=== PATIENT | male | born 1940 | race Native Hawaiian/Other Pacific Islander ===

== ENCOUNTER 2017-04-08 18:07 | Inpatient (IN) | payer MEDICARE, OTHER ==
[2017-04-08] MEDS ORDERED: Sodium Chloride 0.9% 1,000 ML IV SCH (18:45)
[2017-04-08 18:46] LABS: VENOUS BLOOD GAS PO2 96 mm/Hg (30-55); VENOUS BLOOD PH 7.41 (7.32-7.43)
[2017-04-08 18:51] LABS: BASO # 0.01 K/mm3 (0.0-2.0); BASO % 0.1 % (0.0-3.0); GRAN % 91.9 % (50.0-68.0); HEMOGLOBIN 16.3 g/dL (14.0-18.0); LYMPH # 0.5 (1.2-3.4); LYMPH % 3.6 % (22.0-35.0); MEAN CELL VOLUME 87.5 fl (80.0-105.0); MEAN CORPUSCULAR HEMOGLOBIN 31.3 pg (25.0-35.0); MEAN CORPUSCULAR HGB CONC 35.8 g/dl (31.0-37.0); MEAN PLATELET VOLUME 11.7 fl (7.0-11.0); MONO # 0.6 (0.1-0.6); MONO % 4.4 % (1.0-6.0); PLATELET COUNT 93 10^3/uL (120.0-450.0); WHITE BLOOD COUNT 13.1 10^3/ul (4.5-11.0)
--- NOTE | 2017-04-08 18:53 | ED PDOC ---
Arrival/HPI - General Historian: Family EM Caveat: Altered Mental Status <Hubert Robert - Last Filed: 04/08/17 22:21> <Wesley Irving DO - Last Filed: 04/08/17 22:41> - General Chief Complaint: Altered Mental Status Time Seen by Provider: 04/08/17 18:10 - History of Present Illness Narrative History of Present Illness (Text): 04/08/17 18:46 76M w/ relevant pmhx of liver cirrhosis, presents to [facility] ED w/ altered mental status and lethargy not responding appropriately to questions. Patient was found breathing spontaneously, however non-verbal, for an unknown period of time. Family members at bedside stated that base line is active, walking, independent ADLs. Family member spoke to patient on phone yesterday and found that patient was talking in a more quiet tone than normal. Further ROS unobtainable. No additional PMH known by family. PMD: Syd 04/08/17 20:34 04/08/17 21:16 (Hubert Robert) Past Medical History - Provider Review Nursing Documentation Reviewed: Yes - Travel History Have you recently traveled outside [place] w/in the past 3 mons?: No - Past History Past History: Unable to Obtain - Infectious Disease Hx of Infectious Diseases: None - Psychiatric Hx Substance Use: No <Hubert Robert - Last Filed: 04/08/17 22:21> Family/Social History - Physician Review Nursing Documentation Reviewed: Yes Family/Social History: No Known Family HX Smoking Status: Unknown If Ever Smoked Hx Alcohol Use: No Hx Substance Use: No <Hubert Robert - Last Filed: 04/08/17 22:21> Allergies/Home Meds <Hubert Robert - Last Filed: 04/08/17 22:21> <Wesley Irving DO - Last Filed: 04/08/17 22:41> Allergies/Adverse Reactions: Allergies Unobtainable Allergy (Verified 04/08/17 18:21) Home Medications: Home Meds Medication Instructions Recorded Confirmed Unobtainable 04/08/17 04/08/17 Review of Systems - Review of Systems Systems not reviewed;Unavailable: Altered Mental Status <Hubert Robert - Last Filed: 04/08/17 22:21> Physical Exam - Physical Exam Physical Exam Limitations: Altered Mental Status Temperature: Afebrile Blood Pressure: Hypertensive Pulse: Regular Respiratory Rate: Normal Appearance: Positive for: Ill-Appearing Mental Status: Positive for: Lethargic. No: Alert and Oriented X 3 - Systems Exam Head: Present: Atraumatic Pupils: Present: PERRL Extroacular Muscles: Present: EOMI Mouth: Present: Dry. No: Moist Mucous Membranes Pharnyx: Present: Other (Dry mucous membrane; chapped lips) Respiratory/Chest: Present: Decreased Breath Sounds Cardiovascular: Present: Regular Rate and Rhythm, Normal S1, S2. No: Murmurs, Tachycardic, Bradycardic Abdomen: Present: Normal Bowel Sounds. No: Tenderness, Distention Upper Extremity: Present: NORMAL PULSES Lower Extremity: Present: NORMAL PULSES, Other (hallux valgus) Neurological: No: GCS=15, Speech Normal Skin: Present: Dry Psychiatric: No: Oriented x 3 <Hubert Robert - Last Filed: 04/08/17 22:21> Vital Signs Temp Pulse Resp BP Pulse Ox 04/08/17 21:00 76 18 179/96 H 100 04/08/17 19:14 69 22 168/90 H 100 04/08/17 18:17 99.1 F 70 18 189/96 H 100 Medical Decision Making Re-evaluation Time: 20:00 (Patient was given 50mg of benadryl. At that time patient was more responsive, and moved upper extremities) <Hubert Robert - Last Filed: 04/08/17 22:21> <Wesley Irving DO - Last Filed: 04/08/17 22:41> ED Course and Treatment: 04/08/17 19:02 CBC CMP Amonia VBG shock CXR EKG Head CT 04/08/17 20:08 ICU consulted 04/08/17 20:10 50mg of Benadryl given. Patient began to move extremities and audible talking 04/08/17 22:24 Lumbar puncture was performed at bedside by ICU attending and resident. Procedure successfully performed under ultrasound. (Hubert Robert) - Lab Interpretations Lab Results: 04/08/17 18:15 04/08/17 18:15 Lab Results 04/08/17 20:29: POC Glucose (mg/dL) 159 H 04/08/17 19:30: Alcohol, Quantitative < 10 04/08/17 18:45: Urine Opiates Screen Negative, Urine Methadone Screen Negative, Ur Barbiturates Screen Negative, Ur Phencyclidine Scrn Negative, Ur Amphetamines Screen Negative, U Benzodiazepines Scrn Negative, U Oth Cocaine Metabols Negative, U Cannabinoids Screen Negative 04/08/17 18:45: Urine Color Dark yellow, Urine Appearance Sl cloudy, Urine pH 6.0, Ur Specific [place] 1.025, Urine Protein 30 H, Urine Glucose (UA) Negative , Urine Ketones Negative, Urine Blood Small H, Urine Nitrate Negative, Urine Bilirubin Small H, Urine Urobilinogen 0.2, Ur Leukocyte Esterase Negative, Urine RBC 1 - 3, Urine WBC 2 - 5, Ur Epithelial Cells 4 - 5, Amorphous Sediment Few, Urine Bacteria Mod 04/08/17 18:15: pO2 96 H, VBG pH 7.41, VBG pCO2 29.0 L, VBG HCO3 18.4 L, VBG Total CO2 19.3 L, VBG O2 Sat (Calc) 95.8 H, VBG Base Excess -5.0 L, VBG Potassium 4.5, Sodium 142.0, Chloride 111.0 H, Glucose 230 H, Lactate 1.9, FiO2 21.0, Venous Blood Potassium 4.5 04/08/17 18:15: Ammonia 11 04/08/17 18:15: Sodium 147, Chloride 110 H, Potassium 4.4, Carbon Dioxide 17 L, Anion Gap 24 H, BUN 73 H, Creatinine 3.3 H, Est GFR ( Amer) 22, Est GFR ( Non-Af Amer) 18, Random Glucose 226 H, Calcium 9.7, Magnesium 2.9 H, Total Bilirubin 4.5 H, AST 94 H, ALT 84 H, Alkaline Phosphatase 83, Lactate Dehydrogenase 624, Total Creatine Kinase 83, Troponin I 0.05, NT-Pro-B Natriuret Pep 3830 H, Total Protein 8.1, Albumin 4.4, Globulin 3.8, Albumin/ Globulin Ratio 1.1 04/08/17 18:15: PT 12.9 H, INR 1.13 H, APTT 38.7 H 04/08/17 18:15: WBC 13.1 H, RBC 5.20, Hgb 16.3, Hct 45.5, MCV 87.5, MCH 31.3, MCHC 35.8, RDW 13.0, Plt Count 93 L, MPV 11.7 H, Gran % 91.9 H, Lymph % (Auto) 3.6 L, [place] % (Auto) 4.4, Eos % (Auto) 0.0 L, Baso % (Auto) 0.1, Gran # 12.00 H , Lymph # (Auto) 0.5 L, [place] # (Auto) 0.6, Eos # (Auto) 0.0, Baso # (Auto) 0.01 , Neutrophils % (Manual) 84 H, Band Neutrophils % 6 H, Lymphocytes % (Manual) 5 L, Monocytes % (Manual) 5, Platelet Evaluation Low - RAD Interpretation Narrative RAD Interpretations (Text): Chest CT reviewed: No acute intracranial hemorrhage or acute infarct. (Hubert Robert) Radiology Orders: 04/08/17 18:28 HEAD W/O CONTRAST [CT] Stat CHEST ONE VIEW [RAD] Stat - Medication Orders Current Medication Orders: Sodium Chloride (Sodium Chloride 0.9%) 1,000 mls @ 100 mls/hr IV .Q10H JORGITO Last Admin: 04/08/17 19:20 Dose: 100 mls/hr eMAR Start Stop Document 04/08/17 19:20 SRE (Rec: 04/08/17 19:20 [id number]) Intravenous Solution Start Date 04/08/17 Start Time 19:20 Discontinued Medications Diphenhydramine HCl (Benadryl) 25 mg IVP STAT STA Stop: 04/08/17 21:05 Last Admin: 04/08/17 21:10 Dose: 25 mg IVP Administration Document 04/08/17 21:10 LA (Rec: 04/08/17 21:10 [id number]) Charges for Administration # of IVP Administrations 1 Diphenhydramine HCl (Benadryl) 25 mg IVP STAT STA Stop: 04/08/17 21:19 Last Admin: 04/08/17 22:11 Dose: Sodium Chloride (Sodium Chloride 0.9%) 1,000 mls @ 999 mls/hr IV .Q1H1M STA Stop: 04/08/17 21:07 Last Admin: 04/08/17 20:18 Dose: 999 mls/hr eMAR Start Stop Document 04/08/17 20:18 LA (Rec: 04/08/17 20:18 [id number]) Intravenous Solution Start Date 04/08/17 Start Time 20:18 Ceftriaxone Sodium (Rocephin 2 Gm Ivpb) 2 gm in 100 mls @ 100 mls/hr IVPB STAT STA PRN Reason: Protocol Stop: 04/08/17 22:17 Last Admin: 04/08/17 22:14 Dose: 100 mls/hr eMAR Start Stop Document 04/08/17 22:14 LA (Rec: 04/08/17 22:14 [id number]) Intravenous Solution Start Date 04/08/17 Start Time 22:14 Lidocaine HCl (Lidocaine 2% 20ml Vial) 5 ml IJ ONCE STA Stop: 04/08/17 21:13 Lorazepam (Ativan) 1 mg IVP ONCE ONE PRN Reason: Protocol Stop: 04/08/17 21:06 Last Admin: 04/08/17 21:22 Dose: 1 mg IVP Administration Document 04/08/17 21:22 LA (Rec: 04/08/17 21:22 LA [id number]) Charges for Administration # of IVP Administrations 1 Disposition/Present on Arrival - Present on Arrival Any Indicators Present on Arrival: No History of DVT/PE: No History of Uncontrolled Diabetes: No Urinary Catheter: No History of Decub. Ulcer: No History Surgical Site Infection Following: None - Disposition Have Diagnosis and Disposition been Completed?: Yes Disposition Time: 22:28 Patient Plan: Admission, ICU <Hubert Robert - Last Filed: 04/08/17 22:21> - Disposition Disposition Time: 20:30 <Wesley Irving DO - Last Filed: 04/08/17 22:41> - Disposition Diagnosis: Change in mental status, Dehydration, Acute renal failure Disposition: HOSPITALIZED Condition: GUARDED
[2017-04-08 18:57] LABS: URINE BILIRUBIN SMALL (NEGATIVE); URINE BLOOD SMALL (NEGATIVE); URINE GLUCOSE (UA) NEGATIVE (NEGATIVE); URINE LEUKOCYTE ESTERASE NEGATIVE Leu/uL (NEGATIVE); URINE PROTEIN 30 mg/dL (<30 mg/dL); URINE UROBILINOGEN 0.2 E.U./dL (<1 E.U./dL)
[2017-04-08 18:57] LABS: INR 1.13 (0.93-1.08); PARTIAL THROMBOPLASTIN TIME 38.7 Seconds (25.1-36.5); PROTHROMBIN TIME 12.9 SECONDS (9.4-12.5)
[2017-04-08 18:58] LABS: ALB/GLOB RATIO 1.1 (1.1-1.8); ALBUMIN 4.4 g/dL (3.0-4.8); CALCIUM 9.7 mg/dL (8.4-10.5)
[2017-04-08 18:58] LABS: URINE COLOR DARK YELLOW (YELLOW)
[2017-04-08 19:01] LABS: URINE AMORPHOUS SEDIMENT FEW; URINE APPEARANCE SL CLOUDY (CLEAR); URINE BACTERIA MOD (NEG)
[2017-04-08 19:07] LABS: TROPONIN I 0.05 ng/mL
[2017-04-08 19:46] LABS: BARBITURATES, UR NEGATIVE (NEGATIVE); BENZODIAZEPINES, UR NEGATIVE (NEGATIVE); OPIATES, UR NEGATIVE (NEGATIVE); PHENCYCLIDINE, UR NEGATIVE (NEGATIVE)
--- NOTE | 2017-04-08 19:53 | CT ---
EXAM: CT Head Without Intravenous Contrast EXAM DATE/TIME: 04/08/2017 6:28 PM CLINICAL HISTORY: The patient age is 76 years old and is male; Signs and symptoms; Other: Lethargic R/O ich Facility exam id and description: Ct heads head w/o contrast TECHNIQUE: Axial computed tomography images of the head/brain without intravenous contrast. All CT scans at this facility use one or more dose reduction techniques, viz.: automated exposure control; ma/kV adjustment per patient size (including targeted exams where dose is matched to indication; i.e. head); or iterative reconstruction technique. Coronal and sagittal reformatted images were created and reviewed. COMPARISON: No relevant prior studies available. FINDINGS: Brain: There is minimal periventricular hypodensity, likely representing small vessel ischemic disease in a patient this age. The acuity of the white matter disease is indeterminate. The white-trejo differentiation is preserved demonstrating no acute territorial type infarct. There is moderate prominence of the ventricles and sulci, compatible with atrophy. No acute intracranial hemorrhage is seen. Midline shift: There is no midline shift. Ventricles: See above. Bones/joints: The calvarium demonstrates no evidence for a depressed fracture. Soft tissues: There is minimal soft tissue swelling/hematoma or scarring of the right frontal scalp. Vasculature: There is atherosclerotic calcification of the intracranial internal carotid arteries and distal vertebral arteries. Sinuses: There is mild polypoid mucosal thickening of the left maxillary sinus. Minimal mucosal thickening is visualized of the inferior frontal sinuses. Mastoid air cells: No mastoid effusion. IMPRESSION: 1. There is minimal soft tissue swelling/hematoma or scarring of the right frontal scalp. Clinical correlation is recommended. 2. No acute intracranial hemorrhage or acute territorial type infarct. 3. There is minimal periventricular hypodensity, likely representing small vessel ischemic disease in a patient this age. 4. Moderate atrophy. 5. Paranasal sinus disease is noted above.
[2017-04-08] MEDS ORDERED: Sodium Chloride 0.9% 1,000 ML IV STA (20:07)
[2017-04-08 20:29] LABS: BAND 6 % (0-2); LYMPHOCYTE 5 % (22.0-35.0); MONOCYTE 5 % (1.0-6.0); NEUTROPHIL 84 % (50.0-70.0)
[2017-04-08 20:30] LABS: PLATELET ESTIMATE LOW (NORMAL)
[2017-04-08] MEDS ORDERED: DiphenhydrAMINE 50 mg/ml Inj ONE (20:51)
[2017-04-08] MEDS ORDERED: DiphenhydrAMINE 50 mg/ml Inj IVP STA ×2 (21:04→21:18)
[2017-04-08] MEDS ORDERED: Lidocaine 2% Inj (20ml) IJ STA (21:12)
[2017-04-08] MEDS ORDERED: cefTRIAXone 2 GM IN NS 2 GM/100 ML BAG IVPB STA (21:18)
--- NOTE | 2017-04-08 23:29 | CP.PCM.CON ---
Addendum entered and electronically signed by Jorge A Real DO 04/09/17 04:10: Meds confirmed with [facility]: Gabapentin 300mg PO BID Atenolol 50mg PO daily Lipitor 20mg PO daily Glipizide 5mg PO daily Sitagliptin 12.5mg PO daily Protonix 20mg PO daily Fenofibrate 48mg PO daily Original Note: <Jorge A Real - Last Filed: 04/09/17 03:46> History of Present Illness - History of Present Illness History of Present Illness: ICU Consult Note for Dr. Robles HPI: This is a 76 yo M with PMH of liver cirrhosis (former EtOH abuser), DM2, and HTN who presents with altered mental status/rigidity of posture. HPI initially limited to that gained by ED as pt's family not present at time of exam and patient not able to verbally respond to questioning. As per ED, patient was last seen by family on (04/06/17), and they last spoke with him yesterday (04/07/17, phone conversation). As per family's report to ED, patient was of normal functioning and appearance (AAOx3, independent in ADL's/ IADL's) during their visit, but during the phone call yesterday, patient was speaking unusually softly to family, although they report normal mentation. Did not hear from him today, so went to check on him, and found him breathing spontaneously, but otherwise unresponsive. In the ED, patient was found to be grossly rigid in his presentation, eyes tracking staff and intermittently blinking, but unable to follow most commands, non-verbal, and extremities held rigidly, bilaterally upgoing babinski's on testing. Given concern for possible meningitis, telephone consent was obtained from patient's brother, Edin Ley, to perform a lumbar tap to acquire CSF for testing. Prior to lumbar tap, patient was given 50mg IV benadryl, at which point he began to have increased movement in extremities and was able to have limited speech with bedside staff. Was able to recognize that he was in the hospital, and reported being able to hear and comprehend staff earlier, but was unable to respond. Still had significantly decreased ROM and rigidity, but improved as compared to presentation. Patient verbalized no new medications when questioned about this. Lumbar tap obtained (see procedure note for further details), and clear CSF was obtained in 4 tubes for testing. Patient was then admitted to the ICU for close observation. Of note, PMD reports patient obtains most of his meds through the [facility] , will contact and attempt to obtain a copy of records. PMH: as above PSH: unknown Fam Hx: unknown Soc Hx: unknown PMD: Dr. Velarde Review of Systems - Review of Systems Systems not reviewed;Unavailable: Other (non-verbal) Past Patient History - Infectious Disease Hx of Infectious Diseases: None - Past Social History Smoking Status: Unknown If Ever Smoked - PSYCHIATRIC Hx Substance Use: No Meds Allergies/Adverse Reactions: Allergies Allergy/AdvReac Type Severity Reaction Status Date / Time Unobtainable Allergy Verified 04/08/17 18:21 - Medications Medications: Current Medications Diphenhydramine HCl (Benadryl) 50 mg IVP Q4H PRN PRN Reason: Rigidity/Stiffness Sodium Chloride (Sodium Chloride 0.9%) 1,000 mls @ 100 mls/hr IV .Q10H JORGITO Last Admin: 04/08/17 19:20 Dose: 100 mls/hr Physical Exam - Constitutional Appears: Non-toxic, No Acute Distress, Other (initially stiff/rigidly held joints and limbs, not overly distressed but unable to follow commands and non- verbal; improved after Benadryl 50mg IVP, then mildly converstant and some ROM returned, no acute distress at that time) - Head Exam Head Exam: ATRAUMATIC, NORMAL INSPECTION, NORMOCEPHALIC - Eye Exam Eye Exam: Normal appearance, PERRL. absent: Conjunctival injection, EOMI (not able to follow commands for EOMI testing, but moving eyes to avoid direct light challenge for pupil assessment, moving away in all magallon), Scleral icterus Pupil Exam: NORMAL ACCOMODATION, PERRL. absent: Irregular, Unequal Additional comments: able to close eyelids to attempt to protect eyes from direct light challenge, resists opening of eyelids by staff during exam - ENT Exam ENT Exam: Mucous Membranes Dry Additional comments: dried blood and secretions noted in mouth - Neck Exam Neck exam: Negative for: Full Rom, Normal Inspection Additional comments: neck held rigidly, minimal rotation and flexion components present, no flexion of hips with passive flexion of head - Respiratory Exam Respiratory Exam: Clear to Auscultation Bilateral, NORMAL BREATHING PATTERN. absent: Rales, Rhonchi, Wheezes - Cardiovascular Exam Cardiovascular Exam: REGULAR RHYTHM, RRR, +S1, +S2. absent: Bradycardia, Tachycardia, Irregular Rhythm, +S4 - GI/Abdominal Exam GI & Abdominal Exam: Normal Bowel Sounds, Soft. absent: Distended, Firm, Rigid - Extremities Exam Extremities exam: Negative for: normal inspection Additional comments: extremities held rigidly, minimal witnessed active ROM pre-benadryl, improved but still restricted active ROM post-benadryl (R > L ROM), limited passive ROM improved after benadryl but still restricted equal muscle tone bilaterally no LE pitting edema - Neurological Exam Additional comments: Pre-bendaryl: rigidly held joints and extremities, bilaterally upgoing babinski's no spontaneous extremity movement noted minimal passive extremity and neck motion Pupilary response intact, spontaneous blinking, closing eyes to light challenge for pupil assessment Non-verbal Post-benadryl some improvement in rigidly held joints, but not full ROM present actively or passively able to speak briefly, answering yes/no questions and simple questions able to follow basic commands, attempting to move extremities commanded but difficulty - Psychiatric Exam Additional comments: unable to assess - Skin Skin Exam: Dry, Intact, Normal Color, Warm Results - Vital Signs Recent Vital Signs: Last Vital Signs Temp 97.0 F L 04/08/17 22:59 Pulse 76 04/08/17 21:00 Resp 18 04/08/17 21:00 BP 179/96 H 04/08/17 21:00 Pulse Ox 100 04/08/17 21:00 - Labs Result Diagrams: 04/08/17 18:15 04/08/17 18:15 Assessment & Plan - Assessment and Plan (Free Text) Assessment: This is a 76 yo M with PMH of liver cirrhosis (former EtOH abuser), DM2, and HTN who presents with altered mental status/rigidity of posture. He has been admitted for possible stroke vs extra-pyramidal symptoms, and is being admitted to the ICU for closer monitoring. Plan: Neuro: -upgoing babinski bilaterally, initially rigidly holding extremities and neck -presentation with fever concerning for meningitis, spinal tap obtained, fluid clear, sent for CSF culture, cell count, protein, and glucose -Neuro (Susana Byrd) consulted as per primary, appreciate all recs -CT head negative for acute process; given sx concerning for possible basilar infarct, will likely need MRI -some improvement after receiving IV benadryl, suggests extrapyramidal component , patient now also reporting on risperidone (not on med rec from 's Administration) -Continue IVP Benadryl 50mg q6 prn for rigidity -Acetaminophen for fever control -Seizure, aspiration, and fall precautions ordered -UA not indicative of infection, UTox negative Pulm: -CTAB, satting well on room air -no indication for O2 supplementation at this time Cardio: -RRR on exam, EKG unremarkable -Family and PMD report history of HTN, [facility] Lip[facility] -currently unable to take PO safely, pending swallow study, will start IV lopressor 5mg q6 in [address] of home atenolol; hold statin medications for now -BNP elevated at 3830, but clinically appears dry; s/p 2L bolus in ED of NS, will continue NS at 150cc/hr now and reassess on AM labs GI: -hx cirrhosis, avoid hepatotox meds where feasible -LFTs mildly elevated, unclear if acute insult of if baseline in setting of cirrhosis -Tbili elevated at 4.9. Dbili ordered -strict NPO pending swallow study -Protonix IVP daily for ppx Nephro -elevated Cr at 3.3 and BUN at 73, given clinically dry appearance, likely pre- renal ERICA -s/p 2L bolus NS in ED, continuing at 150cc/hr -Mag elevated at 2.9, but no cardiac arrhythmias noted, continue to monitor -Gapped metabolic acidosis with gap of 20, appears to be 2/2 decreased PO intake and uremia from prerenal ERICA -maintain euglycemia (BG 140-180); hx of DM on Metformin, Glipizide, and Sitagliptin as per PMD and [facility] med-[facility]; holding PO hypoglycemics at this time, continue fingersticks q6, no sliding scale at this time Heme -Hgb 16.3, but falsely elevated 2/2 hemoconcentration, given clinically dry- appearing -no signs of active bleed, hemodynamically stable, continue to monitor on daily labs -Heparin SC q8 for DVT ppx ID -no clear infectious source, lactate 1.9, WBCs only 13.1 -received ceftriaxone 2g IVPB x1 for possible meningitis coverage -Lumbar puncture performed, clear CSF drained, so less likely meningitis, but sent for workup to be sure -No additional antibiotics indicated at this time, will reconsider if cultures positive Dispo: ICU, pending CSF workup, pending Neuro recs FEN: strict NPO, NS 150cc/hr Access: Peripheral IV Consults: Neuro Ppx: Protonix for GI, Heparin for DVT Patient seen, reviewed, and examined with attending, Dr. Robles <Aditya Robles - Last Filed: 04/09/17 07:41> Meds - Medications Medications: Current Medications Diphenhydramine HCl (Benadryl) 50 mg IVP Q4H PRN PRN Reason: Rigidity/Stiffness Last Admin: 04/09/17 06:19 Dose: 50 mg Heparin Sodium (Porcine) (Heparin) 5,000 units SC Q8 JORGITO PRN Reason: Protocol Last Admin: 04/09/17 06:19 Dose: 5,000 units Sodium Chloride (Sodium Chloride 0.9%) 1,000 mls @ 150 mls/hr IV .Q6H40M JORGITO Last Admin: 04/09/17 01:00 Dose: 150 mls/hr Metoprolol Tartrate (Lopressor) 5 mg IVP Q6 PRN PRN Reason: Systolic Blood Pressure Last Admin: 04/09/17 04:32 Dose: 5 mg Morphine Sulfate (Morphine) 1 mg IVP Q4H PRN PRN Reason: Pain, moderate (4-7) Pantoprazole Sodium (Protonix Inj) 40 mg IVP DAILY [facility] Results - Vital Signs Recent Vital Signs: Last Vital Signs Temp 97.0 F L 04/08/17 22:59 Pulse 55 L 04/09/17 06:21 Resp 17 04/09/17 06:21 BP 148/77 04/09/17 06:06 Pulse Ox 100 04/09/17 06:21 - Labs Result Diagrams: 04/09/17 05:40 04/09/17 05:40 Labs: Laboratory Results - last 24 hr 04/08/17 04/09/17 04/09/17 22:40 00:59 05:31 WBC RBC Hgb Hct MCV MCH MCHC RDW Plt Count MPV Gran % Lymph % (Auto) [place] % (Auto) Eos % (Auto) Baso % (Auto) Gran # Lymph # (Auto) [place] # (Auto) Eos # (Auto) Baso # (Auto) Sodium Potassium Chloride Carbon Dioxide Anion Gap BUN Creatinine Est GFR ( Amer) Est GFR (Non-Af Amer) POC Glucose (mg/dL) 106 104 Random Glucose Calcium Phosphorus Magnesium Total Bilirubin Direct Bilirubin AST ALT Alkaline Phosphatase Total Protein Albumin Globulin Albumin/Globulin Ratio CSF Glucose 52 CSF Total Protein 62.0 H 04/09/17 04/09/17 05:40 05:40 WBC 9.7 D RBC 4.30 Hgb 13.3 L D Hct 38.1 L MCV 88.6 MCH 30.9 MCHC 34.9 RDW 13.2 Plt Count 81 L MPV 11.4 H Gran % 87.5 H Lymph % (Auto) 6.6 L [place] % (Auto) 5.8 Eos % (Auto) 0.0 L Baso % (Auto) 0.1 Gran # 8.51 H Lymph # (Auto) 0.6 L [place] # (Auto) 0.6 Eos # (Auto) 0.0 Baso # (Auto) 0.01 Sodium 150 H Potassium 3.9 Chloride 120 H Carbon Dioxide 19 L Anion Gap 15 BUN 54 H Creatinine 1.9 H Est GFR ( Amer) 42 Est GFR (Non-Af Amer) 35 POC Glucose (mg/dL) Random Glucose 114 H Calcium 8.5 Phosphorus 2.0 L Magnesium 2.6 H Total Bilirubin 2.6 H Direct Bilirubin 2.5 H AST 67 H D ALT 66 H Alkaline Phosphatase 61 Total Protein 6.4 Albumin 3.3 Globulin 3.1 Albumin/Globulin Ratio 1.1 CSF Glucose CSF Total Protein Attending/Attestation - Attestation I have personally seen and examined this patient.: Yes I have fully participated in the care of the patient.: Yes I have reviewed all pertinent clinical information: Yes Notes (Text): Assessment * Stiffness in the whole body to the extent on immobility and unable to speak, and unable to access water, with presentation of dehydration, with immediate improvement 30-40% with iv benadryl suggest dd of extrpyramidal symptoms due to meds vs mid brain stroke, second less likely. Patient did mention later he getting risperidol. As plantar's b/l going up LP was done, with scant amount of fluid, slow flow, OP 6cm, initially bloody then clear. 4 wbc, 120 rbc, prot 60. * ERICA likely due to poor intake, making urine * DM * [facility] still all could not be [facility]. Plan * IVF, monitor urine out put and labs * PRN benadryl for extrapyrimidal symptoms * MRI Brain * Neurology consult * Prn morphine for post lp back pain and headache * GI/DVT prophylaxis * See orders for detail.
[2017-04-08 23:33] LABS: FLUID TYPE SPINAL FLUID
[2017-04-09] MEDS ORDERED: Sodium Chloride 0.9% 1,000 ML IV SCH (00:27)
[2017-04-09 01:52] LABS: CSF APPEARANCE CLEAR/COLORLESS (CLEAR); CSF VOLUME 1 mL (0-1)
[2017-04-09 01:53] LABS: CSF WBC 4.4 /uL (0.0-5.0)
--- NOTE | 2017-04-09 02:59 | PCM.PROC ---
<Jorge A Real - Last Filed: 04/09/17 02:43> Procedures Attestation:: I certify that I have explained the specified Operation(s) or Procedure(s), risks, benefits and reasonable alternatives to the Patient and/or other person responsible. The opportunity was given to ask questions and all questions answered - Lumbar Puncture Consent Obtained: Verbal Consent (telephone consent obtained from pt's brother, Edin Ley) Time Out Performed: Yes Patient Position: Left Lateral Decubitius Skin Prep: 0.5% Chlorhexidine/Alcohol Local Anesthetic Used: Lidocaine 2% Amount of Anesthesia Used (mls): 9 Spinal Needle Gauge: 22G Interspace Used: L4-L5 Opening Pressure (cmH2O): 6 Fluid Initially Obtained: Clear Complications: None Additional comments: Spinal Tap achieved by Dr. Robles Ultrasound used to confirm access site between spinous processes <Aditya Robles - Last Filed: 04/09/17 07:44> Attending/Attestation - Attestation I have personally seen and examined this patient.: Yes I have fully participated in the care of the patient.: Yes I have reviewed all pertinent clinical information, including history, physical exam and plan: Yes Notes (Text): 04/09/17 07:41 Initial attempt by resident and ER physician, not successful, then located spinal space bet spine processes with usg, successful, initially blood then clear, opening pressure 6-8.
[2017-04-09] MEDS ORDERED: Metoprolol 1 mg/ml Inj IVP PRN (04:08)
[2017-04-09] MEDS ORDERED: Metoprolol 1 mg/ml Inj IVP SCH (06:00)
[2017-04-09 06:17] LABS: BASO # 0.01 K/mm3 (0.0-2.0); BASO % 0.1 % (0.0-3.0); GRAN # 8.51 (1.4-6.5); GRAN % 87.5 % (50.0-68.0); HEMOGLOBIN 13.3 g/dL (14.0-18.0); LYMPH # 0.6 (1.2-3.4); LYMPH % 6.6 % (22.0-35.0); MEAN CELL VOLUME 88.6 fl (80.0-105.0); MEAN CORPUSCULAR HEMOGLOBIN 30.9 pg (25.0-35.0); MEAN CORPUSCULAR HGB CONC 34.9 g/dl (31.0-37.0); MEAN PLATELET VOLUME 11.4 fl (7.0-11.0); MONO # 0.6 (0.1-0.6); MONO % 5.8 % (1.0-6.0); RBC 4.3 10^6/uL (3.5-6.1); RED CELL DISTRIBUTION WIDTH 13.2 % (11.5-14.5); WHITE BLOOD COUNT 9.7 10^3/ul (4.5-11.0)
[2017-04-09 06:19] LABS: ALB/GLOB RATIO 1.1 (1.1-1.8); ALBUMIN 3.3 g/dL (3.0-4.8); BILIRUBIN,DIRECT 2.5 mg/dL (0.0-0.4); CALCIUM 8.5 mg/dL (8.4-10.5)
[2017-04-09] MEDS: DiphenhydrAMINE 50 mg/ml Inj IVP PRN ×2 (06:19→20:47)
--- NOTE | 2017-04-09 06:49 | HP ---
HISTORY OF PRESENT ILLNESS: Patient is seen in the Emergency Room, was brought in by ambulance. According to the family, the patient was very slow to respond, tried to talk but very slow speech. Patient was very rigid and stiff, and patient was brought by ambulance to the Emergency Room. I evaluated him in the Emergency Room. The Emergency Room physician did a comprehensive analysis of the patient and called me to see the patient because the patient was in a catatonic state, but patient's evaluation in the Emergency Room, he was able to answer questions, but not able to have a lengthy conversation; however, the patient has past history of cirrhosis of the liver. Patient has a history of hypertension, diabetes mellitus and hyperuricemia. Patient also has a history of cholelithiasis from past history. Patient has no previous surgery. Patient has not abused any substance in the recent past that I know of. Patient has no history of having taken alcohol in the recent past. He is a very compliant, benign patient as far as I could report. However the patient seemed to be in a pseudo-clinical state with very stiff musculoskeletal manifestation. His hands are clenched and his neck is stiff and his entire arms and legs are stiff . PHYSICAL EXAMINATION VITAL SIGNS: His pulse is 69, blood pressure 168/90, respirations are 22, O2 sat 100% on 2 L of oxygen. HEENT: Head is normocephalic. No change from my previous view of the patient. NECK: JVP is not elevated. Patient's thyroid is not enlarged. LUNGS: Trachea central. Breath sounds are vesicular. No adventitious sounds. HEART: Normal sinus rhythm. S1 and S2 present. No murmurs. ABDOMEN: Soft. Liver and spleen not palpable. CENTRAL NERVOUS SYSTEM: He is conscious, opens his eyes, but the neurological findings are not obtainable because the patient is totally rigid, stiff and finds it difficult to have a conversation. He has minimal expressive speech. LABORATORY DATA: His blood work done in the Emergency Room, the urinalysis shows the patient has some proteins in the urine. His white cell count in the urine is 2 to 5. There is no evidence that he had infection. Patient's CBC shows a hemoglobin of 16.3, with a white count of 13,100, platelet count is 93,000, this is probably from his cirrhotic condition. Patient's differential shows 91% neutrophil in the count, which is a shift to the left consistent with sepsis. The patient's chemistry shows patient's chloride is 110, CO2 is 17. Patient's anion gap is 24, BUN is 73, creatinine 3.3. He has renal insufficiency at this time. Patient's blood sugar is 226 and repeat shows 159. Liver enzymes are elevated. AST is 94, ALT is 84. Patient's bilirubin is 4.5, and patient has an abnormal BNP of 3830. The patient does not have any recent cardiac history. He has had history of hyperuricemia for which he has been taking Colcrys in the past. Patient has also been on metformin 500 mg twice a day. He has been on Glucotrol 10 mg b.i.d. for control of blood sugar. He was also on Januvia, which was the medication that he used for diabetes, but has been discontinued recently because patient was getting all his medicines from the [facility]. Patient is an old . CURRENT CONDITION: The patient is in the Emergency Room, being evaluated by the ICU critical care physician. Patient is going to need a neurologist to evaluate the patient and psychiatrist also to see the patient. We will request these consultations, and we will treat the patient for what we see at this time, we will have to cover the patient with antibiotic IV fluids and we will cover his blood sugar and consider with consultation the appropriateness of giving medications like Cogentin to reverse the stiff state, but the current admission is catatonic state. Medical problems are uncontrolled diabetes, sepsis. Patient has possibly metabolic encephalopathy associated with some damage to the basal ganglia. His prognosis is guarded. Condition is critical at this time. We will treat the patient as a critical care patient. Shamir Velarde MD
[2017-04-09] MEDS ORDERED: Morphine 2 mg/ml ISec IVP PRN (07:26)
[2017-04-09] MEDS ORDERED: Dextrose 5%/0.45% NS 1,000 ML IV SCH (08:30)
[2017-04-09 08:40] VITALS: BMI 20.9
--- NOTE | 2017-04-09 08:43 | RAD ---
PROCEDURE: CHEST RADIOGRAPH, 1 VIEW HISTORY: r/o infiltrate COMPARISON: None available. FINDINGS: LUNGS: Clear. PLEURA: No pneumothorax or pleural fluid seen. CARDIOVASCULAR: Normal. OSSEOUS STRUCTURES: No significant abnormalities. VISUALIZED UPPER ABDOMEN: Normal. OTHER FINDINGS: None. IMPRESSION: No active disease.
--- NOTE | 2017-04-09 09:34 | PN ---
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. SUBJECTIVE: The patient is resting in bed, mostly sleeping and hemodynamically stable. He has been getting some response from the Benadryl and Cogentin that was given. He is less rigid and is able to respond to questions and answer appropriately. The patient continues to be fairly lethargic, though. No complaints of severe pain, but some discomfort in the back where he had the LP. No nausea or vomiting. No diarrhea. No chest pain or abdominal pain. PHYSICAL EXAMINATION: VITAL SIGNS: Physical note that he has a temperature of 99.1, pulse is 62, respirations are 16, and BP is 156/76. SKIN: Warm and dry. HEENT: Head atraumatic, normocephalic. Eyes reactive to light. Ear, nose and throat seemed to be within normal limits. NECK: Supple. No JVD. No thyroid enlargement. No lymph nodes. HEART: Has a regular rate and rhythm. Normal S1, S2. LUNGS: Reveal good breath sounds bilaterally. ABDOMEN: Soft. Decreased bowel sounds. GENITALIA AND RECTAL: Deferred. MUSCULOSKELETAL: No joint deformities. EXTREMITIES: Reveal no significant edema. NEUROLOGICALLY: He does respond to the spoken word, still fairly slow in his response. The patient does have some stiffness in his extremities and around his body, but it has improved significantly with the Benadryl and Cogentin. LABORATORY DATA: As far as his laboratories are concerned, his white count is 9.7, hemoglobin is 13.3, hematocrit 38.1 with platelets of 81,000. The patient's sodium is 150, potassium 3.9, chloride 120, CO2 of 19, BUN of 54, creatinine of 1.9 and glucose of 104. IMPRESSION: As far as my impression, this patient initially presented with altered mental status and generalized stiffness. He is noted that he has diabetes and an acute renal insufficiency. The patient has a history of EtOH, but not recently as well as history of cirrhosis of the liver. He also carries a diagnosis of psych disorder and with the stiffness, the patient may have extrapyramidal symptoms secondary to his psych meds. Note that the CT of the head was unremarkable for strokes or other pathology. PLAN: As far as our plan, we will continue to follow closely. The patient has had Neurology consult and we will continue with Benadryl p.r.n., heparin subcu and his Lopressor and Protonix. The patient is on IV fluids normal saline and we will change that to D5 and a half. Marcial Matta MD
--- NOTE | 2017-04-09 12:57 | MRI ---
PROCEDURE: MRI BRAIN WITHOUT CONTRAST HISTORY: stiffness COMPARISON: None. TECHNIQUE: Multiplanar, multisequence MR images of the brain were obtained without intravenous contrast enhancement. FINDINGS: HEMORRHAGE: None DWI: There is a 5 mm focus of restricted diffusion in the region of the external capsule and insula on the right. This is consistent with an acute lacunar infarct. Image 11 series 4. There is a small 4 mm focus of restricted diffusion in the left anterior frontal lobe. Image 21 series 4. There is also a questionable area of restricted diffusion in the posterior frontal lobe on the right which could represent an early ischemic change. BRAIN PARENCHYMA: No mass effect or edema. No atrophy or chronic microvascular ischemic changes. VENTRICLES: Unremarkable. No hydrocephalus. CRANIUM: Unremarkable. ORBITS: Grossly unremarkable. PARANASAL SINUSES/MASTOIDS: Clear VASCULAR SYSTEM: Skull base flow voids intact. OTHER FINDINGS: None. IMPRESSION: Small acute lacunar infarct in the right insular region. Small cortical infarct left anterior frontal lobe. Questionable area of restricted diffusion in the right posterior frontal lobe.
--- NOTE | 2017-04-09 14:24 | PN ---
DATE: LOCATION: The patient is in the intensive care unit, room 128, bed 5. SUBJECTIVE: The patient was admitted through the emergency room yesterday. He presented by ambulance in the EMS mode. The patient was in, he was stiff and was not very responsive. The patient was evaluated in the emergency room and admitted to the ICU. The patient had multiple medical problems. He has liver dysfunction, renal dysfunction. The patient has cerebral disorder, which causes stiffness and rigidity of his entire body. His hands are clenched and the patient is seen this morning, he seems to be more awake than yesterday, but he is still confused and trembling. He is in pain. PHYSICAL EXAMINATION: GENERAL: The patient's color is liu. VITAL SIGNS: Patient's pulse is 62, blood pressure is 156/76, respirations 16. HEENT: Head is normocephalic. No evidence of any injuries that are noted even though the CAT scan shows that there is some soft tissue highlighting the front of the head. NECK: The thyroid is not enlarged. HEART: Normal sinus rhythm, sinus tachycardia. LUNGS: Trachea central. Breath sounds are vesicular. No adventitious sounds are heard clinically. ABDOMEN: Soft. Liver and spleen not palpable. CENTRAL NERVOUS SYSTEM: He is conscious, but confused and semiconscious. His all 4 limbs are rigid. 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 LABORATORY DATA: The patient's lab work shows that his hemoglobin is 13.3, patient's neutrophils are 87.5. His chemistry, the patient's sodium is 150, which is quite high, patient's potassium is 3.9, his chloride is 120, patient's magnesium is 2.6. Liver enzymes are abnormal too. His bilirubin is lower today, it is 2.6. Patient is getting IV fluids. MEDICATIONS: His other medications consist of Benadryl p.r.n., the patient is on heparin for prophylaxis, metoprolol 5 mg IV q.6 hours for blood pressure control. Patient is on morphine sulfate for pain, pantoprazole 40 mg IV q.24 hours. The patient's diet is heart healthy diet. The patient will be in the ICU and we will follow up. He has consultation with neurologist to evaluate the patient. The patient will also have evaluation by Infectious Disease. We will follow up. Shamir Velarde MD
[2017-04-09 16:18] LABS: HDL CHOLESTEROL 22 mg/dL (29-60)
[2017-04-09 16:29] LABS: LDL CHOLESTEROL 35 mg/dL (0-129)
[2017-04-09] MEDS: DEXTROSE IV SCH (16:45)
[2017-04-09] MEDS: [UNRECOGNIZED DRUG - OTHER] IV SCH (16:45)
[2017-04-09] MEDS: POTASSIUM PHOSPHATE IV SCH (16:45)
[2017-04-09] MEDS ORDERED: Labetalol 5 mg/ml Inj 20ML IV PRN (19:08)
--- NOTE | 2017-04-09 19:39 | PN ---
DATE: 04/09/2017 SUBJECTIVE: Mr. Ley has been diagnosed with a small lacunar infarct in the frontal lobe area. It is necessary to do a NIHSS evaluation. This evaluation revealed a level of consciousness orientation question 0, level of conscious commands was 0, test horizontal extraocular movements 0, test visual magallon 0, test left arm motor drift 0, test right arm motor drift 0, test left leg motor drift 0, test right leg motor drift 0, test sensation 0, test language aphasia. He has mild aphasia that is 1+. Test inattention, neglect, extinction that is 0. Total point is 1 for the NIHSS evaluation. Marcial Matta MD
--- NOTE | 2017-04-10 00:53 | CON ---
DATE: 04/09/2017 REASON FOR CONSULTATION: Acute kidney injury, altered mental status. HISTORY OF PRESENT ILLNESS: A 76-year-old male previously unknown to me, has been seen in the ICU. Patient was brought to the emergency room with altered mental status, lethargy, unresponsiveness. Patient was found to be breathing spontaneously in the ER. Not really responding to commands. This is a big change from his baseline. At baseline, patient is active and independent of all daily activities. In the emergency room, he was found to be hypertensive. His blood pressure was 189/96. He had a temperature of 99.1. His initial blood work showed creatinine of 3.3, BUN of 73. He was also found to be acidotic with an anion gap of 20. His WBC count was 13 with a left shift with 92% polys. Patient was admitted to the ICU for sepsis, rule out meningitis. He is currently seen in the ICU. He is awake, but not really following commands. He is attempting to talk, but I am unable to understand what he is saying. Overnight, he has been receiving D5 half-normal saline at 100 mL per hour. He received 2 g of ceftriaxone one dose yesterday. PAST MEDICAL AND SURGICAL HISTORY: Cirrhosis of the liver, NIDDM, hypertension. FAMILY HISTORY: Noncontributory. SOCIAL HISTORY: Alcohol abuse in the past, no smoking, no drug abuse. ALLERGIES: NO KNOWN DRUG ALLERGIES. MEDICATIONS: Gabapentin 300 b.i.d., atenolol 50, Lipitor 20, glipizide 5, sitagliptin 12.5 daily, Protonix 20, fenofibrate. REVIEW OF SYSTEMS: Unavailable as patient is unable to cooperate. PHYSICAL EXAMINATION: GENERAL: Elderly male, lying in bed in the ICU, in no acute distress at present. VITAL SIGNS: Blood pressure 156/76, heart rate 63, respiratory rate 18, temperature 99.1. HEENT: Normocephalic, atraumatic, positive pallor. NECK: Supple, no JVD. LUNGS: Bilateral equal air entry, bilateral equal expansion, no rales. CARDIAC: S1 and S2. Regular rate and rhythm, no murmur, no rub. ABDOMEN: Obese, distended, soft, nontender, bowel sounds present. EXTREMITIES: No lower extremity edema. INTAKE AND OUTPUT: 900/1125 LABORATORY DATA: WBC 9.7, hemoglobin 13.3, hematocrit 38, platelets 81. Sodium 150, potassium 3.9, chloride 120, CO2 19, BUN 54, creatinine 1.9, glucose 114, calcium 8.5, phosphorus 2.0, magnesium 2.6, total bili 2.6, direct bili 2.5, ammonia level 11, albumin 3.3. Urine, dark yellow, slightly cloudy, pH 6.0, specific gravity 1.025 , protein 30, blood small, bilirubin small, nitrite negative, leukocyte esterase negative. Spinal fluid, wbc's 4.4, rbc's 119, glucose 52, total protein 62. Urine toxicology negative. Cultures pending. MRI of the brain, small acute lacunar infarct in the right insula region, small cortical infarct. CURRENT MEDICATIONS: Benadryl 50 mg IV push q. 4 p.r.n., D5 half-normal saline at 100, insulin, Lopressor 5 mg IV push p.r.n., morphine, Protonix. ASSESSMENT: 1. Altered mental status, generalized stiffness and rigidity. 2. Cirrhosis of the liver. 3. History of hypertension. 4. History of non-insulin dependent diabetes mellitus. 5. Acute kidney injury, largely prerenal azotemia, greatly improved with hydration. Creatinine down from 3.3 to 1.9. 6. Hypernatremia, worsened likely because of normal saline infusion. 7. Anion gap metabolic acidosis, much improved. Anion gap down from 20 to 11. 8. Severe hypophosphatemia. PLAN: 1. Agree with switching IV fluids to hypotonic fluids. 2. Continue D5 half-normal saline at 100 mL/hour. 3. Replace phosphorus. 4. Monitor urine output closely. 5. Monitor electrolytes daily. 6. Follow up cultures. 7. ? empiric antibiotics. 8. Monitor LFTs. 9. Obtain outpatient labs and records. 10. Case discussed with ICU nurse at length. 11. Case discussed with Dr. Matta. More than 35 minutes spent in the care of this critically ill patient. Lelia Gaxiola MD
[2017-04-10] MEDS: DEXTROSE IV SCH (02:00)
[2017-04-10] MEDS: [UNRECOGNIZED DRUG - OTHER] IV SCH (02:00)
[2017-04-10] MEDS: POTASSIUM PHOSPHATE IV SCH (02:00)
[2017-04-10 06:07] LABS: BASO # 0.01 K/mm3 (0.0-2.0); BASO % 0.1 % (0.0-3.0); EOS % 0.5 % (1.5-5.0); GRAN # 6.39 (1.4-6.5); GRAN % 81.7 % (50.0-68.0); HEMOGLOBIN 12.3 g/dL (14.0-18.0); LYMPH # 0.7 (1.2-3.4); LYMPH % 8.7 % (22.0-35.0); MEAN CELL VOLUME 88.9 fl (80.0-105.0); MEAN CORPUSCULAR HEMOGLOBIN 30.4 pg (25.0-35.0); MEAN CORPUSCULAR HGB CONC 34.2 g/dl (31.0-37.0); MEAN PLATELET VOLUME 11.9 fl (7.0-11.0); MONO # 0.7 (0.1-0.6); RBC 4.05 10^6/uL (3.5-6.1); RED CELL DISTRIBUTION WIDTH 13.2 % (11.5-14.5); WHITE BLOOD COUNT 7.8 10^3/ul (4.5-11.0)
[2017-04-10 07:01] LABS: ALB/GLOB RATIO 1.1 (1.1-1.8); ALBUMIN 3.2 g/dL (3.0-4.8); ALT/SGPT 53 U/L (7-56); AST/SGOT 60 U/L (17-59); BLOOD UREA NITROGEN 32 mg/dL (7-21); CALCIUM 8.8 mg/dL (8.4-10.5); GFR AFRICAN-AMERICAN > 60; GFR NON-AFRICAN AMERICAN 59
--- NOTE | 2017-04-10 08:46 | CARD ---
APPROVED REPORT EKG Measurement Heart [id number] <Conclusion> Normal sinus rhythm Borderline Prolonged QT Abnormal ECG
[2017-04-10] MEDS ORDERED: Sodium Chloride 0.9% 1,000 ML IV SCH (09:30)
--- NOTE | 2017-04-10 09:41 | CP.CCUPN ---
<Lyn Weaver - Last Filed: 04/10/17 09:59> CCU Subjective - Physician Review Subjective (Free Text): 04/10/17 09:37 Patient with no acute events overnight. Patient is lethargic, however, able to be awaken, verbal, was able to states he is in the hospital. Patient is also able to grossly move all the extremities. Denies cp or sob. Critical Care Time Spent (in minutes): 45 CCU Objective - Vital Signs / Intake & Output Vital Signs (Last 4 hours): Vital Signs Temp Pulse Resp BP Pulse Ox 04/10/17 08:59 161/73 H 04/10/17 08:58 60 12 98 04/10/17 08:50 57 L 16 98 04/10/17 08:40 60 13 97 04/10/17 08:30 63 12 04/10/17 08:29 68 12 189/85 H 04/10/17 08:28 68 13 04/10/17 08:00 98.3 F 59 L 13 99 04/10/17 07:50 56 L 14 99 04/10/17 07:41 64 17 165/74 H 99 04/10/17 07:40 66 15 100 04/10/17 07:30 56 L 13 98 04/10/17 07:20 57 L 14 98 04/10/17 07:10 61 14 168/79 H 99 04/10/17 07:00 62 14 98 04/10/17 06:50 59 L 12 98 04/10/17 06:40 56 L 14 158/71 H 99 04/10/17 06:30 57 L 14 99 04/10/17 06:20 57 L 13 100 04/10/17 06:10 60 12 166/75 H 97 04/10/17 06:00 55 L 13 98 04/10/17 05:50 56 L 13 98 04/10/17 05:40 57 L 14 150/69 98 Intake and Output (Last 8hrs): Intake & Output 04/09/17 04/10/17 04/10/17 22:59 06:59 14:59 Intake Total 1260 1100 Output Total 1100 700 Balance 160 400 Weight 224 lb 2 oz Intake: IV 1200 1100 Right Hand 1200 1100 Oral 60 Output: Urine 1100 700 2-way Urethral 1100 700 Other: # Bowel Movements 0 - Physical Exam Head: Positive for: Atraumatic Pupils: Positive for: PERRL Extroacular Muscles: Positive for: EOMI Mouth: Positive for: Dry. Negative for: Moist Mucous Membranes Pharnyx: Positive for: Other (Dry mucous membrane; chapped lips) Respiratory/Chest: Positive for: Decreased Breath Sounds Cardiovascular: Positive for: Regular Rate and Rhythm, Normal S1, S2. Negative for: Murmurs, Tachycardic, Bradycardic Abdomen: Positive for: Normal Bowel Sounds. Negative for: Tenderness, Distention, Rebound Upper Extremity: Positive for: NORMAL PULSES Lower Extremity: Positive for: NORMAL PULSES, Other (hallux valgus) Neurological: Positive for: GCS=15, CN II-XII Intact, Speech Normal Skin: Positive for: Warm, Dry, Rashes, Normal Color Psychiatric: Positive for: Lethargic. Negative for: Oriented x 3 (a&ox2) - Medications Active Medications: Active Medications Generic Name Dose Route Start Last Admin Trade Name Freq PRN Reason Stop Dose Admin Aspirin 300 mg 04/09/17 18:46 04/10/17 09:29 Aspirin Supp RC 300 mg DAILY [facility] Administration Atenolol 50 mg 04/10/17 10:00 Tenormin PO DAILY [facility] Atorvastatin Calcium 40 mg 04/10/17 10:00 Lipitor PO DAILY [facility] Diphenhydramine HCl 50 mg 04/08/17 22:40 04/09/17 20:47 Benadryl IVP 50 mg Q4H PRN Administration Rigidity/Stiffness Folic Acid 1 mg 04/10/17 10:00 Folic Acid PO DAILY [facility] Heparin Sodium (Porcine) 5,000 units 04/09/17 06:00 04/10/17 06:29 Heparin SC 5,000 units Q8 [facility] Administration Protocol Potassium Phosphate 15 mmole/ 1,005 mls @ 100 mls/hr 04/09/17 15:16 04/10/17 02:00 Dextrose/Sodium Chloride IV 100 mls/hr .[id number] [facility] Administration Sodium Chloride 1,000 mls @ 80 mls/hr 04/10/17 09:30 Sodium Chloride 0.9% IV .[id number] [facility] Insulin Human Regular 0 units 04/10/17 11:30 Humulin R Low SC ACHS [facility] Protocol Pantoprazole Sodium 40 mg 04/09/17 10:00 04/10/17 09:30 Protonix Inj IVP 40 mg DAILY [facility] Administration Tamsulosin HCl 0.4 mg 04/10/17 10:00 Flomax PO DAILY [facility] - Patient Studies Lab Studies: Lab Studies 04/10/17 04/10/17 04/10/17 Range/Units 05:37 05:25 05:25 WBC 7.8 (4.5-11.0) 10^3/ul RBC 4.05 (3.5-6.1) 10^6/uL Hgb 12.3 L (14.0-18.0) g/dL Hct 36.0 L (42.0-52.0) % MCV 88.9 (80.0-105.0) fl MCH 30.4 (25.0-35.0) pg MCHC 34.2 (31.0-37.0) g/dl RDW 13.2 (11.5-14.5) % Plt Count 62 L (120.0-450.0) 10^3/uL MPV 11.9 H (7.0-11.0) fl Gran % 81.7 H (50.0-68.0) % Lymph % (Auto) 8.7 L (22.0-35.0) % [place] % (Auto) 9.0 H (1.0-6.0) % Eos % (Auto) 0.5 L (1.5-5.0) % Baso % (Auto) 0.1 (0.0-3.0) % Gran # 6.39 (1.4-6.5) Lymph # (Auto) 0.7 L (1.2-3.4) [place] # (Auto) 0.7 H (0.1-0.6) Eos # (Auto) 0.0 (0.0-0.7) Baso # (Auto) 0.01 (0.0-2.0) K/mm3 Sodium 148 (132-148) mmol/L Potassium 3.9 (3.6-5.0) mmol/L Chloride 116 H (98-107) mmol/L Carbon Dioxide 22 (21-33) mmol/L Anion Gap 13 (10-20) BUN 32 H (7-21) mg/dL Creatinine 1.2 (0.8-1.5) mg/dl Est GFR ( Amer) > 60 Est GFR (Non-Af Amer) 59 POC Glucose (mg/dL) 132 H (65-110) mg/dL Random Glucose 157 H (70-110) mg/dL Calcium 8.8 (8.4-10.5) mg/dL Phosphorus 2.9 (2.5-4.5) mg/dL Magnesium 2.3 H (1.7-2.2) mg/dL Total Bilirubin 1.9 H (0.2-1.3) mg/dL AST 60 H (17-59) U/L ALT 53 (7-56) U/L Alkaline Phosphatase 64 (38-126) U/L Total Protein 6.2 (5.8-8.3) g/dL Albumin 3.2 (3.0-4.8) g/dL Globulin 3.0 gm/dL Albumin/Globulin Ratio 1.1 (1.1-1.8) Triglycerides (35-160) mg/dL Cholesterol (130-200) mg/dL LDL Cholesterol Direct (0-129) mg/dL HDL Cholesterol (29-60) mg/dL 04/10/17 04/09/17 04/09/17 Range/Units 01:12 17:49 11:17 WBC (4.5-11.0) 10^3/ul RBC (3.5-6.1) 10^6/uL Hgb (14.0-18.0) g/dL Hct (42.0-52.0) % MCV (80.0-105.0) fl MCH (25.0-35.0) pg MCHC (31.0-37.0) g/dl RDW (11.5-14.5) % Plt Count (120.0-450.0) 10^3/uL MPV (7.0-11.0) fl Gran % (50.0-68.0) % Lymph % (Auto) (22.0-35.0) % [place] % (Auto) (1.0-6.0) % Eos % (Auto) (1.5-5.0) % Baso % (Auto) (0.0-3.0) % Gran # (1.4-6.5) Lymph # (Auto) (1.2-3.4) [place] # (Auto) (0.1-0.6) Eos # (Auto) (0.0-0.7) Baso # (Auto) (0.0-2.0) K/mm3 Sodium (132-148) mmol/L Potassium (3.6-5.0) mmol/L Chloride (98-107) mmol/L Carbon Dioxide (21-33) mmol/L Anion Gap (10-20) BUN (7-21) mg/dL Creatinine (0.8-1.5) mg/dl Est GFR ( Amer) Est GFR (Non-Af Amer) POC Glucose (mg/dL) 124 H 140 H 137 H (65-110) mg/dL Random Glucose (70-110) mg/dL Calcium (8.4-10.5) mg/dL Phosphorus (2.5-4.5) mg/dL Magnesium (1.7-2.2) mg/dL Total Bilirubin (0.2-1.3) mg/dL AST (17-59) U/L ALT (7-56) U/L Alkaline Phosphatase (38-126) U/L Total Protein (5.8-8.3) g/dL Albumin (3.0-4.8) g/dL Globulin gm/dL Albumin/Globulin Ratio (1.1-1.8) Triglycerides (35-160) mg/dL Cholesterol (130-200) mg/dL LDL Cholesterol Direct (0-129) mg/dL HDL Cholesterol (29-60) mg/dL 04/09/17 Range/Units 06:30 WBC (4.5-11.0) 10^3/ul RBC (3.5-6.1) 10^6/uL Hgb (14.0-18.0) g/dL Hct (42.0-52.0) % MCV (80.0-105.0) fl MCH (25.0-35.0) pg MCHC (31.0-37.0) g/dl RDW (11.5-14.5) % Plt Count (120.0-450.0) 10^3/uL MPV (7.0-11.0) fl Gran % (50.0-68.0) % Lymph % (Auto) (22.0-35.0) % [place] % (Auto) (1.0-6.0) % Eos % (Auto) (1.5-5.0) % Baso % (Auto) (0.0-3.0) % Gran # (1.4-6.5) Lymph # (Auto) (1.2-3.4) [place] # (Auto) (0.1-0.6) Eos # (Auto) (0.0-0.7) Baso # (Auto) (0.0-2.0) K/mm3 Sodium (132-148) mmol/L Potassium (3.6-5.0) mmol/L Chloride (98-107) mmol/L Carbon Dioxide (21-33) mmol/L Anion Gap (10-20) BUN (7-21) mg/dL Creatinine (0.8-1.5) mg/dl Est GFR ( Amer) Est GFR (Non-Af Amer) POC Glucose (mg/dL) (65-110) mg/dL Random Glucose (70-110) mg/dL Calcium (8.4-10.5) mg/dL Phosphorus (2.5-4.5) mg/dL Magnesium (1.7-2.2) mg/dL Total Bilirubin (0.2-1.3) mg/dL AST (17-59) U/L ALT (7-56) U/L Alkaline Phosphatase (38-126) U/L Total Protein (5.8-8.3) g/dL Albumin (3.0-4.8) g/dL Globulin gm/dL Albumin/Globulin Ratio (1.1-1.8) Triglycerides 290 H (35-160) mg/dL Cholesterol 103 L (130-200) mg/dL LDL Cholesterol Direct 35 (0-129) mg/dL HDL Cholesterol 22 L (29-60) mg/dL Laboratory Results - last 24 hr 04/09/17 04/09/17 04/09/17 06:30 11:17 17:49 WBC RBC Hgb Hct MCV MCH MCHC RDW Plt Count MPV Gran % Lymph % (Auto) [place] % (Auto) Eos % (Auto) Baso % (Auto) Gran # Lymph # (Auto) [place] # (Auto) Eos # (Auto) Baso # (Auto) Sodium Potassium Chloride Carbon Dioxide Anion Gap BUN Creatinine Est GFR ( Amer) Est GFR (Non-Af Amer) POC Glucose (mg/dL) 137 H 140 H Random Glucose Calcium Phosphorus Magnesium Total Bilirubin AST ALT Alkaline Phosphatase Total Protein Albumin Globulin Albumin/Globulin Ratio Triglycerides 290 H Cholesterol 103 L LDL Cholesterol Direct 35 HDL Cholesterol 22 L 04/10/17 04/10/17 04/10/17 01:12 05:25 05:25 WBC 7.8 RBC 4.05 Hgb 12.3 L Hct 36.0 L MCV 88.9 MCH 30.4 MCHC 34.2 RDW 13.2 Plt Count 62 L MPV 11.9 H Gran % 81.7 H Lymph % (Auto) 8.7 L [place] % (Auto) 9.0 H Eos % (Auto) 0.5 L Baso % (Auto) 0.1 Gran # 6.39 Lymph # (Auto) 0.7 L [place] # (Auto) 0.7 H Eos # (Auto) 0.0 Baso # (Auto) 0.01 Sodium 148 Potassium 3.9 Chloride 116 H Carbon Dioxide 22 Anion Gap 13 BUN 32 H Creatinine 1.2 Est GFR ( Amer) > 60 Est GFR (Non-Af Amer) 59 POC Glucose (mg/dL) 124 H Random Glucose 157 H Calcium 8.8 Phosphorus 2.9 Magnesium 2.3 H Total Bilirubin 1.9 H AST 60 H ALT 53 Alkaline Phosphatase 64 Total Protein 6.2 Albumin 3.2 Globulin 3.0 Albumin/Globulin Ratio 1.1 Triglycerides Cholesterol LDL Cholesterol Direct HDL Cholesterol 04/10/17 05:37 WBC RBC Hgb Hct MCV MCH MCHC RDW Plt Count MPV Gran % Lymph % (Auto) [place] % (Auto) Eos % (Auto) Baso % (Auto) Gran # Lymph # (Auto) [place] # (Auto) Eos # (Auto) Baso # (Auto) Sodium Potassium Chloride Carbon Dioxide Anion Gap BUN Creatinine Est GFR ( Amer) Est GFR (Non-Af Amer) POC Glucose (mg/dL) 132 H Random Glucose Calcium Phosphorus Magnesium Total Bilirubin AST ALT Alkaline Phosphatase Total Protein Albumin Globulin Albumin/Globulin Ratio Triglycerides Cholesterol LDL Cholesterol Direct HDL Cholesterol Fingerstick Blood Sugar Results: 132 Critical Care Progress Note - Prophylaxis GI Prophylaxis GI: PPI - Prophylaxis DVT Prophylaxis DVT: Heparin SQ Assessment/Plan - Assessment and Plan (Free Text) Assessment: Patient is a 76 y/o with PMH of liver cirrhosis (former EtOH abuser), DM2, and HTN who presents with altered mental status/rigidity of posture admitted to ICU for monitoring. Plan: Neuro: AMS with rigidity with unclear etiology- s/p LP with no significant finding, MRI with acute small lacunar and cortical infarct. - NIHSS of 1, didn't tpa. - Pending CTA of head and neck - Keep bp between 130-140 - speech and swallow eval - PT/OT - Neuro following - echo pending - Continue with asa. Pulm: stable, supplemental oxygen prn to maintain O2 sat above 90%. Cardiac: h/o htn- continue po meds once patient passes his swallow eval. ID: Low sepsis probability, will monitor. GI: h/o cirrhosis due to alcohol, stable, no signs of ascites, will monitor. Pending swallow eval. PPi for gi prophylaxis. Renal: ERICA- renal function continue to improve, continue IV hydration. Continue with flomax for bph. Endo: h/o DM- continue insulin sliding scale, and fingersticks. DVT prophylaxis: heparin sc Patient seen, examined and case discussed with the cup machine operator. - Date & Time Date: 04/10/17 Time: 10:05 <Grant Ortiz - Last Filed: 04/10/17 10:33> CCU Objective - Vital Signs / Intake & Output Vital Signs (Last 4 hours): Vital Signs Temp Pulse Resp BP Pulse Ox 04/10/17 08:59 161/73 H 04/10/17 08:58 60 12 98 04/10/17 08:50 57 L 16 98 04/10/17 08:40 60 13 97 04/10/17 08:30 63 12 04/10/17 08:29 68 12 189/85 H 04/10/17 08:28 68 13 04/10/17 08:00 98.3 F 59 L 13 99 04/10/17 07:50 56 L 14 99 04/10/17 07:41 64 17 165/74 H 99 04/10/17 07:40 66 15 100 04/10/17 07:30 56 L 13 98 04/10/17 07:20 57 L 14 98 04/10/17 07:10 61 14 168/79 H 99 04/10/17 07:00 62 14 98 04/10/17 06:50 59 L 12 98 04/10/17 06:40 56 L 14 158/71 H 99 Intake and Output (Last 8hrs): Intake & Output 04/09/17 04/10/17 04/10/17 22:59 06:59 14:59 Intake Total 1260 1100 Output Total 1100 700 Balance 160 400 Weight 224 lb 2 oz Intake: IV 1200 1100 Right Hand 1200 1100 Oral 60 Output: Urine 1100 700 2-way Urethral 1100 700 Other: # Bowel Movements 0 - Medications Active Medications: Active Medications Generic Name Dose Route Start Last Admin Trade Name Freq PRN Reason Stop Dose Admin Aspirin 300 mg 04/09/17 18:46 04/10/17 09:29 Aspirin Supp RC 300 mg DAILY [facility] Administration Atenolol 50 mg 04/10/17 10:00 Tenormin PO DAILY [facility] Atorvastatin Calcium 40 mg 04/10/17 10:00 Lipitor PO DAILY [facility] Diphenhydramine HCl 50 mg 04/08/17 22:40 04/09/17 20:47 Benadryl IVP 50 mg Q4H PRN Administration Rigidity/Stiffness Folic Acid 1 mg 04/10/17 10:00 Folic Acid PO DAILY [facility] Heparin Sodium (Porcine) 5,000 units 04/09/17 06:00 04/10/17 06:29 Heparin SC 5,000 units Q8 [facility] Administration Protocol Potassium Phosphate 15 mmole/ 1,005 mls @ 100 mls/hr 04/09/17 15:16 04/10/17 02:00 Dextrose/Sodium Chloride IV 100 mls/hr .[id number] [facility] Administration Sodium Chloride 1,000 mls @ 80 mls/hr 04/10/17 09:30 04/10/17 10:05 Sodium Chloride 0.9% IV 80 mls/hr .[id number] [facility] Administration Insulin Human Regular 0 units 04/10/17 12:00 Humulin R Low SC Q6 [facility] Protocol Pantoprazole Sodium 40 mg 04/09/17 10:00 04/10/17 09:30 Protonix Inj IVP 40 mg DAILY [facility] Administration Tamsulosin HCl 0.4 mg 04/10/17 10:00 Flomax PO DAILY [facility] - Patient Studies Lab Studies: Lab Studies 04/10/17 04/10/17 04/10/17 Range/Units 05:37 05:25 05:25 WBC 7.8 (4.5-11.0) 10^3/ul RBC 4.05 (3.5-6.1) 10^6/uL Hgb 12.3 L (14.0-18.0) g/dL Hct 36.0 L (42.0-52.0) % MCV 88.9 (80.0-105.0) fl MCH 30.4 (25.0-35.0) pg MCHC 34.2 (31.0-37.0) g/dl RDW 13.2 (11.5-14.5) % Plt Count 62 L (120.0-450.0) 10^3/uL MPV 11.9 H (7.0-11.0) fl Gran % 81.7 H (50.0-68.0) % Lymph % (Auto) 8.7 L (22.0-35.0) % [place] % (Auto) 9.0 H (1.0-6.0) % Eos % (Auto) 0.5 L (1.5-5.0) % Baso % (Auto) 0.1 (0.0-3.0) % Gran # 6.39 (1.4-6.5) Lymph # (Auto) 0.7 L (1.2-3.4) [place] # (Auto) 0.7 H (0.1-0.6) Eos # (Auto) 0.0 (0.0-0.7) Baso # (Auto) 0.01 (0.0-2.0) K/mm3 Sodium 148 (132-148) mmol/L Potassium 3.9 (3.6-5.0) mmol/L Chloride 116 H (98-107) mmol/L Carbon Dioxide 22 (21-33) mmol/L Anion Gap 13 (10-20) BUN 32 H (7-21) mg/dL Creatinine 1.2 (0.8-1.5) mg/dl Est GFR ( Amer) > 60 Est GFR (Non-Af Amer) 59 POC Glucose (mg/dL) 132 H (65-110) mg/dL Random Glucose 157 H (70-110) mg/dL Calcium 8.8 (8.4-10.5) mg/dL Phosphorus 2.9 (2.5-4.5) mg/dL Magnesium 2.3 H (1.7-2.2) mg/dL Total Bilirubin 1.9 H (0.2-1.3) mg/dL AST 60 H (17-59) U/L ALT 53 (7-56) U/L Alkaline Phosphatase 64 (38-126) U/L Total Protein 6.2 (5.8-8.3) g/dL Albumin 3.2 (3.0-4.8) g/dL Globulin 3.0 gm/dL Albumin/Globulin Ratio 1.1 (1.1-1.8) Triglycerides (35-160) mg/dL Cholesterol (130-200) mg/dL LDL Cholesterol Direct (0-129) mg/dL HDL Cholesterol (29-60) mg/dL 04/10/17 04/09/17 04/09/17 Range/Units 01:12 17:49 11:17 WBC (4.5-11.0) 10^3/ul RBC (3.5-6.1) 10^6/uL Hgb (14.0-18.0) g/dL Hct (42.0-52.0) % MCV (80.0-105.0) fl MCH (25.0-35.0) pg MCHC (31.0-37.0) g/dl RDW (11.5-14.5) % Plt Count (120.0-450.0) 10^3/uL MPV (7.0-11.0) fl Gran % (50.0-68.0) % Lymph % (Auto) (22.0-35.0) % [place] % (Auto) (1.0-6.0) % Eos % (Auto) (1.5-5.0) % Baso % (Auto) (0.0-3.0) % Gran # (1.4-6.5) Lymph # (Auto) (1.2-3.4) [place] # (Auto) (0.1-0.6) Eos # (Auto) (0.0-0.7) Baso # (Auto) (0.0-2.0) K/mm3 Sodium (132-148) mmol/L Potassium (3.6-5.0) mmol/L Chloride (98-107) mmol/L Carbon Dioxide (21-33) mmol/L Anion Gap (10-20) BUN (7-21) mg/dL Creatinine (0.8-1.5) mg/dl Est GFR ( Amer) Est GFR (Non-Af Amer) POC Glucose (mg/dL) 124 H 140 H 137 H (65-110) mg/dL Random Glucose (70-110) mg/dL Calcium (8.4-10.5) mg/dL Phosphorus (2.5-4.5) mg/dL Magnesium (1.7-2.2) mg/dL Total Bilirubin (0.2-1.3) mg/dL AST (17-59) U/L ALT (7-56) U/L Alkaline Phosphatase (38-126) U/L Total Protein (5.8-8.3) g/dL Albumin (3.0-4.8) g/dL Globulin gm/dL Albumin/Globulin Ratio (1.1-1.8) Triglycerides (35-160) mg/dL Cholesterol (130-200) mg/dL LDL Cholesterol Direct (0-129) mg/dL HDL Cholesterol (29-60) mg/dL 04/09/17 Range/Units 06:30 WBC (4.5-11.0) 10^3/ul RBC (3.5-6.1) 10^6/uL Hgb (14.0-18.0) g/dL Hct (42.0-52.0) % MCV (80.0-105.0) fl MCH (25.0-35.0) pg MCHC (31.0-37.0) g/dl RDW (11.5-14.5) % Plt Count (120.0-450.0) 10^3/uL MPV (7.0-11.0) fl Gran % (50.0-68.0) % Lymph % (Auto) (22.0-35.0) % [place] % (Auto) (1.0-6.0) % Eos % (Auto) (1.5-5.0) % Baso % (Auto) (0.0-3.0) % Gran # (1.4-6.5) Lymph # (Auto) (1.2-3.4) [place] # (Auto) (0.1-0.6) Eos # (Auto) (0.0-0.7) Baso # (Auto) (0.0-2.0) K/mm3 Sodium (132-148) mmol/L Potassium (3.6-5.0) mmol/L Chloride (98-107) mmol/L Carbon Dioxide (21-33) mmol/L Anion Gap (10-20) BUN (7-21) mg/dL Creatinine (0.8-1.5) mg/dl Est GFR ( Amer) Est GFR (Non-Af Amer) POC Glucose (mg/dL) (65-110) mg/dL Random Glucose (70-110) mg/dL Calcium (8.4-10.5) mg/dL Phosphorus (2.5-4.5) mg/dL Magnesium (1.7-2.2) mg/dL Total Bilirubin (0.2-1.3) mg/dL AST (17-59) U/L ALT (7-56) U/L Alkaline Phosphatase (38-126) U/L Total Protein (5.8-8.3) g/dL Albumin (3.0-4.8) g/dL Globulin gm/dL Albumin/Globulin Ratio (1.1-1.8) Triglycerides 290 H (35-160) mg/dL Cholesterol 103 L (130-200) mg/dL LDL Cholesterol Direct 35 (0-129) mg/dL HDL Cholesterol 22 L (29-60) mg/dL Laboratory Results - last 24 hr 04/09/17 04/09/17 04/09/17 06:30 11:17 17:49 WBC RBC Hgb Hct MCV MCH MCHC RDW Plt Count MPV Gran % Lymph % (Auto) [place] % (Auto) Eos % (Auto) Baso % (Auto) Gran # Lymph # (Auto) [place] # (Auto) Eos # (Auto) Baso # (Auto) Sodium Potassium Chloride Carbon Dioxide Anion Gap BUN Creatinine Est GFR ( Amer) Est GFR (Non-Af Amer) POC Glucose (mg/dL) 137 H 140 H Random Glucose Calcium Phosphorus Magnesium Total Bilirubin AST ALT Alkaline Phosphatase Total Protein Albumin Globulin Albumin/Globulin Ratio Triglycerides 290 H Cholesterol 103 L LDL Cholesterol Direct 35 HDL Cholesterol 22 L 04/10/17 04/10/17 04/10/17 01:12 05:25 05:25 WBC 7.8 RBC 4.05 Hgb 12.3 L Hct 36.0 L MCV 88.9 MCH 30.4 MCHC 34.2 RDW 13.2 Plt Count 62 L MPV 11.9 H Gran % 81.7 H Lymph % (Auto) 8.7 L [place] % (Auto) 9.0 H Eos % (Auto) 0.5 L Baso % (Auto) 0.1 Gran # 6.39 Lymph # (Auto) 0.7 L [place] # (Auto) 0.7 H Eos # (Auto) 0.0 Baso # (Auto) 0.01 Sodium 148 Potassium 3.9 Chloride 116 H Carbon Dioxide 22 Anion Gap 13 BUN 32 H Creatinine 1.2 Est GFR ( Amer) > 60 Est GFR (Non-Af Amer) 59 POC Glucose (mg/dL) 124 H Random Glucose 157 H Calcium 8.8 Phosphorus 2.9 Magnesium 2.3 H Total Bilirubin 1.9 H AST 60 H ALT 53 Alkaline Phosphatase 64 Total Protein 6.2 Albumin 3.2 Globulin 3.0 Albumin/Globulin Ratio 1.1 Triglycerides Cholesterol LDL Cholesterol Direct HDL Cholesterol 04/10/17 05:37 WBC RBC Hgb Hct MCV MCH MCHC RDW Plt Count MPV Gran % Lymph % (Auto) [place] % (Auto) Eos % (Auto) Baso % (Auto) Gran # Lymph # (Auto) [place] # (Auto) Eos # (Auto) Baso # (Auto) Sodium Potassium Chloride Carbon Dioxide Anion Gap BUN Creatinine Est GFR ( Amer) Est GFR (Non-Af Amer) POC Glucose (mg/dL) 132 H Random Glucose Calcium Phosphorus Magnesium Total Bilirubin AST ALT Alkaline Phosphatase Total Protein Albumin Globulin Albumin/Globulin Ratio Triglycerides Cholesterol LDL Cholesterol Direct HDL Cholesterol Assessment/Plan - Assessment and Plan (Free Text) Plan: Patient seen and examined, on rounds with resident, agree with note with following additions/exceptions: Patient is a 76yo with PMH of liver cirrhosis (former EtOH abuser), DM2, and HTN who presents with altered mental status/rigidity of posture admitted to ICU for monitoring. Currently awake, alert, in NAD, following commands, isolated left sided mild rigidity in UE noted on exam. Imaging reviewed, MRI with acute small lacunar and cortical infarct. Afebrile, HD stable, NAD. Acute CVA DM HTN Hx of Liver Cirrhosis ERICA/ARF Recommend: - supp o2 as needed - monitor of antibiotics, follow up cultures, procal - BP control - monitor HH - IVF hydration - speech swallow eval - PT eval - ECHO - follow up neurology - ASA, Statin, BB - FS control - GI ppx - DVT ppx - Monitor in MICU, if continues to be stable, transfer to telemetry tomorrow.
--- NOTE | 2017-04-10 10:09 | CT ---
PROCEDURE: CT Angiography of the neck with contrast HISTORY: r/o emboli COMPARISON: None available. TECHNIQUE: Contiguous axial images of the neck were obtained from the level of the skull-base to the superior mediastinum in the arteriographic phase of enhancement. Coronal and sagittal reformats or also generated. IV contrast dose: Radiation Dose - DLP: mGy-cm This CT exam was performed using one or more of the following dose reduction techniques: Automated exposure control, adjustment of the mA and/or kV according to patient size, and/or use of iterative reconstruction technique. FINDINGS: RIGHT CAROTID ARTERIES: Common Carotid Artery: Normal. Carotid Bifurcation: Normal. Internal Carotid Artery:Normal. External Carotid Artery (proximal branches): Normal. LEFT CAROTID ARTERIES: Common Carotid Artery: Normal. Carotid Bifurcation: There is calcified plaque with mild stenosis of the internal carotid. The degree of stenosis is less than 50 percent Internal Carotid Artery:As above External Carotid Artery (proximal branches): Normal. VERTEBRAL ARTERIES: Right Vertebral Artery: Normal. Left Vertebral Artery: Normal. OTHER FINDINGS: None. IMPRESSION: No significant stenosis. CT Angiography of the Brain. HISTORY: r/o emboli COMPARISON: None available. TECHNIQUE: CT angiography of the intracranial arteries was performed. Coronal and sagittal maximum intensity projection reformated images were generated. This CT exam was performed using one or more of the following dose reduction techniques: Automated exposure control, adjustment of the mA and/or kV according to patient size, and/or use of iterative reconstruction technique. FINDINGS: INTERNAL CEREBRAL ARTERIES: Unremarkable. The skull base, petrous, cavernous and supraclinoid segments are bilaterally widely patent. The intra cavernous and supraclinoid portions are heavily calcified ANTERIOR CEREBRAL ARTERIES: Unremarkable. A1 and A2 segments are widely patent. Smaller distal branches unremarkable, as visualized. MIDDLE CEREBRAL ARTERIES: Unremarkable. M1 and M2 segments are widely patent. Perisylvian branches grossly symmetric. POSTERIOR CIRCULATION: Basilar Artery: Unremarkable. Distal Vertebral Arteries: Unremarkable. Posterior Cerebral Arteries: Unremarkable. Posterior Inferior Cerebellar Arteries: Unremarkable. ANEURYSM/ VASCULAR MALFORMATIONS: None. OTHER FINDINGS: None. IMPRESSION: Unremarkable CT Angiography of the Brain.
[2017-04-10] MEDS ORDERED: Insulin Reg-LOW-Coverage SC SCH ×2 (11:30→12:00)
--- NOTE | 2017-04-10 12:49 | PN ---
LOCATION: The patient is in critical care unit, room 128, bed 5. SUBJECTIVE: The patient was admitted on Monday, two days ago. He was brought into the Emergency Room in semiconscious state. The patient not responding. He was very stiff, appears to be very diaphoretic. However, he was evaluated with spinal tap in the Emergency Room and on CAT scan, there was evidence of cerebrovascular accident, but localizing signs were not noted. The patient is admitted to the ICU for management of cerebrovascular accident. The patient has past history of diabetes, hypertension. The patient has history of hyperuricemia, cholelithiasis, cirrhosis of the liver. The patient has past history of alcoholism, but he has not had alcohol or drugs in the recent past for the last three years that I know of. PHYSICAL EXAMINATION VITAL SIGNS: The pulse is 62, blood pressure 150/70, respirations 14. GENERAL: The patient can be aroused. He seems to obey some commands, but his left side of the arm is weak and the patient has photophobia and his eyes seem to be gazing towards the left side. HEENT: Head is normocephalic. No evidence of injury clinically even though the CAT scan shows some soft tissue damage in the frontal area. NECK: The thyroid is not enlarged. JVP is flat. LUNGS: Trachea central. Breath sounds are vesicular. No adventitious sounds are heard. HEART: Normal sinus rhythm. S1, S2 present. ABDOMEN: Soft. Liver and spleen not palpable. CENTRAL NERVOUS SYSTEM: The patient is semiconscious. The patient can be aroused and seems to show weakness of the left side of the body. The patient's MRI shows the patient has lacunar infarct in the basal ganglia internal capsule area. The patient also has small lacunar infarct in the frontal area and ischemic area in the occipital area on the brain. The patient's chest x-ray was clear. EKG, normal sinus rhythm. Non-specific ST-T wave changes. LABORATORY DATA: The patient's white count is 7800, hemoglobin is 12.3. The patient's chemistry, the patient's blood sugar is 132. His BUN is 32, creatinine of 1.2. Sodium is 148, it was 150 yesterday. The patient's potassium is 3.9. He got supplement of potassium. His triglycerides are 290, his cholesterol is 103. The patient has active cerebrovascular accident, possibly multiple strokes, but major neurological deficits are noted at this time. We will continue his medications and current management in the ICU. The patient is getting a followup CAT scan today. Shamir Velarde MD
[2017-04-10] MEDS ORDERED: Labetalol 5 mg/ml Inj 20ML IVP ONE (14:35)
--- NOTE | 2017-04-10 14:43 | CON ---
DATE: 04/10/2017 NEUROLOGY CONSULTATION CHIEF COMPLAINT: Altered mental status. HISTORY OF PRESENT ILLNESS: This is a 76-year-old man with past medical history of cirrhosis of the liver, [id number] diabetes mellitus, hypertension, who was brought to the hospital for altered mental status, lethargy, unresponsiveness, who was found to have breathing spontaneously in the ER, but was brought to the ICU and was also hypertensive with his initial blood pressure 189/96 and was admitted to the unit, found to have an MRA of the brain showing a small acute lacunar infarct in the right insula region and small cortical infarct in the left anterior frontal lobe, and he is on aspirin for stroke prevention. Currently, he is moving limited at the left side, likely related to his acute infarct in the right insular region noxious stimulus and is very drowsy. He had a lumbar puncture which is pretty much showing some elevated lymphocytes 16, mild elevated protein, but was not really much significant. CSF culture is negative for anything acute. He is currently on some Benadryl for stiffness, but his stiffness is much less. PAST MEDICAL HISTORY: Liver cirrhosis, former EtOH abuser, diabetes, hypertension. REVIEW OF SYSTEMS: A 14-point review of systems negative except in the HPI. ALLERGIES: UNOBTAINABLE AT THIS POINT. SOCIAL HISTORY: No illicit drug use, smoking, or EtOH use. He was a former EtOH abuser. FAMILY HISTORY: Noncontributory. MEDICATIONS: Reviewed by nurse's reconciliation sheet. PHYSICAL EXAMINATION: VITAL SIGNS: Temperature 97.3, pulse rate 55, blood pressure 158/70, respiratory rate 15, and oxygen saturation 100% via nasal cannula. GENERAL: The patient is drowsy, in no acute distress. HEENT: Head is atraumatic and normocephalic. PERRLA. Extraocular muscles intact. NECK: Supple. No JVD, no adenopathy noted. LUNGS: Clear to auscultation. No adventitious sounds. HEART: S1 and S2, normal rate and rhythm. No murmurs, rubs, or gallops. ABDOMEN: Soft, nontender, and nondistended. Bowel sounds present. EXTREMITIES: No clubbing, no cyanosis. Peripheral pulses 2+ felt bilaterally. NEUROLOGIC: The patient is drowsy, in no acute distress. Cranial nerves II through XII are intact. Motor exam: Left side weakness when compared to the right, likely from the CVA. Sensory exam: Withdrawals are localized to noxious stimulus. DTRs are 1+ throughout. Coordination and gait deferred for now. LABORATORY DATA: Sodium is 148, potassium 3.9, chloride of 116, carbon dioxide of 22. BUN of 32, creatinine 1.2. Random glucose 157, triglycerides . ASSESSMENT AND PLAN: This is a 76-year-old man with past medical history of liver cirrhosis, former EtOH abuser, diabetes, hypertension, who presented with altered mental status, status post spasticity and rigidity of the left side, has left-sided weakness, found to have an acute infarct in the right insular region and small cortical infarct in the left anterior frontal lobe, questionable whether this is embolic or not, although he has history of diffuse atherosclerotic disease, borderline diabetes, and hypertension. He is better less spastic and rigid. He follows simple commands, but is very drowsy. Overall, altered mental status is secondary to an acute infarct, superimposed underlying metabolic derangement, and hypertensive urgency. At this time, we recommend: 1. Aspirin 81 and Lipitor 80 mg p.o. daily for stroke prevention, but since he has history of liver cirrhosis, we will reduce the Lipitor to 40 mg p.o. daily. 2. Monitor electrolytes and correct accordingly. 3. Keep blood pressure between 120 to 130 systolic and diastolic 70s to 80s. 4. Monitor sugars. Keep blood sugars between 140 to 180. 5. Continue Benadryl only at the onset of rigidity and stiffness, likely central origin. 6. Get echocardiogram and monitor for any atrial fibrillation. Given his history of liver cirrhosis, we will mostly aspirin and Plavix for now for stroke prevention. Once again, continue with PT/OT evaluation and swallow evaluation. Thank you for this consult. Drake Byrd MD
--- NOTE | 2017-04-10 20:54 | CARD ---
APPROVED REPORT EXAM: Two-dimensional and M-mode echocardiogram with Doppler and color Doppler. INDICATION F/U INFARCT/EMBOLIC...BUBBLE STUDY R/O PFO 2D DIMENSIONS Left Atrium (2D)3.9 (1.6-4.0cm)IVSd1.2 (0.7-1.1cm) LVDd4.6 (3.9-5.9cm)PWd1.3 (0.7-1.1cm) LVDs3.2 (2.5-4.0cm)FS (%) 29.5 % LVEF (%)56.6 (>50%) M-Mode DIMENSIONS Aortic Root3.50 (2.2-3.7cm)Aortic Cusp Exc.1.30 (1.5-2.0cm) Aortic Valve AoV Peak Cuaguyst650.0cm/Titus Peak GR.9mmHgLVOT Peak Onudiosh70.7cm/s LVOT VTI20.50cmAI P 1/2 [id number] Mitral Valve MV E Vberwawb87.3cm/sMV A Txjqygdn77.8cm/sE/A ratio1.0 TDI Lateral E' Peak V8.77cm/sMedial E' Peak V7.02cm/sE/Lateral E'10.8 E/Medial E'13.4 Pulmonary Valve PV Peak Asmipbgf92.1cm/sPV Peak Grad.2mmHg Tricuspid Valve TR Peak Yaasdwgu780br/sRAP SLYORGKE25vcAtCM Peak Gr.10mmHg [id number] LEFT VENTRICLE The left ventricle is normal size. There is borderline concentric left ventricular hypertrophy. The left ventricular function is normal. The left ventricular ejection fraction is within the normal range. There is normal LV segmental wall motion. Transmitral Doppler flow pattern is Grade I-abnormal relaxation pattern. RIGHT VENTRICLE The right ventricle is normal size. There is normal right ventricular wall thickness. The right ventricular systolic function is normal. ATRIA The left atrium size is normal. The right atrium size is normal. The interatrial septum is intact with no evidence for an atrial septal defect. AORTIC VALVE The aortic valve is moderately thickened There is mild to moderate aortic regurgitation. There is no aortic valvular stenosis. MITRAL VALVE The mitral valve is moderately thickened, a vegitation is unlikely, Mitral regurgitation is trace to mild. TRICUSPID VALVE The tricuspid valve is normal in structure. There is no tricuspid valve regurgitation noted. GREAT VESSELS The aortic root is normal in size. PERICARDIAL EFFUSION There is a trace loculated anterior pericardial effusion. <Conclusion> The left ventricle is normal size. There is borderline concentric left ventricular hypertrophy. The left ventricular function is normal. The left ventricular ejection fraction is within the normal range. There is normal LV segmental wall motion. Transmitral Doppler flow pattern is Grade I-abnormal relaxation pattern. There is mild to moderate aortic regurgitation. Mitral regurgitation is trace to mild. The interatrial septum is intact with no evidence for an atrial septal defect. The mitral valve is moderately thickened, a vegitation is unlikely, clinically correlate
--- NOTE | 2017-04-10 22:40 | PN ---
DATE: 04/10/2017 SUBJECTIVE: The patient is seen lying in the bed in the ICU. He is arousable. He is answering simple questions. He is not really following all commands. He does not appear to be in any kind of distress. PHYSICAL EXAMINATION: VITAL SIGNS: Blood pressure 181/80, heart rate 58, respiratory rate 16, and temperature 97.3. HEENT: Normocephalic, atraumatic. Positive pallor. NECK: Supple. No JVD. LUNGS: Bilateral equal air entry, bilateral equal expansion. No rales. CARDIAC: S1 and S2. Regular rate and rhythm. No murmur. No rub. ABDOMEN: Soft, nondistended, nontender. Bowel sounds present. EXTREMITIES: No lower extremity edema. INTAKE AND OUTPUT: 2360/1800. LABORATORY DATA: WBC 7.8, hemoglobin 12.3, hematocrit 36, and platelets 62. Sodium 148, potassium 3.9, chloride 116, CO2 of 22, BUN 32, creatinine 1.2, glucose 157, calcium 8.8, phosphorus 2.9, magnesium 2.3. Total bilirubin 1.9, down from 4.5. AST 60, down from 94. ALT 53, down from 84. Urine toxicology is negative. Cultures no growth so far. CT of the head and neck, unremarkable CT angiogram of the brain. CURRENT MEDICATIONS: Aspirin 300 mg, Benadryl, Flomax 0.4 mg, folic acid 1 mg, heparin, insulin, Lipitor, Protonix, normal saline at 80 mL/hour, and Tenormin. ASSESSMENT: 1. Acute kidney injury superimposed on chronic kidney disease, stage II? Resolving acute kidney injury. Largely, prerenal azotemia. 2. Hypernatremia. 3. Acute hepatitis, resolving. 4. Ggq-iobdkcq-lkqtllfkw diabetes mellitus. 5. Hypertension. 6. History of cirrhosis. 7. ? Hepatic encephalopathy. 8. Acute insular infarct. PLAN: 1. Continue IV fluids, change IV fluids to hypotonic fluids. 2. Monitor urine output closely. 3. Monitor daily electrolytes. 4. Continue aspirin. 5. Follow up echocardiogram of the liver to rule out atrial fibrillation. 6. Monitor blood glucose and maintain euglycemia. 7. Avoid nephrotoxins. Case was discussed at length with ICU nurse. More than 35 minutes were spent in the care of this critically ill patient. Lelia Gaxiola MD [facility] # [id number]
[2017-04-11 06:55] LABS: BASO # 0.01 K/mm3 (0.0-2.0); BASO % 0.2 % (0.0-3.0); EOS # 0.1 (0.0-0.7); EOS % 1.4 % (1.5-5.0); GRAN # 4.89 (1.4-6.5); GRAN % 75.6 % (50.0-68.0); HEMOGLOBIN 12.4 g/dL (14.0-18.0); LYMPH # 0.8 (1.2-3.4); LYMPH % 12.4 % (22.0-35.0); MEAN CELL VOLUME 89.3 fl (80.0-105.0); MEAN CORPUSCULAR HEMOGLOBIN 30.2 pg (25.0-35.0); MEAN CORPUSCULAR HGB CONC 33.8 g/dl (31.0-37.0); MEAN PLATELET VOLUME 12.1 fl (7.0-11.0); MONO # 0.7 (0.1-0.6); MONO % 10.4 % (1.0-6.0); RBC 4.11 10^6/uL (3.5-6.1); RED CELL DISTRIBUTION WIDTH 12.9 % (11.5-14.5); WHITE BLOOD COUNT 6.5 10^3/ul (4.5-11.0)
--- NOTE | 2017-04-11 06:59 | CP.CCUPN ---
<Lyn Weaver - Last Filed: 04/11/17 10:18> CCU Subjective - Physician Review Subjective (Free Text): 04/11/17 07:29 Patient remains stable all night, no acute overnight events. Patient is a&ox3 today. Patient denies cp, sob, denies headache or dizziness. No fever or chills. Patient was evaluated by speech and swallow yesterday and was started on dysphasia diet. CCU Objective - Vital Signs / Intake & Output Vital Signs (Last 4 hours): Vital Signs Temp Pulse Resp BP Pulse Ox 04/11/17 06:20 52 L 13 99 04/11/17 06:13 181/82 H 04/11/17 06:12 57 L 16 04/11/17 06:10 58 L 21 89 L 04/11/17 06:02 74 19 04/11/17 06:01 80 45 H 202/106 H 77 L 04/11/17 06:00 80 79 L 04/11/17 05:59 63 21 04/11/17 05:50 53 L 11 L 93 L 04/11/17 05:40 57 L 19 100 04/11/17 05:31 57 L 20 185/86 H 98 04/11/17 05:30 56 L 16 100 04/11/17 05:20 81 82 L 04/11/17 05:10 54 L 13 99 04/11/17 05:03 54 L 14 183/80 H 98 04/11/17 05:00 61 15 201/81 H 96 04/11/17 04:50 58 L 14 96 04/11/17 04:40 53 L 12 98 04/11/17 04:30 54 L 15 98 04/11/17 04:20 54 L 13 97 04/11/17 04:10 52 L 13 97 04/11/17 04:00 98.6 F 176/80 H 04/11/17 03:59 51 L 28 H 98 04/11/17 03:50 53 L 16 98 04/11/17 03:40 55 L 20 98 04/11/17 03:38 60 20 178/90 H 97 04/11/17 03:30 60 18 04/11/17 03:20 72 29 H 100 04/11/17 03:10 59 L 18 100 04/11/17 03:00 61 20 181/110 H 100 Intake and Output (Last 8hrs): Intake & Output 04/10/17 04/10/17 04/11/17 14:59 22:59 06:59 Intake Total 960 1060 Output Total 950 750 Balance 10 310 Weight 127 lb 3.2 oz Intake: IV 960 960 0.9 960 Right Hand 960 Oral 100 Output: Urine 950 750 2-way Urethral 950 Urine, Voided 750 - Physical Exam Head: Positive for: Atraumatic Pupils: Positive for: PERRL Extroacular Muscles: Positive for: EOMI Mouth: Positive for: Dry. Negative for: Moist Mucous Membranes Respiratory/Chest: Positive for: Decreased Breath Sounds Cardiovascular: Positive for: Regular Rate and Rhythm, Normal S1, S2. Negative for: Murmurs, Tachycardic, Bradycardic Abdomen: Positive for: Normal Bowel Sounds. Negative for: Tenderness, Distention, Rebound Back: Positive for: Normal Inspection Upper Extremity: Positive for: Normal Inspection, Cyanosis. Negative for: Edema Lower Extremity: Positive for: Normal Inspection, NORMAL PULSES. Negative for: Edema Neurological: Positive for: GCS=15, CN II-XII Intact, Speech Normal Skin: Positive for: Warm, Dry, Rashes, Normal Color Psychiatric: Positive for: Alert, Oriented x 3, Normal Insight, Normal Concentration - Medications Active Medications: Active Medications Generic Name Dose Route Start Last Admin Trade Name Freq PRN Reason Stop Dose Admin Aspirin 300 mg 04/09/17 18:46 04/10/17 09:29 Aspirin Supp RC 300 mg DAILY [facility] Administration Atenolol 50 mg 04/10/17 10:00 04/10/17 11:34 Tenormin PO Not Given DAILY [facility] Atorvastatin Calcium 40 mg 04/10/17 10:00 04/10/17 11:34 Lipitor PO Not Given DAILY [facility] Diphenhydramine HCl 50 mg 04/08/17 22:40 04/09/17 20:47 Benadryl IVP 50 mg Q4H PRN Administration Rigidity/Stiffness Folic Acid 1 mg 04/10/17 10:00 04/10/17 11:34 Folic Acid PO Not Given DAILY [facility] Heparin Sodium (Porcine) 5,000 units 04/09/17 06:00 04/11/17 05:16 Heparin SC 5,000 units Q8 J[facility]O Administration Protocol Sodium Chloride 1,000 mls @ 80 mls/hr 04/10/17 09:30 04/10/17 10:05 Sodium Chloride 0.9% IV 80 mls/hr .[id number] J[facility]O Administration Insulin Human Regular 0 units 04/11/17 07:30 Humulin R Low SC ACHS [facility] Protocol Pantoprazole Sodium 40 mg 04/09/17 10:00 04/10/17 09:30 Protonix Inj IVP 40 mg DAILY [facility] Administration Tamsulosin HCl 0.4 mg 04/10/17 10:00 04/10/17 11:34 Flomax PO Not Given DAILY [facility] - Patient Studies Lab Studies: Microbiology Studies 04/08/17 23:30 MRSA Culture (Admit) - Final Naris MRSA NOT DETECTED Lab Studies 04/10/17 04/10/17 04/10/17 Range/Units 21:52 18:36 05:25 Sodium 148 (132-148) mmol/L Potassium 3.9 (3.6-5.0) mmol/L Chloride 116 H (98-107) mmol/L Carbon Dioxide 22 (21-33) mmol/L Anion Gap 13 (10-20) BUN 32 H (7-21) mg/dL Creatinine 1.2 (0.8-1.5) mg/dl Est GFR ( Amer) > 60 Est GFR (Non-Af Amer) 59 POC Glucose (mg/dL) 126 H 118 H (65-110) mg/dL Random Glucose 157 H (70-110) mg/dL Calcium 8.8 (8.4-10.5) mg/dL Phosphorus 2.9 (2.5-4.5) mg/dL Magnesium 2.3 H (1.7-2.2) mg/dL Total Bilirubin 1.9 H (0.2-1.3) mg/dL AST 60 H (17-59) U/L ALT 53 (7-56) U/L Alkaline Phosphatase 64 (38-126) U/L Total Protein 6.2 (5.8-8.3) g/dL Albumin 3.2 (3.0-4.8) g/dL Globulin 3.0 gm/dL Albumin/Globulin Ratio 1.1 (1.1-1.8) Laboratory Results - last 24 hr 04/10/17 04/10/17 04/10/17 05:25 18:36 21:52 Sodium 148 Potassium 3.9 Chloride 116 H Carbon Dioxide 22 Anion Gap 13 BUN 32 H Creatinine 1.2 Est GFR ( Amer) > 60 Est GFR (Non-Af Amer) 59 POC Glucose (mg/dL) 118 H 126 H Random Glucose 157 H Calcium 8.8 Phosphorus 2.9 Magnesium 2.3 H Total Bilirubin 1.9 H AST 60 H ALT 53 Alkaline Phosphatase 64 Total Protein 6.2 Albumin 3.2 Globulin 3.0 Albumin/Globulin Ratio 1.1 Fingerstick Blood Sugar Results: 118 Results Reviewed to Date: Yes Critical Care Progress Note - Prophylaxis GI Prophylaxis GI: PPI - Prophylaxis DVT Prophylaxis DVT: Heparin SQ - Nutrition Nutrition: Nutrition Category Date Time Status Pureed [Dysphagia/Modified Consistency Diet] [DIET] Diets 04/10/17 Dinner Ordered Assessment/Plan - Assessment and Plan (Free Text) Assessment: Patient is a 76 y/o with PMH of liver cirrhosis (former EtOH abuser), DM2, and HTN who presents with altered mental status/rigidity of posture admitted to ICU for monitoring. Patient has been stable,mental status improved. Plan: Neuro: AMS with rigidity with unclear etiology- s/p LP with no significant finding, MRI with acute small lacunar and cortical infarct. - Normal CTA, echo with no evidence of atrial septal defect. - Keep bp between 130-140 - PT/OT - Neuro following - Continue with asa and lipitor. Pulm: stable, supplemental oxygen prn to maintain O2 sat above 90%. Cardiac: h/o htn- will resume home meds ( atenolol), and add norvasc to keep BP between 130-140. ID: Low sepsis probability, will monitor. GI: h/o cirrhosis due to alcohol, stable, no signs of ascites, will monitor. On dysphagia diet PPi for gi prophylaxis. Renal: ERICA- renal function continue to improve, will discontinue iv hydration. Continue with flomax for bph. Endo: h/o DM- continue insulin sliding scale, and fingersticks. Heme: h/h stable, continue to monitor DVT prophylaxis: heparin sc Dispo: patient's mental status has improved, patient will be transferred to [facility] , to continue with PT/OT. Patient seen, examined and case discussed with the warp drawer. - Date & Time Date: 04/11/17 Time: 07:45 <Grant Ortiz - Last Filed: 04/11/17 10:41> CCU Objective - Vital Signs / Intake & Output Vital Signs (Last 4 hours): Vital Signs Pulse BP 04/11/17 09:43 62 170/83 H 04/11/17 08:28 187/86 H Intake and Output (Last 8hrs): Intake & Output 04/10/17 04/11/17 04/11/17 22:59 06:59 14:59 Intake Total 960 1060 Output Total 950 750 Balance 10 310 Weight 127 lb 3.2 oz Intake: IV 960 960 0.9 960 Right Hand 960 Oral 100 Output: Urine 950 750 2-way Urethral 950 Urine, Voided 750 - Medications Active Medications: Active Medications Generic Name Dose Route Start Last Admin Trade Name Freq PRN Reason Stop Dose Admin Aspirin 81 mg 04/11/17 10:00 04/11/17 09:43 Ecotrin PO 81 mg DAILY [facility] Administration Atenolol 50 mg 04/10/17 10:00 04/11/17 09:43 Tenormin PO 50 mg DAILY [facility] Administration Atorvastatin Calcium 40 mg 04/10/17 10:00 04/11/17 09:43 Lipitor PO 40 mg DAILY [facility] Administration Diphenhydramine HCl 50 mg 04/08/17 22:40 04/09/17 20:47 Benadryl IVP 50 mg Q4H PRN Administration Rigidity/Stiffness Folic Acid 1 mg 04/10/17 10:00 04/11/17 09:43 Folic Acid PO 1 mg DAILY [facility] Administration Heparin Sodium (Porcine) 5,000 units 04/09/17 06:00 04/11/17 05:16 Heparin SC 5,000 units Q8 [facility] Administration Protocol Insulin Human Regular 0 units 04/11/17 07:30 04/11/17 08:12 Humulin R Low SC Not Given ACHS [facility] Protocol Pantoprazole Sodium 40 mg 04/09/17 10:00 04/11/17 09:47 Protonix Inj IVP 40 mg DAILY [facility] Administration Tamsulosin HCl 0.4 mg 04/10/17 10:00 04/11/17 09:43 Flomax PO 0.4 mg DAILY [facility] Administration - Patient Studies Lab Studies: Microbiology Studies 04/08/17 23:30 MRSA Culture (Admit) - Final Naris MRSA NOT DETECTED Lab Studies 04/11/17 04/11/1704/11/18 Range/Units 07:17 06:00 06:00 WBC 6.5 (4.5-11.0) 10^3/ul RBC 4.11 (3.5-6.1) 10^6/uL Hgb 12.4 L (14.0-18.0) g/dL Hct 36.7 L (42.0-52.0) % MCV 89.3 (80.0-105.0) fl MCH 30.2 (25.0-35.0) pg MCHC 33.8 (31.0-37.0) g/dl RDW 12.9 (11.5-14.5) % Plt Count 63 L (120.0-450.0) 10^3/uL MPV 12.1 H (7.0-11.0) fl Gran % 75.6 H (50.0-68.0) % Lymph % (Auto) 12.4 L (22.0-35.0) % [place] % (Auto) 10.4 H (1.0-6.0) % Eos % (Auto) 1.4 L (1.5-5.0) % Baso % (Auto) 0.2 (0.0-3.0) % Gran # 4.89 (1.4-6.5) Lymph # (Auto) 0.8 L (1.2-3.4) [place] # (Auto) 0.7 H (0.1-0.6) Eos # (Auto) 0.1 (0.0-0.7) Baso # (Auto) 0.01 (0.0-2.0) K/mm3 Sodium 147 (132-148) mmol/L Potassium 3.7 (3.6-5.0) mmol/L Chloride 115 H (98-107) mmol/L Carbon Dioxide 19 L (21-33) mmol/L Anion Gap 16 (10-20) BUN 23 H (7-21) mg/dL Creatinine 1.0 (0.8-1.5) mg/dl Est GFR ( Amer) > 60 Est GFR (Non-Af Amer) > 60 POC Glucose (mg/dL) 106 (65-110) mg/dL Random Glucose 131 H (70-110) mg/dL Calcium 9.2 (8.4-10.5) mg/dL Magnesium 2.1 (1.7-2.2) mg/dL Total Bilirubin 2.0 H (0.2-1.3) mg/dL AST 54 (17-59) U/L ALT 55 (7-56) U/L Alkaline Phosphatase 73 (38-126) U/L Total Protein 6.2 (5.8-8.3) g/dL Albumin 3.3 (3.0-4.8) g/dL Globulin 3.0 gm/dL Albumin/Globulin Ratio 1.1 (1.1-1.8) 04/10/17 04/10/17 04/10/17 Range/Units 21:52 18:36 12:08 WBC (4.5-11.0) 10^3/ul RBC (3.5-6.1) 10^6/uL Hgb (14.0-18.0) g/dL Hct (42.0-52.0) % MCV (80.0-105.0) fl MCH (25.0-35.0) pg MCHC (31.0-37.0) g/dl RDW (11.5-14.5) % Plt Count (120.0-450.0) 10^3/uL MPV (7.0-11.0) fl Gran % (50.0-68.0) % Lymph % (Auto) (22.0-35.0) % [place] % (Auto) (1.0-6.0) % Eos % (Auto) (1.5-5.0) % Baso % (Auto) (0.0-3.0) % Gran # (1.4-6.5) Lymph # (Auto) (1.2-3.4) [place] # (Auto) (0.1-0.6) Eos # (Auto) (0.0-0.7) Baso # (Auto) (0.0-2.0) K/mm3 Sodium (132-148) mmol/L Potassium (3.6-5.0) mmol/L Chloride (98-107) mmol/L Carbon Dioxide (21-33) mmol/L Anion Gap (10-20) BUN (7-21) mg/dL Creatinine (0.8-1.5) mg/dl Est GFR ( Amer) Est GFR (Non-Af Amer) POC Glucose (mg/dL) 126 H 118 H 103 (65-110) mg/dL Random Glucose (70-110) mg/dL Calcium (8.4-10.5) mg/dL Magnesium (1.7-2.2) mg/dL Total Bilirubin (0.2-1.3) mg/dL AST (17-59) U/L ALT (7-56) U/L Alkaline Phosphatase (38-126) U/L Total Protein (5.8-8.3) g/dL Albumin (3.0-4.8) g/dL Globulin gm/dL Albumin/Globulin Ratio (1.1-1.8) Laboratory Results - last 24 hr 04/10/17 04/10/17 04/10/17 12:08 18:36 21:52 WBC RBC Hgb Hct MCV MCH MCHC RDW Plt Count MPV Gran % Lymph % (Auto) [place] % (Auto) Eos % (Auto) Baso % (Auto) Gran # Lymph # (Auto) [place] # (Auto) Eos # (Auto) Baso # (Auto) Sodium Potassium Chloride Carbon Dioxide Anion Gap BUN Creatinine Est GFR ( Amer) Est GFR (Non-Af Amer) POC Glucose (mg/dL) 103 118 H 126 H Random Glucose Calcium Magnesium Total Bilirubin AST ALT Alkaline Phosphatase Total Protein Albumin Globulin Albumin/Globulin Ratio 04/11/17 04/11/17 04/11/17 06:00 06:00 07:17 WBC 6.5 RBC 4.11 Hgb 12.4 L Hct 36.7 L MCV 89.3 MCH 30.2 MCHC 33.8 RDW 12.9 Plt Count 63 L MPV 12.1 H Gran % 75.6 H Lymph % (Auto) 12.4 L [place] % (Auto) 10.4 H Eos % (Auto) 1.4 L Baso % (Auto) 0.2 Gran # 4.89 Lymph # (Auto) 0.8 L [place] # (Auto) 0.7 H Eos # (Auto) 0.1 Baso # (Auto) 0.01 Sodium 147 Potassium 3.7 Chloride 115 H Carbon Dioxide 19 L Anion Gap 16 BUN 23 H Creatinine 1.0 Est GFR ( Amer) > 60 Est GFR (Non-Af Amer) > 60 POC Glucose (mg/dL) 106 Random Glucose 131 H Calcium 9.2 Magnesium 2.1 Total Bilirubin 2.0 H AST 54 ALT 55 Alkaline Phosphatase 73 Total Protein 6.2 Albumin 3.3 Globulin 3.0 Albumin/Globulin Ratio 1.1 Critical Care Progress Note - Nutrition Nutrition: Nutrition Category Date Time Status Pureed [Dysphagia/Modified Consistency Diet] [DIET] Diets 04/10/17 Dinner Ordered Assessment/Plan - Assessment and Plan (Free Text) Plan: Patient seen and examined, on rounds with resident, agree with note with following additions/exceptions: Patient is a 76yo with PMH of liver cirrhosis, DM2, and HTN who presents with altered mental status/rigidity of posture admitted to ICU for monitoring. Currently awake, alert, in NAD, sitting in chair Imaging reviewed, MRI with acute small lacunar and cortical infarct. Afebrile, HD stable, NAD. Acute CVA DM HTN Hx of Liver Cirrhosis ERICA/ARF Recommend: - supp o2 as needed - monitor of antibiotics, follow up cultures, procal - BP control, Atenolol, Norvasc - monitor HH - DC IVF - passed speech swallow eval - PT eval - ECHO - follow up neurology - ASA, Statin, BB - FS control - GI ppx - DVT ppx - stable, transfer to telemetry
[2017-04-11] MEDS ORDERED: Labetalol 5 mg/ml Inj 20ML IVP ONE (07:20)
[2017-04-11 07:39] LABS: ALB/GLOB RATIO 1.1 (1.1-1.8); ALBUMIN 3.3 g/dL (3.0-4.8); ALT/SGPT 55 U/L (7-56); AST/SGOT 54 U/L (17-59); BLOOD UREA NITROGEN 23 mg/dL (7-21); CALCIUM 9.2 mg/dL (8.4-10.5); GFR AFRICAN-AMERICAN > 60; GFR NON-AFRICAN AMERICAN > 60
[2017-04-11] MEDS: Insulin Reg-LOW-Coverage SC SCH ×4 (08:12→22:07)
--- NOTE | 2017-04-11 08:14 | CP.PCM.PN ---
Subjective - Date & Time of Evaluation Date of Evaluation: 04/11/17 Time of Evaluation: 07:45 - Subjective Subjective: Patient is seen this morning in critical care unit bed 2. He is more awake and alert this morning. He still feels tired, however. Objective - Vital Signs/Intake and Output Vital Signs (last 24 hours): Temp Pulse Resp BP Pulse Ox 98.6 F 52 L 13 181/82 H 99 04/11/17 04:00 04/11/17 06:20 04/11/17 06:20 04/11/17 06:13 04/11/17 06:20 Intake and Output: 04/11/17 04/11/17 06:59 18:59 Intake Total 1060 Output Total 750 Balance 310 - Medications Medications: Current Medications Aspirin (Ecotrin) 81 mg PO [facility] Atenolol (Tenormin) 50 mg PO [facility] Last Admin: 04/10/17 11:34 Dose: Not Given Atorvastatin Calcium (Lipitor) 40 mg PO DAILY [facility] Last Admin: 04/10/17 11:34 Dose: Not Given Diphenhydramine HCl (Benadryl) 50 mg IVP Q4H PRN PRN Reason: Rigidity/Stiffness Last Admin: 04/09/17 20:47 Dose: 50 mg Folic Acid (Folic Acid) 1 mg PO DAILY [facility] Last Admin: 04/10/17 11:34 Dose: Not Given Heparin Sodium (Porcine) (Heparin) 5,000 units SC Q8 [facility] PRN Reason: Protocol Last Admin: 04/11/17 05:16 Dose: 5,000 units Insulin Human Regular (Humulin R Low) 0 units SC ACHS [facility] PRN Reason: Protocol Pantoprazole Sodium (Protonix Inj) 40 mg IVP [facility] Last Admin: 04/10/17 09:30 Dose: 40 mg Tamsulosin HCl (Flomax) 0.4 mg PO DAILY [facility] Last Admin: 04/10/17 11:34 Dose: Not Given - Labs Labs: 04/11/17 06:00 04/11/17 06:00 PT 12.9 SECONDS (9.4-12.5) H 04/08/17 18:15 INR 1.13 (0.93-1.08) H 04/08/17 18:15 APTT 38.7 Seconds (25.1-36.5) H 04/08/17 18:15 - Constitutional Appears: No Acute Distress - Head Exam Head Exam: ATRAUMATIC, NORMOCEPHALIC - Respiratory Exam Respiratory Exam: Clear to Ausculation Bilateral, NORMAL BREATHING PATTERN - Cardiovascular Exam Cardiovascular Exam: +S1, +S2 - GI/Abdominal Exam GI & Abdominal Exam: Soft, Normal Bowel Sounds. absent: Tenderness - Neurological Exam Neurological Exam: Alert, Awake Additional comments: decreased strength on left side Assessment and Plan - Assessment and Plan (Free Text) Assessment: Acute infarct right insular region and cortical infarct left anterior frontal lobe Diabetes mellitus HTN history of alcoholic cirrhosis Plan: Patient is improving. He is more awake and alert this morning and answering questions appropriately. He is also moving the left side, both arm and leg, much more than yesterday. continue physical therapy and speech therapy. Patient's sodium is 147 this morning. discontinue normal saline. Repeat chemistry in AM.
--- NOTE | 2017-04-11 16:31 | PN ---
DATE: SUBJECTIVE: The patient is currently seen in CCU bed 2, but he has been downgraded to telemetry. IV fluids have been removed. His BUN and creatinine are back to baseline levels. The patient is more oriented. He knows person, place, but he makes an error when we ask him the year. MEDICATIONS: Medication list reviewed. The patient is currently on Benadryl, Ecotrin, Flomax, folic acid, heparin, insulin, Lipitor, Protonix and Tenormin. OBJECTIVE: INTAKE/OUTPUT: Intake 2019, output 1700. VITAL SIGNS: Blood pressure 144/74, pulse 58, respiratory rate 20 with a temperature of 97.5. HEENT: Exam shows him to be normocephalic, atraumatic. Conjunctivae are pink. Sclerae are nonicteric. NECK: Supple. No neck vein distention. CHEST: Clear to auscultation and percussion. No rales, rhonchi or wheezing. CARDIOVASCULAR: Shows a regular rate and rhythm without murmurs, rubs or gallops. ABDOMEN: Soft. Nondistended and nontender. Bowel sounds are normal. No rebound or guarding. EXTREMITIES: Show no lower extremity cyanosis, clubbing or edema. NEURO: Shows him to be alert and oriented and answering most of the questions appropriately and correctly. LABORATORY DATA AND IMAGING: Labs, CBC: White blood cell count today 6.5, hemoglobin 12.4. Chemistry showed BUN of 23, down from a high of 73; creatinine 1.0, down from a high of 3.3. Sodium 147, down from 150. Potassium 3.7. Chloride is 115 with a CO2 of 19. Random glucose is 131, calcium 9.2, bilirubin is lower at 2.0. AST and ALT are now normal. Albumin is 3.3. Microbiology: CSF cultures are negative in 2 days. Urine cultures are negative. Blood cultures are negative in 2 days. ASSESSMENT 1. Acute renal failure, likely prerenal azotemia, likely secondary to volume depletion and renal hypoperfusion. With IV fluid hydration, his BUN and creatinine have fallen down to normal. The patient is completing his evaluation by the Speech and Swallowing service. He will likely be starting on a regular diet and I will ask them to encourage him to increase his p.o. fluid intake as tolerated. 2. Hypernatremia. This has resolved. Sodium is down to 147 from a high of 150. 3. Mild elevation of LFTs. This has essentially resolved. Bilirubin still remains mildly elevated. 4. History of vqa-qtinrge-lseffsmxo diabetes mellitus. Glucose control is acceptable on sliding scale insulin. 5. History of hypertension. Blood pressure is controlled on present medication. 6. Past history of cirrhosis. 7. History of acute infarct. Brain MRI study from 04/09/2017 shows a small acute lacunar infarct in the right insular region. Small cortical infarct in the left anterior frontal lobe. Head and neck CTA shows unremarkable CT angiography of the brain. PLAN: 1. IV fluids have been discontinued and the hope is that the patient will be able to increase p.o. fluid intake. 2. Continue to monitor accurate I's and O's. 3. Continue to follow labs daily to make certain that the BUN and creatinine remain in the normal range and the sodium continues to fall. 4. Given past history of cirrhosis, I will check an ammonia level. 5. Agree with transfer to telemetry. Edin Cruz MD
--- NOTE | 2017-04-11 17:34 | PN ---
DATE: 04/11/2017 NEUROLOGY FOLLOWUP CHIEF COMPLAINT: Followup for altered mental status. SUBJECTIVE: The patient was seen and examined at bedside, more alert and following simple commands. The patient started on the dysphagia diet. By speech, no acute events elevated systolic and diastolic blood pressures overnight, which has been slowly becoming corrective with blood pressure medications and adjustments. Echocardiogram reviewed. PAST MEDICAL HISTORY: History of liver cirrhosis, former EtOH abuse, diabetes, and hypertension. REVIEW OF SYSTEMS: A 14-point review of systems is negative except as per the HPI. ALLERGIES: NO KNOWN DRUG ALLERGIES. SOCIAL HISTORY: No illicit drug use, smoking, or EtOH abuse. FAMILY HISTORY: Noncontributory. MEDICATIONS: Reviewed by nurse per reconciliation sheet. PHYSICAL EXAMINATION: VITAL SIGNS: Temperature afebrile, pulse rate 57, blood pressure 144/74, respiratory rate 20, and oxygen saturation 98% by room air. GENERAL: The patient is sitting up in bed, lethargic. HEENT: Head is atraumatic, normocephalic. PERRLA. Extraocular muscles intact. NECK: Supple. No JVD, no adenopathy noted. LUNGS: Clear to auscultation. No adventitious sounds. HEART: S1 and S2, normal rate and rhythm. No murmurs, rubs, or gallops. ABDOMEN: Soft, nontender, nondistended. Bowel sounds present. EXTREMITIES: No clubbing, no cyanosis. Peripheral pulses 2+ felt bilaterally. NEUROLOGIC: The patient is lethargic, but follow simple commands, is alert and oriented to person and place. Recall after 5 minutes is 0/3. Poor attention span and slow thought process. Cranial nerves II through XII intact. Motor exam: He has left-sided weakness when compared to the right from the CVA. Sensory exam: Withdraws to localized noxious stimulus, light touch intact. DTRs are 1+ throughout. Coordination and gait deferred for now. LABORATORY DATA: Sodium is 147, potassium 3.7, chloride of 115, carbon dioxide of 19. BUN of 22, creatinine 1. Random glucose of 131. ASSESSMENT AND PLAN: This is a 76-year-old man with past medical history of liver cirrhosis, former EtOH abuse, diabetes, hypertension, who presented with altered mental status, status post spasticity and rigidity on the left side, has left-sided weakness, found to have an acute infarct in the right insular region, some small cortical infarct in the left anterior frontal lobe, likely secondary to more of a diffuse atherosclerotic disease than embolic and also from borderline diabetes and hypertension. He does also have hypertensive urgency which is responsible for his altered mental status as well along with metabolic derangements. At this time, recommend; 1. Keep blood pressures between 130s and 140s systolic and diastolic between 70s and 80s. 2. Monitor electrolytes and correct accordingly. 3. Aspirin 81 and Lipitor 80 mg p.o. daily for stroke prevention, but given that he has liver cirrhosis, we have to reduce Lipitor to 40 mg p.o. daily. 4. Keep blood sugars between 140 and 180. 5. Benadryl p.r.n. for onset of rigidity and stiffness. 6. PT/OT likely subacute rehab. Once again, thank you for this followup. Drake Byrd MD
[2017-04-11] MEDS: DiphenhydrAMINE 50 mg/ml Inj IVP PRN (21:40)
[2017-04-12 06:27] LABS: BASO # 0.03 K/mm3 (0.0-2.0); BASO % 0.5 % (0.0-3.0); EOS # 0.2 (0.0-0.7); EOS % 2.3 % (1.5-5.0); GRAN # 4.75 (1.4-6.5); GRAN % 74.3 % (50.0-68.0); HEMOGLOBIN 12.4 g/dL (14.0-18.0); LYMPH # 0.9 (1.2-3.4); LYMPH % 14.5 % (22.0-35.0); MEAN CELL VOLUME 89.2 fl (80.0-105.0); MEAN CORPUSCULAR HEMOGLOBIN 30.3 pg (25.0-35.0); MEAN PLATELET VOLUME 11.1 fl (7.0-11.0); MONO # 0.5 (0.1-0.6); MONO % 8.4 % (1.0-6.0); RBC 4.09 10^6/uL (3.5-6.1); RED CELL DISTRIBUTION WIDTH 12.8 % (11.5-14.5); WHITE BLOOD COUNT 6.4 10^3/ul (4.5-11.0)
[2017-04-12 06:57] LABS: ALB/GLOB RATIO 1.1 (1.1-1.8); ALBUMIN 3.4 g/dL (3.0-4.8); ALT/SGPT 66 U/L (7-56); AST/SGOT 65 U/L (17-59); BLOOD UREA NITROGEN 23 mg/dL (7-21); CALCIUM 9.5 mg/dL (8.4-10.5); GFR AFRICAN-AMERICAN > 60; GFR NON-AFRICAN AMERICAN > 60
[2017-04-12 07:18] LABS: T4 10.7 ug/dL (5.5-11.0)
[2017-04-12] MEDS: Insulin Reg-LOW-Coverage SC SCH ×4 (07:54→22:07)
[2017-04-12] MEDS: Pantoprazole 40 mg EC Tab PO SCH (08:11)
--- NOTE | 2017-04-12 08:58 | CP.PCM.PN ---
Subjective - Date & Time of Evaluation Date of Evaluation: 04/12/17 Time of Evaluation: 07:30 - Subjective Subjective: Patient is seen this morning. He is more awake. He is answering questions, but sluggish. Objective - Vital Signs/Intake and Output Vital Signs (last 24 hours): Temp Pulse Resp BP Pulse Ox 97.8 F 60 20 177/86 H 98 04/12/17 05:57 04/12/17 05:57 04/12/17 05:57 04/12/17 05:57 04/12/17 05:57 Intake and Output: 04/12/17 04/12/17 06:59 18:59 Intake Total 240 Output Total 500 Balance -260 - Medications Medications: Current Medications Aspirin (Ecotrin) 81 mg PO DAILY [facility] Last Admin: 04/11/17 09:43 Dose: 81 mg Atenolol (Tenormin) 50 mg PO DAILY [facility] Last Admin: 04/11/17 09:43 Dose: 50 mg Atorvastatin Calcium (Lipitor) 40 mg PO DAILY [facility] Last Admin: 04/11/17 09:43 Dose: 40 mg Diphenhydramine HCl (Benadryl) 50 mg IVP Q4H PRN PRN Reason: Rigidity/Stiffness Last Admin: 04/11/17 21:40 Dose: 50 mg Folic Acid (Folic Acid) 1 mg PO DAILY [facility] Last Admin: 04/11/17 09:43 Dose: 1 mg Heparin Sodium (Porcine) (Heparin) 5,000 units SC Q8 [facility] PRN Reason: Protocol Last Admin: 04/12/17 05:07 Dose: 5,000 units Insulin Human Regular (Humulin R Low) 0 units SC ACHS [facility] PRN Reason: Protocol Last Admin: 04/12/17 07:54 Dose: Not Given Pantoprazole Sodium (Protonix Ec Tab) 40 mg PO ACB [facility] Last Admin: 04/12/17 08:11 Dose: 40 mg Tamsulosin HCl (Flomax) 0.4 mg PO DAILY [facility] Last Admin: 04/11/17 09:43 Dose: 0.4 mg - Labs Labs: 04/12/17 06:00 04/12/17 06:00 PT 12.9 SECONDS (9.4-12.5) H 04/08/17 18:15 INR 1.13 (0.93-1.08) H 04/08/17 18:15 APTT 38.7 Seconds (25.1-36.5) H 04/08/17 18:15 - Constitutional Appears: No Acute Distress - Head Exam Head Exam: ATRAUMATIC, NORMOCEPHALIC - Respiratory Exam Respiratory Exam: Clear to Ausculation Bilateral, NORMAL BREATHING PATTERN - Cardiovascular Exam Cardiovascular Exam: +S1, +S2 - GI/Abdominal Exam GI & Abdominal Exam: Soft, Normal Bowel Sounds. 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 BUN and creatinine trending downward. Patient is now on chopped diet with thin liquids. Encourage oral intake of fluids. continue PT and speech therapy. Liver enzymes are elevated. Will order ultrasound of abdomen. Patient has history of cirrhosis from alcohol.
--- NOTE | 2017-04-12 11:25 | CP.PCM.PN ---
Subjective - Date & Time of Evaluation Date of Evaluation: 04/12/17 Time of Evaluation: 10:00 - Subjective Subjective: DATE: 04/12/2017 NEUROLOGY FOLLOWUP CHIEF COMPLAINT: Followup for altered mental status. SUBJECTIVE: The patient was seen and examined at bedside, more alert and following simple commands. Patient had elevated systolic and diastolic blood pressures overnight, which has been slowly becoming corrective with blood pressure medications and adjustments. No headache. PAST MEDICAL HISTORY: History of liver cirrhosis, former EtOH abuse, diabetes, and hypertension. REVIEW OF SYSTEMS: A 14-point review of systems is negative except as per the HPI. ALLERGIES: NO KNOWN DRUG ALLERGIES. SOCIAL HISTORY: No illicit drug use, smoking, or EtOH abuse. FAMILY HISTORY: Noncontributory. MEDICATIONS: Reviewed by nurse per reconciliation sheet. PHYSICAL EXAMINATION: VITAL SIGNS: Reviewed. . GENERAL: The patient is sitting up in bed, lethargic. HEENT: Head is atraumatic, normocephalic. PERRLA. Extraocular muscles intact. NECK: Supple. No JVD, no adenopathy noted. LUNGS: Clear to auscultation. No adventitious sounds. HEART: S1 and S2, normal rate and rhythm. No murmurs, rubs, or gallops. ABDOMEN: Soft, nontender, nondistended. Bowel sounds present. EXTREMITIES: No clubbing, no cyanosis. Peripheral pulses 2+ felt bilaterally. NEUROLOGIC: The patient is lethargic, but follow simple commands, is alert and oriented to person and place. Recall after 5 minutes is 0/3. Poor attention span and slow thought process. Cranial nerves II through XII intact. Motor exam: He has left-sided weakness when compared to the right from the CVA. Sensory exam: Withdraws to localized noxious stimulus, light touch intact. DTRs are 1+ throughout. Coordination and gait deferred for now. LABORATORY DATA: Reviewed. . ASSESSMENT AND PLAN: This is a 76-year-old man with past medical history of liver cirrhosis, former EtOH abuse, diabetes, hypertension, who presented with altered mental status, status post spasticity and rigidity on the left side, has left-sided weakness, found to have an acute infarct in the right insular region, some small cortical infarct in the left anterior frontal lobe, likely secondary to more of a diffuse atherosclerotic disease than embolic and also from borderline diabetes and hypertension. He does also have hypertensive urgency which is responsible for his altered mental status as well along with metabolic derangements. At this time, recommend; 1. Keep blood pressures between 130s and 140s systolic and diastolic between 70s and 80s. 2. Monitor electrolytes and correct accordingly. 3. Aspirin 81 and Lipitor 80 mg p.o. daily for stroke prevention, but given that he has liver cirrhosis, we have to reduce Lipitor to 40 mg p.o. daily. 4. Keep blood sugars between 140 and 180. 5. PT/OT likely Acute rehab. Once again, thank you for this followup. Drake Byrd MD Objective - Vital Signs/Intake and Output Vital Signs (last 24 hours): Temp Pulse Resp BP Pulse Ox 97.8 F 62 20 154/67 H 98 04/12/17 05:57 04/12/17 10:00 04/12/17 05:57 04/12/17 10:00 04/12/17 05:57 Intake and Output: 04/12/17 04/12/17 06:59 18:59 Intake Total 240 Output Total 500 Balance -260 - Medications Medications: Current Medications Aspirin (Ecotrin) 81 mg PO DAILY [facility] Last Admin: 04/12/17 10:00 Dose: 81 mg Atenolol (Tenormin) 50 mg PO DAILY [facility] Last Admin: 04/12/17 10:00 Dose: 50 mg Atorvastatin Calcium (Lipitor) 40 mg PO DAILY [facility] Last Admin: 04/12/17 10:00 Dose: 40 mg Diphenhydramine HCl (Benadryl) 50 mg IVP Q4H PRN PRN Reason: Rigidity/Stiffness Last Admin: 04/11/17 21:40 Dose: 50 mg Folic Acid (Folic Acid) 1 mg PO DAILY [facility] Last Admin: 04/12/17 10:00 Dose: 1 mg Heparin Sodium (Porcine) (Heparin) 5,000 units SC Q8 [facility] PRN Reason: Protocol Last Admin: 04/12/17 05:07 Dose: 5,000 units Insulin Human Regular (Humulin R Low) 0 units SC ACHS [facility] PRN Reason: Protocol Last Admin: 04/12/17 07:54 Dose: Not Given Losartan Potassium (Cozaar) 50 mg PO DAILY [facility] Last Admin: 04/12/17 10:00 Dose: 50 mg Metformin HCl (Glucophage) 500 mg PO BID [facility] Last Admin: 04/12/17 10:00 Dose: 500 mg Pantoprazole Sodium (Protonix Ec Tab) 40 mg PO ACB [facility] Last Admin: 04/12/17 08:11 Dose: 40 mg Tamsulosin HCl (Flomax) 0.4 mg PO DAILY [facility] Last Admin: 04/12/17 10:00 Dose: 0.4 mg - Labs Labs: 04/12/17 06:00 04/12/17 06:00 PT 12.9 SECONDS (9.4-12.5) H 04/08/17 18:15 INR 1.13 (0.93-1.08) H 04/08/17 18:15 APTT 38.7 Seconds (25.1-36.5) H 04/08/17 18:15
--- NOTE | 2017-04-12 11:55 | PN ---
DATE: 04/12/2017 SUBJECTIVE: The patient is seen lying in bed. He is awake. He is alert. He is oriented. He is slow to mentate, but he is alert and oriented x3. PHYSICAL EXAMINATION: GENERAL: Elderly male, lying in bed. VITAL SIGNS: Blood pressure 177/86, heart rate 60, respiratory rate 20, temperature 97.8. HEENT: Normocephalic, atraumatic. NECK: Supple, no JVD. LUNGS: Bilateral equal air entry, no rales. CARDIAC: S1 and S2, regular rate and rhythm, no murmur, no rub. ABDOMEN: Soft, nondistended, nontender, bowel sounds present. EXTREMITIES: No lower extremity edema. INTAKE AND OUTPUT: 480/650. LABORATORY DATA: WBC 6.4, hemoglobin 12.4, hematocrit 36.5, platelets 70. Sodium 147, potassium 3.7, chloride 114, CO2 of 21, BUN 23, creatinine 1.0, glucose 124, calcium 9.5, phosphorus 3.1, magnesium 2.0, total bili 2.7, AST 65, ALT 66, ammonia 20, albumin 3.4. CURRENT MEDICATIONS: List reviewed. ASSESSMENT: 1. Resolved acute kidney injury, creatinine at baseline/normal. 2. Uncontrolled hypertension. 3. Status post altered mental status, much improved. 4. Vaa-ldwznvv-ftirrzbzt diabetes mellitus. PLAN: 1. The patient has severe uncontrolled hypertension at this time. The patient was only on atenolol 50 mg daily at home, which he is getting currently, but he is a diabetic and he has some proteinuria. Therefore, I will start him on low-dose ARB, losartan 50 mg daily. 2. The patient has a history of NIDDM. His metformin was on hold because of his acute kidney injury. Okay to restart metformin now. 3. Check hemoglobin A1c. 4. Physical therapy. 5. The patient is stable from the renal standpoint. Lelia Gaxiola MD
--- NOTE | 2017-04-12 15:59 | US ---
HISTORY: Elevated liver enzymes, cirrhosis,r/o gallstones COMPARISON: 12/26/2016 abdominal ultrasound TECHNIQUE: Sonographic evaluation of the abdomen. FINDINGS: LIVER: Measures 13.7 cm. Patent portal vein. Portal venous flow: Hepatopetal. Increased echogenicity of the liver parenchyma. No mass. No intrahepatic bile duct dilatation. GALLBLADDER: Unremarkable. No gallstones. COMMON BILE DUCT: Measures 4.4 mm. No stones. No dilatation. PANCREAS: Unremarkable as visualized. No mass. No ductal dilatation. RIGHT KIDNEY: Measures 4.6 x 10.2cm. Normal echogenicity. No calculus, mass, or hydronephrosis. LEFT KIDNEY: Measures 4.7 x 10.2cm. Normal echogenicity. No calculus, mass, or hydronephrosis. SPLEEN: Normal in size and contour. No mass. AORTA: No aneurysmal dilatation. IVC: Unremarkable. OTHER FINDINGS: None. IMPRESSION: Hepatic steatosis without focal hepatic abnormality. Otherwise unremarkable study
[2017-04-12] MEDS: DiphenhydrAMINE 50 mg/ml Inj IVP PRN (21:12)
[2017-04-13 06:36] LABS: BASO # 0.03 K/mm3 (0.0-2.0); BASO % 0.3 % (0.0-3.0); EOS # 0.2 (0.0-0.7); EOS % 2.4 % (1.5-5.0); GRAN # 7.47 (1.4-6.5); GRAN % 84.1 % (50.0-68.0); HEMOGLOBIN 11.7 g/dL (14.0-18.0); LYMPH # 0.8 (1.2-3.4); LYMPH % 9.5 % (22.0-35.0); MEAN CORPUSCULAR HGB CONC 33.7 g/dl (31.0-37.0); MEAN PLATELET VOLUME 11.7 fl (7.0-11.0); MONO # 0.3 (0.1-0.6); MONO % 3.7 % (1.0-6.0); RBC 3.9 10^6/uL (3.5-6.1); RED CELL DISTRIBUTION WIDTH 12.7 % (11.5-14.5); WHITE BLOOD COUNT 8.9 10^3/ul (4.5-11.0)
[2017-04-13 07:10] LABS: ALB/GLOB RATIO 1.1 (1.1-1.8); ALBUMIN 3.3 g/dL (3.0-4.8); ALT/SGPT 65 U/L (7-56); AST/SGOT 61 U/L (17-59); BLOOD UREA NITROGEN 23 mg/dL (7-21); CALCIUM 9.4 mg/dL (8.4-10.5); GFR AFRICAN-AMERICAN > 60; GFR NON-AFRICAN AMERICAN > 60
[2017-04-13] MEDS: Insulin Reg-LOW-Coverage SC SCH ×4 (07:46→21:34)
[2017-04-13] MEDS: Pantoprazole 40 mg EC Tab PO SCH (07:56)
[2017-04-13] MEDS ORDERED: Potassium Chloride 20 mEq ER Tab PO ONE (08:25)
[2017-04-13 10:00] LABS: HEMOGLOBIN 12.5 g/dL (14.0-18.0); MEAN CELL VOLUME 88.9 fl (80.0-105.0); MEAN CORPUSCULAR HEMOGLOBIN 30.7 pg (25.0-35.0); MEAN CORPUSCULAR HGB CONC 34.5 g/dl (31.0-37.0); MEAN PLATELET VOLUME 12.5 fl (7.0-11.0); RBC 4.07 10^6/uL (3.5-6.1); RED CELL DISTRIBUTION WIDTH 12.6 % (11.5-14.5)
[2017-04-13 10:50] LABS: INR 1.22 (0.93-1.08); PROTHROMBIN TIME 14.1 SECONDS (9.4-12.5)
--- NOTE | 2017-04-13 11:31 | PN ---
DATE: LOCATION: The patient is in [facility] in [place], room 261, bed 1. SUBJECTIVE: The patient is seen this morning. He is conscious. He is much more alert than he was initially. He presented to the emergency room on admission in an unresponsive state with rigidity in the entire body, arms and legs and the spine. The patient is more alert now, answers question. He is able to eat some pureed food. PHYSICAL EXAMINATION: VITAL SIGNS: Pulse is 54, blood pressure . The patient's temperature is 98, the patient is on room air oxygen, his O2 sat is 96%. LUNGS: Clear. HEART: Normal sinus rhythm. ABDOMEN: Soft. Liver and spleen not palpable. CENTRAL NERVOUS SYSTEM: The patient has left-sided weakness and the patient sustained a stroke prior to the patient being evaluated in the emergency room, but the MRI and the CAT scan done in the hospital shows the patient has lesions in the brainstem area. The patient has infarct in the frontal and also occipital lobe. LABORATORY DATA: The patient's blood work, the hemoglobin is 11.7, white count is normal. The patient's chemistry, the patient's potassium is 3.4, sodium is 144, his GFR is within normal limits. His liver enzymes are slightly elevated now. His bilirubin is 2.6. When he came in, his bilirubin was greater than 5. The patient does have past history of cirrhosis of the liver secondary to alcoholism. The patient has history of cholelithiasis also. MEDICATIONS: Currently, the patient is on Benadryl. The patient is on losartan for blood pressure, aspirin, Flomax, folic acid, metformin, heparin for prophylaxis. The patient is on insulin coverage also and the patient gets Lipitor, pantoprazole and Tenormin. DIET: The patient's diet is heart healthy and liver diet. We will follow up. Shamir Velarde MD
--- NOTE | 2017-04-13 17:39 | PN ---
DATE: SUBJECTIVE: The patient is currently seen on telemetry. He is lying comfortable supine in bed. Blood pressure is controlled. Renal parameters are back to baseline levels. The patient is being evaluated for outpatient rehabilitation therapy. MEDICATIONS: Medication list reviewed. The patient is currently on Benadryl, losartan, Ecotrin, Flomax, folic acid, Glucophage, heparin subq, sliding scale insulin, Lipitor, Protonix, and Tenormin. OBJECTIVE: INTAKE AND OUTPUT: Not charted. VITAL SIGNS: Blood pressure 123/70, temperature 97.5, respiratory rate 16 with a pulse of 59. HEENT: Shows him to be normocephalic, atraumatic. Conjunctivae are pink. Sclerae nonicteric. NECK: Supple. No neck vein distention. CHEST: Clear to auscultation and percussion. No rales, rhonchi, or wheezing. CARDIOVASCULAR: Shows a regular rate and rhythm without audible murmurs, rubs, or gallops. ABDOMEN: Soft. Bowel sounds normal. Nondistended. No rebound or guarding. EXTREMITIES: Show no lower extremity cyanosis, clubbing, or edema. NEUROLOGIC: Shows him to be essentially back to baseline. Apparently, the patient is answering most questions in a sensible way. LABORATORY DATA AND IMAGING: CBC: White blood cell count today was 8 with hemoglobin of 12.5, platelet count of 77,000. Chemistries today showed a sodium of 144, K of 3.4. The patient received potassium supplements. Chloride 111 with a CO2 of 23. BUN 23 with a creatinine of 1. Glucose is 112. Bilirubin mildly elevated to 2.6. Mild elevation of his liver enzymes. Microbiology: All cultures are negative to date. Stool for C. diff done on 04/12/2017, is negative. ASSESSMENT: 1. Prerenal azotemia likely secondary to volume depletion and renal hypoperfusion. This has improved significantly with IV fluid hydration. BUN and creatinine now back to baseline levels. The patient is on a modified the diet secondary to possible dysphagia. I have encouraged him to try and increase fluids as best as he can. 2. Hypernatremia. This has resolved. Sodium level is now 144. 3. Mild elevation of liver function tests. Bilirubin remains mildly elevated. This appears to be stable. 4. History of [id number]-oxsffslhh diabetes mellitus. Glucose control is acceptable on oral agents along with sliding scale insulin. The patient is back on metformin with improvement in his renal parameters. 5. History of hypertension. Blood pressure is controlled on present medical therapy. 6. Past history of cirrhosis. Ammonia levels are normal. This is likely the course of his elevated LFTs. 7. History of acute infarct. Brain MRI from 04/09/2017, showed a small Q recorder infarct in the right insular region. Small cortical infarcts in the left anterior frontal lobe. PLAN: 1. IV fluids have been discontinued last 24 hours. The patient is encouraged to increase his p.o. fluid intake as best as he can on his modified diet. 2. Attempt to obtain accurate I's and O's during hospitalization. 3. Agree with plans for acute rehab post his acute infarct. 4. The patient is stable from a blood pressure standpoint and stable from a renal standpoint. We will follow the patient on a p.r.n. basis. Thank you for allowing us to share in the care of your patient. Edin Cruz MD
--- NOTE | 2017-04-13 17:41 | CP.PCM.PN ---
Subjective - Date & Time of Evaluation Date of Evaluation: 04/13/17 Time of Evaluation: 17:00 - Subjective Subjective: DATE: 04/13/2017 NEUROLOGY FOLLOWUP CHIEF COMPLAINT: Followup for altered mental status. SUBJECTIVE: The patient was seen and examined at bedside, more alert and following simple commands. PAST MEDICAL HISTORY: History of liver cirrhosis, former EtOH abuse, diabetes, and hypertension. REVIEW OF SYSTEMS: A 14-point review of systems is negative except as per the HPI. ALLERGIES: NO KNOWN DRUG ALLERGIES. SOCIAL HISTORY: No illicit drug use, smoking, or EtOH abuse. FAMILY HISTORY: Noncontributory. MEDICATIONS: Reviewed by nurse per reconciliation sheet. PHYSICAL EXAMINATION: VITAL SIGNS: Reviewed. . GENERAL: The patient is sitting up in bed, lethargic. HEENT: Head is atraumatic, normocephalic. PERRLA. Extraocular muscles intact. NECK: Supple. No JVD, no adenopathy noted. LUNGS: Clear to auscultation. No adventitious sounds. HEART: S1 and S2, normal rate and rhythm. No murmurs, rubs, or gallops. ABDOMEN: Soft, nontender, nondistended. Bowel sounds present. EXTREMITIES: No clubbing, no cyanosis. Peripheral pulses 2+ felt bilaterally. NEUROLOGIC: The patient is lethargic, but follow simple commands, is alert and oriented to person and place. Recall after 5 minutes is 0/3. Poor attention span and slow thought process. Cranial nerves II through XII intact. Motor exam: He has left-sided weakness when compared to the right from the CVA. Sensory exam: Withdraws to localized noxious stimulus, light touch intact. DTRs are 1+ throughout. Coordination and gait deferred for now. LABORATORY DATA: Reviewed. . ASSESSMENT AND PLAN: This is a 76-year-old man with past medical history of liver cirrhosis, former EtOH abuse, diabetes, hypertension, who presented with altered mental status, status post spasticity and rigidity on the left side, has left-sided weakness, found to have an acute infarct in the right insular region, some small cortical infarct in the left anterior frontal lobe, likely secondary to more of a diffuse atherosclerotic disease than embolic and also from borderline diabetes and hypertension. He does also have hypertensive urgency which is responsible for his altered mental status as well along with metabolic derangements. At this time, recommend; 1. Keep blood pressures between 130s and 140s systolic and diastolic between 70s and 80s. 2. Monitor electrolytes and correct accordingly. 3. Aspirin 81 and Lipitor 80 mg p.o. daily for stroke prevention, but given that he has liver cirrhosis, we have to reduce Lipitor to 40 mg p.o. daily. 4. Keep blood sugars between 140 and 180. 5. PT/OT likely Acute rehab. Once again, thank you for this followup. Drake Byrd MD Objective - Vital Signs/Intake and Output Vital Signs (last 24 hours): Temp Pulse Resp BP Pulse Ox 97.5 F L 51 L 16 123/70 96 04/13/17 12:00 04/13/17 14:00 04/13/17 12:00 04/13/17 12:00 04/13/17 05:57 Intake and Output: 04/13/17 04/13/17 06:59 18:59 Intake Total 120 420 Output Total 400 Balance 120 20 - Medications Medications: Current Medications Aspirin (Ecotrin) 81 mg PO DAILY [facility] Last Admin: 04/13/17 09:37 Dose: 81 mg Atenolol (Tenormin) 50 mg PO DAILY [facility] Last Admin: 04/13/17 09:36 Dose: 50 mg Atorvastatin Calcium (Lipitor) 40 mg PO DAILY [facility] Last Admin: 04/13/17 09:36 Dose: 40 mg Diphenhydramine HCl (Benadryl) 50 mg IVP Q4H PRN PRN Reason: Rigidity/Stiffness Last Admin: 04/12/17 21:12 Dose: 50 mg Folic Acid (Folic Acid) 1 mg PO DAILY [facility] Last Admin: 04/13/17 09:37 Dose: 1 mg Heparin Sodium (Porcine) (Heparin) 5,000 units SC Q12 [facility] PRN Reason: Protocol Insulin Human Regular (Humulin R Low) 0 units SC ACHS [facility] PRN Reason: Protocol Last Admin: 04/13/17 17:11 Dose: 2 units Losartan Potassium (Cozaar) 50 mg PO DAILY [facility] Last Admin: 04/13/17 09:36 Dose: 50 mg Metformin HCl (Glucophage) 500 mg PO BID [facility] Last Admin: 04/13/17 17:10 Dose: 500 mg Pantoprazole Sodium (Protonix Ec Tab) 40 mg PO ACB [facility] Last Admin: 04/13/17 07:56 Dose: 40 mg Tamsulosin HCl (Flomax) 0.4 mg PO DAILY [facility] Last Admin: 04/13/17 09:37 Dose: 0.4 mg - Labs Labs: 04/13/17 09:30 04/13/17 05:30 PT 14.1 SECONDS (9.4-12.5) H 04/13/17 09:30 INR 1.22 (0.93-1.08) H 04/13/17 09:30 APTT 106.7 Seconds (25.1-36.5) H* 04/13/17 09:30
[2017-04-14 00:03] VITALS: RESP 18
[2017-04-14 06:55] LABS: MEAN CELL VOLUME 88.6 fl (80.0-105.0); MEAN CORPUSCULAR HEMOGLOBIN 30.5 pg (25.0-35.0); MEAN CORPUSCULAR HGB CONC 34.4 g/dl (31.0-37.0); MEAN PLATELET VOLUME 12.4 fl (7.0-11.0); RBC 3.94 10^6/uL (3.5-6.1); RED CELL DISTRIBUTION WIDTH 12.5 % (11.5-14.5); WHITE BLOOD COUNT 7.1 10^3/ul (4.5-11.0)
[2017-04-14 07:01] VITALS: O2SAT 97
[2017-04-14 07:15] LABS: ALB/GLOB RATIO 1.1 (1.1-1.8); ALBUMIN 3.3 g/dL (3.0-4.8); ALT/SGPT 67 U/L (7-56); AST/SGOT 65 U/L (17-59); BLOOD UREA NITROGEN 23 mg/dL (7-21); CALCIUM 9.2 mg/dL (8.4-10.5); GFR AFRICAN-AMERICAN > 60; GFR NON-AFRICAN AMERICAN > 60
[2017-04-14] MEDS: Insulin Reg-LOW-Coverage SC SCH ×2 (08:17→11:57)
[2017-04-14] MEDS: Pantoprazole 40 mg EC Tab PO SCH (08:50)
[2017-04-14] MEDS ORDERED: Influenza Vaccine 60 mcg/0.5 mL SYR (4YR UP) IM ONE (11:37)
[2017-04-14] MEDS ORDERED: Pneumococcal 23-Valent Vaccine IM ONE (11:37)
--- NOTE | 2017-04-14 12:06 | PN ---
DATE: LOCATION: The patient is in [facility] in [place], room 261, bed 1. SUBJECTIVE: The patient was admitted with stroke, left-sided hemiparesis. The patient is currently improved. His vital signs this morning, pulse is 98, blood pressure is 130/67, respirations 18, O2 saturation is 97%, his temperature is 98. The patient's past history is significant in that he has history of diabetes; hypertension; cirrhosis of the liver, alcohol related. The patient also has a history of possible gallstones, but there is no current evidence of that. PHYSICAL EXAMINATION VITAL SIGNS: As mentioned. HEENT: The patient's head is normocephalic. LUNGS: Clear. HEART: Normal sinus rhythm. ABDOMEN: Soft. Liver and spleen not palpable. CENTRAL NERVOUS SYSTEM: No focal deficits are noted except the weakness on the left side of the body, in the left arm and left leg. The patient has slurred speech probably secondary to the stroke. DIAGNOSTIC DATA: He has CAT scan evidence of multiple strokes involved in the basal ganglia, internal capsule area, and also, the frontal and occipital lobes. MEDICATIONS: Currently, the patient is on losartan 50 mg daily for blood pressure control, aspirin 81 mg daily, Flomax 0.4 mg daily, folic acid 1 mg daily, metformin 500 mg b.i.d. for diabetes. The patient gets heparin subcutaneous for prophylaxis. The patient is also on insulin coverage. Lipitor 40 mg daily, pantoprazole 40 mg daily, atenolol 50 mg daily. The patient is on a heart-healthy diet. There is a possibility the patient will be transferred to [facility] in [place], that is for acute rehab for stroke. His condition is clinically stable for him to be transferred to [facility] in [place]. He will continue all his medications there and the patient will be seen when he returns from the rehab facility. Shamir Velarde MD
[2017-04-14 14:21] VITALS: PULSE 47
[2017-04-14] MEDS ORDERED: Potassium Chloride 10 mEq ER Tab PO SCH (14:30)
[2017-04-14 14:34] VITALS: BP 157/78; TEMP 98.4
--- NOTE | 2017-04-14 14:56 | PN ---
DATE: 04/14/2017 SUBJECTIVE: The patient is seen lying in bed. Brother is at bedside. He is awake. He is alert. He is comfortable. He denies any pain anywhere. He denies any shortness of breath. PHYSICAL EXAMINATION: GENERAL: Elderly male, lying in bed. VITAL SIGNS: Blood pressure 130/67, heart rate 98, respiratory rate 18, temperature 98. HEENT: Normocephalic, atraumatic. NECK: Supple. No JVD. LUNGS: Bilateral equal air entry, no rales. CARDIAC: S1 and S2, regular rate and rhythm, no murmur, no rub. ABDOMEN: Soft, nondistended, nontender, bowel sounds present. EXTREMITIES: No lower extremity edema. INTAKE AND OUTPUT: 720/400. LABORATORY DATA: WBC 7, hemoglobin 12, hematocrit 35, platelets 82. Sodium 143, potassium 3.4, chloride 110, CO2 of 23, BUN 23, creatinine 1.0, glucose of 112, calcium 9.2, magnesium not checked, total bili 2.1, AST 65, ALT 67, albumin 3.3. CURRENT MEDICATIONS: Benadryl 50 q. 6 p.r.n., losartan 150, aspirin 81, Flomax 0.4, folic acid 1 mg, metformin 500 b.i.d., heparin, potassium 20 mEq one dose given yesterday, lidocaine, Lipitor, Protonix, atenolol. ASSESSMENT AND PLAN: 1. Acute kidney injury, resolved. 2. Hypokalemia. 3. Acute cerebrovascular accident. 4. Hjj-prbvmyl-gpfnwmtof diabetes mellitus. 5. Elevated liver function tests. 6. Resolved altered mental status. PLAN: 1. Potassium 40 mEq p.o. now. 2. Check magnesium levels. 3. Okay to continue metformin, ERICA resolved. 4. Continue losartan. 5. Push p.o. intake. 6. Continue insulin coverage and fingerstick monitoring. 7. Physical therapy. 8. No objection to discharge to rehab. Lelia Gaxiola MD
== END 2017-04-14 15:05 | DRG 65 ==
LOC: ED 18:07 → ERH 22:05 → ICU 23:36 → CCU 04-10 15:05 → 2RNO 04-11 16:36
PROVIDERS: ADMIT Internal Medicine; ATTEND Internal Medicine
PROC: 009U3ZX Drainage of Spinal Canal, Percutaneous Approach, Diagnostic (ICD-10-PCS; principal; 2017-04-09)
DX: I63.9 Cerebral infarction, unspecified (principal); N17.9 Acute kidney failure, unspecified; E87.0 Hyperosmolality and hypernatremia; G81.14 Spastic hemiplegia affecting left nondominant side; E87.2 Acidosis; B17.9 Acute viral hepatitis, unspecified; E86.0 Dehydration; E11.65 Type 2 diabetes mellitus with hyperglycemia; E11.22 Type 2 diabetes mellitus with diabetic chronic kidney disease; R47.01 Aphasia; E79.0 Hyperuricemia without signs of inflammatory arthritis and tophaceous disease; K70.30 Alcoholic cirrhosis of liver without ascites; N40.0 Benign prostatic hyperplasia without lower urinary tract symptoms; I16.0 Hypertensive urgency; K80.20 Calculus of gallbladder without cholecystitis without obstruction; K72.90 Hepatic failure, unspecified without coma; I12.9 Hypertensive chronic kidney disease with stage 1 through stage 4 chronic kidney disease, or unspecified chronic kidney disease; N18.2 Chronic kidney disease, stage 2 (mild); Y90.0 Blood alcohol level of less than 20 mg/100 ml; F10.20 Alcohol dependence, uncomplicated; E87.6 Hypokalemia; E83.39 Other disorders of phosphorus metabolism; R29.701 NIHSS score 1; Z79.84 Long term (current) use of oral hypoglycemic drugs

== ENCOUNTER 2017-06-07 07:51 | Day surgery (SDC) | payer MEDICARE, OTHER ==
[2017-06-07] MEDS ORDERED: Etomidate 20 mg/10ml Inj IV ONE (08:22)
[2017-06-07] MEDS ORDERED: Propofol 10 mg/ml Inj (20 ML) ONE (08:26)
[2017-06-07] MEDS ORDERED: Sodium Chloride 0.9% 1,000 ML IV SCH (08:45)
[2017-06-07 09:30] VITALS: PULSE 61
[2017-06-07 09:36] VITALS: BP 119/62; RESP 18; TEMP 97.8; O2SAT 98
== END 2017-06-07 10:25 | disposition home or self-care (01) ==
LOC: ENDO 07:51
PROVIDERS: ATTEND Specialist
DX: Z43.1 Encounter for attention to gastrostomy (principal); I10 Essential (primary) hypertension; E11.43 Type 2 diabetes mellitus with diabetic autonomic (poly)neuropathy; K31.84 Gastroparesis; Z79.84 Long term (current) use of oral hypoglycemic drugs; Z86.73 Personal history of transient ischemic attack (TIA), and cerebral infarction without residual deficits
CPT/HCPCS: 43247; J3010; J7040 ×2

== ENCOUNTER 2017-11-23 13:31 | Inpatient (IN) | payer MEDICARE, OTHER ==
[2017-11-23 13:35] VITALS: BMI 22.8
--- NOTE | 2017-11-23 14:10 | ED PDOC ---
Arrival/HPI - General Historian: Patient - History of Present Illness Narrative History of Present Illness (Text): 11/23/17 14:02 Patient is 77 year old male with a past medical history of liver cirrhosis (former EtOH abuser), DM2, HTN, MD and CVA (8 weeks ago) presenting to the emergency room after feeling weak and dizzy upon standing at home. Patient stood up to turn off the TV when states he felt weak/dizzy when he started to fall and his friend caught him. His friend told him his left eye was closed during this episode of weakness. He is feeling much better now and is left eye is back to normal. He was recently discharged home from a rehab center after his recent CVA. He is currently living at home alone. Visiting nursing has stopped coming to his house. Denies fevers, chills, nausea, vomiting, diarrhea, constipation, chest pain, shortness of breath, slurred speech, focal weakness, numbness or tingling. PMD Dr. Velarde Time/Duration: 4-6 hours Symptom Onset: Sudden Symptom Course: Improving Quality: Other (weakness/dizzy) <Bertram Berry - Last Filed: 11/23/17 16:34> <Kemar Cardona - Last Filed: 11/23/17 17:47> - General Chief Complaint: Weakness/Neurological Deficit Time Seen by Provider: 11/23/17 13:35 Past Medical History - Provider Review Nursing Documentation Reviewed: Yes - Past History Past History: Unable to Obtain - Infectious Disease Hx of Infectious Diseases: None - Cardiac Hx MD: Yes Hx Pacemaker: No - Pulmonary Other/Comment: unable to get history at this time - Neurological Hx Paralysis: No (SLIGHT LEFT-SIDED WEAKNESS S/P CVA) - Renal Hx Renal Failure: Yes - Endocrine/Metabolic Hx Diabetes Mellitus Type 2: Yes - Hematological/Oncological Hx Blood Transfusions: No Hx Blood Transfusion Reaction: No - Integumentary Other/Comment: unable to get history at this time - Musculoskeletal/Rheumatological Hx Musculoskeletal Disorders: Yes (SLIGHT LEFT SIDED WEAKNESS S/P CVA) - Genitourinary/Gynecological Other/Comment: unable to get history at this time - Psychiatric Hx Emotional Abuse: No Hx Physical Abuse: No Hx Substance Use: No - Surgical History Other/Comment: unable to get history - Anesthesia Hx Anesthesia Reactions: No Hx Malignant Hyperthermia: No - Suicidal Assessment Feels Threatened In Home Enviroment: No <Bertram Berry - Last Filed: 11/23/17 16:34> Family/Social History - Physician Review Nursing Documentation Reviewed: Yes Family/Social History: Unknown Family HX Smoking Status: Unknown If Ever Smoked Hx Alcohol Use: Yes (HX ALCOHOL ABUSE OVER 10 YEARS -DRINKS BEER, RUM) Hx Substance Use: No <Bertram Berry - Last Filed: 11/23/17 16:34> Allergies/Home Meds <Bertram Berry - Last Filed: 11/23/17 16:34> <Kemar Cardona - Last Filed: 11/23/17 17:47> Allergies/Adverse Reactions: Allergies No Known Allergies Allergy (Verified 11/23/17 13:35) Home Medications: Home Meds Medication Instructions Recorded Confirmed RX: Atenolol [Tenormin] 25 mg PO QAM 04/10/17 06/07/17 RX: Atorvastatin [Lipitor] 40 mg PO QPM 04/10/17 06/07/17 RX: Fenofibrate [Tricor] 134 mg PO DAILY 04/10/17 06/07/17 RX: Folic Acid 1 mg PO QAM 04/10/17 06/07/17 RX: Gabapentin [Neurontin] 300 mg PO BID 04/10/17 06/07/17 RX: SITagliptin [Januvia] 100 mg PO QAM 04/10/17 06/07/17 RX: Ursodiol [Actigall] 300 mg PO DAILY 04/10/17 06/07/17 RX: metFORMIN [glucOPHAGE] 500 mg PO QAM 05/31/17 06/07/17 Lubiprostone [Amitiza] 8 mcg PO BID 06/02/17 06/07/17 RX: Aspirin [Ecotrin] 81 mg PO QAM 06/02/17 06/07/17 RX: Fluoxetine HCl 10 mg PO DAILY 06/02/17 06/07/17 RX: Losartan [Cozaar] 50 mg PO QAM 06/02/17 06/07/17 Review of Systems - Physician Review All systems were reviewed & negative as marked: Yes - Review of Systems Constitutional: Normal. absent: Fevers Eyes: Normal. absent: Photophobia, Eye Pain ENT: Normal. absent: Rhinorrhea, Epistaxis Respiratory: Normal. absent: SOB, Wheezing Cardiovascular: absent: Chest Pain, Palpitations, STALEY, Syncope (pre-syncope) Gastrointestinal: Normal. absent: Abdominal Pain, Diarrhea, Nausea, Vomiting Musculoskeletal: Normal Skin: Normal. absent: Rash Neurological: Dizziness, Other (generalized weakness). absent: Headache Endocrine: Normal. absent: Diaphoresis Hemo/Lymphatic: Normal. absent: Adenopathy Psychiatric: Normal. absent: Anxiety <Bertram Berry - Last Filed: 11/23/17 16:34> Physical Exam Vital Signs Reviewed: Yes Vital Signs Temp Pulse Resp BP Pulse Ox 11/23/17 13:51 97.8 F 57 L 17 121/64 99 Temperature: Afebrile Blood Pressure: Normal Pulse: Bradycardic Respiratory Rate: Normal Appearance: Positive for: Non-Toxic, Comfortable Pain Distress: None Mental Status: Positive for: Alert and Oriented X 3 Finger Stick Blood Glucose: 107 - Systems Exam Head: Present: Atraumatic, Normocephalic Pupils: Present: PERRL Extroacular Muscles: Present: EOMI Conjunctiva: Present: Normal Mouth: Present: Moist Mucous Membranes Nose (External): Present: Atraumatic Nose (Internal): Present: No Active Bleeding, Moist Neck: Present: Normal Range of Motion. No: Meningeal Signs, MIDLINE TENDERNESS, Paraspinal Tenderness, JVD, Lymphadenopathy Respiratory/Chest: Present: Clear to Auscultation, Good Air Exchange. No: Respiratory Distress, Accessory Muscle Use, Wheezes, Rales, Rhonchi Cardiovascular: Present: Regular Rate and Rhythm, Normal S1, S2. No: Murmurs Abdomen: No: Tenderness, Distention, Peritoneal Signs, Rebound, Guarding Upper Extremity: Present: Normal Inspection, NORMAL PULSES. No: Cyanosis, Edema Lower Extremity: Present: Normal Inspection, NORMAL PULSES. No: Edema, CALF TENDERNESS Neurological: Present: GCS=15, CN II-XII Intact, Speech Normal, Motor Func Grossly Intact, Normal Sensory Function, Other (- Babinski's b/l, 5/5 strength throughout) Skin: Present: Warm, Dry, Normal Color. No: Rashes Lymphatic: No: Cervical Adenopathy Psychiatric: Present: Alert, Oriented x 3, Normal Insight, Normal Concentration <Bertram Berry - Last Filed: 11/23/17 16:34> Vital Signs Temp Pulse Resp BP Pulse Ox 11/23/17 15:23 97.6 F 56 L 18 115/64 100 11/23/17 13:51 97.8 F 57 L 17 121/64 99 <Kemar Cardona - Last Filed: 11/23/17 17:47> Medical Decision Making ED Course and Treatment: 11/23/17 14:12 Patient is 77 year old male with a past medical history of liver cirrhosis (former EtOH abuser), DM2, HTN, MD and CVA (8 weeks ago) presenting to the emergency room after feeling weak and dizzy upon standing at home. symptoms resolved presyncope work-up, r/o cardiac/neuro causes Labs, EKG, CXR and Head CT Reassess Discussed results of normal labs and imaging with patient. Call placed to Dr. Velarde. Case discussed in detail. Dr. Velarde has accepted patient to onto his service for inpatient admission 2/ to pre-syncope. Admission order placed. Re-evaluation Time: 15:23 - Lab Interpretations I have reviewed the lab results: Yes - RAD Interpretation Narrative RAD Interpretations (Text): 11/23/17 15:21 CXR: No acute disease. Head CT w/o: No acute intracranial abnormalities. No significant findings to account for the clinical presentation. No significant interval change compared to the prior examination(s). Radiology Orders: 11/23/17 13:59 CHEST PORTABLE [RAD] Stat 11/23/17 14:00 HEAD W/O CONTRAST [CT] Stat Transfill Technician: Radiologist - EKG Interpretation EKG Interpretation (Text): 11/23/17 16:27 Sinus Felix at 52bpm, left axis, no acute ST segment elevations or depressions. Interpreted by ED Physician: Yes <Bertram Berry - Last Filed: 11/23/17 16:34> ED Course and Treatment: 11/23/17 16:04 77 year old male who presents to the Emergency Department with complaints of generalized weakness and dizziness. In agreement with resident note, which includes further HPI details. Patient was seen and evaluated with resident, came up with plan and treatment together. 11/23/17 17:46 pt seen wtih residen near syncope vs syncope. labs ct neg. cxr neg. pmd accepts for admisison. - Lab Interpretations Lab Results: 11/23/17 14:30 11/23/17 14:30 Lab Results 11/23/17 14:30: Sodium 138, Potassium 4.8, Chloride 107, Carbon Dioxide 24, Anion Gap 13, BUN 30 H, Creatinine 1.4, Est GFR ( Amer) 60, Est GFR (Non- Af Amer) 49, Random Glucose 100, Calcium 9.9, Magnesium 1.9, Total Bilirubin 0.8, AST 30, ALT 31, Alkaline Phosphatase 39, Total Creatine Kinase 32 L, Troponin I < 0.01 D, Total Protein 7.0, Albumin 4.2, Globulin 2.8, Albumin/Globulin Ratio 1.5 11/23/17 14:30: PT 12.9 H, INR 1.13, APTT 35.1 11/23/17 14:30: WBC 5.7, RBC 3.95, Hgb 12.3 L, Hct 36.8 L, MCV 93.2, MCH 31.1, MCHC 33.4, RDW 12.3, Plt Count 103 L, MPV 11.7 H, Gran % 71.3 H, Lymph % (Auto) 18.4 L, [place] % (Auto) 7.9 H, Eos % (Auto) 1.9, Baso % (Auto) 0.5, Gran # 4.07, Lymph # (Auto) 1.1 L, [place] # (Auto) 0.5, Eos # (Auto) 0.1, Baso # (Auto) 0.03 - RAD Interpretation Radiology Orders: 11/23/17 13:59 CHEST PORTABLE [RAD] Stat 11/23/17 14:00 HEAD W/O CONTRAST [CT] Stat <Kemar Cardona - Last Filed: 11/23/17 17:47> - PA / PAYMENT PROCESSOR / Resident Statement / has reviewed & agrees with the documentation as recorded. MD/ has examined the patient and agrees with the treatment plan. - Scribe Statement The provider has reviewed the documentation as recorded by the Eliana marroquin with Michael All medical record entries made by the Scribmakenzie were at my direction and personally dictated by me. I have reviewed the chart and agree that the record accurately reflects my personal performance of the history, physical exam, medical decision making, and the department course for this patient. I have also personally directed, reviewed, and agree with the discharge instructions and disposition. <Kemar Cardona - Last Filed: 11/23/17 17:47> Disposition/Present on Arrival - Present on Arrival Any Indicators Present on Arrival: No History of DVT/PE: No History of Uncontrolled Diabetes: No Urinary Catheter: Yes (FR 16 INSERTED IN THE er) History of Decub. Ulcer: No History Surgical Site Infection Following: None - Disposition Have Diagnosis and Disposition been Completed?: Yes Disposition Time: 15:40 Patient Plan: Admission, Telemetry <Bertram Berry - Last Filed: 11/23/17 16:34> <Kemar Cardona - Last Filed: 11/23/17 17:47> - Disposition Diagnosis: Dizziness, Pre-syncope Disposition: HOSPITALIZED Patient Problems: Current Active Problems Problem Status Onset Dizziness Acute Pre-syncope Acute Condition: GUARDED
[2017-11-23 14:57] LABS: ALB/GLOB RATIO 1.5 (1.1-1.8); ALBUMIN 4.2 g/dL (3.0-4.8); ALT/SGPT 31 U/L (7-56); AST/SGOT 30 U/L (17-59); BLOOD UREA NITROGEN 30 mg/dL (7-21); CALCIUM 9.9 mg/dL (8.4-10.5); GFR NON-AFRICAN AMERICAN 49
--- NOTE | 2017-11-23 15:07 | RAD ---
Date of service: 11/23/2017 HISTORY: pre-syncope COMPARISON: 04/08/2017 FINDINGS: LUNGS: No active pulmonary disease. PLEURA: No significant pleural effusion identified, no pneumothorax apparent. CARDIOVASCULAR: No atherosclerotic calcification present Normal. OSSEOUS STRUCTURES: No significant abnormalities. VISUALIZED UPPER ABDOMEN: Normal. OTHER FINDINGS: None. IMPRESSION: No active disease.
[2017-11-23 15:08] LABS: TROPONIN I < 0.01 ng/mL
[2017-11-23 15:09] LABS: BASO # 0.03 K/mm3 (0.0-2.0); BASO % 0.5 % (0.0-3.0); EOS # 0.1 (0.0-0.7); EOS % 1.9 % (1.5-5.0); GRAN # 4.07 (1.4-6.5); GRAN % 71.3 % (50.0-68.0); HEMOGLOBIN 12.3 g/dL (14.0-18.0); LYMPH # 1.1 (1.2-3.4); LYMPH % 18.4 % (22.0-35.0); MEAN CELL VOLUME 93.2 fl (80.0-105.0); MEAN CORPUSCULAR HEMOGLOBIN 31.1 pg (25.0-35.0); MEAN CORPUSCULAR HGB CONC 33.4 g/dl (31.0-37.0); MEAN PLATELET VOLUME 11.7 fl (7.0-11.0); MONO # 0.5 (0.1-0.6); MONO % 7.9 % (1.0-6.0); RBC 3.95 10^6/uL (3.5-6.1); RED CELL DISTRIBUTION WIDTH 12.3 % (11.5-14.5); WHITE BLOOD COUNT 5.7 10^3/ul (4.5-11.0)
--- NOTE | 2017-11-23 15:10 | CT ---
Date of service: 11/23/2017 PROCEDURE: CT HEAD WITHOUT CONTRAST. HISTORY: presyncope/weakness COMPARISON: 04/09/2017 MR brain. 04/08/2017 CT head TECHNIQUE: Axial computed tomography images were obtained through the head/brain without intravenous contrast. Supplemental Coronal and Sagittal projections created and reviewed. Radiation dose: Total exam DLP = 1033.88 mGy-cm. This CT exam was performed using one or more of the following dose reduction techniques: Automated exposure control, adjustment of the mA and/or kV according to patient size, and/or use of iterative reconstruction technique. FINDINGS: HEMORRHAGE: No intracranial hemorrhage. BRAIN: No mass effect or edema. Cortical and cerebellar atrophy, periventricular small vessel disease. VENTRICLES: Unremarkable. No hydrocephalus. CALVARIUM: Unremarkable. PARANASAL SINUSES: Unremarkable as visualized. No significant inflammatory changes. MASTOID AIR CELLS: Unremarkable as visualized. No inflammatory changes. OTHER FINDINGS: None. IMPRESSION: No acute intracranial abnormalities. No significant findings to account for the clinical presentation. No significant interval change compared to the prior examination(s).
[2017-11-23 15:12] LABS: INR 1.13; PARTIAL THROMBOPLASTIN TIME 35.1 Seconds (25.1-36.5); PROTHROMBIN TIME 12.9 SECONDS (9.4-12.5)
[2017-11-23 15:13] LABS: PH,URINE 6.5 (4.7-8.0); URINE BILIRUBIN NEGATIVE (NEGATIVE); URINE BLOOD NEGATIVE (NEGATIVE); URINE GLUCOSE (UA) NEGATIVE (NEGATIVE); URINE LEUKOCYTE ESTERASE NEGATIVE Leu/uL (NEGATIVE); URINE PROTEIN TRACE mg/dL (<30 mg/dL)
[2017-11-23 16:04] LABS: URINE APPEARANCE CLEAR (CLEAR); URINE COLOR YELLOW (YELLOW)
--- NOTE | 2017-11-23 16:53 | CARD ---
APPROVED REPORT Date of service: 11/23/2017 EKG Measurement Heart [id number] <Conclusion> Sinus bradycardia Otherwise normal ECG
--- NOTE | 2017-11-23 18:06 | CP.PCM.HP ---
History of Present Illness - History of Present Illness History of Present Illness: 77 year old male with history of CVA, hypertension, BPH, cirrhosis of the liver, GERD and diabetes mellitus presented to the Emergency Room with dizziness and weakness. Patient says he got up to turn off the television when he just passed out. His friend caught him. The friend said that his left eye was closed during the episode. He denies any chest pain or shortness of breath or weakness of his limbs at this time. Present on Admission - Present on Admission Any Indicators Present on Admission: No History of DVT/PE: No History of Uncontrolled Diabetes: No Urinary Catheter: No Decubitus Ulcer Present: No Review of Systems - Constitutional Constitutional: Weight Loss. absent: Chills, Fever - Cardiovascular Cardiovascular: absent: Chest Pain, Dyspnea, Leg Edema - Respiratory Respiratory: absent: Cough, Dyspnea, Wheezing - Gastrointestinal Gastrointestinal: absent: Abdominal Pain, Nausea, Vomiting Past Patient History - Infectious Disease Hx of Infectious Diseases: None - Past Social History Smoking Status: Unknown If Ever Smoked - CARDIAC Hx Heart Attack: Yes Hx Pacemaker: No - PULMONARY Other/Comment: unable to get history at this time - NEUROLOGICAL Hx Paralysis: No (SLIGHT LEFT-SIDED WEAKNESS S/P CVA) - RENAL Hx Renal Failure: Yes - ENDOCRINE/METABOLIC Hx Diabetes Mellitus Type 2: Yes - HEMATOLOGICAL/ONCOLOGICAL Hx Blood Transfusions: No Hx Blood Transfusion Reaction: No - INTEGUMENTARY Other/Comment: unable to get history at this time - MUSCULOSKELETAL/RHEUMATOLOGICAL Hx Musculoskeletal Disorders: Yes (SLIGHT LEFT SIDED WEAKNESS S/P CVA) - GENITOURINARY/GYNECOLOGICAL Other/Comment: unable to get history at this time - PSYCHIATRIC Hx Emotional Abuse: No Hx Physical Abuse: No Hx Substance Use: No - SURGICAL HISTORY Other/Comment: unable to get history - ANESTHESIA Hx Anesthesia Reactions: No Hx Malignant Hyperthermia: No Meds Allergies/Adverse Reactions: Allergies Allergy/AdvReac Type Severity Reaction Status Date / Time No Known Allergies Allergy Verified 11/23/17 13:35 Physical Exam - Constitutional Appears: No Acute Distress - Head Exam Head Exam: ATRAUMATIC, NORMOCEPHALIC - Respiratory Exam Respiratory Exam: Clear to Auscultation Bilateral, NORMAL BREATHING PATTERN - Cardiovascular Exam Cardiovascular Exam: REGULAR RHYTHM, +S1, +S2 - GI/Abdominal Exam GI & Abdominal Exam: Normal Bowel Sounds, Soft. absent: Tenderness Results - Vital Signs Recent Vital Signs: Last Vital Signs Temp 97.8 F 11/23/17 17:00 Pulse 61 11/23/17 17:00 Resp 20 11/23/17 17:00 BP 136/64 11/23/17 17:00 Pulse Ox 100 11/23/17 17:00 - Labs Result Diagrams: 11/23/17 14:30 11/23/17 14:30 Labs: Laboratory Results - last 24 hr 11/23/17 11/23/17 11/23/17 14:30 14:30 14:30 WBC 5.7 RBC 3.95 Hgb 12.3 L Hct 36.8 L MCV 93.2 MCH 31.1 MCHC 33.4 RDW 12.3 Plt Count 103 L MPV 11.7 H Gran % 71.3 H Lymph % (Auto) 18.4 L [place] % (Auto) 7.9 H Eos % (Auto) 1.9 Baso % (Auto) 0.5 Gran # 4.07 Lymph # (Auto) 1.1 L [place] # (Auto) 0.5 Eos # (Auto) 0.1 Baso # (Auto) 0.03 PT 12.9 H INR 1.13 APTT 35.1 Sodium Potassium Chloride Carbon Dioxide Anion Gap BUN Creatinine Est GFR ( Amer) Est GFR (Non-Af Amer) Random Glucose Calcium Magnesium Total Bilirubin AST ALT Alkaline Phosphatase Total Creatine Kinase Troponin I Total Protein Albumin Globulin Albumin/Globulin Ratio Urine Color Yellow Urine Appearance Clear Urine pH 6.5 Ur Specific [place] 1.025 Urine Protein Trace H Urine Glucose (UA) Negative Urine Ketones Negative Urine Blood Negative Urine Nitrate Negative Urine Bilirubin Negative Urine Urobilinogen 2.0 H Ur Leukocyte Esterase Negative Urine RBC TEST NOT PERFORMED Urine WBC 2 - 5 Ur Epithelial Cells 6 - 8 11/23/17 14:30 WBC RBC Hgb Hct MCV MCH MCHC RDW Plt Count MPV Gran % Lymph % (Auto) [place] % (Auto) Eos % (Auto) Baso % (Auto) Gran # Lymph # (Auto) [place] # (Auto) Eos # (Auto) Baso # (Auto) PT INR APTT Sodium 138 Potassium 4.8 Chloride 107 Carbon Dioxide 24 Anion Gap 13 BUN 30 H Creatinine 1.4 Est GFR ( Amer) 60 Est GFR (Non-Af Amer) 49 Random Glucose 100 Calcium 9.9 Magnesium 1.9 Total Bilirubin 0.8 AST 30 ALT 31 Alkaline Phosphatase 39 Total Creatine Kinase 32 L Troponin I < 0.01 D Total Protein 7.0 Albumin 4.2 Globulin 2.8 Albumin/Globulin Ratio 1.5 Urine Color Urine Appearance Urine pH Ur Specific [place] Urine Protein Urine Glucose (UA) Urine Ketones Urine Blood Urine Nitrate Urine Bilirubin Urine Urobilinogen Ur Leukocyte Esterase Urine RBC Urine WBC Ur Epithelial Cells Assessment & Plan - Assessment and Plan (Free Text) Assessment: Syncope Bradycardia H/O CVA HTN DMII Cirrhosis of the liver GERD Plan: Patient is admitted to the telemetry floor for syncope. He will be seen by Dr. Byrd, neurology and Dr. Kohler or Dr. Mcneil for cardiology. Heart rate is in the 50s. We will discontinue the Atenolol and start Norvasc 2.5 mg daily. Patient will have accuchecks with sliding scale coverage. We will hold the metformin and januvia. continue ASA and Lipitor. continue flomax for BPH.
[2017-11-23] MEDS ORDERED: Pneumococcal 23-Valent Vaccine IM ONE (21:13)
[2017-11-23] MEDS ORDERED: Influenza Vaccine 60 mcg/0.5 mL SYR (4YR UP) IM ONE (21:13)
[2017-11-23] MEDS: Insulin Reg-LOW-Coverage SC SCH (21:43)
--- NOTE | 2017-11-24 02:39 | CON ---
DATE OF CONSULTATION: 11/23/2017 HISTORY OF PRESENT ILLNESS: This is a 77-year-old male with past medical history of stroke, hypertension, cirrhosis of liver, GERD, diabetes, came to the emergency room with the complaint of dizziness and weakness. The patient recently had cardiac workup done. The patient states he got up to turn off the television, just blacked out, his friend caught him, and did not lose consciousness. PAST MEDICAL HISTORY: As above. SOCIAL HISTORY: Does not smoke, does not drink. ALLERGIES: NO KNOWN DRUG ALLERGIES. PHYSICAL EXAMINATION: Blood pressure 136/64. HEENT: Normocephalic, atraumatic. NECK: Supple. NEUROLOGIC: Alert, awake, and oriented x3. No aphasia. Cranial nerves II through XII were tested. Pupils reactive. EOM intact. Visual field full. No facial asymmetry. Tongue midline. MOTOR EXAMINATION: Moves all extremities equally. Tone normal. Deep tendon reflexes are 1+. Both plantars are downgoing. Sensory appears intact. Cerebellar, gait normal. LABORATORY DATA: WBC 5.7, hemoglobin 12.3 and hematocrit 36.8, platelets 103. Sodium 138, potassium 4.8, chloride 107, CO2 of 24, glucose 100, BUN 33, creatinine 1.4. CAT scan of the head was negative. IMPRESSION: Syncope, less likely a seizure and possibly lightheadedness and maybe postural, benign. Multiple medical problems, hypertension, diabetes, cirrhosis of liver and gastroesophageal reflux disease. Workup in progress. We will follow up. Sebas Byrd MD
--- NOTE | 2017-11-24 07:53 | CP.PCM.PN ---
Subjective - Date & Time of Evaluation Date of Evaluation: 11/24/17 Time of Evaluation: 07:30 - Subjective Subjective: Patient is seen this morning in room 276 bed 2. He is confused and exhibiting signs of memory loss. He does not remember everything that happened to him yesterday. Objective - Vital Signs/Intake and Output Vital Signs (last 24 hours): Temp Pulse Resp BP Pulse Ox 98.5 F 62 18 115/74 97 11/24/17 06:00 11/24/17 06:00 11/24/17 06:00 11/24/17 06:00 11/24/17 06:00 Intake and Output: 11/24/17 11/24/17 06:59 18:59 Intake Total 0 Output Total 200 Balance -200 - Medications Medications: Current Medications Aspirin (Ecotrin) 81 mg PO QAM [place] Atenolol (Tenormin) 25 mg PO DAILY [facility] Atorvastatin Calcium (Lipitor) 40 mg PO DIN [place] Enoxaparin Sodium (Lovenox) 40 mg SC DAILY [facility]; Protocol Fluoxetine HCl (Prozac) 10 mg PO DAILY [facility] Folic Acid (Folic Acid) 1 mg PO DAILY [facility] Gabapentin (Neurontin) 300 mg PO BID [facility]; Protocol Insulin Human Regular (Humulin R Low) 0 units SC ACHS [facility]; Protocol Last Admin: 11/23/17 21:43 Dose: Not Given Losartan Potassium (Cozaar) 50 mg PO QAM [place] Pantoprazole Sodium (Protonix Ec Tab) 40 mg PO ACB [place] Tamsulosin HCl (Flomax) 0.4 mg PO HS [facility] Last Admin: 11/23/17 21:47 Dose: 0.4 mg Ursodiol (Actigall) 300 mg PO DAILY [facility] - Labs Labs: 11/23/17 14:30 11/23/17 14:30 PT 12.9 SECONDS (9.4-12.5) H 11/23/17 14:30 INR 1.13 11/23/17 14:30 APTT 35.1 Seconds (25.1-36.5) 11/23/17 14:30 - Constitutional Appears: No Acute Distress - Head Exam Head Exam: ATRAUMATIC, NORMOCEPHALIC - Respiratory Exam Respiratory Exam: Clear to Ausculation Bilateral, NORMAL BREATHING PATTERN - Cardiovascular Exam Cardiovascular Exam: +S1, +S2 - GI/Abdominal Exam GI & Abdominal Exam: Soft, Normal Bowel Sounds. absent: Tenderness - Extremities Exam Extremities Exam: Normal Inspection - Neurological Exam Neurological Exam: Alert, Awake Assessment and Plan - Assessment and Plan (Free Text) Assessment: Syncope Bradycardia HTN DMII BPH Liver cirrhosis Plan: Patient is undergoing neurological and cardiac evaluation. continue to hold beta kodi due to bradycardia. Will monitor blood sugar off oral medications. continue accuchecks with sliding scale coverage. continue flomax for BPH. will check ammonia level as patient is confused with history of cirrhosis.
[2017-11-24] MEDS ORDERED: Pantoprazole 20 mg EC Tab PO SCH (08:00)
[2017-11-24] MEDS ORDERED: Sodium Chloride 0.9% 1,000 ML IV SCH (08:00)
[2017-11-24] MEDS ORDERED: Lidocaine 2% PF (10 ml) Amp ONE (08:04)
[2017-11-24] MEDS ORDERED: Iodixanol 320 MG/ML 100 ML BOTTLE IV ONE (08:05)
[2017-11-24] MEDS: Insulin Reg-LOW-Coverage SC SCH ×4 (08:17→22:46)
[2017-11-24] MEDS: Pantoprazole 40 mg EC Tab PO SCH (08:17)
[2017-11-24 09:00] LABS: FREE T4 1.09 ng/dL (0.78-2.19)
[2017-11-24] MEDS: Enoxaparin 40 mg Syringe SC SCH (10:01)
--- NOTE | 2017-11-24 15:31 | CARD ---
APPROVED REPORT Date of service: 11/24/2017 EXAM: Two-dimensional and M-mode echocardiogram with Doppler and color Doppler. INDICATION Syncope 2D DIMENSIONS Left Atrium (2D)3.5 (1.6-4.0cm)IVSd1.3 (0.7-1.1cm) LVDd5.0 (3.9-5.9cm)PWd1.1 (0.7-1.1cm) LVDs3.1 (2.5-4.0cm)FS (%) 37.9 % LVEF (%)67.8 (>50%) M-Mode DIMENSIONS Aortic Root2.70 (2.2-3.7cm)Aortic Cusp Exc.1.40 (1.5-2.0cm) Aortic Valve AoV Peak Ovkiapug544.0cm/Titus Peak GR.7mmHg Mitral Valve MV E Fxvxkdro59.7cm/sMV A Pohngqhw337.0cm/sE/A ratio0.7 TDI E/Lateral E'0.0E/Medial E'0.0 LEFT VENTRICLE The left ventricle is normal size. There is mild concentric left ventricular hypertrophy. The left ventricular function is normal. The left ventricular ejection fraction is within the normal range. There is normal LV segmental wall motion. Transmitral Doppler flow pattern is Grade I-abnormal relaxation pattern. RIGHT VENTRICLE The right ventricle is normal size. There is normal right ventricular wall thickness. The right ventricular systolic function is normal. ATRIA The left atrium size is normal. The right atrium size is normal. AORTIC VALVE The aortic valve is moderately to severely thickened. There is mild aortic regurgitation. There is no aortic valvular stenosis. MITRAL VALVE The mitral valve is moderately thickened. There is no mitral valve regurgitation noted. There is no mitral valve stenosis. TRICUSPID VALVE The tricuspid valve is normal in structure. There is no tricuspid valve regurgitation noted. PULMONIC VALVE There is no pulmonic valvular regurgitation. GREAT VESSELS The aortic root is normal in size. The IVC is normal in size and collapses >50% with inspiration. <Conclusion> The left ventricle is normal size. There is mild concentric left ventricular hypertrophy. The left ventricular function is normal. The left ventricular ejection fraction is within the normal range. There is normal LV segmental wall motion. Transmitral Doppler flow pattern is Grade I-abnormal relaxation pattern. The aortic valve is moderately to severely thickened. There is mild aortic regurgitation.
[2017-11-24 17:01] LABS: FOLATE > 20.0 ng/mL
--- NOTE | 2017-11-25 04:49 | PCM.FALL ---
<Syd Carlos - Last Filed: 11/25/17 05:05> Post Fall Progress Note - Post Fall Fall Date: 11/25/17 Fall Time: 04:34 Description of Fall: Unwitnessed, no seizure like activity, unlikely mechanical as patient admitted for dizziness and syncope, patient was found on back, may have hit head on chair - Post Fall Exam Vital Sign: Temp Pulse Resp BP Pulse Ox 98.5 F 55 L 18 123/79 97 11/24/17 18:00 11/25/17 01:52 11/24/17 18:00 11/24/17 18:00 11/24/17 06:00 Skull Exam: Negative for: Scalp wound, Scalp hematoma, Scalp depression, Ridge in skull Eye Exam: Positive for: Pupils equal, Pupils reactive Ear Exam: Negative for: Discharge, Bleeding Nose Exam: Negative for: Discharge, Bleeding Skin Exam: Negative for: Lacerations, Grazes, Bruising Mouth Exam: Negative for: Tongue bitten, Teeth dislodge Neck Exam: Negative for: Tenderness, Tingling Spinal Exam: Negative for: Tenderness, Tingling Chest Exam: Negative for: Difficulty breathing, Tenderness in collar bones, Tenderness in ribs Abdomen Exam: Negative for: Tenderness Pelvic Exam: Negative for: Tenderness Arm Exam: Negative for: Deformity, Alteration in range of movement Leg Exam: Negative for: Deformity, Alteration in range of movement Impression/Plan: Syd Carlos PGY-1 Post-Fall Progress Note Code Star called on patient at 4:34 am. Pt seen and examined after fall in room. Fall unwitnessed by nurse. Pt denies experiencing LOC. Pt may have suffered head trauma as it was unwitnessed. Pt did not exhibit any seizure like activity, like tongue biting, urinary or bowel incontinence. Pt was not confused and did not have a change in mental status from baseline. Pt complained of new pain in L shoulder. Patient fell on L back. Physical Exam Atraumatic, normocephalic. Full neuro and MSK exam showed no deficits AAOX1, which is his baseline. Sacral region and buttocks, no obvious signs of bruising, no pain on palpation. Left shoulder tender to palpation. No tenderness on scalp. Mechanical Fall Neuro checks q4h for the next 20 hours. Nursing informed to monitor pt for swelling, bruising, and/or pain. Patient placed on high risk fall precautions. CT head without contrast as well as L shoulder x-ray ordered stat. F/u AM labs for any electrolyte abnormalities. Additionally, chart was reviewed, and as patient is on Aspirin and Lovenox at this time, will hold pending CT head results. Earlier CT HEAD WITHOUT CONTRAST upon admission 11/23 showed no acute intracranial abnormalities. Syd Carlos, PGY-1 <Hanna Frey - Last Filed: 11/25/17 06:36> Post Fall Progress Note - Post Fall Exam Vital Sign: Temp Pulse Resp BP Pulse Ox 97.5 F L 74 20 162/88 H 99 11/25/17 05:55 11/25/17 05:55 11/25/17 05:55 11/25/17 05:55 11/25/17 05:55 Attending/Attestation - Attestation I have personally seen and examined this patient.: No I have fully participated in the care of the patient.: No I have reviewed all pertinent clinical information, including history, physical exam and plan: No
[2017-11-25 07:54] LABS: BASO # 0.03 K/mm3 (0.0-2.0); BASO % 0.4 % (0.0-3.0); EOS # 0.1 (0.0-0.7); EOS % 1.3 % (1.5-5.0); GRAN # 5.48 (1.4-6.5); GRAN % 77.9 % (50.0-68.0); HEMOGLOBIN 12.9 g/dL (14.0-18.0); LYMPH # 1.1 (1.2-3.4); LYMPH % 15.1 % (22.0-35.0); MEAN CELL VOLUME 91.8 fl (80.0-105.0); MEAN CORPUSCULAR HGB CONC 33.8 g/dl (31.0-37.0); MEAN PLATELET VOLUME 10.9 fl (7.0-11.0); MONO # 0.4 (0.1-0.6); MONO % 5.3 % (1.0-6.0); RBC 4.16 10^6/uL (3.5-6.1); RED CELL DISTRIBUTION WIDTH 12.3 % (11.5-14.5)
[2017-11-25 08:04] LABS: ALB/GLOB RATIO 1.4 (1.1-1.8); ALBUMIN 4.3 g/dL (3.0-4.8); ALT/SGPT 33 U/L (7-56); AST/SGOT 33 U/L (17-59); BLOOD UREA NITROGEN 22 mg/dL (7-21); CALCIUM 9.4 mg/dL (8.4-10.5); GFR NON-AFRICAN AMERICAN > 60
--- NOTE | 2017-11-25 08:35 | CP.PCM.PN ---
Subjective - Date & Time of Evaluation Date of Evaluation: 11/25/17 Time of Evaluation: 08:15 - Subjective Subjective: Patient is seen this morning. He is lying in bed. He is very confused. Patient fell last night. He denies any pain. Objective - Vital Signs/Intake and Output Vital Signs (last 24 hours): Temp Pulse Resp BP Pulse Ox 97.5 F L 74 20 162/88 H 99 11/25/17 05:55 11/25/17 05:55 11/25/17 05:55 11/25/17 05:55 11/25/17 05:55 Intake and Output: 11/25/17 11/25/17 06:59 18:59 Intake Total 1740 Output Total 200 Balance 1540 - Medications Medications: Current Medications Amlodipine Besylate (Norvasc) 2.5 mg PO 1400 [facility] Last Admin: 11/24/17 14:00 Dose: 2.5 mg Aspirin (Ecotrin) 81 mg PO QAM [facility] Last Admin: 11/24/17 10:01 Dose: 81 mg Atorvastatin Calcium (Lipitor) 40 mg PO DIN [facility] Last Admin: 11/24/17 17:56 Dose: 40 mg Donepezil HCl (Aricept) 5 mg PO DAILY [facility] Enoxaparin Sodium (Lovenox) 40 mg SC DAILY [facility]; Protocol Last Admin: 11/24/17 10:01 Dose: 40 mg Fluoxetine HCl (Prozac) 10 mg PO DAILY [facility] Last Admin: 11/24/17 10:01 Dose: 10 mg Folic Acid (Folic Acid) 1 mg PO DAILY [facility] Last Admin: 11/24/17 10:01 Dose: 1 mg Gabapentin (Neurontin) 300 mg PO BID [facility]; Protocol Last Admin: 11/24/17 17:56 Dose: 300 mg Insulin Human Regular (Humulin R Low) 0 units SC ACHS [facility]; Protocol Last Admin: 11/24/17 22:46 Dose: Not Given Losartan Potassium (Cozaar) 25 mg PO DAILY [facility] Last Admin: 11/24/17 10:00 Dose: 25 mg Pantoprazole Sodium (Protonix Ec Tab) 40 mg PO ACB [facility] Last Admin: 11/24/17 08:17 Dose: 40 mg Risperidone (Risperdal Tab) 0.25 mg PO DAILY [facility]; Protocol Tamsulosin HCl (Flomax) 0.4 mg PO HS [facility] Last Admin: 11/24/17 21:18 Dose: Not Given Ursodiol (Actigall) 300 mg PO DAILY [facility] Last Admin: 11/24/17 10:00 Dose: 300 mg - Labs Labs: 11/25/17 07:00 11/25/17 07:00 PT 12.9 SECONDS (9.4-12.5) H 11/23/17 14:30 INR 1.13 11/23/17 14:30 APTT 35.1 Seconds (25.1-36.5) 11/23/17 14:30 - Constitutional Appears: No Acute Distress - Head Exam Head Exam: ATRAUMATIC, NORMOCEPHALIC - Respiratory Exam Respiratory Exam: Clear to Ausculation Bilateral, NORMAL BREATHING PATTERN - GI/Abdominal Exam GI & Abdominal Exam: Soft, Normal Bowel Sounds. absent: Tenderness - Extremities Exam Extremities Exam: Normal Inspection. absent: Pedal Edema - Neurological Exam Neurological Exam: Alert, Awake Assessment and Plan - Assessment and Plan (Free Text) Assessment: Syncope Bradycardia AMS - encephalopathy?/ underlying dementia H/O CVA HTN DMII Liver cirrhosis Plan: Patient has become increasingly confused over the past few days. He is oriented to person, but not place or time. Patient is also trying to get out of bed and walk on his own. He fell this morning. Will order psychiatry consult and Risperdal 0.25 mg daily for agitation. Patient will also be started on Aricept for dementia. B12, folate, TSH and ammonia levels are all within normal limits. Neurological and cardiac evaluations are in progress.
[2017-11-25] MEDS: Insulin Reg-LOW-Coverage SC SCH ×4 (09:01→22:06)
[2017-11-25] MEDS: Pantoprazole 40 mg EC Tab PO SCH (09:03)
--- NOTE | 2017-11-25 10:29 | RAD ---
Date of service: 11/25/2017 PROCEDURE: Radiographs of the Left Shoulder HISTORY: pain after fall COMPARISON: No prior. FINDINGS: BONES: Normal. No fracture. JOINTS: Preserved glenohumeral relationship, acromioclavicular degenerative change: Moderate. SOFT TISSUES: Normal. OTHER FINDINGS: None. IMPRESSION: No acute findings related to/accounting for the clinical presentation.
--- NOTE | 2017-11-25 10:35 | CP.PCM.PN ---
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 Seen and examined by me and Dr. Mcneil Objective - Vital Signs/Intake and Output Vital Signs (last 24 hours): Temp Pulse Resp BP Pulse Ox 97.5 F L 74 20 162/88 H 99 11/25/17 05:55 11/25/17 05:55 11/25/17 05:55 11/25/17 05:55 11/25/17 05:55 Intake and Output: 11/25/17 11/25/17 06:59 18:59 Intake Total 1740 Output Total 200 Balance 1540 - Medications Medications: Current Medications Amlodipine Besylate (Norvasc) 2.5 mg PO 1400 [facility] Last Admin: 11/24/17 14:00 Dose: 2.5 mg Aspirin (Ecotrin) 81 mg PO QAM [facility] Last Admin: 11/24/17 10:01 Dose: 81 mg Atorvastatin Calcium (Lipitor) 40 mg PO DIN [facility] Last Admin: 11/24/17 17:56 Dose: 40 mg Donepezil HCl (Aricept) 5 mg PO HS [facility] Enoxaparin Sodium (Lovenox) 40 mg SC DAILY [facility]; Protocol Last Admin: 11/24/17 10:01 Dose: 40 mg Fluoxetine HCl (Prozac) 10 mg PO DAILY [facility] Last Admin: 11/24/17 10:01 Dose: 10 mg Folic Acid (Folic Acid) 1 mg PO DAILY [facility] Last Admin: 11/24/17 10:01 Dose: 1 mg Gabapentin (Neurontin) 300 mg PO BID [facility]; Protocol Last Admin: 11/24/17 17:56 Dose: 300 mg Insulin Human Regular (Humulin R Low) 0 units SC ACHS [facility]; Protocol Last Admin: 11/25/17 09:01 Dose: Not Given Losartan Potassium (Cozaar) 25 mg PO DAILY [facility] Last Admin: 11/24/17 10:00 Dose: 25 mg Pantoprazole Sodium (Protonix Ec Tab) 40 mg PO ACB [facility] Last Admin: 11/25/17 09:03 Dose: 40 mg Risperidone (Risperdal Tab) 0.25 mg PO DAILY [facility]; Protocol Tamsulosin HCl (Flomax) 0.4 mg PO HS [facility] Last Admin: 11/24/17 21:18 Dose: Not Given Ursodiol (Actigall) 300 mg PO DAILY [facility] Last Admin: 11/24/17 10:00 Dose: 300 mg - Labs Labs: 11/25/17 07:00 11/25/17 07:00 PT 12.9 SECONDS (9.4-12.5) H 11/23/17 14:30 INR 1.13 11/23/17 14:30 APTT 35.1 Seconds (25.1-36.5) 11/23/17 14:30 - Constitutional Appears: Non-toxic, No Acute Distress - Head Exam Head Exam: NORMAL INSPECTION, NORMOCEPHALIC - Eye Exam Eye Exam: Normal appearance Pupil Exam: NORMAL ACCOMODATION - ENT Exam ENT Exam: Mucous Membranes Dry - Respiratory Exam Respiratory Exam: Clear to Ausculation Bilateral, NORMAL BREATHING PATTERN - Cardiovascular Exam Cardiovascular Exam: REGULAR RHYTHM, +S1, +S2 Additional comments: Telemetry NSR 70's Bradycardia when sleeping - GI/Abdominal Exam GI & Abdominal Exam: Soft, Normal Bowel Sounds - Neurological Exam Neurological Exam: Alert, Awake - Skin Skin Exam: Dry, Normal Color, Warm Assessment and Plan - Assessment and Plan (Free Text) Assessment: A 77 year old male with came in to the ER due to dizziness and weakness. He also claimed to have syncopal episode. He was trying to get up and turn off television and passed out. History of CVA, hypertension,BPH, cirrhosis of liver, GERD and diabetes mellitus.positive for orthostatic hypotension. Lying BP- 141/69,Sitting BP 118/62, standing BP 104/56. Echo done- Normal LV size and function LVEF 65%, mild AR, moderate to severe thickened aortic valve. Plan: Orthostatic hypotension Lying BP-141/69, Sitting BP 118/62, Standing BP 104/56 Will start fluid of NSS x 1 liter Echo done- Normal LV size and function LVEF 65%, mild AR, moderate to severe thickened aortic valve. Unwitnessed fall early this morning Left shoulder X ray negative for fracture CT of head done- pending final result Fall precaution On Norvasc 2.5 mg daily,Lipitor 40 mg daily, Lovenox 40 mg daily, Cozaar 25 mg daily, Flomax 0.4 mg daily, ASA 81 mg daily, Continue current treatment Continue current medications Chart reviewed Will follow up Plan and treatment discussed with Dr. Mcneil
[2017-11-25] MEDS ORDERED: Sodium Chloride 0.9% 1,000 ML IV SCH ×2 (11:00→17:54)
--- NOTE | 2017-11-25 11:02 | CT ---
Date of service: 11/25/2017 PROCEDURE: CT HEAD WITHOUT CONTRAST. HISTORY: AMS COMPARISON: 11/23/2017 TECHNIQUE: Axial computed tomography images were obtained through the head/brain without intravenous contrast. Supplemental Coronal and Sagittal projections created and reviewed. Radiation dose: Total exam DLP = 1666.13 mGy-cm. This CT exam was performed using one or more of the following dose reduction techniques: Automated exposure control, adjustment of the mA and/or kV according to patient size, and/or use of iterative reconstruction technique. FINDINGS: HEMORRHAGE: No intracranial hemorrhage. BRAIN: No mass effect or edema. Cortical and cerebellar atrophy, periventricular small vessel disease. VENTRICLES: Unremarkable. No hydrocephalus. CALVARIUM: Unremarkable. PARANASAL SINUSES: Unremarkable as visualized. No significant inflammatory changes. MASTOID AIR CELLS: Unremarkable as visualized. No inflammatory changes. OTHER FINDINGS: None. IMPRESSION: No acute intracranial abnormalities. No significant findings to account for the clinical presentation. No significant interval change compared to the prior examination(s). Concordant results (preliminary interpretation) provided by [employer]. Procedure Completed: 06:51. Preliminary Report: Dictated and Authenticated: 07:15. Final Interpretation: 10:59.
--- NOTE | 2017-11-25 17:58 | PCM.RRT ---
<Bari Saldivar - Last Filed: 11/25/17 17:54> [employer] Nurse Assessment - Situation Date: 11/25/17 Time [employer] was called: 17:38 [employer] Responder Arrival Time: 17:40 [employer] Location:: [address] [place] [address] Room Number: 276 [employer] Reason for Call: Bradycardia, Hypotension [employer] Called By: RN - IV IV Inserted during [employer]?: No IV Fluids Initiated During [employer]?: 100mL bolus of 0.9NS - Respiratory Oxygen Delivery Method: Room Air - Medication Medications Administered During [employer]: N/A - Diagnostic Test Ordered CT Scan: Yes (Head CT) CPR started during [employer]?: No - Vital Signs Vital Sign: Rapid Response Vital Sign Blood Pressure 84/41 Pulse Rate 62 Respiratory Rate 12 Temperature 97.2 F Oxygen Saturation 100 - Finger Stick Blood Glucose Finger Stick Blood Glucose: 118 - Time [employer] Ended Time [employer] Ended: 17:54 - Vital Signs at end of [employer] Vital Signs at end of [employer]: Rapid Response End Vital Sign Blood Pressure 109/54 Pulse Rate 62 Respiratory Rate 16 Temperature 98.5 F O2 Sat by Pulse Oximetry 99 - Recommendations Notifications: Attending Physician I.Reason for [employer] - A) Acute Change in Patient: Subjective: Patient is a 77 yo M with PMH of CVA, hypertension, BPH, cirrhosis of the liver, GERD and diabetes mellitus [place] [facility] [place] and [place]. According to nurse, patient is confused at baseline and was getting out of bed with risk of fall. Risperdal was administered earlier this AM. However, change of mental status was noted prior to [employer] being called. Patient was noted to be unresponsive and rigid. SBP was also found to be in the 80's. On response, nurse had started to bolus IVF and SBP elevated to the 130's. On exam patient, was found to be resisting exam with all four limbs and arrousable with noxious stimuli. However, patient was nonverbal throughout [employer]. - Respiratory Oxygen Delivery Method: Room Air - Constitutional Appears: No Acute Distress - Head Head Exam: NORMAL INSPECTION - Eyes Additional Comments: unable to view as patient unwilling to open eyes - Respiratory Exam Respiratory Exam: Clear to Ausculation Bilateral. absent: Rales, Rhonchi, Wheezes - Cardiovascular Exam Cardiovascular Exam: RRR, +S1, +S2. absent: Gallop, Rubs, Murmur - GI/Abdominal Exam GI & Abdominal Exam: Soft. absent: Distended, Guarding, Tenderness, Rebound - Neurological Exam Neurological Exam: Alert, Awake - Extremities Exam Extremities Exam: Normal Inspection Plan - Assessment of Findings&Treatment Plan 77 yo M with PMH of CVA, hypertension, BPH, cirrhosis of the liver, GERD and diabetes mellitus with [employer] called due to acute change in mental status. Patient moving all 4 limbs voluntarily. BP stable, fluids increased to 75 cc/hr. Previous CT head and labs reviewed. Attending notified and requested no new CT head at this time and to monitor patient. <Pj Arenas - Last Filed: 11/26/17 14:51> [employer] Nurse Assessment - Vital Signs Vital Sign: Rapid Response Vital Sign Blood Pressure 84/41 Pulse Rate 62 Respiratory Rate 12 Temperature 97.2 F Oxygen Saturation 100 - Vital Signs at end of [employer] Vital Signs at end of [employer]: Rapid Response End Vital Sign Blood Pressure 109/54 Pulse Rate 62 Respiratory Rate 16 Temperature 98.5 F O2 Sat by Pulse Oximetry 99 Attending/Attestation - Attestation I have personally seen and examined this patient.: Yes I have fully participated in the care of the patient.: Yes I have reviewed all pertinent clinical information, including history, physical exam and plan: Yes Notes (Text): 11/26/17 14:47 Medical record note made by the resident after discussion with my direction and input after the patient was personally seen and examined by me. I have reviewed the chart and agree that the record accurately reflects by personal performance of the history, physical exam, data review, and medical decision-making, in the course for the patient. I have also personally directed the plan of care. Patient does not has any focal deficit.He is stable hemodynamically. Patient is not cooperating withy the examination, CT scan of head was reviewed, There is no acute finding. We will monitor Neuro check. 11/26/17 14:49
[2017-11-25] MEDS: Sodium Chloride 0.9% 1,000 ML IV SCH (21:26)
--- NOTE | 2017-11-26 02:01 | CON ---
DATE: 11/25/2017 The patient in room 276, bed 2. REASON FOR CONSULTATION: Dizziness, hypertension, CVA. This is a re-consult regarding a dictated consult on 11/24/2017, but that is not in the computer, so I am re-dictating the same consult which I had done on 11/24/2017. HISTORY OF PRESENT ILLNESS: A 77-year-old male, known case of hypertension, diabetes mellitus, cirrhosis of liver, GERD, admitted with a history that he is known to have CVA, and he suddenly got up and felt dizzy, and he felt he was going to pass out, but his friend was able to hold him. Denies any chest pain, shortness of breath, palpitations associated with this episode. He is known to have CVA with residual left-sided weakness. PAST MEDICAL HISTORY: As mentioned before, he has a CVA with residual left-sided weakness, hypertension, diabetes mellitus, cirrhosis of liver, GERD. PERSONAL HISTORY: Denies smoking. Denies drinking. ALLERGIES: THE PATIENT DENIES ANY ALLERGIES. MEDICATIONS: At home, the patient was on Cozaar 25 daily, metformin 500 mg p.o. daily morning, Flomax 0.4 daily, Januvia 100 mg p.o. daily, Protonix 40 daily, Neurontin 300 mg b.i.d., Lipitor 40 daily, atenolol 25 mg daily, aspirin 81 mg daily. REVIEW OF SYSTEMS: All the systems are reviewed; positive mentioned in the history, others were negative. PHYSICAL EXAMINATION: VITAL SIGNS: Blood pressure 123/79, respirations 18, pulse 62, temperature 98.5. HEENT: Head is normocephalic. Eyes: Pupils are normal. Conjunctivae are normal. Nose and throat are normal. NECK: JVP low. Carotids equal. THORAX: AP diameter normal. LUNGS: Clear. CARDIOVASCULAR: S1, S2. Systolic murmur. No rub. ABDOMEN: Soft, nontender. No organomegaly. Bowel sounds normal. EXTREMITIES: No clubbing. No cyanosis. LABORATORY DATA: WBC 7.0, hemoglobin 12.9, hematocrit 38.2, platelets 106. Sodium 140, potassium 4.7, BUN 22, creatinine 1.0, sugar 94, phosphorus and magnesium normal. AST and ALT normal. Total protein, albumin normal. EKG showed sinus bradycardia 52 per minute. Chest x-ray was clear. Head CT showed no acute intracranial abnormalities. Echo with Doppler was done on , it showed normal size LV, normal LV systolic function with an ejection fraction of 68%. LVH grade 1 abnormal relaxation pattern, mild aortic regurgitation. Aortic valve heavily calcified, but still opening seemed to be adequate. LV ejection fraction is 68%. The patient also had thrombocytopenia. DIAGNOSES: Dizziness, near syncope, hypertension, diabetes mellitus, cirrhosis of liver, gastroesophageal reflux disease, CVA with residual left-sided weakness. PLAN: We will check orthostatics, and we will continue Actigall 300 mg p.o. daily, Aricept 5 mg at bedtime, losartan 25 daily, aspirin 81 mg daily, Flomax 0.4 daily, Lipitor 40 daily, Lovenox 40 subcu daily injection, gabapentin 300 mg b.i.d., amlodipine 2.5 mg daily, Prozac 10 mg p.o. daily, risperidone 0.25 p.o. daily. We will check orthostatic blood pressure. It showed lying down 141/69, sitting 118/62, and standing 104/56. The patient is getting sodium chloride 50 mL/hour. We will continue fluids, we will recheck the orthostatic blood pressure in the morning, we will monitor the patient and we will follow with you. Pj Mcneil MD
[2017-11-26] MEDS: Sodium Chloride 0.9% 1,000 ML IV SCH ×2 (05:28→12:50)
--- NOTE | 2017-11-26 07:51 | CP.PCM.PN ---
Subjective - Date & Time of Evaluation Date of Evaluation: 11/26/17 Time of Evaluation: 06:45 - Subjective Subjective: Awake, alert, no distress, confuse, trying to get out of bed, 1:1 sitter Reason for consultation and follow up: Cardiac evaluation of syncope and bradycardia, orthostatic hypotension Seen and examined by me and Dr. Mcneil Objective - Vital Signs/Intake and Output Vital Signs (last 24 hours): Temp Pulse Resp BP Pulse Ox 98.5 F 77 18 160/85 H 100 11/26/17 06:00 11/26/17 06:00 11/26/17 06:00 11/26/17 06:00 11/26/17 06:00 Intake and Output: 11/26/17 11/26/17 06:59 18:59 Intake Total 1200 Balance 1200 - Medications Medications: Current Medications Amlodipine Besylate (Norvasc) 2.5 mg PO 1400 [facility] Aspirin (Ecotrin) 81 mg PO QAM [facility] Last Admin: 11/24/17 10:01 Dose: 81 mg Atorvastatin Calcium (Lipitor) 40 mg PO DIN [facility] Last Admin: 11/25/17 18:03 Dose: Not Given Donepezil HCl (Aricept) 5 mg PO HS [facility] Last Admin: 11/25/17 21:12 Dose: Not Given Enoxaparin Sodium (Lovenox) 40 mg SC DAILY [facility]; Protocol Last Admin: 11/24/17 10:01 Dose: 40 mg Fluoxetine HCl (Prozac) 10 mg PO DAILY [facility] Last Admin: 11/25/17 10:43 Dose: 10 mg Folic Acid (Folic Acid) 1 mg PO DAILY [facility] Last Admin: 11/25/17 10:44 Dose: 1 mg Gabapentin (Neurontin) 300 mg PO BID [facility]; Protocol Last Admin: 11/25/17 18:03 Dose: Not Given Sodium Chloride (Sodium Chloride 0.9%) 1,000 mls @ 100 mls/hr IV .Q10H [facility] Last Admin: 11/26/17 05:28 Dose: 100 mls/hr Insulin Human Regular (Humulin R Low) 0 units SC ACHS [facility]; Protocol Last Admin: 11/25/17 22:06 Dose: Not Given Losartan Potassium (Cozaar) 25 mg PO DAILY [facility] Last Admin: 11/25/17 10:43 Dose: 25 mg Pantoprazole Sodium (Protonix Ec Tab) 40 mg PO ACB [facility] Last Admin: 11/25/17 09:03 Dose: 40 mg Risperidone (Risperdal Tab) 0.25 mg PO DAILY [facility]; Protocol Last Admin: 11/25/17 10:42 Dose: 0.25 mg Tamsulosin HCl (Flomax) 0.4 mg PO HS [facility] Last Admin: 11/25/17 21:11 Dose: Not Given Ursodiol (Actigall) 300 mg PO DAILY [facility] Last Admin: 11/25/17 10:42 Dose: 300 mg - Labs Labs: 11/25/17 07:00 11/25/17 07:00 PT 12.9 SECONDS (9.4-12.5) H 11/23/17 14:30 INR 1.13 11/23/17 14:30 APTT 35.1 Seconds (25.1-36.5) 11/23/17 14:30 - Constitutional Appears: Non-toxic, No Acute Distress - Head Exam Head Exam: NORMAL INSPECTION, NORMOCEPHALIC - Eye Exam Eye Exam: Normal appearance Pupil Exam: NORMAL ACCOMODATION - ENT Exam ENT Exam: Mucous Membranes Dry, Normal Exam - Respiratory Exam Respiratory Exam: Clear to Ausculation Bilateral, NORMAL BREATHING PATTERN - Cardiovascular Exam Cardiovascular Exam: +S1, +S2 - GI/Abdominal Exam GI & Abdominal Exam: Soft, Normal Bowel Sounds - Extremities Exam Extremities Exam: Full ROM, Normal Capillary Refill - Neurological Exam Neurological Exam: Alert, Awake Additional comments: confuse - Skin Skin Exam: Dry, Normal Color, Warm Assessment and Plan - Assessment and Plan (Free Text) Assessment: A 77 year old male with came in to the ER due to dizziness and weakness. He also claimed to have syncopal episode. He was trying to get up and turn off television and passed out. History of CVA, hypertension,BPH, cirrhosis of liver, GERD and diabetes mellitus.positive for orthostatic hypotension. Lying BP- 141/69,Sitting BP 118/62, standing BP 104/56. Echo done- Normal LV size and function LVEF 65%, mild AR, moderate to severe thickened aortic valve.Unwitnessed fall, Left shoulder X ray negative for fracture, CT of head done-normal,no bleeding. Post SANDER SETTER yesterday evening due to hypotension SBP 80's IV bolus given and stabilized. Plan: Post SANDER SETTER last evening due to hypotension SBP 80's Orthostatic hypotension Start fluid of NSS at 50 cc/hr yesterday but after SANDER SETTER increased to 100 cc/hr Blood pressure stabilized Echo done- Normal LV size and function LVEF 65%, mild AR, moderate to severe thickened aortic valve. Fall precaution 1:1 sitter, trying to get out of bed,confuse On Norvasc 2.5 mg daily,Lipitor 40 mg daily, Lovenox 40 mg daily, Cozaar 25 mg daily, Flomax 0.4 mg daily, ASA 81 mg daily, Continue current treatment Continue current medications Chart reviewed Will follow up Plan and treatment discussed with Dr. Mcneil
--- NOTE | 2017-11-26 08:12 | CP.PCM.PN ---
Subjective - Date & Time of Evaluation Date of Evaluation: 11/26/17 Time of Evaluation: 07:40 - Subjective Subjective: Patient is seen this morning in room 276 bed 2. He is very confused. Objective - Vital Signs/Intake and Output Vital Signs (last 24 hours): Temp Pulse Resp BP Pulse Ox 98.5 F 77 18 160/85 H 100 11/26/17 06:00 11/26/17 06:00 11/26/17 06:00 11/26/17 06:00 11/26/17 06:00 Intake and Output: 11/26/17 11/26/17 06:59 18:59 Intake Total 1200 Balance 1200 - Medications Medications: Current Medications Amlodipine Besylate (Norvasc) 2.5 mg PO 1400 [facility] Aspirin (Ecotrin) 81 mg PO QAM [facility] Last Admin: 11/24/17 10:01 Dose: 81 mg Atorvastatin Calcium (Lipitor) 40 mg PO DIN [facility] Last Admin: 11/25/17 18:03 Dose: Not Given Donepezil HCl (Aricept) 5 mg PO HS [facility] Last Admin: 11/25/17 21:12 Dose: Not Given Enoxaparin Sodium (Lovenox) 40 mg SC DAILY [facility]; Protocol Last Admin: 11/24/17 10:01 Dose: 40 mg Fluoxetine HCl (Prozac) 10 mg PO DAILY [facility] Last Admin: 11/25/17 10:43 Dose: 10 mg Folic Acid (Folic Acid) 1 mg PO DAILY [facility] Last Admin: 11/25/17 10:44 Dose: 1 mg Gabapentin (Neurontin) 300 mg PO BID [facility]; Protocol Last Admin: 11/25/17 18:03 Dose: Not Given Sodium Chloride (Sodium Chloride 0.9%) 1,000 mls @ 100 mls/hr IV .Q10H [facility] Last Admin: 11/26/17 05:28 Dose: 100 mls/hr Insulin Human Regular (Humulin R Low) 0 units SC ACHS [facility]; Protocol Last Admin: 11/25/17 22:06 Dose: Not Given Losartan Potassium (Cozaar) 25 mg PO DAILY [facility] Last Admin: 11/25/17 10:43 Dose: 25 mg Midodrine (Proamatine) 2.5 mg PO BID [facility] Pantoprazole Sodium (Protonix Ec Tab) 40 mg PO ACB [facility] Last Admin: 11/25/17 09:03 Dose: 40 mg Risperidone (Risperdal Tab) 0.25 mg PO DAILY [facility]; Protocol Last Admin: 11/25/17 10:42 Dose: 0.25 mg Tamsulosin HCl (Flomax) 0.4 mg PO HS [facility] Last Admin: 11/25/17 21:11 Dose: Not Given Ursodiol (Actigall) 300 mg PO DAILY [facility] Last Admin: 11/25/17 10:42 Dose: 300 mg - Labs Labs: 11/25/17 07:00 11/25/17 07:00 PT 12.9 SECONDS (9.4-12.5) H 11/23/17 14:30 INR 1.13 11/23/17 14:30 APTT 35.1 Seconds (25.1-36.5) 11/23/17 14:30 - Constitutional Appears: No Acute Distress - Head Exam Head Exam: ATRAUMATIC, NORMOCEPHALIC - Respiratory Exam Respiratory Exam: Clear to Ausculation Bilateral, NORMAL BREATHING PATTERN - Cardiovascular Exam Cardiovascular Exam: REGULAR RHYTHM, +S1, +S2 - GI/Abdominal Exam GI & Abdominal Exam: Soft, Normal Bowel Sounds. absent: Tenderness - Neurological Exam Neurological Exam: Alert, Awake Assessment and Plan - Assessment and Plan (Free Text) Assessment: AMS Syncope Bradycardia Orthostatic hypotension BPH HTN DMII GERD Liver cirrhosis H/O CVA Plan: Patient is very confused. He has a 1:1 as patient keeps trying to get out of bed and walk on his own. He complains of dizziness. Will start midodrine for orthostatic hypotension. Repeat CT Head shows no new abnormalities. continue flomax for BPH. cardiac and neurological evaluations are ongoing. Patient will also be seen by psychiatry.
[2017-11-26] MEDS: Insulin Reg-LOW-Coverage SC SCH ×3 (08:48→17:45)
[2017-11-26] MEDS: Pantoprazole 40 mg EC Tab PO SCH (10:06)
--- NOTE | 2017-11-26 20:41 | CON ---
DATE OF CONSULTATION: 11/26/2017 HISTORY OF PRESENT ILLNESS: The patient is a 77-year-old single male with an unclear psychiatric history, though appears to be suffering form dementia, who was admitted on 11/23/2017 medically after presenting to the Emergency Room with reports of dizziness and weakness related to causing him to pass out as he got up to turn off the TV. Apparently, his friend was able to catch him during his fall. On the unit, he has been increasingly confused and disoriented and the psychiatrist was called for that. I met with the patient at bedside and he was superficially cooperative, but notably confused and had inconsistent focus and illogical responses and he [place] and he said this for a while even though he was informed that he was in the hospital. Later on, in the interview, he was able recall when I told him that he was in the hospital, but he does not seem to truly appreciate his circumstances at that time. The patient is aware that it is November 2017. In general, the patient denies any psychiatric history of having depression or hallucinations or any acute pain or discomfort. The patient does indicate that he saw a psychiatrist in the past; however he could not tell me when or where or what the names. He denied any history of suicide. Also, he cannot remember any psychiatric medications as well. He is in control. He does not appear to be going to be paranoid during like questioning; however, it is still difficult to maintain a productive interview with him as he is disorganized and he can only maintain focus for just a couple of seconds. His insight and judgement are considered poor at this time. Vital signs and labs were reviewed. RELEVANT PSYCHIATRIC MEDICATIONS: Include Risperdal 0.25 mg daily and Prozac 10 mg daily. SOCIAL HISTORY: The patient indicates that he was born and raised in [place]. He is single. He has no children. He has moved to 25 years ago. 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 IMPRESSION: Delirium with underlying dementia. Rule out pseudo dementia due to depression, though the patient currently denies any mood symptoms. He is not a credible historian at this time. RECOMMENDATIONS: I would discontinue Risperdal and start very low-dose Haldol to help with the patient's mood stabilization and impulse control. I am deliberately being conservative with the dosing as he is an elderly gentleman and he is also an as Americans are more prone to side effects of EPS from anti-psychotics. I am also aware of the fact that the patient had a rapid response last night and has been demonstrating very low blood pressures on the unit. Psychiatry will continue to follow up with the patient and monitor his tolerance to medication withdrawal followup will be on 11/27/2017, by Dr. Vigil. Dona Ruvalcaba MD
[2017-11-27] MEDS: Sodium Chloride 0.9% 1,000 ML IV SCH ×5 (00:23→22:00)
[2017-11-27] MEDS: Insulin Reg-LOW-Coverage SC SCH ×5 (01:27→21:56)
[2017-11-27 06:39] LABS: BASO # 0.02 K/mm3 (0.0-2.0); BASO % 0.3 % (0.0-3.0); EOS # 0.1 (0.0-0.7); EOS % 1.2 % (1.5-5.0); GRAN # 4.49 (1.4-6.5); GRAN % 76.2 % (50.0-68.0); LYMPH # 0.7 (1.2-3.4); LYMPH % 12.1 % (22.0-35.0); MEAN CELL VOLUME 90.9 fl (80.0-105.0); MEAN CORPUSCULAR HEMOGLOBIN 30.7 pg (25.0-35.0); MEAN CORPUSCULAR HGB CONC 33.8 g/dl (31.0-37.0); MONO # 0.6 (0.1-0.6); MONO % 10.2 % (1.0-6.0); RBC 3.42 10^6/uL (3.5-6.1); RED CELL DISTRIBUTION WIDTH 12.4 % (11.5-14.5); WHITE BLOOD COUNT 5.9 10^3/ul (4.5-11.0)
[2017-11-27 06:46] LABS: ALB/GLOB RATIO 1.2 (1.1-1.8); ALBUMIN 3.1 g/dL (3.0-4.8); ALT/SGPT 37 U/L (7-56); AST/SGOT 29 U/L (17-59); BLOOD UREA NITROGEN 11 mg/dL (7-21); CALCIUM 8.6 mg/dL (8.4-10.5); GFR NON-AFRICAN AMERICAN > 60
[2017-11-27 07:12] LABS: HEMOGLOBIN 10.5 g/dL (14.0-18.0)
--- NOTE | 2017-11-27 08:12 | CP.PCM.PN ---
Subjective - Date & Time of Evaluation Date of Evaluation: 11/27/17 Time of Evaluation: 07:40 - Subjective Subjective: Patient is seen this morning. He is lying in bed. He says that he slept last night. He has a 1:1 at his bedside at this time. Smith catheter placed last night as patient was retaining urine. Objective - Vital Signs/Intake and Output Vital Signs (last 24 hours): Temp Pulse Resp BP Pulse Ox 98.8 F 64 20 124/71 97 11/27/17 06:00 11/27/17 06:00 11/27/17 06:00 11/27/17 06:00 11/27/17 06:00 Intake and Output: 11/27/17 11/27/17 06:59 18:59 Intake Total 1185 Output Total 1600 Balance -415 - Medications Medications: Current Medications Amlodipine Besylate (Norvasc) 2.5 mg PO 1400 [facility] Last Admin: 11/26/17 14:35 Dose: 2.5 mg Aspirin (Ecotrin) 81 mg PO QAM [facility] Last Admin: 11/24/17 10:01 Dose: 81 mg Atorvastatin Calcium (Lipitor) 40 mg PO DIN [facility] Last Admin: 11/26/17 17:44 Dose: 40 mg Donepezil HCl (Aricept) 5 mg PO HS [facility] Last Admin: 11/26/17 22:54 Dose: 5 mg Enoxaparin Sodium (Lovenox) 40 mg SC DAILY [facility]; Protocol Last Admin: 11/24/17 10:01 Dose: 40 mg Fluoxetine HCl (Prozac) 10 mg PO DAILY [facility] Last Admin: 11/26/17 10:06 Dose: 10 mg Folic Acid (Folic Acid) 1 mg PO DAILY [facility] Last Admin: 11/26/17 10:06 Dose: 1 mg Gabapentin (Neurontin) 300 mg PO BID [facility]; Protocol Last Admin: 11/26/17 17:44 Dose: 300 mg Haloperidol (Haldol) 0.25 mg PO DAILY [facility]; Protocol Last Admin: 11/26/17 12:43 Dose: 0.25 mg Sodium Chloride (Sodium Chloride 0.9%) 1,000 mls @ 100 mls/hr IV .Q10H [facility] Last Admin: 11/27/17 06:51 Dose: Not Given Insulin Human Regular (Humulin R Low) 0 units SC ACHS [facility]; Protocol Last Admin: 11/27/17 01:27 Dose: Not Given Losartan Potassium (Cozaar) 25 mg PO DAILY [facility] Last Admin: 11/26/17 10:06 Dose: 25 mg Midodrine (Proamatine) 2.5 mg PO DAILY [facility] Pantoprazole Sodium (Protonix Ec Tab) 40 mg PO ACB [facility] Last Admin: 11/26/17 10:06 Dose: 40 mg Tamsulosin HCl (Flomax) 0.4 mg PO HS [facility] Last Admin: 11/26/17 21:25 Dose: 0.4 mg Ursodiol (Actigall) 300 mg PO DAILY [facility] Last Admin: 11/26/17 10:06 Dose: 300 mg - Labs Labs: 11/27/17 05:50 11/27/17 05:50 PT 12.9 SECONDS (9.4-12.5) H 11/23/17 14:30 INR 1.13 11/23/17 14:30 APTT 35.1 Seconds (25.1-36.5) 11/23/17 14:30 - Constitutional Appears: No Acute Distress - Head Exam Head Exam: ATRAUMATIC, NORMOCEPHALIC - Respiratory Exam Respiratory Exam: Clear to Ausculation Bilateral, NORMAL BREATHING PATTERN - Cardiovascular Exam Cardiovascular Exam: REGULAR RHYTHM, +S1, +S2 - GI/Abdominal Exam GI & Abdominal Exam: Soft, Normal Bowel Sounds. absent: Tenderness - Extremities Exam Extremities Exam: Normal Inspection Assessment and Plan - Assessment and Plan (Free Text) Assessment: Syncope Bradycardia Delirium with underlying dementia HTN BPH CVD with history of CVA DMII Plan: Patient was retaining urine. Smith catheter placed and flomax re-started. Flomax held for hypotension. Midodrine was started yesterday and blood pressure has improved. Will decrease IV fluids to 75 ml/hour. Patient has been seen by psychiatry and started on low dose of Haldol.
[2017-11-27] MEDS: Pantoprazole 40 mg EC Tab PO SCH (08:46)
--- NOTE | 2017-11-27 09:45 | PN ---
DATE: 11/25/2017 LOCATION: The patient in room 276, bed 2. REASON FOR FOLLOWUP: Dizziness; postural hypotension; diabetes; hypertension; CVA, old. The patient is very confused today. There is no respiratory distress. The patient is lying flat in bed, but he tried to get out of bed himself and he fell down. The patient's rhythm had been normal sinus rhythm. The patient's lungs clear. Cardiovascular: S1, S2. The blood pressure in 3 positions today could not be done, so we will continue to look for that. The patient was getting IV fluid yesterday, but blood pressure reading showed postural hypotension, but IV fluid was continued, so we will monitor that. We will follow with you. The patient continued to get aspirin along with other therapy, Lovenox 40 mg subcu daily along with losartan, amlodipine and Protonix, also on gabapentin and atorvastatin. We will continue same. We will follow with you. Pj Mcneil MD
[2017-11-27] MEDS: Enoxaparin 40 mg Syringe SC SCH (09:49)
--- NOTE | 2017-11-27 09:51 | PN ---
DATE: 11/26/2017 LOCATION: The patient is in room 276, bed 2. REASON: Dizziness and near syncope. The patient also had an episode of hypotension. The patient is a known case of CVA, hypertension, BPH, cirrhosis of liver, GERD, diabetes mellitus with orthostatic hypotension. The patient is very confused. There is no evidence of any chest pain, shortness of breath, palpitation. The patient tried climb up of the bed, so he is on one-on-one. The patient is getting IV fluid 100 mL an hour, amlodipine 2.5 daily, atorvastatin 40 daily, Lovenox 40 mg subcu daily, Haldol 0.25 p.o. daily, folic acid 1 mg daily, aspirin 81 mg daily, Flomax 0.4 mg at bedtime. Echo showed normal LV size. Concentric hypertrophy. Normal ejection fraction. Normal systolic function. Grade 1 abnormal relaxation pattern. Calcified valve, which showed thickness of the . Mild aortic regurg. Ejection fraction is 68%. We will continue IV fluid and same therapy. We will follow with you. Pj Mcneil MD
--- NOTE | 2017-11-27 09:51 | CON ---
DATE: 11/24/2017 The patient in room 276, bed 2. REASON FOR CONSULTATION: Syncopal episode. HISTORY OF PRESENT ILLNESS: A 77-year-old male, a known case of diabetes mellitus, cirrhosis of liver, hypertension, VT, CVA eight weeks ago with residual weakness on the left side of the body, states that he stood up to turn off the TV, then he felt weak and dizzy. When he started to fall, his friend was able to catch him. According to his friend, his left eye was closed during the episode of the weakness. The patient lying silently in bed without any chest pain, shortness of breath, palpitation. The patient denies any exertional chest pain history or PND. PAST MEDICAL HISTORY: As mentioned before, the patient had CVA eight weeks ago with residual left-sided weakness. The patient has known diabetes mellitus, cirrhosis of liver, hypertension, ethanol abuse in the past, and also the patient used to smoke one pack a day in the past. Both drinking and smoking was stopped 10 years ago. ALLERGIES: THE PATIENT DENIES ANY ALLERGIES. PERSONAL HISTORY: He used to drink heavy and used to smoke one pack a day, both smoking and drinking stopped about 10 years ago. MEDICATIONS: List of medications at home, the patient taking atenolol 25 mg daily, Lipitor 40 daily, TriCor 134 mg p.o. daily, folic acid 1 mg daily, Neurontin 300 mg p.o. b.i.d., Januvia 100 mg p.o. daily in the morning, Actigall 300 mg p.o. daily, metformin 500 mg daily, Amitiza 8 mcg p.o. b.i.d. REVIEW OF SYSTEMS: All the systems reviewed, positives mentioned in history, others were negative. PHYSICAL EXAMINATION VITAL SIGNS: Blood pressure lying down 141/69, sitting 118/62, standing 104/56; respiration 18; pulse is 57; temperature 98.3. HEENT: Head is normocephalic. Eyes, pupils normal. Conjunctivae normal. Nose and throat normal. NECK: JVP low. Carotids equal. THORAX: AP diameter normal. CARDIOPULMONARY: S1, S2. LUNGS: Clear. ABDOMEN: Soft, no tenderness. No organomegaly. Bowel sounds normal. EXTREMITIES: No clubbing, no cyanosis. LABORATORY DATA: WBC 5.7, hemoglobin 12.3, hematocrit 36.8, platelet 103. Random sugar 102. TSH 0.94. Sodium 138, potassium 4.8, BUN 30, creatinine 1.4. Troponin less than 0.01. AST, ALT, calcium, magnesium . Random glucose 100. Total protein 7.0. Albumin 4.2. Chest x-ray, no active disease. EKG shows sinus bradycardia, rate around [address] , no acute intracranial abnormalities. Echocardiogram was done today shows left ventricle normal size, mild concentric left ventricular hypertrophy. Normal systolic function of LV with ejection fraction of 68%. Doppler pattern showed grade 1 abnormal relaxation pattern. Aortic valve moderate to severely calcified, but opening is normal. There is mild aortic regurg. Mitral valve thickened, but opening is normal. DIAGNOSES: Dizziness, syncope, old cerebrovascular accident, diabetes mellitus, hypertension, benign prostatic hypertrophy, cirrhosis of liver, gastroesophageal reflux disease. The first reading of three blood pressures in lying, sitting, standing suggestive of postural hypotension. The patient getting Actigall 300 mg daily, 2.5 daily, aspirin 81 mg daily, Lipitor 40 daily, Lovenox 40 mg subcu daily, gabapentin 300 mg p.o. b.i.d., amlodipine 2.5 daily, Protonix 40 daily. The patient getting 60 mL IV fluid. PLAN: To repeat orthostatic blood pressure again. The patient now getting IV fluid therapy to see if it shows an improvement, and in the mean time, we will continue the medicines mentioned above and monitor for any arrhythmia, and we will follow with you. Pj Mcneil MD
[2017-11-27] MEDS ORDERED: Potassium Chloride 20 mEq ER Tab PO ONE (11:48)
--- NOTE | 2017-11-27 14:33 | PN ---
DATE: 11/27/2017 NEUROLOGY FOLLOWUP CHIEF COMPLAINT: Followup for confusion. SUBJECTIVE: The patient is seen and examined at bedside. He is reading the newspaper. He is sitting up in the chair, doing much better. Mildly delirious at times. He had underwent rapid response on 11/25/2017 for bradycardia and hypotension. Started on midodrine and his blood pressures have improved. He also has been seen by Psychiatry and he has been on low-dose Haldol. PAST MEDICAL HISTORY: History of syncope, hypertension, coronary artery disease, COPD with history of CVA, type 2 diabetes mellitus. REVIEW OF SYSTEMS: Fourteen-point review of systems is negative except as per the HPI. FAMILY HISTORY: Noncontributory. MEDICATIONS: Reviewed by nurses' reconciliation sheet. LABORATORY DATA: Sodium is 141, potassium 3.8, chloride 113, carbon dioxide 22, BUN of 11, creatinine 0.8, random glucose of 93. PHYSICAL EXAMINATION: VITAL SIGNS: Temperature of 98.5, pulse rate of 72, blood pressure 91/55, respiratory rate of 18, oxygen saturation 98% by room air. GENERAL: The patient is sitting up in bed, in no acute distress. HEENT: Atraumatic, normocephalic. PERRLA. Extraocular muscles intact. NECK: No JVD, no adenopathy noted. HEART: S1, S2. Normal rate and rhythm. No murmurs, rubs or gallops. ABDOMEN: Soft, nontender and nondistended. Bowel sounds are present. LUNGS: Clear to auscultation. No adventitious sounds. EXTREMITIES: No clubbing. No cyanosis. Peripheral pulses 2+ felt bilaterally. NEUROLOGIC: The patient is alert and oriented to person and place, not much to month or year. Recall after 5 minutes is 0/3. Poor attention span. Slow thought process. Cranial nerves II through XII are intact. Motor exam: Moves all extremities equally. No pronator drift seen. Sensory exam: Decreased light touch and pinprick up to the calves bilaterally. Decreased vibration of the toes. DTRs are 2+ throughout and 1 at both knees and ankles. Coordination: [id number] intact. No dysmetria noted. ASSESSMENT AND PLAN: This is a 77-year-old man, history of hypertension, benign prostatic hypertrophy, cerebrovascular accident, coronary artery disease, type 2 diabetes mellitus syncopal event, which was likely secondary to orthostatic hypotension/transient cerebral hypoperfusion to the brain. He is on midodrine for his orthostatic hypotension. He had transient episode of confusion, which a CAT scan showed no acute intracranial abnormalities at this time. Recommend, 1. Continue with Aricept 5 mg p.o. at bedtime for underlying dementia. 2. Delirium precaution. 3. Monitor electrolytes and correct accordingly. 4. Avoid sudden drops in systolic and diastolic blood pressures. Continue with midodrine. 5. Physical Therapy/Occupational Therapy evaluation. 6. Keep his blood sugars between 140 and 180 and continue current present medical management. Thank you for this followup. Drake Byrd MD
--- NOTE | 2017-11-27 16:19 | PN ---
DATE: 11/27/2017 REASON FOR CONSULTATION: Syncopal episode, CVA. SUBJECTIVE: The patient denies any chest pain, shortness of breath, or any palpitation. The patient is confused and in one-to-one observation. OBJECTIVE: GENERAL: Not in apparent distress. VITAL SIGNS: Temperature afebrile, heart rate 72, blood pressure 111/63. HEENT: PERRLA. Extraocular muscles intact. NECK: Supple. No carotid bruit or thyromegaly. CHEST: Clear to auscultation. HEART: S1 and S2, regular. ABDOMEN: Soft. EXTREMITIES: Clubbing and cyanosis negative. LABORATORY DATA: Blood workup as follows: WBC 5.9, hemoglobin 10.5, hematocrit 31.1, and platelet count 80. Chemistry shows sodium 141, potassium 3.8, chloride 113, carbon dioxide 22, anion gap of 9. BUN 11, creatinine 0.8. Alkaline phosphatase 33, total protein 5.6, albumin 3.1, albumin and globulin ratio 1.2. IMPRESSION: A 77-year-old male with a past medical history of cerebrovascular accident with residual left-sided weakness, hypertension, diabetes, cirrhosis of liver, gastroesophageal reflux, admitted with a near syncope, hypertension, diabetes mellitus, admitted with near syncope, bradycardia, orthostatic hypotension, status post rapid response. Yesterday, the blood pressure was dropping from 140 to 118, sitting, lying, and standing; lying 141/69, sitting 118/62, and standing 104, significant postural hypotension, although echo was done that shows ejection fraction 65%, mild aortic regurgitation, [id number] thickening of the aortic valve. RECOMMENDATIONS: Continue IV fluid. The patient one-to-one. We will repeat check orthostatic hypotension. We will put losartan and antihypertensive medications on hold until the patient's blood pressure improve or the patient's orthostatic hypotension is completely resolved. We will follow with you. We will also get lipid profile, TSH, hemoglobin A1c tomorrow. We will supplement potassium. We will also hold antihypertensive medications for now. Thank you, Dr. Velarde, for providing us the opportunity in taking care of the patient, Girma Villegas Pj Kohler MD [facility] # [id number]
[2017-11-28 05:42] VITALS: O2SAT 99
[2017-11-28] MEDS: Pantoprazole 40 mg EC Tab PO SCH (06:17)
[2017-11-28 07:10] LABS: BASO # 0.02 K/mm3 (0.0-2.0); BASO % 0.4 % (0.0-3.0); EOS # 0.1 (0.0-0.7); EOS % 2.4 % (1.5-5.0); GRAN # 3.77 (1.4-6.5); GRAN % 75.6 % (50.0-68.0); HEMOGLOBIN 11.2 g/dL (14.0-18.0); LYMPH # 0.7 (1.2-3.4); LYMPH % 13.2 % (22.0-35.0); MEAN CELL VOLUME 91.4 fl (80.0-105.0); MEAN CORPUSCULAR HEMOGLOBIN 31.1 pg (25.0-35.0); MEAN PLATELET VOLUME 11.2 fl (7.0-11.0); MONO # 0.4 (0.1-0.6); MONO % 8.4 % (1.0-6.0); RBC 3.6 10^6/uL (3.5-6.1); RED CELL DISTRIBUTION WIDTH 12.2 % (11.5-14.5)
[2017-11-28 07:21] LABS: LDL CHOLESTEROL 63 mg/dL (0-129)
[2017-11-28 07:22] LABS: ALB/GLOB RATIO 1.3 (1.1-1.8); ALBUMIN 3.4 g/dL (3.0-4.8); ALT/SGPT 35 U/L (7-56); AST/SGOT 31 U/L (17-59); BLOOD UREA NITROGEN 13 mg/dL (7-21); CALCIUM 9.2 mg/dL (8.4-10.5); GFR NON-AFRICAN AMERICAN > 60; HDL CHOLESTEROL 39 mg/dL (29-60)
[2017-11-28] MEDS: Insulin Reg-LOW-Coverage SC SCH ×4 (07:30→22:10)
--- NOTE | 2017-11-28 07:52 | CP.PCM.PN ---
Subjective - Date & Time of Evaluation Date of Evaluation: 11/28/17 Time of Evaluation: 06:45 - Subjective Subjective: Awake, alert, no distress, calm, 1:1 sitter Reason for consultation and follow up: Cardiac evaluation of syncope and bradycardia, orthostatic hypotension Seen and examined by me and Dr. Mcneil Objective - Vital Signs/Intake and Output Vital Signs (last 24 hours): Temp Pulse Resp BP Pulse Ox 99 F 61 20 172/86 H 99 11/28/17 05:40 11/28/17 05:45 11/28/17 05:40 11/28/17 05:40 11/28/17 05:40 Intake and Output: 11/28/17 11/28/17 06:59 18:59 Intake Total 2804 Output Total 2850 Balance -46 - Medications Medications: Current Medications Amlodipine Besylate (Norvasc) 2.5 mg PO 1400 [facility] Last Admin: 11/27/17 13:41 Dose: Not Given Aspirin (Ecotrin) 81 mg PO QAM [facility] Last Admin: 11/27/17 09:50 Dose: 81 mg Atorvastatin Calcium (Lipitor) 40 mg PO DIN [facility] Last Admin: 11/27/17 17:16 Dose: 40 mg Donepezil HCl (Aricept) 5 mg PO HS [facility] Last Admin: 11/27/17 22:02 Dose: 5 mg Enoxaparin Sodium (Lovenox) 40 mg SC DAILY [facility]; Protocol Last Admin: 11/27/17 09:49 Dose: 40 mg Fluoxetine HCl (Prozac) 10 mg PO DAILY [facility] Last Admin: 11/27/17 09:49 Dose: 10 mg Folic Acid (Folic Acid) 1 mg PO DAILY [facility] Last Admin: 11/27/17 09:50 Dose: 1 mg Gabapentin (Neurontin) 300 mg PO BID [facility]; Protocol Last Admin: 11/27/17 17:16 Dose: 300 mg Haloperidol (Haldol) 0.25 mg PO DAILY [facility]; Protocol Last Admin: 11/27/17 09:49 Dose: 0.25 mg Sodium Chloride (Sodium Chloride 0.9%) 1,000 mls @ 75 mls/hr IV .[id number] [facility] Last Admin: 11/27/17 22:00 Dose: 75 mls/hr Insulin Human Regular (Humulin R Low) 0 units SC ACHS [facility]; Protocol Last Admin: 11/27/17 21:56 Dose: Not Given Losartan Potassium (Cozaar) 25 mg PO DAILY [facility] Last Admin: 11/27/17 09:50 Dose: 25 mg Midodrine (Proamatine) 2.5 mg PO DAILY [facility] Last Admin: 11/27/17 09:56 Dose: 2.5 mg Pantoprazole Sodium (Protonix Ec Tab) 40 mg PO 0600 [facility] Last Admin: 11/28/17 06:17 Dose: 40 mg Tamsulosin HCl (Flomax) 0.4 mg PO HS [facility] Last Admin: 11/27/17 22:02 Dose: 0.4 mg Ursodiol (Actigall) 300 mg PO DAILY [facility] Last Admin: 11/27/17 09:49 Dose: 300 mg - Labs Labs: 11/28/17 06:00 11/28/17 06:00 PT 12.9 SECONDS (9.4-12.5) H 11/23/17 14:30 INR 1.13 11/23/17 14:30 APTT 35.1 Seconds (25.1-36.5) 11/23/17 14:30 - Constitutional Appears: Non-toxic, No Acute Distress - Head Exam Head Exam: NORMAL INSPECTION, NORMOCEPHALIC - Eye Exam Eye Exam: Normal appearance Pupil Exam: NORMAL ACCOMODATION - ENT Exam ENT Exam: Mucous Membranes Dry, Normal Exam - Respiratory Exam Respiratory Exam: Decreased Breath Sounds, Clear to Ausculation Bilateral, NORMAL BREATHING PATTERN - Cardiovascular Exam Cardiovascular Exam: REGULAR RHYTHM, +S1, +S2 - GI/Abdominal Exam GI & Abdominal Exam: Soft, Normal Bowel Sounds - Extremities Exam Extremities Exam: Full ROM, Normal Capillary Refill - Neurological Exam Neurological Exam: Alert, Awake - Psychiatric Exam Psychiatric exam: Normal Affect, Normal Mood - Skin Skin Exam: Dry, Normal Color, Warm Assessment and Plan - Assessment and Plan (Free Text) Assessment: A 77 year old male with came in to the ER due to dizziness and weakness. He also claimed to have syncopal episode. He was trying to get up and turn off television and passed out. History of CVA, hypertension,BPH, cirrhosis of liver, GERD and diabetes mellitus.positive for orthostatic hypotension. Lying BP- 141/69,Sitting BP 118/62, standing BP 104/56. Echo done- Normal LV size and function LVEF 65%, mild AR, moderate to severe thickened aortic valve.Unwitnessed fall, Left shoulder X ray negative for fracture, CT of head done-normal,no bleeding. Post [employer] for hypotension SBP 80's IV bolus given and stabilized. Plan: Orthostatic hypotension improved Repeat vital signs- Lying BP-124/67 Sitting BP-104/69 Standing BP 127/67 Blood pressure stabilized Fall precaution Still on 1:1 sitter, confuse Awake,alert and calm On Norvasc 2.5 mg daily,Lipitor 40 mg daily, Lovenox 40 mg daily, Cozaar 25 mg daily, Flomax 0.4 mg daily, ASA 81 mg daily May discontinue IV fluids if taking adequate oral intake Continue current treatment Continue current medications Chart reviewed Will follow up Plan and treatment discussed with Dr. Kohler
--- NOTE | 2017-11-28 08:14 | CP.PCM.PN ---
Subjective - Date & Time of Evaluation Date of Evaluation: 11/28/17 Time of Evaluation: 07:45 - Subjective Subjective: Patient is seen this morning. He is lying in bed and is aware of where he is. Objective - Vital Signs/Intake and Output Vital Signs (last 24 hours): Temp Pulse Resp BP Pulse Ox 99 F 61 20 172/86 H 99 11/28/17 05:40 11/28/17 05:45 11/28/17 05:40 11/28/17 05:40 11/28/17 05:40 Intake and Output: 11/28/17 11/28/17 06:59 18:59 Intake Total 2804 Output Total 2850 Balance -46 - Medications Medications: Current Medications Amlodipine Besylate (Norvasc) 2.5 mg PO 1400 [facility] Last Admin: 11/27/17 13:41 Dose: Not Given Aspirin (Ecotrin) 81 mg PO QAM [facility] Last Admin: 11/27/17 09:50 Dose: 81 mg Atorvastatin Calcium (Lipitor) 40 mg PO DIN [facility] Last Admin: 11/27/17 17:16 Dose: 40 mg Donepezil HCl (Aricept) 5 mg PO HS [facility] Last Admin: 11/27/17 22:02 Dose: 5 mg Enoxaparin Sodium (Lovenox) 40 mg SC DAILY [facility]; Protocol Last Admin: 11/27/17 09:49 Dose: 40 mg Fluoxetine HCl (Prozac) 10 mg PO DAILY [facility] Last Admin: 11/27/17 09:49 Dose: 10 mg Folic Acid (Folic Acid) 1 mg PO DAILY [facility] Last Admin: 11/27/17 09:50 Dose: 1 mg Gabapentin (Neurontin) 300 mg PO BID [facility]; Protocol Last Admin: 11/27/17 17:16 Dose: 300 mg Haloperidol (Haldol) 0.25 mg PO DAILY [facility]; Protocol Last Admin: 11/27/17 09:49 Dose: 0.25 mg Sodium Chloride (Sodium Chloride 0.9%) 1,000 mls @ 75 mls/hr IV .[id number] [facility] Last Admin: 11/27/17 22:00 Dose: 75 mls/hr Insulin Human Regular (Humulin R Low) 0 units SC ACHS [facility]; Protocol Last Admin: 11/27/17 21:56 Dose: Not Given Losartan Potassium (Cozaar) 25 mg PO DAILY [facility] Last Admin: 11/27/17 09:50 Dose: 25 mg Midodrine (Proamatine) 2.5 mg PO DAILY [facility] Last Admin: 11/27/17 09:56 Dose: 2.5 mg Pantoprazole Sodium (Protonix Ec Tab) 40 mg PO 0600 [facility] Last Admin: 11/28/17 06:17 Dose: 40 mg Tamsulosin HCl (Flomax) 0.4 mg PO HS [facility] Last Admin: 11/27/17 22:02 Dose: 0.4 mg Ursodiol (Actigall) 300 mg PO DAILY [facility] Last Admin: 11/27/17 09:49 Dose: 300 mg - Labs Labs: 11/28/17 06:00 11/28/17 06:00 PT 12.9 SECONDS (9.4-12.5) H 11/23/17 14:30 INR 1.13 11/23/17 14:30 APTT 35.1 Seconds (25.1-36.5) 11/23/17 14:30 - Constitutional Appears: No Acute Distress - Head Exam Head Exam: ATRAUMATIC, NORMOCEPHALIC - Respiratory Exam Respiratory Exam: Clear to Ausculation Bilateral, NORMAL BREATHING PATTERN - Cardiovascular Exam Cardiovascular Exam: +S1, +S2 - GI/Abdominal Exam GI & Abdominal Exam: Soft, Normal Bowel Sounds. absent: Tenderness - Extremities Exam Extremities Exam: Normal Inspection - Neurological Exam Neurological Exam: Alert, Awake Additional comments: oriented to person and place Assessment and Plan - Assessment and Plan (Free Text) Assessment: Postural hypotension Syncope CVD with history of CVA BPH HTN DMII dementia Plan: Patient with poor memory but knows his name and where he is. He continues to exhibit signs of orthostatic hypotension. continue Midodrine with holding parameters. Antihypertensives are on hold as per cardiology. Smith catheter was placed for urinary retention. continue flomax. for PT evaluation.
[2017-11-28] MEDS: Enoxaparin 40 mg Syringe SC SCH (09:34)
[2017-11-28] MEDS: Sodium Chloride 0.9% 1,000 ML IV SCH (14:50)
--- NOTE | 2017-11-28 15:49 | PN ---
DATE: 11/28/2017 REASON FOR CONSULTATION AND FOLLOWUP: Syncopal episode, dizziness, orthostatic hypotension. SUBJECTIVE: The patient denies any chest pain, shortness of breath, or any palpitations. One-to-one. At this morning orthostatic blood pressure was recorded as follows, lying 154/70, sitting 122/56, on standing 108/64. Significant orthostatic hypotension noted. IMPRESSION: A 77-year-old male with past medical history significant for cerebrovascular accident, residual left-sided weakness, hypertension, diabetes, cirrhosis of liver, gastroesophageal reflux, admitted with a near syncope, hypertension. The patient has significant orthostatic hypotension as mentioned and significant drop in the blood pressure. Recent echo done showed 65% ejection fraction with mild aortic regurgitation, [id number] thickening of the aortic valve. Preserved left ventricular function, calculated ejection fraction 67%. No mitral regurgitation noted. No tricuspid valve regurgitation noted by echo dated 11/24/2017. This is the most recent orthostatic this morning after seen by our nurse practitioner, Beth Harper. RECOMMENDATIONS: We will start Florinef and continue IV fluid and give p.r.n. hydralazine for blood pressure more than 160. We will do a now and we will put hydralazine p.r.n. as well for systolic more than 160. As mentioned, this note is an addition to dictated by nurse practitioner. Thank you, Dr. Velarde, for providing us the opportunity in taking care of the patient, Girma Ley. Pj Kohler MD
[2017-11-29] MEDS: Sodium Chloride 0.9% 1,000 ML IV SCH ×3 (00:19→21:17)
[2017-11-29] MEDS: Pantoprazole 40 mg EC Tab PO SCH (05:09)
--- NOTE | 2017-11-29 07:39 | CP.PCM.PN ---
Subjective - Date & Time of Evaluation Date of Evaluation: 11/29/17 Time of Evaluation: 06:35 - Subjective Subjective: 1:1 sitter, Awake, alert, no distress Reason for consultation and follow up: Cardiac evaluation of syncope and bradycardia, orthostatic hypotension Seen and examined by me and Dr. Kohler Objective - Vital Signs/Intake and Output Vital Signs (last 24 hours): Temp Pulse Resp BP Pulse Ox 98.0 F 65 20 157/87 H 99 11/29/17 05:50 11/29/17 05:50 11/29/17 05:50 11/28/17 23:57 11/28/17 05:40 Intake and Output: 11/29/17 11/29/17 06:59 18:59 Intake Total 1620 Output Total 2000 Balance -380 - Medications Medications: Current Medications Amlodipine Besylate (Norvasc) 2.5 mg PO 1400 [facility] Last Admin: 11/28/17 14:01 Dose: 2.5 mg Aspirin (Ecotrin) 81 mg PO QAM [facility] Last Admin: 11/28/17 09:34 Dose: 81 mg Atorvastatin Calcium (Lipitor) 40 mg PO DIN [facility] Last Admin: 11/28/17 17:26 Dose: 40 mg Donepezil HCl (Aricept) 5 mg PO HS [facility] Last Admin: 11/28/17 21:16 Dose: 5 mg Enoxaparin Sodium (Lovenox) 40 mg SC DAILY [facility]; Protocol Last Admin: 11/28/17 09:34 Dose: 40 mg Fludrocortisone Acetate (Florinef) 0.1 mg PO BID [facility] Stop: 12/01/17 23:59 Last Admin: 11/28/17 17:25 Dose: 0.1 mg Fluoxetine HCl (Prozac) 10 mg PO DAILY [facility] Last Admin: 11/28/17 09:34 Dose: 10 mg Folic Acid (Folic Acid) 1 mg PO DAILY [facility] Last Admin: 11/28/17 09:34 Dose: 1 mg Gabapentin (Neurontin) 300 mg PO BID [facility]; Protocol Last Admin: 11/28/17 17:26 Dose: 300 mg Haloperidol (Haldol) 0.25 mg PO DAILY [facility]; Protocol Last Admin: 11/28/17 09:34 Dose: 0.25 mg Hydralazine HCl (Apresoline) 10 mg PO QID PRN PRN Reason: for sbp >170 Sodium Chloride (Sodium Chloride 0.9%) 1,000 mls @ 75 mls/hr IV .[id number] [facility] Last Admin: 11/29/17 04:22 Dose: 75 mls/hr Insulin Human Regular (Humulin R Low) 0 units SC ACHS [facility]; Protocol Last Admin: 11/28/17 22:10 Dose: Not Given Losartan Potassium (Cozaar) 25 mg PO DAILY [facility] Last Admin: 11/27/17 09:50 Dose: 25 mg Midodrine (Proamatine) 2.5 mg PO DAILY [facility] Last Admin: 11/28/17 09:34 Dose: 2.5 mg Pantoprazole Sodium (Protonix Ec Tab) 40 mg PO 0600 [facility] Last Admin: 11/29/17 05:09 Dose: 40 mg Tamsulosin HCl (Flomax) 0.4 mg PO HS [facility] Last Admin: 11/28/17 21:17 Dose: 0.4 mg Ursodiol (Actigall) 300 mg PO DAILY [facility] Last Admin: 11/28/17 09:34 Dose: 300 mg - Labs Labs: 11/28/17 06:00 11/28/17 06:00 PT 12.9 SECONDS (9.4-12.5) H 11/23/17 14:30 INR 1.13 11/23/17 14:30 APTT 35.1 Seconds (25.1-36.5) 11/23/17 14:30 - Constitutional Appears: Non-toxic, No Acute Distress - Head Exam Head Exam: NORMAL INSPECTION, NORMOCEPHALIC - Eye Exam Eye Exam: Normal appearance Pupil Exam: NORMAL ACCOMODATION - ENT Exam ENT Exam: Mucous Membranes Moist, Normal Exam - Respiratory Exam Respiratory Exam: Clear to Ausculation Bilateral, NORMAL BREATHING PATTERN - Cardiovascular Exam Cardiovascular Exam: +S1, +S2 - GI/Abdominal Exam GI & Abdominal Exam: Soft, Normal Bowel Sounds - Extremities Exam Extremities Exam: Full ROM, Normal Capillary Refill - Neurological Exam Neurological Exam: Alert, Awake - Psychiatric Exam Psychiatric exam: Normal Affect, Normal Mood - Skin Skin Exam: Normal Color, Warm Assessment and Plan - Assessment and Plan (Free Text) Assessment: A 77 year old male with came in to the ER due to dizziness and weakness. He also claimed to have syncopal episode. He was trying to get up and turn off television and passed out. History of CVA, hypertension,BPH, cirrhosis of liver, GERD and diabetes mellitus.positive for orthostatic hypotension. Lying BP- 141/69,Sitting BP 118/62, standing BP 104/56. Echo done- Normal LV size and function LVEF 65%, mild AR, moderate to severe thickened aortic valve.Unwitnessed fall, Left shoulder X ray negative for fracture, CT of head done-normal,no bleeding. Post [employer]GER for hypotension SBP 80's IV bolus given and stabilized.Orthostatic hypotension, Started on Florinef. Plan: Orthostatic hypotension Repeat Vital signs: Lying BP: 166/83 Sitting BP 141/79 Standing BP 127/61 Started on Florinef yesterday Continue IV fluids Awake,alert and calm Fall precaution Still on 1:1 sitter, confuse Controlled heart rate Controlled blood pressure On Norvasc 2.5 mg daily,Lipitor 40 mg daily, Lovenox 40 mg daily, Cozaar 25 mg daily, Flomax 0.4 mg daily, ASA 81 mg daily Continue IV fluids Continue current treatment Continue current medications Chart reviewed Will follow up Plan and treatment discussed with Dr. Kohler
--- NOTE | 2017-11-29 07:50 | CP.PCM.PN ---
Subjective - Date & Time of Evaluation Date of Evaluation: 11/29/17 Time of Evaluation: 07:30 - Subjective Subjective: Patient is seen this morning. He is lying in bed with 1:1 sitting next to him. Patient appears to be less confused upon questioning. Objective - Vital Signs/Intake and Output Vital Signs (last 24 hours): Temp Pulse Resp BP Pulse Ox 98.0 F 65 20 157/87 H 99 11/29/17 05:50 11/29/17 05:50 11/29/17 05:50 11/28/17 23:57 11/28/17 05:40 Intake and Output: 11/29/17 11/29/17 06:59 18:59 Intake Total 1620 Output Total 2000 Balance -380 - Medications Medications: Current Medications Amlodipine Besylate (Norvasc) 2.5 mg PO 1400 [facility] Last Admin: 11/28/17 14:01 Dose: 2.5 mg Aspirin (Ecotrin) 81 mg PO QAM [facility] Last Admin: 11/28/17 09:34 Dose: 81 mg Atorvastatin Calcium (Lipitor) 40 mg PO DIN [facility] Last Admin: 11/28/17 17:26 Dose: 40 mg Donepezil HCl (Aricept) 5 mg PO HS [facility] Last Admin: 11/28/17 21:16 Dose: 5 mg Enoxaparin Sodium (Lovenox) 40 mg SC DAILY [facility]; Protocol Last Admin: 11/28/17 09:34 Dose: 40 mg Fludrocortisone Acetate (Florinef) 0.1 mg PO BID [facility] Stop: 12/01/17 23:59 Last Admin: 11/28/17 17:25 Dose: 0.1 mg Fluoxetine HCl (Prozac) 10 mg PO DAILY [facility] Last Admin: 11/28/17 09:34 Dose: 10 mg Folic Acid (Folic Acid) 1 mg PO DAILY [facility] Last Admin: 11/28/17 09:34 Dose: 1 mg Gabapentin (Neurontin) 300 mg PO BID [facility]; Protocol Last Admin: 11/28/17 17:26 Dose: 300 mg Haloperidol (Haldol) 0.25 mg PO DAILY [facility]; Protocol Last Admin: 11/28/17 09:34 Dose: 0.25 mg Hydralazine HCl (Apresoline) 10 mg PO QID PRN PRN Reason: for sbp >170 Sodium Chloride (Sodium Chloride 0.9%) 1,000 mls @ 75 mls/hr IV .[id number] [facility] Last Admin: 11/29/17 04:22 Dose: 75 mls/hr Insulin Human Regular (Humulin R Low) 0 units SC [facility]; Protocol Last Admin: 11/28/17 22:10 Dose: Not Given Losartan Potassium (Cozaar) 25 mg PO DAILY [facility] Last Admin: 11/27/17 09:50 Dose: 25 mg Midodrine (Proamatine) 2.5 mg PO DAILY [facility] Last Admin: 11/28/17 09:34 Dose: 2.5 mg Pantoprazole Sodium (Protonix Ec Tab) 40 mg PO 0600 [facility] Last Admin: 11/29/17 05:09 Dose: 40 mg Tamsulosin HCl (Flomax) 0.4 mg PO HS [facility] Last Admin: 11/28/17 21:17 Dose: 0.4 mg Ursodiol (Actigall) 300 mg PO DAILY [facility] Last Admin: 11/28/17 09:34 Dose: 300 mg - Labs Labs: 11/28/17 06:00 11/28/17 06:00 PT 12.9 SECONDS (9.4-12.5) H 11/23/17 14:30 INR 1.13 11/23/17 14:30 APTT 35.1 Seconds (25.1-36.5) 11/23/17 14:30 - Constitutional Appears: No Acute Distress - Head Exam Head Exam: ATRAUMATIC, NORMOCEPHALIC - Respiratory Exam Respiratory Exam: Clear to Ausculation Bilateral, NORMAL BREATHING PATTERN - Cardiovascular Exam Cardiovascular Exam: REGULAR RHYTHM, +S1, +S2 - GI/Abdominal Exam GI & Abdominal Exam: Soft, Normal Bowel Sounds. absent: Tenderness - Extremities Exam Extremities Exam: Normal Inspection - Neurological Exam Neurological Exam: Alert, Awake Assessment and Plan - Assessment and Plan (Free Text) Assessment: Syncope Orthostatic hypotension AMS with underlying dementia HTN DMII BPH History of CVA Plan: Patient appears to be less confused. Vital signs show the patient to have orthostatic hypotension. He is currently on IV fluids and midodrine with holding parameters. Patient complains of left sided weakness. continue physical therapy. Patient requires 24 hour care due to his mental state. Psychiatry, neurology and cardiology evaluations in progress.
[2017-11-29] MEDS: Insulin Reg-LOW-Coverage SC SCH ×4 (08:50→22:00)
[2017-11-29] MEDS: Enoxaparin 40 mg Syringe SC SCH (11:07)
--- NOTE | 2017-11-29 15:10 | PN ---
DATE: 11/29/2017 REASON FOR CONSULTATION AND FOLLOWUP: Syncope episode, dizziness, severe orthostatic hypotension. SUBJECTIVE: Patient denies any chest pain, shortness of breath, or any palpitation. Patient still has significant orthostatic hypotension, complaining of dizziness, which is now resolving. Still one-to-one. PHYSICAL EXAMINATION: VITAL SIGNS: Temperature afebrile; heart rate 65; blood pressure lying down 169/70, sitting 119/63; standing 117/61, more than 50 mm drop in blood pressure on standing. Positive orthostatic hypotension. HEENT: PERRLA. Extraocular muscles intact. NECK: Supple. No carotid bruits or thyromegaly. CHEST: Clear to auscultation. HEART: S1 and S2 regular. ABDOMEN: Soft. EXTREMITIES: Clubbing and cyanosis negative. LABORATORY DATA: Blood workup: WBC 5, hemoglobin 11. , hematocrit 32.9, platelet count 75. Chemistry shows sodium 140, potassium 4.6, chloride 114, carbon dioxide , anion gap of 9, BUN 13, creatinine 0.8. IMPRESSION: Significant orthostatic hypotension, history of cerebrovascular accident, residual left-sided weakness, hypertension, diabetes, cirrhosis of the liver, gastroesophageal reflux. Patient had echocardiogram done shows ejection fraction 65%. Echocardiogram dated 11/24/2017, calculated ejection fraction 67.8%, mild aortic regurgitation reported. No mitral valve regurgitation. No tricuspid valve regurgitation reported. RECOMMENDATION: Continue Florinef b.i.d. Continue IV fluid. Continue DVT prophylaxis and we will put p.r.n. hydralazine if the blood pressure goes more than 160. We will follow probably next 24 to 48 hours. The patient after Florinef, becomes euvolemic and we will reduce orthostatic hypotension. We will follow with you. Follow up on the lab. Thank you, Dr. Velarde, for providing us the opportunity in taking care of the patient, Girma Ley. This note is an addition to dictated by our nurse practitioner. Pj Kohler MD
--- NOTE | 2017-11-29 17:18 | PN ---
DATE: 11/29/2017 FOLLOWUP NOTE SUBJECTIVE: In short, the patient is a 77-year-old male with history of liver cirrhosis, former alcohol abuser, diabetes, hypertension, myocardial infarction, CVA 8 weeks ago. The patient was admitted on the medical site for evaluation of dizzy episodes. Psych consult was called because the patient most likely had confusions. The patient was seen initially by Dr. Ruvalcaba on 11/26/2017. The impression was delirium with underlying rule out to the dementia. Dr. Ruvalcaba discontinued Risperdal, but started low dose of haloperidol. This com writer took over. The patient was seen today. The patient presented to be alert and oriented. The patient knows the circumstances of his admission. The patient knows that he is in the hospital. The patient knows what is the day today. The patient reported that right now medical team feels that he needs to stay in the [facility]. The patient feels okay about that. The patient was not aware about haloperidol what he was taking. The patient does not present to be psychotic or agitated. The patient was able to memorize this com writer's name, was asking intelligent questions. The patient agreed to discontinue haloperidol right now and this com writer will follow up on the patient tomorrow. Vital signs seems to be stable. Medications reviewed. Labs reviewed. Hemoglobin and hematocrit 11.2 and 32.9. Microbiology reviewed. MENTAL STATUS EXAMINATION: The patient presented to be alert and oriented, pleasant and cooperative. The patient described his mood as a little bit upset. Affect was constricted, but reactive. Mood congruent. Thought process seems to be coherent and goal directed. Thought content, the patient does not present to be agitated or aggressive. Thought process is organized. No signs of psychosis. The patient adamantly denied thoughts of harming himself or others. Insight and judgment seems to be fair. Impulses are well controlled. IMPRESSION: Most likely, the patient was in delirium stage, which is improving. Rule out adjustment disorder. PLAN: Haldol will be discontinued. The rest of the medications such as Prozac 10 mg daily will be continued. Neurontin will be continued. Haloperidol discontinued. We will follow up on this patient every other day. Should you have any questions, give me a call back. Lacie Vigil MD [facility] # [phone]
[2017-11-30] MEDS: Sodium Chloride 0.9% 1,000 ML IV SCH (03:59)
[2017-11-30] MEDS: Pantoprazole 40 mg EC Tab PO SCH (05:29)
[2017-11-30 07:13] LABS: BASO # 0.03 K/mm3 (0.0-2.0); BASO % 0.7 % (0.0-3.0); EOS # 0.1 (0.0-0.7); EOS % 2.4 % (1.5-5.0); GRAN # 3.55 (1.4-6.5); GRAN % 78.7 % (50.0-68.0); HEMOGLOBIN 10.4 g/dL (14.0-18.0); LYMPH # 0.5 (1.2-3.4); LYMPH % 11.5 % (22.0-35.0); MEAN CELL VOLUME 89.9 fl (80.0-105.0); MEAN CORPUSCULAR HGB CONC 34.4 g/dl (31.0-37.0); MONO # 0.3 (0.1-0.6); MONO % 6.7 % (1.0-6.0); RBC 3.36 10^6/uL (3.5-6.1); RED CELL DISTRIBUTION WIDTH 12.1 % (11.5-14.5); WHITE BLOOD COUNT 4.5 10^3/ul (4.5-11.0)
[2017-11-30 07:19] LABS: ALB/GLOB RATIO 1.3 (1.1-1.8); ALBUMIN 3.2 g/dL (3.0-4.8); ALT/SGPT 43 U/L (7-56); AST/SGOT 40 U/L (17-59); BLOOD UREA NITROGEN 12 mg/dL (7-21); CALCIUM 8.7 mg/dL (8.4-10.5); GFR NON-AFRICAN AMERICAN > 60
--- NOTE | 2017-11-30 07:33 | CP.PCM.PN ---
Subjective - Date & Time of Evaluation Date of Evaluation: 11/30/17 Time of Evaluation: 06:35 - Subjective Subjective: Awake, alert, no distress Reason for consultation and follow up: Cardiac evaluation of syncope and bradycardia, orthostatic hypotension Seen and examined by me and Dr. Kohler Objective - Vital Signs/Intake and Output Vital Signs (last 24 hours): Temp Pulse Resp BP Pulse Ox 98.4 F 71 158 H 147/64 99 11/30/17 06:00 11/30/17 06:00 11/30/17 06:00 11/29/17 23:53 11/28/17 05:40 Intake and Output: 11/30/17 11/30/17 06:59 18:59 Intake Total 1845 Output Total 1000 Balance 845 - Medications Medications: Current Medications Amlodipine Besylate (Norvasc) 2.5 mg PO 1400 [facility] Last Admin: 11/29/17 14:26 Dose: 2.5 mg Aspirin (Ecotrin) 81 mg PO QAM [facility] Last Admin: 11/29/17 11:06 Dose: 81 mg Atorvastatin Calcium (Lipitor) 40 mg PO DIN [facility] Last Admin: 11/29/17 18:11 Dose: 40 mg Donepezil HCl (Aricept) 5 mg PO HS [facility] Last Admin: 11/29/17 21:16 Dose: 5 mg Enoxaparin Sodium (Lovenox) 40 mg SC DAILY [facility]; Protocol Last Admin: 11/29/17 11:07 Dose: 40 mg Fludrocortisone Acetate (Florinef) 0.1 mg PO BID [facility] Stop: 12/01/17 23:59 Last Admin: 11/29/17 18:11 Dose: 0.1 mg Fluoxetine HCl (Prozac) 10 mg PO DAILY [facility] Last Admin: 11/29/17 11:07 Dose: 10 mg Folic Acid (Folic Acid) 1 mg PO DAILY [facility] Last Admin: 11/29/17 11:07 Dose: 1 mg Gabapentin (Neurontin) 300 mg PO BID [facility]; Protocol Last Admin: 11/29/17 18:11 Dose: 300 mg Hydralazine HCl (Apresoline) 10 mg PO QID PRN PRN Reason: for sbp >170 Sodium Chloride (Sodium Chloride 0.9%) 1,000 mls @ 75 mls/hr IV .[id number] [facility] Last Admin: 11/30/17 03:59 Dose: Not Given Insulin Human Regular (Humulin R Low) 0 units SC ACHS [facility]; Protocol Last Admin: 11/29/17 22:00 Dose: Not Given Losartan Potassium (Cozaar) 25 mg PO DAILY [facility] Last Admin: 11/27/17 09:50 Dose: 25 mg Midodrine (Proamatine) 2.5 mg PO DAILY [facility] Last Admin: 11/29/17 11:06 Dose: Not Given Pantoprazole Sodium (Protonix Ec Tab) 40 mg PO 0600 [facility] Last Admin: 11/30/17 05:29 Dose: 40 mg Tamsulosin HCl (Flomax) 0.4 mg PO HS [facility] Last Admin: 11/29/17 21:17 Dose: 0.4 mg Ursodiol (Actigall) 300 mg PO DAILY [facility] Last Admin: 11/29/17 11:06 Dose: 300 mg - Labs Labs: 11/30/17 06:30 11/30/17 06:30 PT 12.9 SECONDS (9.4-12.5) H 11/23/17 14:30 INR 1.13 11/23/17 14:30 APTT 35.1 Seconds (25.1-36.5) 11/23/17 14:30 - Constitutional Appears: Non-toxic, No Acute Distress - Head Exam Head Exam: NORMAL INSPECTION, NORMOCEPHALIC - Eye Exam Eye Exam: Normal appearance Pupil Exam: NORMAL ACCOMODATION - ENT Exam ENT Exam: Mucous Membranes Dry, Normal Exam - Respiratory Exam Respiratory Exam: Clear to Ausculation Bilateral, NORMAL BREATHING PATTERN - Cardiovascular Exam Cardiovascular Exam: Bradycardia, +S1, +S2 Additional comments: telemetry SB 50's - GI/Abdominal Exam GI & Abdominal Exam: Soft, Normal Bowel Sounds - Extremities Exam Extremities Exam: Full ROM, Normal Capillary Refill - Neurological Exam Neurological Exam: Alert, Awake - Psychiatric Exam Psychiatric exam: Normal Affect, Normal Mood - Skin Skin Exam: Normal Color, Warm Assessment and Plan - Assessment and Plan (Free Text) Assessment: A 77 year old male with came in to the ER due to dizziness and weakness. He also claimed to have syncopal episode. He was trying to get up and turn off television and passed out. History of CVA, hypertension,BPH, cirrhosis of liver, GERD and diabetes mellitus.positive for orthostatic hypotension. Lying BP- 141/69,Sitting BP 118/62, standing BP 104/56. Echo done- Normal LV size and function LVEF 65%, mild AR, moderate to severe thickened aortic valve.Unwitnessed fall, Left shoulder X ray negative for fracture, CT of head done-normal,no bleeding. 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 Confuse but calm. 1:1 sitter lifted. Plan: Orthostatic hypotension Continue IV fluids Will recheck vital signs today,if okay then will discontinue IV fluid Awake,alert and calm Fall precaution Controlled heart rate Controlled blood pressure On Norvasc 2.5 mg daily, ASA 81 mg daily,Lipitor 40 mg daily, Lovenox 40 mg daily, Cozaar 25 mg daily, Flomax 0.4 mg daily,Florinef 0.1 mg BID, Continue current treatment Continue current medications Chart reviewed Will follow up Plan and treatment discussed with Dr. Kohler
--- NOTE | 2017-11-30 07:52 | CP.PCM.PN ---
Subjective - Date & Time of Evaluation Date of Evaluation: 11/30/17 Time of Evaluation: 07:30 - Subjective Subjective: Patient is seen this morning. He says that he feels tired. He is able to answer questions. Objective - Vital Signs/Intake and Output Vital Signs (last 24 hours): Temp Pulse Resp BP Pulse Ox 98.4 F 71 158 H 147/64 99 11/30/17 06:00 11/30/17 06:00 11/30/17 06:00 11/29/17 23:53 11/28/17 05:40 Intake and Output: 11/30/17 11/30/17 06:59 18:59 Intake Total 1845 Output Total 1000 Balance 845 - Medications Medications: Current Medications Amlodipine Besylate (Norvasc) 2.5 mg PO 1400 [facility] Last Admin: 11/29/17 14:26 Dose: 2.5 mg Aspirin (Ecotrin) 81 mg PO QAM [facility] Last Admin: 11/29/17 11:06 Dose: 81 mg Atorvastatin Calcium (Lipitor) 40 mg PO DIN [facility] Last Admin: 11/29/17 18:11 Dose: 40 mg Donepezil HCl (Aricept) 5 mg PO HS [facility] Last Admin: 11/29/17 21:16 Dose: 5 mg Enoxaparin Sodium (Lovenox) 40 mg SC DAILY [facility]; Protocol Last Admin: 11/29/17 11:07 Dose: 40 mg Fludrocortisone Acetate (Florinef) 0.1 mg PO BID [facility] Stop: 12/01/17 23:59 Last Admin: 11/29/17 18:11 Dose: 0.1 mg Fluoxetine HCl (Prozac) 10 mg PO DAILY [facility] Last Admin: 11/29/17 11:07 Dose: 10 mg Folic Acid (Folic Acid) 1 mg PO DAILY [facility] Last Admin: 11/29/17 11:07 Dose: 1 mg Gabapentin (Neurontin) 300 mg PO BID [facility]; Protocol Last Admin: 11/29/17 18:11 Dose: 300 mg Hydralazine HCl (Apresoline) 10 mg PO QID PRN PRN Reason: for sbp >170 Sodium Chloride (Sodium Chloride 0.9%) 1,000 mls @ 75 mls/hr IV .[id number] [facility] Last Admin: 11/30/17 03:59 Dose: Not Given Insulin Human Regular (Humulin R Low) 0 units SC ACHS [facility]; Protocol Last Admin: 11/29/17 22:00 Dose: Not Given Losartan Potassium (Cozaar) 25 mg PO DAILY [facility] Last Admin: 11/27/17 09:50 Dose: 25 mg Midodrine (Proamatine) 2.5 mg PO DAILY [facility] Last Admin: 11/29/17 11:06 Dose: Not Given Pantoprazole Sodium (Protonix Ec Tab) 40 mg PO 0600 [facility] Last Admin: 11/30/17 05:29 Dose: 40 mg Tamsulosin HCl (Flomax) 0.4 mg PO HS [facility] Last Admin: 11/29/17 21:17 Dose: 0.4 mg Ursodiol (Actigall) 300 mg PO DAILY [facility] Last Admin: 11/29/17 11:06 Dose: 300 mg - Labs Labs: 11/30/17 06:30 11/30/17 06:30 PT 12.9 SECONDS (9.4-12.5) H 11/23/17 14:30 INR 1.13 11/23/17 14:30 APTT 35.1 Seconds (25.1-36.5) 11/23/17 14:30 - Constitutional Appears: No Acute Distress - Head Exam Head Exam: ATRAUMATIC, NORMOCEPHALIC - Respiratory Exam Respiratory Exam: Clear to Ausculation Bilateral, NORMAL BREATHING PATTERN - Cardiovascular Exam Cardiovascular Exam: REGULAR RHYTHM, +S1, +S2 - GI/Abdominal Exam GI & Abdominal Exam: Soft, Normal Bowel Sounds. absent: Tenderness - Extremities Exam Extremities Exam: Normal Inspection - Neurological Exam Neurological Exam: Alert, Awake Additional comments: oriented to person and place Assessment and Plan - Assessment and Plan (Free Text) Assessment: Syncope Bradycardia Hypokalemia Hypomagnesemia HTN Dementia DMII Liver cirrhosis CVD with history of CVA Plan: Potassium and magnesium are low today. Will replace. Patient is on midodrine and IV fluids for orthostatic hypotension. Check orthostatic vitals today. continue medications. continue physical therapy.
[2017-11-30] MEDS ORDERED: Potassium Chloride 20 mEq ER Tab PO SCH (08:00)
[2017-11-30] MEDS: Insulin Reg-LOW-Coverage SC SCH ×2 (08:18→12:24)
[2017-11-30] MEDS ORDERED: Magnesium Oxide 400 mg Tab UD PO SCH (10:00)
[2017-11-30] MEDS: Enoxaparin 40 mg Syringe SC SCH (10:31)
[2017-11-30 11:54] VITALS: PULSE 65; RESP 20; TEMP 98.5
[2017-11-30 15:10] VITALS: BP 148/76
--- NOTE | 2017-11-30 15:39 | PN ---
DATE: 11/30/2017 REASON FOR CONSULTATION AND FOLLOWUP: Cardiac evaluation, syncope, bradycardia, and orthostatic hypotension. SUBJECTIVE: This morning repeat orthostasis was done, still the patient is orthostatic. PHYSICAL EXAMINATION VITAL SIGNS: Blood pressure 152/80 standing, sitting 138/76 and standing 108/65, lying down the blood pressure 150/77. NEUROLOGIC: The patient is much awake and alert. Denies any dizziness. The patient was seen and evaluated with our nurse practitioner, Beth Harper. The patient did echo, shows a normal LV function, no significant structural heart disease noted. RECOMMENDATION: Continue Florinef 0.1 mg b.i.d., discontinue IV fluid. No significant mitral regurgitation. No significant tricuspid regurgitation noted dated 11/24/2017. We will continue p.r.n. hydralazine for elevated blood pressure, and continue Florinef 0.1 mg p.o. b.i.d. We will follow. Thank you, Dr. Velarde, for providing us the opportunity in taking care of the patient, Girma Ley. Pj Kohler MD
--- NOTE | 2017-12-01 08:35 | CP.PCM.PCO ---
Physician Communication Note - Physician Communication Note Physician Communication Note: pt was discharged
== END 2017-11-30 16:41 | DRG 312 ==
LOC: ED 13:31 → ERH 15:39 → 2RSO 18:23
PROVIDERS: ADMIT Internal Medicine; ATTEND Internal Medicine
DX: I95.1 Orthostatic hypotension (principal); I69.354 Hemiplegia and hemiparesis following cerebral infarction affecting left non-dominant side; F05 Delirium due to known physiological condition; R00.1 Bradycardia, unspecified; E11.9 Type 2 diabetes mellitus without complications; I10 Essential (primary) hypertension; K74.60 Unspecified cirrhosis of liver; N40.0 Benign prostatic hyperplasia without lower urinary tract symptoms; K21.9 Gastro-esophageal reflux disease without esophagitis; F03.90 Unspecified dementia, unspecified severity, without behavioral disturbance, psychotic disturbance, mood disturbance, and anxiety; I25.10 Atherosclerotic heart disease of native coronary artery without angina pectoris; I35.1 Nonrheumatic aortic (valve) insufficiency; E83.42 Hypomagnesemia; E87.6 Hypokalemia; I25.2 Old myocardial infarction; Z79.82 Long term (current) use of aspirin; Z87.891 Personal history of nicotine dependence

== ENCOUNTER 2018-03-18 15:15 | Inpatient (IN) | payer MEDICARE, OTHER ==
[2018-03-18 15:16] VITALS: BMI 22.8
--- NOTE | 2018-03-18 15:41 | ED PDOC ---
Arrival/HPI - General Chief Complaint: Psychiatric Evaluation Time Seen by Provider: 03/18/18 15:16 Historian: Patient - History of Present Illness Narrative History of Present Illness (Text): 03/18/18 15:44 77yr old male with hx of HTN, stroke, DM presents today sent in to ER for psychiatric evaluation. Patient states he is frustrated in the facility that he is living and and told someone that "I want to end it all". Patient states in the ER that he did not mean that. He denies headaches dizziness or weakness. No chest pain or shortness of breath. He denies fevers or chills. Patient states he is unhappy in the facility that he is in because "no one speaks [place]arian". Past Medical History - Provider Review Nursing Documentation Reviewed: Yes - Travel History Have you recently traveled outside [place] w/in the past 3 mons?: No - Past History Past History: Unable to Obtain - Infectious Disease Hx of Infectious Diseases: None - Cardiac Hx Hypertension: Yes - Pulmonary Hx Respiratory Disorders: Yes (SMOKED CIGARETTES H.O QUIT) - Neurological HX Cerebrovascular Accident: Yes - HEENT Hx HEENT Disorder: No - Renal Hx Renal Disorder: Yes Hx Renal Failure: Yes - Endocrine/Metabolic Hx Diabetes Mellitus Type 2: Yes - Hematological/Oncological Hx Blood Disorders: No - Integumentary Hx Dermatological Disorder: No - Musculoskeletal/Rheumatological Hx Musculoskeletal Disorders: Yes Hx Falls: Yes Hx Unsteady Gait: Yes - Gastrointestinal Hx Gastrointestinal Disorders: Yes (LIVER CIRRHOSIS) HX Swallowing Problems: Yes (H/O OF CVA) Other/Comment: PEG IN AND OUT - Genitourinary/Gynecological Hx Genitourinary Disorders: No - Psychiatric Hx Psychophysiologic Disorder: Yes (USED TO SMOKE CIGARETTES,ALCOHOLIC X 10 YRS.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 BEER DRINKER QUIT) Hx Substance Use: No Allergies/Home Meds Allergies/Adverse Reactions: Allergies No Known Allergies Allergy (Verified 03/18/18 15:22) Home Medications: Home Meds Medication Instructions Recorded Confirmed Alogliptin Benzoate [Alogliptin] 12.5 mg PO DAILY 03/18/18 03/18/18 Aspirin [Aspirin Chewable] 81 mg PO DAILY 03/18/18 03/18/18 Atenolol [Tenormin] 25 mg PO DAILY 03/18/18 03/18/18 Atorvastatin [Lipitor] 20 mg PO DAILY 03/18/18 03/18/18 Donepezil [Aricept] 5 mg PO DAILY 03/18/18 03/18/18 FLUoxetine [Prozac] 20 mg PO DAILY 03/18/18 03/18/18 Fludrocortisone [Florinef] 0.1 mg PO BID 03/18/18 03/18/18 Folic Acid 1 mg PO DAILY 03/18/18 03/18/18 Gabapentin [Neurontin] 300 mg PO BID 03/18/18 03/18/18 Insulin Human Regular [HumuLIN R] 100 unit SC DAILY 03/18/18 03/18/18 Losartan Potassium 25 mg PO DAILY 03/18/18 03/18/18 Magnesium Hydroxide [Milk of 1,200 mg PO DAILY 03/18/18 03/18/18 Magnesia] Magnesium Oxide [Mag-Oxide 400 mg PO DAILY 03/18/18 03/18/18 Magnesium] Melatonin [Melatin] 3 mg PO DAILY 03/18/18 03/18/18 Midodrine [Proamatine] 2.5 mg PO DAILY 03/18/18 03/18/18 Pantoprazole [Protonix EC Tab] 40 mg PO DAILY 03/18/18 03/18/18 Potassium Gluconate [Potassium] 20 meq PO DAILY 03/18/18 03/18/18 Tamsulosin [Flomax] 0.4 mg PO DAILY 03/18/18 03/18/18 Ursodiol [Actigall] 300 mg PO DAILY 03/18/18 03/18/18 guaiFENesin [Robitussin] 10 ml PO DAILY 03/18/18 03/18/18 Review of Systems - Review of Systems Constitutional: absent: Fatigue, Fevers Respiratory: absent: SOB, Cough Cardiovascular: absent: Chest Pain, Palpitations Gastrointestinal: absent: Abdominal Pain, Nausea, Vomiting Genitourinary Male: absent: Dysuria Musculoskeletal: absent: Arthralgias, Back Pain Skin: absent: Rash, Pruritis Neurological: absent: Headache, Dizziness Psychiatric: Depression. absent: Anxiety Physical Exam Vital Signs Reviewed: Yes Temperature: Afebrile Blood Pressure: Hypertensive Pulse: Regular Respiratory Rate: Normal Appearance: Positive for: Well-Appearing, Non-Toxic, Comfortable Pain Distress: None Mental Status: Positive for: Alert and Oriented X 3 - Systems Exam Head: Present: Atraumatic Mouth: Present: Moist Mucous Membranes Neck: Present: Normal Range of Motion Respiratory/Chest: Present: Clear to Auscultation Cardiovascular: Present: Regular Rate and Rhythm Abdomen: No: Tenderness, Rebound, Guarding Neurological: Present: GCS=15, Speech Normal Skin: Present: Warm, Dry, Normal Color. No: Rashes Psychiatric: Present: Alert Medical Decision Making ED Course and Treatment: 03/18/18 16:07 Patient is nontoxic well-appearing in no distress vital signs are stable. CBC WNL CMP WNL ammonia; wnl Tylenol WNL Salicylate WNL Alcohol level WNL Urine drug screen wnl UA; wnl cxr: wnl ekg normal sinus rhythm at 60 bpm normal intervals, left axis deviation no ST elevations QTC 456 pt is medically cleared for PES evaluation Patient was seen and evaluated by PES screener: tayler pt signed voluntarily to psych floor; pt with slightly elevated BP; hx of HTN. hydralizine 10mg Po given. Impression;depression admit - RAD Interpretation Radiology Orders: 03/18/18 15:26 CHEST PORTABLE [RAD] Stat Disposition/Present on Arrival - Present on Arrival Any Indicators Present on Arrival: No History of DVT/PE: No History of Uncontrolled Diabetes: No Urinary Catheter: No History of Decub. Ulcer: No History Surgical Site Infection Following: None - Disposition Have Diagnosis and Disposition been Completed?: Yes Diagnosis: Depression Disposition: HOSPITALIZED Disposition Time: 18:31 Patient Plan: Admission Patient Problems: Current Active Problems Problem Status Onset Depression Acute Condition: FAIR Referrals: PCP,NO [Non-Staff] - Follow up with primary Forms: Review[employer] ([place])
[2018-03-18 15:45] VITALS: O2SAT 98
[2018-03-18 15:46] LABS: BASO # 0.04 K/mm3 (0.0-2.0); BASO % 0.8 % (0.0-3.0); EOS # 0.2 (0.0-0.7); EOS % 3.9 % (1.5-5.0); LYMPH # 0.7 (1.2-3.4); LYMPH % 13.2 % (22.0-35.0); MEAN CELL VOLUME 85.6 fl (80.0-105.0); MEAN CORPUSCULAR HEMOGLOBIN 28.4 pg (25.0-35.0); MEAN CORPUSCULAR HGB CONC 33.2 g/dl (31.0-37.0); MEAN PLATELET VOLUME 10.5 fl (7.0-11.0); MONO # 0.3 (0.1-0.6); MONO % 6.6 % (1.0-6.0); RBC 4.58 10^6/uL (3.5-6.1); RED CELL DISTRIBUTION WIDTH 12.6 % (11.5-14.5); WHITE BLOOD COUNT 5.2 10^3/uL (4.5-11.0)
[2018-03-18 16:14] LABS: ALB/GLOB RATIO 1.3 (1.1-1.8); ALBUMIN 3.7 g/dL (3.0-4.8); BLOOD UREA NITROGEN 17 mg/dL (7-21); CALCIUM 8.7 mg/dL (8.4-10.5); GFR NON-AFRICAN AMERICAN > 60
[2018-03-18 16:15] LABS: ACETAMINOPHEN < 10.0 ug/ml (10.0-20.0); SALICYLATE < 1 mg/dL (2.0-20.0)
[2018-03-18 16:19] LABS: URINE BILIRUBIN NEGATIVE (NEGATIVE); URINE BLOOD TRACE-LYSED (NEGATIVE); URINE GLUCOSE (UA) NEGATIVE (NEGATIVE); URINE LEUKOCYTE ESTERASE NEGATIVE Leu/uL (NEGATIVE); URINE PROTEIN 100 mg/dL (<30 mg/dL); URINE UROBILINOGEN 0.2 E.U./dL (<1 E.U./dL)
[2018-03-18 16:20] LABS: URINE APPEARANCE CLEAR (CLEAR); URINE COLOR YELLOW (YELLOW)
[2018-03-18 16:25] LABS: ALT/SGPT 16 U/L (7-56); AST/SGOT 33 U/L (17-59)
--- NOTE | 2018-03-18 16:34 | RAD ---
Date of service: 03/18/2018 HISTORY: pes eval COMPARISON: 11/23/2017 FINDINGS: LUNGS: No active pulmonary disease. PLEURA: No significant pleural effusion identified, no pneumothorax apparent. CARDIOVASCULAR: No aortic atherosclerotic calcification present. Mild cardiomegaly no pulmonary vascular congestion. OSSEOUS STRUCTURES: No significant abnormalities. VISUALIZED UPPER ABDOMEN: Normal. OTHER FINDINGS: None. IMPRESSION: No active disease.
[2018-03-18 16:44] LABS: BARBITURATES, UR NEGATIVE (NEGATIVE); BENZODIAZEPINES, UR NEGATIVE (NEGATIVE); OPIATES, UR NEGATIVE (NEGATIVE); PHENCYCLIDINE, UR NEGATIVE (NEGATIVE)
[2018-03-18] MEDS ORDERED: Alum-Mag Hydrox-Simethicone Susp (30 mL) PO PRN (20:17)
[2018-03-18] MEDS: Insulin Reg-MEDIUM-Coverage SC SCH (22:00)
--- NOTE | 2018-03-18 23:35 | PCM.BM ---
<Grecia Trent - Last Filed: 03/18/18 23:31> Treatment Plan Problems - Problems identified on initial assessmt INEFFECTIVE COPING Date Initiated: 03/18/18 Time Initiated: 21:00 Assessment reference: NA Status: Active Priority: 1 HOPELESSNESS AND HELPLESSNESS Date Initiated: 03/18/18 Time Initiated: 21:00 Assessment reference: NA Status: Active Priority: 2 SOCIAL ISOLATION Date Initiated: 03/18/18 Time Initiated: 21:00 Assessment reference: NA Status: Active Priority: 3 Treatment assets and liabiliti Patient Assests: adapts well, cooperative, insightful, motivated, resourceful, self-reliant, ADL independent, negotiates basic needs, cognitively intact Patient Liabilities: live alone, financial problems, medical problems, visual impairment - Milieu Protocol Maintain good personal hygiene: every other day Encourage regular showers, every shift Remind patient to perform daily oral care, every shift Assist patient to perform ADL's Maintain personal safety: every shift Educate patient to report safety concerns to staff, every shift Monitor environment for contraband/sharps Medication safety: Monitor for expected outcome, potential side effects: every shift, Assess barriers to learning: every shift, Assess readiness for medication education: every shift Family Contact Family involvement: Family/SO is involved Family contact: Patient agrees to contact Discharge/Continuing Care - Education Needs Education Needs: Patient Medication, Patient Diagnosis/Disease Process, Patient Coping Skills, Patient Placement options, Patient Activities of Daily Living, Patient Uses of Medical Equipment, Patient Aftercare Safety Plan - Discharge Discharge Criteria: Tolerates medication w/o severe side effects, Free of Suicidal thoughts, Normal sleep pattern, Ability to care for self <Lacie Vigil - Last Filed: 03/19/18 14:12> - Diagnosis (1) Depression Status: Acute Interventions: 03/19/18 14:12 Psychoeducation Psychopharmacology/adjustment of medications as needed/ monitoring possible side effects Evaluate pt on daily basis Compliance with medications and follow up appointments Suicide and homicide risk assessment and prevention Relapse prevention Reduction of symptoms Improve functional status Family involvement SW evaluation and request for the pt to be transferred to the [place] speaking patients <Pamela Suarez Y - Last Filed: 03/19/18 14:46> Family Contact Family involvement: Family/SO is involved
[2018-03-19] MEDS: Pantoprazole 40 mg EC Tab PO SCH (06:48)
[2018-03-19] MEDS ORDERED: Pantoprazole 40 mg EC Tab PO SCH (08:00)
[2018-03-19 08:18] LABS: GLUCOSE,FASTING 107 mg/dL (65-110); HDL CHOLESTEROL 39 mg/dL (29-60)
[2018-03-19 08:29] LABS: LDL CHOLESTEROL 64 mg/dL (0-129)
--- NOTE | 2018-03-19 09:16 | CARD ---
APPROVED REPORT Date of service: 03/18/2018 EKG Measurement Heart [id number] <Conclusion> Normal sinus rhythm Left axis deviation Abnormal ECG
[2018-03-19] MEDS: Insulin Reg-MEDIUM-Coverage SC SCH ×4 (09:33→22:00)
[2018-03-19] MEDS: Magnesium Oxide 400 mg Tab UD PO SCH (09:40)
[2018-03-19] MEDS: Magnesium Hydroxide Susp 30 ml UD PO SCH ×2 (09:45→09:54)
[2018-03-19] MEDS: POTASSIUM GLUCONATE PO SCH (09:53)
--- NOTE | 2018-03-19 10:45 | PN ---
DATE: 03/19/2018 SUBJECTIVE: The patient was transferred from [facility]. He is 77-year-old male. The patient had been placed in the group home after he had a stroke and had collapsed after that. The patient's past history significant in that he has history of alcoholism, he has cirrhosis of the liver. The patient also has history of hypertension, uncontrolled. The patient also has history of diabetes mellitus and the patient has coronary artery disease, cerebrovascular disease. The patient also has peripheral neuropathy and possible seizure disorder. The patient has dementia also. The patient was evaluated for seizures post CVA, but there was no definite diagnosis. The vital signs seen this morning, the patient is able to talk. He is frustrated being in the group home, he says nobody speaks Yoruba and he is bored and he appears terrible and depressed. PHYSICAL EXAMINATION: VITAL SIGNS: His pulse is 66, blood pressure is 199/99 and his respirations are 20 per minute. The patient has 99% on room air O2 sat. HEENT: Head is normocephalic. NECK: Thyroid is not enlarged. Carotid pulse are present. LUNGS: Trachea is central. Breath sounds are vesicular. No adventitious sounds are heard. ABDOMEN: Soft. Liver and spleen not palpable. CENTRAL NERVOUS SYSTEM: The patient has left sided weakness. At this time, the patient says he can walk, but with difficulty. MEDICATIONS: List of medications are, the patient is on Actigall 300 mg daily. The patient is on Aricept 5 mg at night, aspirin 81 mg daily, Ativan 0.5 mg every 8 hours, Losartan 25 mg daily, Flomax 0.4 mg daily, folic acid 1 mg daily, insulin coverage for diabetes. The patient is on Lipitor. The patient is on gabapentin, ProAmatine for low blood pressure. The patient is also taking pantoprazole 40 mg daily, Sonata 5 mg at bedtime for sleep. Tenormin 25 mg daily and Tylenol for pain. The patient is on heart healthy diabetic diet. LABORATORY DATA: His blood work was done, hemoglobin 13.0, his platelet count is 99,000. Note, the patient has long-standing cirrhosis of the liver. The patient's chemistry, the blood sugar was 124. The patient's renal functions are within normal limits. Cholesterol is 131, which is good, HDL is 39. ASSESSMENT AND PLAN: The patient's overall condition seem to be improved since the stroke. The patient will get behavioral care in the unit and we will maintain his medical condition, normalize his sugar and control his blood pressure. We will followup. We will also start the patient on Apresoline 10 mg three times a day and we will make note that if the systolic pressure is less than 130, then Apresoline is not to be given to the patient. Shamir Velarde MD MTDD
[2018-03-19] MEDS ORDERED: Magnesium Hydroxide Susp 30 ml UD PO PRN (12:50)
--- NOTE | 2018-03-19 14:12 | PCM.PSYCH ---
Initial Psychiatric Evaluation - Initial Psychiatric Evaluation Type of Admission: Voluntary Legal Status: Capacity (Patient has capacity to sign consent for treatment) Chief Complaint (in patient's own words): "This [facility] for 50 days, I said that I want to end it all, basically I said so because I needed to have help" Patient's Reaction to Hospitalization: Patient was sent from [facility] for evaluation and stabilization of depr essive symptoms and possible suicidal ideation. History of Present Illness and Precipitating Events: Shortly, patient is 77yr old male with multiple medical issues including HTN, stroke, DM, denied history of being admitted to the psychiatric inpatient unit, denied history of suicidal attempts, patient had history of alcohol use disorder and inpatient rehabs, was sent by [facility] psychiatrist for evaluation of depressive symptoms, possible suicidal ideation pt was making statements like "I want to end it all", in the emergency room patient presented to be depressed, hopeless, helpless, patient requires further evaluation and stabilization and possible medication management. Patient was seen and examined today at the treatment team meeting, patient presented with some psychomotor retardation, flat and tearful affect, acceptable personal hygiene, poor ADLs. Patient ambulated using a walker. Patient reported that he stayed in his ch[facility] for past 50 days, the main reason for chcf placement was "I burned couple of pans while cooking, my primary was concern about me...". Patient reported initially he was placed on the floor with [place]-speaking patient only, patient reported that he cannot communicate in [place] and was feeling isolated, then patient was transferred to [place] floor and subsequently to Malay floor, patient reported that he cannot communicate in Malay or [place] or [place] that is why he was feeling very isolated, depressed, hopeless, helpless. Patient reported that he was making hopeless statements in order to get help. Patient reported that she was feeling depressed but denied any intent or plan to kill himself. Patient reported that he had difficulty to fall asleep and to stay asleep, patient reported that she wakes 5-6 times in the nighttime to use the bathroom. Patient reported that at times he could hear somebody is calling his name, denied seeing things, denied paranoid ideations, patient does not present to be psychotic. Patient reports smoking cigarettes but "never inhaled.", reported long history of alcohol use disorder and had previous inpatient rehabs, most recent was in 1989, since that time patient remained to be sober. this residential mortgage underwriter was involved in pt's care as mental health consultant here at [facility] on 11/2017, pt was delirious and psychotic back then. Medical history: Syncope Bradycardia H/O CVA HTN DMII Cirrhosis of the liver GERD Medication list reviewed, resumed. History: Unknown psychiatric history in the family Patient denied history of being abused physical/emotional/sexual. 03/18/18 15:30 03/18/18 15:30 Lab Results 03/19/18 08:31: Magnesium 1.9 03/19/18 08:00: TSH 3rd Generation 0.99 03/19/18 08:00: Fasting Glucose 107, Triglycerides 193 H, Cholesterol 131, LDL Cholesterol Direct 64, HDL Cholesterol 39 03/19/18 07:32: POC Glucose (mg/dL) 86 03/18/18 21:13: POC Glucose (mg/dL) 151 H 03/18/18 16:00: Urine Opiates Screen Negative, Urine Methadone Screen Negative, Ur Barbiturates Screen Negative, Ur Phencyclidine Scrn Negative, Ur Amphetamines Screen Negative, U Benzodiazepines Scrn Negative, U Oth Cocaine Metabols Negative, U Cannabinoids Screen Negative 03/18/18 16:00: Urine Color Yellow, Urine Appearance Clear, Urine pH 7.0, Ur Specific [place] 1.025, Urine Protein 100 H, Urine Glucose (UA) Negative, Urine Ketones Negative, Urine Blood Trace-lysed H, Urine Nitrate Negative, Urine Bilirubin Negative, Urine Urobilinogen 0.2, Ur Leukocyte Esterase Negative, Urine RBC 2 - 5 H, Urine WBC 2 - 5, Ur Epithelial Cells 6 - 8 H 03/18/18 15:41: Ammonia 20 03/18/18 15:30: Alcohol, Quantitative < 10 03/18/18 15:30: Salicylates < 1 L, Acetaminophen < 10.0 L 03/18/18 15:30: Sodium 140, Potassium 4.0, Chloride 106, Carbon Dioxide 29, Anion Gap 9 L, BUN 17, Creatinine 1.0, Est GFR ( Amer) > 60, Est GFR (Non-Af Amer) > 60, Random Glucose 124 H, Calcium 8.7, Total Bilirubin 0.5, AST 33, ALT 16, Alkaline Phosphatase 97, Total Protein 6.7, Albumin 3.7, Globulin 3.0, Albumin/Globulin Ratio 1.3 03/18/18 15:30: WBC 5.2, RBC 4.58, Hgb 13.0 L D, Hct 39.2 L, MCV 85.6 D, MCH 28.4, MCHC 33.2, RDW 12.6, Plt Count 99 L, MPV 10.5, Neut % (Auto) 75.5 H, Lymph % (Auto) 13.2 L, [place] % (Auto) 6.6 H, Eos % (Auto) 3.9, Baso % (Auto) 0.8, Lymph # (Auto) 0.7 L, [place] # (Auto) 0.3, Eos # (Auto) 0.2, Baso # (Auto) 0.04, Absolute Neuts (auto) 3.91 03/18/18 15:30 03/18/18 15:30 Lab Results 03/19/18 08:31: Magnesium 1.9 03/19/18 08:00: TSH 3rd Generation 0.99 03/19/18 08:00: Fasting Glucose 107, Triglycerides 193 H, Cholesterol 131, LDL Cholesterol Direct 64, HDL Cholesterol 39 03/19/18 07:32: POC Glucose (mg/dL) 86 03/18/18 21:13: POC Glucose (mg/dL) 151 H 03/18/18 16:00: Urine Opiates Screen Negative, Urine Methadone Screen Negative, Ur Barbiturates Screen Negative, Ur Phencyclidine Scrn Negative, Ur Amphetamines Screen Negative, U Benzodiazepines Scrn Negative, U Oth Cocaine Metabols Negative, U Cannabinoids Screen Negative 03/18/18 16:00: Urine Color Yellow, Urine Appearance Clear, Urine pH 7.0, Ur Specific [place] 1.025, Urine Protein 100 H, Urine Glucose (UA) Negative, Urine Ketones Negative, Urine Blood Trace-lysed H, Urine Nitrate Negative, Urine Bilirubin Negative, Urine Urobilinogen 0.2, Ur Leukocyte Esterase Negative, Urine RBC 2 - 5 H, Urine WBC 2 - 5, Ur Epithelial Cells 6 - 8 H 03/18/18 15:41: Ammonia 20 03/18/18 15:30: Alcohol, Quantitative < 10 03/18/18 15:30: Salicylates < 1 L, Acetaminophen < 10.0 L 03/18/18 15:30: Sodium 140, Potassium 4.0, Chloride 106, Carbon Dioxide 29, Anion Gap 9 L, BUN 17, Creatinine 1.0, Est GFR ( Amer) > 60, Est GFR (Non-Af Amer) > 60, Random Glucose 124 H, Calcium 8.7, Total Bilirubin 0.5, AST 33, ALT 16, Alkaline Phosphatase 97, Total Protein 6.7, Albumin 3.7, Globulin 3.0, Albumin/Globulin Ratio 1.3 03/18/18 15:30: WBC 5.2, RBC 4.58, Hgb 13.0 L D, Hct 39.2 L, MCV 85.6 D, MCH 28.4, MCHC 33.2, RDW 12.6, Plt Count 99 L, MPV 10.5, Neut % (Auto) 75.5 H, Lymph % (Auto) 13.2 L, [place] % (Auto) 6.6 H, Eos % (Auto) 3.9, Baso % (Auto) 0.8, Lymph # (Auto) 0.7 L, [place] # (Auto) 0.3, Eos # (Auto) 0.2, Baso # (Auto) 0.04, Absolute Neuts (auto) 3.91 Vital Signs Temp Pulse Resp BP Pulse Ox 03/19/18 13:30 53 L 167/82 H 03/19/18 12:00 52 L 18 175/85 H 03/19/18 07:29 66 199/99 H 03/19/18 07:28 66 199/99 H 03/19/18 07:12 97.7 F 62 20 198/99 H 03/18/18 22:00 20 03/18/18 21:38 61 182/88 H 03/18/18 20:18 98.1 F 60 16 178/68 H 98 03/18/18 19:48 98 F 58 L 14 183/70 H 98 03/18/18 18:40 62 191/70 H 03/18/18 18:16 62 18 191/70 H 98 03/18/18 16:11 193/84 H 03/18/18 15:43 98.1 F 64 18 208/87 H 98 The patient failed the outpatient lower level of care: Yes Current Medications: Active Medications Generic Name Dose Route Start Last Admin Trade Name Freq PRN Reason Stop Dose Admin Acetaminophen 650 mg 03/18/18 20:17 Tylenol 325mg Tab PO Q4H PRN Pain, Mild (1-3) Al Hydrox/Mg Hydrox/Simethicone 30 ml 03/18/18 20:17 Maalox Plus 30 Ml PO DAILY PRN Upset Stomach Aspirin 81 mg 03/19/18 08:00 Aspirin Chewable PO DAILY [facility] Atenolol 25 mg 03/19/18 08:00 03/19/18 07:28 Tenormin PO 25 mg DAILY [facility] Administration Atorvastatin Calcium 20 mg 03/19/18 22:00 Lipitor PO HS [facility] Donepezil HCl 5 mg 03/19/18 22:00 Aricept PO HS [facility] Fluoxetine HCl 20 mg 03/19/18 08:00 Prozac PO DAILY [facility] Folic Acid 1 mg 03/19/18 08:00 Folic Acid PO DAILY [facility] Gabapentin 300 mg 03/19/18 06:00 03/19/18 06:25 Neurontin PO 300 mg Q12 [facility]OR[facility] Administration Protocol Hydralazine HCl 10 mg 03/19/18 13:00 Apresoline PO QID [facility] Insulin Human Regular 0 units 03/18/18 22:00 03/18/18 22:00 Humulin R Med SC Not Given ACHS [facility] Protocol Lorazepam 0.5 mg 03/18/18 20:09 Ativan PO Q8H PRN Agitation Protocol Losartan Potassium 25 mg 03/19/18 08:00 03/19/18 07:29 Cozaar PO 25 mg DAILY [facility] Administration Magnesium Hydroxide 30 ml 03/19/18 08:00 Milk Of Magnesia PO DAILY [facility] Magnesium Oxide 400 mg 03/19/18 08:00 Mag-Ox PO DAILY [facility] Non-Formulary Medication 20 meq 03/19/18 08:00 Potassium Gluconate [Potassium] PO DAILY [facility] Pantoprazole Sodium 40 mg 03/19/18 06:00 03/19/18 06:48 Protonix Ec Tab PO 40 mg 0600 [facility] Administration Tamsulosin HCl 0.4 mg 03/19/18 18:00 Flomax PO QPM [facility] Ursodiol 300 mg 03/19/18 08:00 Actigall PO DAILY [facility] Zaleplon 5 mg 03/18/18 20:09 03/18/18 21:24 Sonata PO 5 mg HS PRN Administration Insomnia Present on Admission - Present on Admission Any Indicators Present on Admission: No Review of Systems - Review of Systems Systems not reviewed;Unavailable: Acuity of Condition - Constitutional Constitutional: As Per HPI - EENT Eyes: As Per HPI Ears: As Per HPI Nose/Mouth/Throat: As Per HPI - Cardiovascular Cardiovascular: As Per HPI - Respiratory Respiratory: As Per HPI - Gastrointestinal Gastrointestinal: As Per HPI - Genitourinary Genitourinary: As Per HPI - Reproductive: Male Reproductive:Male: As Per HPI - Musculoskeletal Musculoskeletal: As Per HPI - Integumentary Integumentary: As Per HPI - Neurological Neurological: As Per HPI - Endocrine Endocrine: As Per HPI - Hematologic/Lymphatic Hematologic: As Per HPI Past Patient History - Past Psychiatric History Previous Treatment History: None Prior Professional Help: See HPI Prior Psychiatric Treatment: See HPI At what hospital: See HPI Duration: See HPI Nature of Treatment: See HPI Explanation of prior treatment: See HPI - PSYCHIATRIC Hx Anxiety: Yes Hx Depression: Yes Hx Substance Use: No - Infectious Disease Hx of Infectious Diseases: None - CARDIAC Hx Hypertension: Yes - PULMONARY Hx Respiratory Disorders: No Other/Comment: quits smoking 10 yrs ago - NEUROLOGICAL HX Cerebrovascular Accident: Yes - HEENT Hx HEENT Problems: Yes Other/Comment: wearing eyeglasses - RENAL Hx Chronic Kidney Disease: Yes Hx Renal Failure: Yes - ENDOCRINE/METABOLIC Hx Diabetes Mellitus Type 2: Yes - HEMATOLOGICAL/ONCOLOGICAL Hx Blood Disorders: No - INTEGUMENTARY Hx Dermatological Problems: No - MUSCULOSKELETAL/RHEUMATOLOGICAL Hx Musculoskeletal Disorders: Yes Hx Falls: Yes Hx Unsteady Gait: Yes - GASTROINTESTINAL Hx Gastrointestinal Disorders: Yes (LIVER CIRRHOSIS) HX Swallowing Problems: Yes (H/O OF CVA) Other/Comment: PEG IN AND OUT - GENITOURINARY/GYNECOLOGICAL Hx Genitourinary Disorders: No - SURGICAL HISTORY Other/Comment: unable to get history - ANESTHESIA Hx Anesthesia Reactions: No Hx Malignant Hyperthermia: No Has any member of the family had a problem w/ anesthesia?: No - Medical/Surgical History Reviewed & confirmed: by me Meds Allergies/Adverse Reactions: Allergies Allergy/AdvReac Type Severity Reaction Status Date / Time No Known Allergies Allergy Verified 03/18/18 23:17 Mental Status Examination - Personal Presentation Personal Presentation: Looks stated age - Affect Affect: Flat - Motor Activity Motor Activity: Calm - Reliability in Providing Information Reliability in Providing Information: Fair - Speech Speech: Organized - Mood Mood: Depressed - Formal Thought Process Formal Thought Process: Hallucinations (?) - Hallucinations/Delusions Hallucinations: Auditory ("Somebody calling my name") - Obsessions/Compulsions Obsessions: None Compulsions: None - Cognitive Functions Orientation: Person, Place Sensorium: Alert Attention/Concentration: Easily distracted Abstract Thinking: [place], As evidence by literal perception of proverbs Estimate of Intelligence: Average Judgement: Intact, as evidence by: Insight regarding need for hospitalization - Risk Risk: Self-mutilation, Diminished functioning - Strength & Assets Inventory Strength & Assets Inventory: Intelligence, Cooperative - Limitations Limitations: Other (Multiple medical issues depressive symptoms) Psychiatric Physical Exam - Physical Exam Reviewed and confirmed: Emergency Department Physical Exam Results - Vital Signs Recent Vital Signs: Last Vital Signs Temp 97.7 F 03/19/18 07:12 Pulse 66 03/19/18 07:29 Resp 20 03/19/18 07:12 BP 199/99 H 03/19/18 07:29 Pulse Ox 98 03/18/18 20:18 - Labs Result Diagrams: 03/18/18 15:30 03/18/18 15:30 Labs: Laboratory Results - last 24 hr 03/18/18 03/18/18 03/18/18 15:30 15:30 15:30 WBC 5.2 RBC 4.58 Hgb 13.0 L D Hct 39.2 L MCV 85.6 D MCH 28.4 MCHC 33.2 RDW 12.6 Plt Count 99 L MPV 10.5 Neut % (Auto) 75.5 H Lymph % (Auto) 13.2 L [place] % (Auto) 6.6 H Eos % (Auto) 3.9 Baso % (Auto) 0.8 Lymph # (Auto) 0.7 L [place] # (Auto) 0.3 Eos # (Auto) 0.2 Baso # (Auto) 0.04 Absolute Neuts (auto) 3.91 Sodium 140 Potassium 4.0 Chloride 106 Carbon Dioxide 29 Anion Gap 9 L BUN 17 Creatinine 1.0 Est GFR ( Amer) > 60 Est GFR (Non-Af Amer) > 60 POC Glucose (mg/dL) Random Glucose 124 H Fasting Glucose Calcium 8.7 Total Bilirubin 0.5 AST 33 ALT 16 Alkaline Phosphatase 97 Ammonia Total Protein 6.7 Albumin 3.7 Globulin 3.0 Albumin/Globulin Ratio 1.3 Triglycerides Cholesterol LDL Cholesterol Direct HDL Cholesterol Urine Color Urine Appearance Urine pH Ur Specific [place] Urine Protein Urine Glucose (UA) Urine Ketones Urine Blood Urine Nitrate Urine Bilirubin Urine Urobilinogen Ur Leukocyte Esterase Urine RBC Urine WBC Ur Epithelial Cells Salicylates < 1 L Urine Opiates Screen Urine Methadone Screen Acetaminophen < 10.0 L Ur Barbiturates Screen Ur Phencyclidine Scrn Ur Amphetamines Screen U Benzodiazepines Scrn U Oth Cocaine Metabols U Cannabinoids Screen Alcohol, Quantitative 03/18/18 03/18/18 03/18/18 15:30 15:41 16:00 WBC RBC Hgb Hct MCV MCH MCHC RDW Plt Count MPV Neut % (Auto) Lymph % (Auto) [place] % (Auto) Eos % (Auto) Baso % (Auto) Lymph # (Auto) [place] # (Auto) Eos # (Auto) Baso # (Auto) Absolute Neuts (auto) Sodium Potassium Chloride Carbon Dioxide Anion Gap BUN Creatinine Est GFR ( Amer) Est GFR (Non-Af Amer) POC Glucose (mg/dL) Random Glucose Fasting Glucose Calcium Total Bilirubin AST ALT Alkaline Phosphatase Ammonia 20 Total Protein Albumin Globulin Albumin/Globulin Ratio Triglycerides Cholesterol LDL Cholesterol Direct HDL Cholesterol Urine Color Yellow Urine Appearance Clear Urine pH 7.0 Ur Specific [place] 1.025 Urine Protein 100 H Urine Glucose (UA) Negative Urine Ketones Negative Urine Blood Trace-lysed H Urine Nitrate Negative Urine Bilirubin Negative Urine Urobilinogen 0.2 Ur Leukocyte Esterase Negative Urine RBC 2 - 5 H Urine WBC 2 - 5 Ur Epithelial Cells 6 - 8 H Salicylates Urine Opiates Screen Urine Methadone Screen Acetaminophen Ur Barbiturates Screen Ur Phencyclidine Scrn Ur Amphetamines Screen U Benzodiazepines Scrn U Oth Cocaine Metabols U Cannabinoids Screen Alcohol, Quantitative < 10 03/18/18 03/18/18 03/19/18 16:00 21:13 08:00 WBC RBC Hgb Hct MCV MCH MCHC RDW Plt Count MPV Neut % (Auto) Lymph % (Auto) [place] % (Auto) Eos % (Auto) Baso % (Auto) Lymph # (Auto) [place] # (Auto) Eos # (Auto) Baso # (Auto) Absolute Neuts (auto) Sodium Potassium Chloride Carbon Dioxide Anion Gap BUN Creatinine Est GFR ( Amer) Est GFR (Non-Af Amer) POC Glucose (mg/dL) 151 H Random Glucose Fasting Glucose 107 Calcium Total Bilirubin AST ALT Alkaline Phosphatase Ammonia Total Protein Albumin Globulin Albumin/Globulin Ratio Triglycerides 193 H Cholesterol 131 LDL Cholesterol Direct 64 HDL Cholesterol 39 Urine Color Urine Appearance Urine pH Ur Specific [place] Urine Protein Urine Glucose (UA) Urine Ketones Urine Blood Urine Nitrate Urine Bilirubin Urine Urobilinogen Ur Leukocyte Esterase Urine RBC Urine WBC Ur Epithelial Cells Salicylates Urine Opiates Screen Negative Urine Methadone Screen Negative Acetaminophen Ur Barbiturates Screen Negative Ur Phencyclidine Scrn Negative Ur Amphetamines Screen Negative U Benzodiazepines Scrn Negative U Oth Cocaine Metabols Negative U Cannabinoids Screen Negative Alcohol, Quantitative - EKG Data EKG Interpreted by: ER Physician DSM Plan - DSM 5 DSM 5 Diagnosis: r/o major depressive disorder Rule out adjustment disorder with depressed and anxious mood - Recommended/Plan of Treatment Treatment Recommendations and Plan of Treatment: Milieu/structure/supportive therapy SW consultation for discharge plan and social issues Med management Medications reviewed and resumed Sonata 5 mg at the nighttime Medical team will be involved Family involvement Follow up on labs Will monitor closely Pt was educated about risk/benefits and alternatives of medications, coping st rategies (safety plan, suicide prevention), relapse prevention, importance of follow up with psychiatrist and therapist, stay away from drugs/alcohol/smoking Projected ELOS: 7 days Prognosis: Guarded Discharge Plan and Discharge Criteria: Mood will be stable, pt will be more hopeful, will be not psychotic or anxious, will be tolerating medications well, will not have major side effects, will be able to function, will not pose threat to self or others. - Tobacco Cessation Tobacco Use Status for the last 30 days: Non User Tobacco Use Treatment Practical Counseling Provided: Yes Tobacco Use Treatment FDA-Approved Cessation Medication Provided: No Reason for not providing: Patient refused tobacco cessation medication - Alcohol or Substance Abuse Does the patient have an Alcohol or Substance Abuse Disorder: Yes Initial Psych Certification - Initial Certification I certify that the inpatient psychiatric facility admission was medically necessary for either: Treatment which could reasonbly be expected to improve pt's condition I estimate of hospitalization is necessary for proper treatment of the patient: 7 Unit of Time: Days My plans for post-hospital care for this patient are: Day treatment program, follow-up with psychiatrist at the [facility].
[2018-03-19] MEDS: Bacitracin 500 Units/gm Oint Foilpak UD TOP SCH (18:18)
--- NOTE | 2018-03-19 18:59 | CON ---
DATE OF CONSULTATION: 03/19/2018 REQUESTING PHYSICIAN: Lacie Vigil MD REASON FOR CONSULTATION: I have been asked to see this 77-year-old male with a history of alcohol-induced cirrhosis of the liver, who was admitted to the psychiatric floor for suicidal ideation. The patient was transferred from [facility] for suicidal ideation. He has had alcohol-induced cirrhosis for many years. He also has known gallstones, which are asymptomatic. His cirrhosis has been stable for many years. He has not had a drink for several years. He currently denies any abdominal pain, nausea, vomiting, abdominal distention or pedal edema. He did have a stroke last year ago with minimal residual left-sided weakness. He also has a history of diabetes mellitus. PAST MEDICAL HISTORY: Notable for right CVA, diabetes mellitus, hypertension, alcohol-induced cirrhosis of the liver, chronic kidney disease, and difficulty walking. FAMILY HISTORY: Noncontributory. SOCIAL HISTORY: The patient is a former alcoholic. He stopped drinking several years ago. The patient also smoked up to a half pack of cigarettes per day and also quit several years ago. MEDICATIONS AT HOME: Alogliptin, aspirin, atenolol, atorvastatin, Aricept, Prozac, Florinef, folic acid, Neurontin, Humulin insulin, losartan, magnesium oxide, melatonin, ProAmatine, pantoprazole, potassium gluconate, Flomax, ursodiol and guaifenesin. REVIEW OF SYSTEMS: A 14-point review of systems is notable for suicidal ideation. PHYSICAL EXAMINATION: GENERAL: Elderly male lying in bed in no acute distress. VITAL SIGNS: Temperature of 97.7, blood pressure 199/99, heart rate 66. HEENT: Reveal sclerae to be white. Conjunctivae pink. NECK: Supple. CHEST/LUNGS: Clear. HEART: Regular rate and rhythm. ABDOMEN: Soft, nontender. There is no ascites. There is no palpable mass. EXTREMITIES: No edema. There is no asterixis. LABORATORY DATA: White blood cell count 5.2, hemoglobin 13, platelet count 99,000. Chemistries reveal blood sugar 124. AST, ALT, and alk phos were all normal. IMPRESSION: A 77-year-old male with history of right cerebrovascular accident, admitted to Psychiatry with suicidal ideation. He has a history of stable liver cirrhosis without any clinical evidence of decompensation. He has no evidence of volume overload, no evidence of ascites or pedal edema. RECOMMENDATIONS: Continue psychiatric observation. No further GI workup or added medical treatments at this time. Would continue ursodiol for now given his history of gallstones. Vahid Hernandez MD
[2018-03-20] MEDS ORDERED: Pantoprazole 40 mg EC Tab PO SCH (06:00)
[2018-03-20] MEDS: Pantoprazole 40 mg EC Tab PO SCH (06:01)
[2018-03-20] MEDS: Insulin Reg-MEDIUM-Coverage SC SCH ×4 (07:30→21:27)
[2018-03-20] MEDS: Magnesium Oxide 400 mg Tab UD PO SCH (09:45)
[2018-03-20] MEDS: Bacitracin 500 Units/gm Oint Foilpak UD TOP SCH ×2 (09:46→17:11)
--- NOTE | 2018-03-20 11:13 | PN ---
DATE: 03/20/2018 SUBJECTIVE: The patient is 77-year-old male. He is in room 508, bed 1, Behavioral Care Unit. The patient was admitted with uncontrollable hypertension and depression. The patient has state of frustration in the senior living, he was anemic. The patient has past history of cirrhosis of the liver and hypertension. The patient has history of cholelithiasis, gastritis. The patient has had history of benign prostate hyperplasia. PHYSICAL EXAMINATION: GENERAL: The patient is seen this morning, he is comfortable. VITAL SIGNS: Pulse is 55, blood pressure 176/88, and the patient's respirations are 20 per minute. HEENT: The patient's head is normocephalic. LUNGS: Clear. HEART: Normal sinus rhythm. S1 and S2, present. ABDOMEN: Soft. Liver and spleen not palpable. CENTRAL NERVOUS SYSTEM: The patient has left hemiparesis noted. MEDICATIONS: The patient's medications consists of Actigall 300 mg daily. The patient is on Aricept, hydralazine 10 mg four times a day for blood pressure control. The patient is also on aspirin 81 mg daily and Ativan 0.5 mg every 8 hours. The patient is on Losartan 25 mg daily, Flomax 0.4 daily and folic acid 1 mg daily. The patient gets insulin coverage for diabetes and the patient is also getting Lipitor 20 mg daily. LABORATORY DATA: His blood work was not repeated. The CBC and CMP was noted yesterday. No acute problem today. The patient continues current management. We will followup. His blood pressure is starting to get controlled with addition of Apresoline. The patient is on heart healthy diet and 2 g sodium. Shamir Velarde MD [facility]
--- NOTE | 2018-03-20 13:16 | PCM.PYCHPN ---
Psychiatric Progress Note - Psychiatric Progress Note Patient seen today, length of contact: 30 minutes Patient Chief Complaint: "I do not feel good today, I feel exhausted, I woke up 5 times, I am just resting" Problems Identified/Issues Discussed: Risk/benefits and alternatives of medications discussed, suicide/ homicide prevention, past psychiatric h/o, current psychiatric symptoms, medical problems, risk/benefits and alternatives of medications, medications compliance, coping strategies, substance abuse h/o, relapse prevention, importance of follow up with psychiatrist and therapist, discharge plan. Medical Problems: Syncope Bradycardia H/O CVA HTN DMII Cirrhosis of the liver GERD BPH Diagnostic Results: 03/18/18 15:30 03/18/18 15:30 Lab Results 03/20/18 07:26: POC Glucose (mg/dL) 97 03/19/18 21:14: POC Glucose (mg/dL) 124 H 03/19/18 16:02: POC Glucose (mg/dL) 89 03/19/18 11:34: POC Glucose (mg/dL) 100 03/19/18 08:31: Magnesium 1.9 03/19/18 08:00: RPR Nonreactive 03/19/18 08:00: TSH 3rd Generation 0.99 03/19/18 08:00: Fasting Glucose 107, Triglycerides 193 H, Cholesterol 131, LDL Cholesterol Direct 64, HDL Cholesterol 39 03/19/18 07:32: POC Glucose (mg/dL) 86 03/18/18 21:13: POC Glucose (mg/dL) 151 H 03/18/18 16:00: Urine Opiates Screen Negative, Urine Methadone Screen Negative, Ur Barbiturates Screen Negative, Ur Phencyclidine Scrn Negative, Ur Amphetamines Screen Negative, U Benzodiazepines Scrn Negative, U Oth Cocaine Metabols Negative, U Cannabinoids Screen Negative 03/18/18 16:00: Urine Color Yellow, Urine Appearance Clear, Urine pH 7.0, Ur Specific [place] 1.025, Urine Protein 100 H, Urine Glucose (UA) Negative, Urine Ketones Negative, Urine Blood Trace-lysed H, Urine Nitrate Negative, Urine Bilirubin Negative, Urine Urobilinogen 0.2, Ur Leukocyte Esterase Negative, Urine RBC 2 - 5 H, Urine WBC 2 - 5, Ur Epithelial Cells 6 - 8 H 03/18/18 15:41: Ammonia 20 03/18/18 15:30: Alcohol, Quantitative < 10 03/18/18 15:30: Salicylates < 1 L, Acetaminophen < 10.0 L 03/18/18 15:30: Sodium 140, Potassium 4.0, Chloride 106, Carbon Dioxide 29, Anion Gap 9 L, BUN 17, Creatinine 1.0, Est GFR ( Amer) > 60, Est GFR (Non-Af Amer) > 60, Random Glucose 124 H, Calcium 8.7, Total Bilirubin 0.5, AST 33, ALT 16, Alkaline Phosphatase 97, Total Protein 6.7, Albumin 3.7, Globulin 3.0, Albumin/Globulin Ratio 1.3 03/18/18 15:30: WBC 5.2, RBC 4.58, Hgb 13.0 L D, Hct 39.2 L, MCV 85.6 D, MCH 28.4, MCHC 33.2, RDW 12.6, Plt Count 99 L, MPV 10.5, Neut % (Auto) 75.5 H, Lymph % (Auto) 13.2 L, [place] % (Auto) 6.6 H, Eos % (Auto) 3.9, Baso % (Auto) 0.8, Lymph # (Auto) 0.7 L, [place] # (Auto) 0.3, Eos # (Auto) 0.2, Baso # (Auto) 0.04, Absolute Neuts (auto) 3.91 Vital Signs Temp Pulse Resp BP Pulse Ox 03/20/18 09:47 55 L 176/88 H 03/20/18 07:00 97.6 F 55 L 20 176/88 H 03/20/18 06:59 55 L 176/88 H 03/19/18 21:41 55 L 177/87 H 03/19/18 18:17 56 L 178/92 H 03/19/18 16:00 56 L 178/92 H 03/19/18 13:30 53 L 167/82 H 03/19/18 12:00 52 L 18 175/85 H 03/19/18 07:29 66 199/99 H 03/19/18 07:28 66 199/99 H 03/19/18 07:12 97.7 F 62 20 198/99 H 03/18/18 22:00 20 03/18/18 21:38 61 182/88 H 03/18/18 20:18 98.1 F 60 16 178/68 H 98 03/18/18 19:48 98 F 58 L 14 183/70 H 98 03/18/18 18:40 62 191/70 H 03/18/18 18:16 62 18 191/70 H 98 03/18/18 16:11 193/84 H 03/18/18 15:43 98.1 F 64 18 208/87 H 98 DSM 5 Symptoms Update: Shortly, patient is 77yr old male with multiple medical issues including HTN, stroke, DM, denied history of being admitted to the psychiatric inpatient unit, denied history of suicidal attempts, patient had history of alcohol use disorder and inpatient rehabs, was sent by [place] psychiatrist for evaluation of depressive symptoms, possible suicidal ideation pt was making statements like "I want to end it all", in the emergency room patient presented to be depressed, hopeless, helpless, patient requires further evaluation and stabilization and possible medication management. Patient was seen and examined today in his room, patient presented to be withdrawn, depressed, staying in bed with eyes closed, as per patient she feels "exhausted" patient said that she did not sleep well last night because of frequent urination patient reported that he still feels hopeless and depressed, but denied any thoughts of harming himself or others. Patient appears to be mildly disorganized and confused. As per staff patient is not socializing with others, staying in bed all day long. So far patient tolerates medications well, no side effects observed or reported, aims 0, no EPS. Impression: Rule out major depressive disorder Rule out adjustment disorder with depressed mood Medication Change: Yes (Resumed, Sonata started) Medical Record Reviewed: Yes Consults ordered or reviewed: Medical consult appreciated, please see notes for more detailed information Mental Status Examination - Cognitive Function Orientation: Person, Place Memory: Intact Attention: Poor Concentration: Poor Association: WNL Fund of Knowledge: WNL - Mood Mood: Depressed - Affect Affect: Flat - Formal Thought Process Formal Thought Process: Hallucinations (?, "Sometimes I could hear somebody is calling my name") - Suicidal Ideation Suicidal Ideation: No - Homicidal Ideation Homicidal Ideation: No Goal/Treatment Plan - Goal/Treatment Plan Need for Continued Stay: Remain at risks for inpatient hospitalization, Severe depression anxiety, Discharge may exacerbated symptoms, Severe functional impairment Progress Toward Problem(s) and Goals/Treatment Plan: Milieu/structure/supportive therapy SW consultation for discharge plan and social issues Med management Medications reviewed and resumed Prozac 20 mg daily for depression and anxiety Sonata 5 mg at the nighttime Medical team will be involved Family involvement Follow up on labs Will monitor closely Pt was educated about risk/benefits and alternatives of medications, coping strategies (safety plan, suicide prevention), relapse prevention, importance of follow up with psychiatrist and therapist, stay away from drugs/alcohol/smoking Estimated Date of D/C: 03/26/18
[2018-03-20] MEDS: POTASSIUM GLUCONATE PO SCH (19:22)
[2018-03-21] MEDS: Pantoprazole 40 mg EC Tab PO SCH (05:41)
[2018-03-21] MEDS: Bacitracin 500 Units/gm Oint Foilpak UD TOP SCH ×2 (08:16→16:06)
[2018-03-21] MEDS: Magnesium Oxide 400 mg Tab UD PO SCH (08:17)
[2018-03-21] MEDS: Insulin Reg-MEDIUM-Coverage SC SCH ×4 (08:18→21:12)
--- NOTE | 2018-03-21 09:00 | CP.PCM.PN ---
Subjective - Date & Time of Evaluation Date of Evaluation: 03/21/18 Time of Evaluation: 07:45 - Subjective Subjective: Patient is seen this morning. He is feeling better. Objective - Vital Signs/Intake and Output Vital Signs (last 24 hours): Temp Pulse Resp BP Pulse Ox 97.5 F L 56 L 20 184/88 H 98 03/21/18 07:08 03/21/18 07:08 03/21/18 07:08 03/21/18 07:08 03/18/18 20:18 - Medications Medications: Current Medications Acetaminophen (Tylenol 325mg Tab) 650 mg PO Q4H PRN PRN Reason: Pain, Mild (1-3) Al Hydrox/Mg Hydrox/Simethicone (Maalox Plus 30 Ml) 30 ml PO DAILY PRN PRN Reason: Upset Stomach Aspirin (Aspirin Chewable) 81 mg PO DAILY [facility] Last Admin: 03/21/18 08:17 Dose: 81 mg Atenolol (Tenormin) 25 mg PO DAILY [facility] Last Admin: 03/21/18 07:03 Dose: 25 mg Atorvastatin Calcium (Lipitor) 20 mg PO HS [facility] Last Admin: 03/20/18 21:20 Dose: 20 mg Bacitracin (Bacitracin) 1 ea TOP BID [facility] Last Admin: 03/21/18 08:16 Dose: 1 ea Donepezil HCl (Aricept) 5 mg PO HS [facility] Last Admin: 03/20/18 21:20 Dose: 5 mg Fluoxetine HCl (Prozac) 20 mg PO DAILY [facility] Last Admin: 03/21/18 08:17 Dose: 20 mg Folic Acid (Folic Acid) 1 mg PO DAILY [facility] Last Admin: 03/21/18 08:16 Dose: 1 mg Gabapentin (Neurontin) 300 mg PO Q12 [facility]; Protocol Last Admin: 03/21/18 05:41 Dose: 300 mg Hydralazine HCl (Apresoline) 10 mg PO QID [facility] Last Admin: 03/21/18 07:03 Dose: 10 mg Insulin Human Regular (Humulin R Med) 0 units SC ACHS [facility]; Protocol Last Admin: 03/21/18 08:18 Dose: Not Given Lorazepam (Ativan) 0.5 mg PO Q8H PRN; Protocol PRN Reason: Agitation Losartan Potassium (Cozaar) 25 mg PO DAILY [facility] Last Admin: 03/21/18 07:02 Dose: 25 mg Magnesium Hydroxide (Milk Of Magnesia) 30 ml PO DAILY PRN PRN Reason: Constipation Magnesium Oxide (Mag-Ox) 400 mg PO DAILY [facility] Last Admin: 03/21/18 08:17 Dose: 400 mg Pantoprazole Sodium (Protonix Ec Tab) 40 mg PO 0600 [facility] Last Admin: 03/21/18 05:41 Dose: 40 mg Tamsulosin HCl (Flomax) 0.4 mg PO DAILY [facility] Last Admin: 03/21/18 08:17 Dose: 0.4 mg Ursodiol (Actigall) 300 mg PO DAILY [facility] Last Admin: 03/21/18 08:17 Dose: 300 mg Zaleplon (Sonata) 5 mg PO HS PRN PRN Reason: Insomnia Last Admin: 03/19/18 21:13 Dose: 5 mg - Labs Labs: 03/18/18 15:30 03/18/18 15:30 - Constitutional Appears: No Acute Distress - Head Exam Head Exam: ATRAUMATIC, NORMOCEPHALIC - Respiratory Exam Respiratory Exam: Clear to Ausculation Bilateral, NORMAL BREATHING PATTERN - Cardiovascular Exam Cardiovascular Exam: +S1, +S2 - GI/Abdominal Exam GI & Abdominal Exam: Soft, Normal Bowel Sounds. absent: Tenderness - Extremities Exam Extremities Exam: Normal Inspection - Neurological Exam Neurological Exam: Alert, Awake, Oriented x3 Assessment and Plan - Assessment and Plan (Free Text) Assessment: H/O CVA with left sided weakness HTN DMII Plan: We will repeat urinalysis. continue current medications continue behavioral treatment as per Dr. Medellin
--- NOTE | 2018-03-21 14:52 | PCM.PYCHPN ---
Psychiatric Progress Note - Psychiatric Progress Note Patient seen today, length of contact: 30 minutes Patient Chief Complaint: "I am feeling very depressed, but I feel little better, the main part of my problem is sleep" Problems Identified/Issues Discussed: Risk/benefits and alternatives of medications discussed, suicide/ homicide prevention, past psychiatric h/o, current psychiatric symptoms, medical problems, risk/benefits and alternatives of medications, medications compliance, coping strategies, substance abuse h/o, relapse prevention, importance of follow up with psychiatrist and therapist, discharge plan. Medical Problems: Syncope Bradycardia H/O CVA HTN DMII Cirrhosis of the liver GERD BPH Diagnostic Results: 03/18/18 15:30 03/18/18 15:30 Lab Results 03/20/18 07:26: POC Glucose (mg/dL) 97 03/19/18 21:14: POC Glucose (mg/dL) 124 H 03/19/18 16:02: POC Glucose (mg/dL) 89 03/19/18 11:34: POC Glucose (mg/dL) 100 03/19/18 08:31: Magnesium 1.9 03/19/18 08:00: RPR Nonreactive 03/19/18 08:00: TSH 3rd Generation 0.99 03/19/18 08:00: Fasting Glucose 107, Triglycerides 193 H, Cholesterol 131, LDL Cholesterol Direct 64, HDL Cholesterol 39 03/19/18 07:32: POC Glucose (mg/dL) 86 03/18/18 21:13: POC Glucose (mg/dL) 151 H 03/18/18 16:00: Urine Opiates Screen Negative, Urine Methadone Screen Negative, Ur Barbiturates Screen Negative, Ur Phencyclidine Scrn Negative, Ur Amphetamines Screen Negative, U Benzodiazepines Scrn Negative, U Oth Cocaine Metabols Negative, U Cannabinoids Screen Negative 03/18/18 16:00: Urine Color Yellow, Urine Appearance Clear, Urine pH 7.0, Ur Specific [place] 1.025, Urine Protein 100 H, Urine Glucose (UA) Negative, Urine Ketones Negative, Urine Blood Trace-lysed H, Urine Nitrate Negative, Urine Bilirubin Negative, Urine Urobilinogen 0.2, Ur Leukocyte Esterase Negative, Urine RBC 2 - 5 H, Urine WBC 2 - 5, Ur Epithelial Cells 6 - 8 H 03/18/18 15:41: Ammonia 20 03/18/18 15:30: Alcohol, Quantitative < 10 02/10/19 15:30: Salicylates < 1 L, Acetaminophen < 10.0 L 03/18/18 15:30: Sodium 140, Potassium 4.0, Chloride 106, Carbon Dioxide 29, Anion Gap 9 L, BUN 17, Creatinine 1.0, Est GFR ( Amer) > 60, Est GFR ( Non-Af Amer) > 60, Random Glucose 124 H, Calcium 8.7, Total Bilirubin 0.5, AST 33, ALT 16, Alkaline Phosphatase 97, Total Protein 6.7, Albumin 3.7, Globulin 3.0, Albumin/Globulin Ratio 1.3 03/18/18 15:30: WBC 5.2, RBC 4.58, Hgb 13.0 L D, Hct 39.2 L, MCV 85.6 D, MCH 28.4, MCHC 33.2, RDW 12.6, Plt Count 99 L, MPV 10.5, Neut % (Auto) 75.5 H, Lymph % (Auto) 13.2 L, [place] % (Auto) 6.6 H, Eos % (Auto) 3.9, Baso % (Auto) 0.8, Lymph # (Auto) 0.7 L, [place] # (Auto) 0.3, Eos # (Auto) 0.2, Baso # (Auto) 0.04, Absolute Neuts (auto) 3.91 Vital Signs Temp Pulse Resp BP Pulse Ox 03/20/18 09:47 55 L 176/88 H 03/20/18 07:00 97.6 F 55 L 20 176/88 H 03/20/18 06:59 55 L 176/88 H 03/19/18 21:41 55 L 177/87 H 03/19/18 18:17 56 L 178/92 H 03/19/18 16:00 56 L 178/92 H 03/19/18 13:30 53 L 167/82 H 03/19/18 12:00 52 L 18 175/85 H 03/19/18 07:29 66 199/99 H 03/19/18 07:28 66 199/99 H 03/19/18 07:12 97.7 F 62 20 198/99 H 03/18/18 22:00 20 03/18/18 21:38 61 182/88 H 03/18/18 20:18 98.1 F 60 16 178/68 H 98 03/18/18 19:48 98 F 58 L 14 183/70 H 98 03/18/18 18:40 62 191/70 H 03/18/18 18:16 62 18 191/70 H 98 03/18/18 16:11 193/84 H 03/18/18 15:43 98.1 F 64 18 208/87 H 98 Temp Pulse Resp BP Pulse Ox 97.5 F L 56 L 20 184/88 H 98 03/21/18 07:08 03/21/18 07:08 03/21/18 07:08 03/21/18 07:08 03/18/18 20:18 DSM 5 Symptoms Update: Shortly, patient is 77yr old male with multiple medical issues including HTN, stroke, DM, denied history of being admitted to the psychiatric inpatient unit, denied history of suicidal attempts, patient had history of alcohol use disorder and inpatient rehabs, was sent by [place] psychiatrist for evaluation of depressive symptoms, possible suicidal ideation pt was making statements like "I want to end it all", in the emergency room patient presented to be depressed, hopeless, helpless, patient requires further evaluation and stabilization and possible medication management. Patient was seen and examined today at the treatment team room with medical student, pt ambulated with rolling walker, pt presented with some difficulties to concentrate and stay focused, pt reported that he still struggling with sleep, as per record pt was not taking sonata, pt was educated that it will be scheduled for him. pt still has transient feeling of hopeless and reported being depressed, but denied any thoughts of harming himself or others. Patient appears to be mildly disorganized and confused. As per staff patient attend first group today. So far patient tolerates medications well, no side effects observed or reported, aims 0, no EPS. Impression: Rule out major depressive disorder Rule out adjustment disorder with depressed mood Medication Change: Yes (prozac increased) Medical Record Reviewed: Yes Consults ordered or reviewed: Medical consult appreciated, please see notes for more detailed information Mental Status Examination - Cognitive Function Orientation: Person, Place Memory: Intact Attention: Poor Concentration: Poor Association: WNL Fund of Knowledge: WNL - Mood Mood: Depressed - Affect Affect: Flat - Formal Thought Process Formal Thought Process: Hallucinations (?, "Sometimes I could hear somebody is calling my name") - Suicidal Ideation Suicidal Ideation: No - Homicidal Ideation Homicidal Ideation: No Goal/Treatment Plan - Goal/Treatment Plan Need for Continued Stay: Remain at risks for inpatient hospitalization, Severe depression anxiety, Discharge may exacerbated symptoms, Severe functional impairment Progress Toward Problem(s) and Goals/Treatment Plan: Milieu/structure/supportive therapy SW consultation for discharge plan and social issues Med management Medications reviewed and resumed Prozac 30 mg daily for depression and anxiety Sonata 5 mg at the nighttime Medical team will be involved Family involvement Follow up on labs Will monitor closely Pt was educated about risk/benefits and alternatives of medications, coping strategies (safety plan, suicide prevention), relapse prevention, importance of follow up with psychiatrist and therapist, stay away from drugs/alcohol/smoking Estimated Date of D/C: 03/26/18
[2018-03-21] MEDS: POTASSIUM GLUCONATE PO SCH (17:27)
[2018-03-21 17:29] LABS: URINE BILIRUBIN NEGATIVE (NEGATIVE); URINE BLOOD NEGATIVE (NEGATIVE); URINE GLUCOSE (UA) NEGATIVE (NEGATIVE); URINE LEUKOCYTE ESTERASE NEGATIVE Leu/uL (NEGATIVE); URINE PROTEIN 30 mg/dL (<30 mg/dL); URINE UROBILINOGEN 0.2 E.U./dL (<1 E.U./dL)
[2018-03-21 17:30] LABS: URINE APPEARANCE CLEAR (CLEAR); URINE COLOR YELLOW (YELLOW)
[2018-03-21 17:34] LABS: URINE RBC 0 - 2 /hpf (0-2); URINE WBC 0 - 2 /hpf (0-6)
[2018-03-22] MEDS: Pantoprazole 40 mg EC Tab PO SCH (06:03)
[2018-03-22] MEDS: Bacitracin 500 Units/gm Oint Foilpak UD TOP SCH ×2 (09:46→17:44)
[2018-03-22] MEDS: Magnesium Oxide 400 mg Tab UD PO SCH (09:46)
[2018-03-22] MEDS: Insulin Reg-MEDIUM-Coverage SC SCH ×4 (09:48→21:18)
--- NOTE | 2018-03-22 11:41 | PN ---
DATE: 03/22/2018 LOCATION: The patient is in [facility]. SUBJECTIVE: This is a 77-year-old male, he was admitted with state of frustration. The patient has history of diabetes, cerebrovascular disease, cirrhosis of liver, hypertension, and osteoarthritis. The patient is seen this morning, he is resting comfortably. He had a restless night. PHYSICAL EXAMINATION: VITAL SIGNS: His pulse is 55, blood pressure 176/80 and respirations 20. The patient's O2 saturation is 98%. HEENT: The patient's head is normocephalic. NECK: Thyroid is not enlarged. Carotid pulse are present. LUNGS: Clear. HEART: Normal sinus rhythm. S1 and S2 present. ABDOMEN: Soft. Liver and spleen not palpable. CENTRAL NERVOUS SYSTEM: No focal deficit. The patient is getting Behavioral Care and medical management. MEDICATIONS: List of medications; the patient is on Actigall, hydralazine, Aricept, aspirin, Ativan, Losartan, Flomax, insulin coverage for diabetes, Lipitor, magnesium oxide, gabapentin, pantoprazole, Prozac. The patient is on Sonata, Tenormin and Tylenol. LABORATORY DATA: The patient's lab work; the patient's last hemoglobin was 13.0. The patient's chemistry; blood sugar today is 113. PLAN: The patient is clinically improving. We will followup. Shamir Velarde MD MTDMaurice
--- NOTE | 2018-03-22 12:57 | CP.PCM.PN ---
Subjective - Date & Time of Evaluation Date of Evaluation: 03/21/18 Time of Evaluation: 11:00 - Subjective Subjective: passr form comleted Objective - Vital Signs/Intake and Output Vital Signs (last 24 hours): Temp Pulse Resp BP Pulse Ox 97.5 F L 55 L 20 176/88 H 98 03/22/18 07:12 03/22/18 07:12 03/22/18 07:12 03/22/18 07:12 03/22/18 05:45 - Medications Medications: Current Medications Acetaminophen (Tylenol 325mg Tab) 650 mg PO Q4H PRN PRN Reason: Pain, Mild (1-3) Al Hydrox/Mg Hydrox/Simethicone (Maalox Plus 30 Ml) 30 ml PO DAILY PRN PRN Reason: Upset Stomach Aspirin (Aspirin Chewable) 81 mg PO DAILY [facility] Last Admin: 03/22/18 09:47 Dose: 81 mg Atenolol (Tenormin) 25 mg PO DAILY [facility] Last Admin: 03/22/18 09:47 Dose: 25 mg Atorvastatin Calcium (Lipitor) 20 mg PO HS [facility] Last Admin: 03/21/18 21:15 Dose: 20 mg Bacitracin (Bacitracin) 1 ea TOP BID [facility] Last Admin: 03/22/18 09:46 Dose: 1 ea Donepezil HCl (Aricept) 5 mg PO HS [facility] Last Admin: 03/21/18 21:16 Dose: 5 mg Fluoxetine HCl (Prozac) 30 mg PO DAILY [facility] Last Admin: 03/22/18 09:47 Dose: 30 mg Folic Acid (Folic Acid) 1 mg PO DAILY [facility] Last Admin: 03/22/18 09:47 Dose: 1 mg Gabapentin (Neurontin) 300 mg PO Q12 [facility]; Protocol Last Admin: 03/22/18 06:03 Dose: 300 mg Hydralazine HCl (Apresoline) 10 mg PO QID [facility] Last Admin: 03/22/18 09:47 Dose: 10 mg Insulin Human Regular (Humulin R Med) 0 units SC ACHS [facility]; Protocol Last Admin: 03/22/18 09:48 Dose: Not Given Lorazepam (Ativan) 0.5 mg PO Q8H PRN; Protocol PRN Reason: Agitation Losartan Potassium (Cozaar) 25 mg PO DAILY [facility] Last Admin: 03/22/18 09:48 Dose: 25 mg Magnesium Hydroxide (Milk Of Magnesia) 30 ml PO DAILY PRN PRN Reason: Constipation Magnesium Oxide (Mag-Ox) 400 mg PO DAILY [facility] Last Admin: 03/22/18 09:46 Dose: 400 mg Pantoprazole Sodium (Protonix Ec Tab) 40 mg PO 0600 [facility] Last Admin: 03/22/18 06:03 Dose: 40 mg Tamsulosin HCl (Flomax) 0.4 mg PO DAILY [facility] Last Admin: 03/22/18 09:47 Dose: 0.4 mg Ursodiol (Actigall) 300 mg PO DAILY [facility] Last Admin: 03/22/18 09:47 Dose: 300 mg Zaleplon (Sonata) 5 mg PO HS [facility] Last Admin: 03/21/18 21:15 Dose: 5 mg - Labs Labs: 03/18/18 15:30 03/18/18 15:30
--- NOTE | 2018-03-22 14:42 | PCM.PYCHPN ---
Psychiatric Progress Note - Psychiatric Progress Note Patient seen today, length of contact: 30 minutes Patient Chief Complaint: "I lost my balance at night, I fell, but it was my fault, I turned quickly to flush the toilet..." Problems Identified/Issues Discussed: Risk/benefits and alternatives of medications discussed, suicide/ homicide prevention, past psychiatric h/o, current psychiatric symptoms, medical problems, risk/benefits and alternatives of medications, medications compliance, coping strategies, substance abuse h/o, relapse prevention, importance of follow up with psychiatrist and therapist, discharge plan. Medical Problems: Syncope Bradycardia H/O CVA HTN DMII Cirrhosis of the liver GERD BPH Diagnostic Results: 03/18/18 15:30 03/18/18 15:30 Lab Results 03/20/18 07:26: POC Glucose (mg/dL) 97 03/19/18 21:14: POC Glucose (mg/dL) 124 H 03/19/18 16:02: POC Glucose (mg/dL) 89 03/19/18 11:34: POC Glucose (mg/dL) 100 03/19/18 08:31: Magnesium 1.9 03/19/18 08:00: RPR Nonreactive 03/19/18 08:00: TSH 3rd Generation 0.99 03/19/18 08:00: Fasting Glucose 107, Triglycerides 193 H, Cholesterol 131, LDL Cholesterol Direct 64, HDL Cholesterol 39 03/19/18 07:32: POC Glucose (mg/dL) 86 03/18/18 21:13: POC Glucose (mg/dL) 151 H 03/18/18 16:00: Urine Opiates Screen Negative, Urine Methadone Screen Negative, Ur Barbiturates Screen Negative, Ur Phencyclidine Scrn Negative, Ur Amphetamines Screen Negative, U Benzodiazepines Scrn Negative, U Oth Cocaine Metabols Negative, U Cannabinoids Screen Negative 03/18/18 16:00: Urine Color Yellow, Urine Appearance Clear, Urine pH 7.0, Ur Specific [place] 1.025, Urine Protein 100 H, Urine Glucose (UA) Negative, Urine Ketones Negative, Urine Blood Trace-lysed H, Urine Nitrate Negative, Urine Bilirubin Negative, Urine Urobilinogen 0.2, Ur Leukocyte Esterase Negative, Urine RBC 2 - 5 H, Urine WBC 2 - 5, Ur Epithelial Cells 6 - 8 H 03/18/18 15:41: Ammonia 20 03/18/18 15:30: Alcohol, Quantitative < 10 03/18/18 15:30: Salicylates < 1 L, Acetaminophen < 10.0 L 03/18/18 15:30: Sodium 140, Potassium 4.0, Chloride 106, Carbon Dioxide 29, Anion Gap 9 L, BUN 17, Creatinine 1.0, Est GFR ( Amer) > 60, Est GFR (Non-Af Amer) > 60, Random Glucose 124 H, Calcium 8.7, Total Bilirubin 0.5, AST 33, ALT 16, Alkaline Phosphatase 97, Total Protein 6.7, Albumin 3.7, Globulin 3.0, Albumin/Globulin Ratio 1.3 03/18/18 15:30: WBC 5.2, RBC 4.58, Hgb 13.0 L D, Hct 39.2 L, MCV 85.6 D, MCH 28.4, MCHC 33.2, RDW 12.6, Plt Count 99 L, MPV 10.5, Neut % (Auto) 75.5 H, Lymph % (Auto) 13.2 L, [place] % (Auto) 6.6 H, Eos % (Auto) 3.9, Baso % (Auto) 0.8, Lymph # (Auto) 0.7 L, [place] # (Auto) 0.3, Eos # (Auto) 0.2, Baso # (Auto) 0.04, Absolute Neuts (auto) 3.91 Vital Signs Temp Pulse Resp BP Pulse Ox 03/20/18 09:47 55 L 176/88 H 03/20/18 07:00 97.6 F 55 L 20 176/88 H 03/20/18 06:59 55 L 176/88 H 03/19/18 21:41 55 L 177/87 H 03/19/18 18:17 56 L 178/92 H 03/19/18 16:00 56 L 178/92 H 03/19/18 13:30 53 L 167/82 H 03/19/18 12:00 52 L 18 175/85 H 03/19/18 07:29 66 199/99 H 03/19/18 07:28 66 199/99 H 03/19/18 07:12 97.7 F 62 20 198/99 H 03/18/18 22:00 20 03/18/18 21:38 61 182/88 H 03/18/18 20:18 98.1 F 60 16 178/68 H 98 03/18/18 19:48 98 F 58 L 14 183/70 H 98 03/18/18 18:40 62 191/70 H 03/18/18 18:16 62 18 191/70 H 98 03/18/18 16:11 193/84 H 03/18/18 15:43 98.1 F 64 18 208/87 H 98 Temp Pulse Resp BP Pulse Ox 97.5 F L 56 L 20 184/88 H 98 03/21/18 07:08 03/21/18 07:08 03/21/18 07:08 03/21/18 07:08 03/18/18 20:18 Temp Pulse Resp BP Pulse Ox 97.5 F L 55 L 20 176/88 H 98 03/22/18 07:12 03/22/18 07:12 03/22/18 07:12 03/22/18 07:12 03/22/18 05:45 DSM 5 Symptoms Update: Shortly, patient is 77yr old male with multiple medical issues including HTN, stroke, DM, denied history of being admitted to the psychiatric inpatient unit, denied history of suicidal attempts, patient had history of alcohol use disorder and inpatient rehabs, was sent by [facility] psychiatrist for evaluation of depressive symptoms, possible suicidal ideation pt was making statements like "I want to end it all", in the emergency room patient presented to be depressed, hopeless, helpless, patient requires further evaluation and stabilization and possible medication management. Patient was seen and examined today in his room. as per report from RN pt had unwitnessed fall over night, pt did not lose consciousness, was seen by medical team. pt said that he turned quickly to flush the toilet and fell, pt reported that he was not drowsy or lightheaded, pt does not feel that medications making him unsteady. pt reported his mood is still depressed, denied thoughts of harming self or others. 03/22/18 MMSE was 26, pt lost points on three step command, and was not able to recall third object in a few minutes. As per staff patient prefer to be alone, but started to attend groups. So far patient tolerates medications well, no side effects observed or reported, aims 0, no EPS. Impression: Rule out major depressive disorder Rule out adjustment disorder with depressed mood Medication Change: Yes (prozac increased 03/21/18) Medical Record Reviewed: Yes Mental Status Examination - Cognitive Function Orientation: Person, Place Memory: Intact Attention: Poor Concentration: Poor Association: WNL Fund of Knowledge: WNL - Mood Mood: Depressed - Affect Affect: Flat - Formal Thought Process Formal Thought Process: Hallucinations (?, "Sometimes I could hear somebody is calling my name") - Suicidal Ideation Suicidal Ideation: No - Homicidal Ideation Homicidal Ideation: No Goal/Treatment Plan - Goal/Treatment Plan Need for Continued Stay: Remain at risks for inpatient hospitalization, Severe depression anxiety, Discharge may exacerbated symptoms, Severe functional impairment Progress Toward Problem(s) and Goals/Treatment Plan: Milieu/structure/supportive therapy SW consultation for discharge plan and social issues Med management Medications reviewed and resumed Prozac 30 mg daily for depression and anxiety, increased 03/21/18 Sonata 5 mg at the nighttime Medical team will be involved Family involvement Follow up on labs Will monitor closely Pt was educated about risk/benefits and alternatives of medications, coping strategies (safety plan, suicide prevention), relapse prevention, importance of follow up with psychiatrist and therapist, stay away from drugs/alcohol/smoking Estimated Date of D/C: 03/26/18
[2018-03-23] MEDS: Pantoprazole 40 mg EC Tab PO SCH (05:11)
[2018-03-23] MEDS: Bacitracin 500 Units/gm Oint Foilpak UD TOP SCH ×2 (09:27→18:09)
[2018-03-23] MEDS: Magnesium Oxide 400 mg Tab UD PO SCH (09:27)
[2018-03-23] MEDS: Insulin Reg-MEDIUM-Coverage SC SCH ×4 (09:37→22:22)
--- NOTE | 2018-03-23 10:28 | PN ---
DATE: 03/23/2018 LOCATION: The patient is in [facility], Behavioral Care Unit. SUBJECTIVE: The patient was admitted with frustration, elevated blood pressure. The patient has history of diabetes, cirrhosis of the liver. The patient also has history of hypertension and dementia. The patient had a fall yesterday in the bathroom, he hurt his back and back of his head. He hit the lower back and the back of his head, but there is no evidence of any bumps or lacerations. The patient is seen this morning, he is able to explain what happened to him, but he says he has some discomfort and we will give him the routine medications. PHYSICAL EXAMINATION VITAL SIGNS: His vital signs this morning, his pulse is 51, blood pressure 162/85, respirations is 20 and the patient's O2 saturation is 98% on room air. HEENT: Head is normocephalic. No evidence of any injuries in the occipital area of the head. The patient has some tenderness in the lower back. LUNGS: Clear. HEART: Normal sinus rhythm. ABDOMEN: Soft. Liver and spleen not palpable. CENTRAL NERVOUS SYSTEM: No focal deficits are noted. The patient has some weakness on the left arm from a previous stroke. MEDICATIONS: The patient's medications consist of Actigall. The patient is on Apresoline, Aricept, aspirin, Ativan, Flomax, losartan, folic acid, insulin coverage for diabetes, Lipitor, magnesium oxide, gabapentin, pantoprazole, Prozac, Tenormin and Sonata. The patient is on a heart healthy diet and diabetic. We will continue current management and followup. The patient has frequency of micturition according to the story that he told me and he has history of BPH, but we might consider having Urology review his case. Urine culture is growing gram negative rods. We will start Bactrim. Shamir Velarde MD MTDMuarice
--- NOTE | 2018-03-23 12:22 | PCM.PYCHPN ---
Psychiatric Progress Note - Psychiatric Progress Note Patient seen today, length of contact: 30 minutes Patient Chief Complaint: "I slept little better, my mood is improving" Problems Identified/Issues Discussed: Risk/benefits and alternatives of medications discussed, suicide/ homicide prevention, past psychiatric h/o, current psychiatric symptoms, medical p roblems, risk/benefits and alternatives of medications, medications compliance, coping strategies, substance abuse h/o, relapse prevention, importance of follow up with psychiatrist and therapist, discharge plan. Medical Problems: Syncope Bradycardia H/O CVA HTN DMII Cirrhosis of the liver GERD BPH Diagnostic Results: 03/18/18 15:30 03/18/18 15:30 Lab Results 03/20/18 07:26: POC Glucose (mg/dL) 97 03/19/18 21:14: POC Glucose (mg/dL) 124 H 03/19/18 16:02: POC Glucose (mg/dL) 89 03/19/18 11:34: POC Glucose (mg/dL) 100 03/19/18 08:31: Magnesium 1.9 03/19/18 08:00: RPR Nonreactive 03/19/18 08:00: TSH 3rd Generation 0.99 03/19/18 08:00: Fasting Glucose 107, Triglycerides 193 H, Cholesterol 131, LDL Cholesterol Direct 64, HDL Cholesterol 39 03/19/18 07:32: POC Glucose (mg/dL) 86 03/18/18 21:13: POC Glucose (mg/dL) 151 H 03/18/18 16:00: Urine Opiates Screen Negative, Urine Methadone Screen Negative, Ur Barbiturates Screen Negative, Ur Phencyclidine Scrn Negative, Ur Amphetamines Screen Negative, U Benzodiazepines Scrn Negative, U Oth Cocaine Metabols Negative, U Cannabinoids Screen Negative 03/18/18 16:00: Urine Color Yellow, Urine Appearance Clear, Urine pH 7.0, Ur Specific [place] 1.025, Urine Protein 100 H, Urine Glucose (UA) Negative, Urine Ketones Negative, Urine Blood Trace-lysed H, Urine Nitrate Negative, Urine Bilirubin Negative, Urine Urobilinogen 0.2, Ur Leukocyte Esterase Negative, Urine RBC 2 - 5 H, Urine WBC 2 - 5, Ur Epithelial Cells 6 - 8 H 03/18/18 15:41: Ammonia 20 03/18/18 15:30: Alcohol, Quantitative < 10 03/18/18 15:30: Salicylates < 1 L, Acetaminophen < 10.0 L 03/18/18 15:30: Sodium 140, Potassium 4.0, Chloride 106, Carbon Dioxide 29, Anion Gap 9 L, BUN 17, Creatinine 1.0, Est GFR ( Amer) > 60, Est GFR (Non-Af Amer) > 60, Random Glucose 124 H, Calcium 8.7, Total Bilirubin 0.5, AST 33, ALT 16, Alkaline Phosphatase 97, Total Protein 6.7, Albumin 3.7, Globulin 3.0, Albumin/Globulin Ratio 1.3 03/18/18 15:30: WBC 5.2, RBC 4.58, Hgb 13.0 L D, Hct 39.2 L, MCV 85.6 D, MCH 28.4, MCHC 33.2, RDW 12.6, Plt Count 99 L, MPV 10.5, Neut % (Auto) 75.5 H, Lymph % (Auto) 13.2 L, [place] % (Auto) 6.6 H, Eos % (Auto) 3.9, Baso % (Auto) 0.8, Lymph # (Auto) 0.7 L, [place] # (Auto) 0.3, Eos # (Auto) 0.2, Baso # (Auto) 0.04, Absolute Neuts (auto) 3.91 Vital Signs Temp Pulse Resp BP Pulse Ox 03/20/18 09:47 55 L 176/88 H 03/20/18 07:00 97.6 F 55 L 20 176/88 H 03/20/18 06:59 55 L 176/88 H 03/19/18 21:41 55 L 177/87 H 03/19/18 18:17 56 L 178/92 H 03/19/18 16:00 56 L 178/92 H 03/19/18 13:30 53 L 167/82 H 03/19/18 12:00 52 L 18 175/85 H 03/19/18 07:29 66 199/99 H 03/19/18 07:28 66 199/99 H 03/19/18 07:12 97.7 F 62 20 198/99 H 03/18/18 22:00 20 03/18/18 21:38 61 182/88 H 03/18/18 20:18 98.1 F 60 16 178/68 H 98 03/18/18 19:48 98 F 58 L 14 183/70 H 98 03/18/18 18:40 62 191/70 H 03/18/18 18:16 62 18 191/70 H 98 03/18/18 16:11 193/84 H 03/18/18 15:43 98.1 F 64 18 208/87 H 98 Temp Pulse Resp BP Pulse Ox 97.5 F L 56 L 20 184/88 H 98 03/21/18 07:08 03/21/18 07:08 03/21/18 07:08 03/21/18 07:08 03/18/18 20:18 Temp Pulse Resp BP Pulse Ox 97.5 F L 55 L 20 176/88 H 98 03/22/18 07:12 03/22/18 07:12 03/22/18 07:12 03/22/18 07:12 03/22/18 05:45 Microbiology 03/21/18 17:15 Urine Culture - Preliminary Urine,Clean Catch Gram Negative Dmitriy DSM 5 Symptoms Update: Shortly, patient is 77yr old male with multiple medical issues including HTN, stroke, DM, denied history of being admitted to the psychiatric inpatient unit, denied history of suicidal attempts, patient had history of alcohol use disorder and inpatient rehabs, was sent by [facility] for evaluation of depressive symptoms, possible suicidal ideation pt was making statements like "I want to end it all", in the emergency room patient presented to be depressed, hopeless, helpless, patient requires further evaluation and stabilization and possible medication management. Patient was seen and examined today in his room. as per report from RN patient had a decent night, no falls so far, patient had breakfast, brushes teeth, no agitation or aggression. Patient reported that she was sleep better if she would not need to wake up to use the bathroom, as per urine analysis result patient has gram-negative rods in the urine, antibiotics were started tolerated. Patient reported that his mood is "improving", patient denied thoughts of harming himself or others. Patient was talking about his older brother who lives in [place], "he is the one who is making decisions for all of us, I would like to go to [facility],but I know they have no beds yet." pt reported his mood is still depressed "but improving", denied thoughts of harming self or others. 2/14/19 MMSE was 26, pt lost points on three step command, and was not able to recall third object in a few minutes. As per staff patient prefer to be alone, but started to attend groups. So far patient tolerates medications well, no side effects observed or reported, aims 0, no EPS. Impression: Rule out major depressive disorder Rule out adjustment disorder with depressed mood Medication Change: No ( ) Medical Record Reviewed: Yes Consults ordered or reviewed: Medical consult appreciated, please see notes for more detailed information Mental Status Examination - Cognitive Function Orientation: Person, Place Memory: Intact Attention: Poor (Some improvement) Concentration: Poor (Some improvement) Association: WNL Fund of Knowledge: WNL - Mood Mood: Depressed ("I feel little better") - Affect Affect: Flat - Formal Thought Process Formal Thought Process: Hallucinations (?, "Sometimes I could hear somebody is calling my name") - Suicidal Ideation Suicidal Ideation: No - Homicidal Ideation Homicidal Ideation: No Goal/Treatment Plan - Goal/Treatment Plan Need for Continued Stay: Remain at risks for inpatient hospitalization, Severe depression anxiety, Discharge may exacerbated symptoms, Severe functional impairment Progress Toward Problem(s) and Goals/Treatment Plan: Milieu/structure/supportive therapy SW consultation for discharge plan and social issues Med management Medications reviewed and resumed Prozac 30 mg daily for depression and anxiety, increased 03/21/18 Sonata 5 mg at the nighttime Medical team will be involved Family involvement Follow up on labs Will monitor closely Pt was educated about risk/benefits and alternatives of medications, coping strategies (safety plan, suicide prevention), relapse prevention, importance of follow up with psychiatrist and therapist, stay away from drugs/alcohol/smoking Estimated Date of D/C: 03/26/18
[2018-03-23] MEDS: Tmp-Smz 800 mg-160 mg DS Tab PO SCH (18:08)
[2018-03-24] MEDS: Pantoprazole 40 mg EC Tab PO SCH (06:23)
[2018-03-24] MEDS: Insulin Reg-MEDIUM-Coverage SC SCH ×4 (07:56→22:06)
--- NOTE | 2018-03-24 08:48 | PCM.PYCHPN ---
Psychiatric Progress Note - Psychiatric Progress Note Patient seen today, length of contact: 30 minutes Problems Identified/Issues Discussed: I reviewed assessment and recent notes. Patient was interviewed at bedside. Grooming is adequate and he is oriented x3. Patient appears depressed, affect is constricted without much spontaneity. He doesn't smile or appear engaged during my questioning. Patient indicates that mood is improving a little and denies SI or AVH. Sleep was restless due to back discomfort. Patient denies any side effects or other pain/discomfort. Staff notes indicate that he is withdrawn and isolative on the unit despite much encouragement to participate with the milieu and attend groups. Diagnostic Results: Rule out major depressive disorder Rule out adjustment disorder with depressed mood Medication Change: Yes ( ) Medical Record Reviewed: Yes Mental Status Examination - Cognitive Function Orientation: Person, Place Memory: Intact Attention: Poor Concentration: Poor Association: WNL Fund of Knowledge: WNL - Mood Mood: Depressed - Affect Affect: Constricted, Flat - Speech Speech: Soft - Formal Thought Process Formal Thought Process: Hallucinations (denied today) - Suicidal Ideation Suicidal Ideation: No - Homicidal Ideation Homicidal Ideation: No Goal/Treatment Plan - Goal/Treatment Plan Need for Continued Stay: Remain at risks for inpatient hospitalization, Severe depression anxiety, Discharge may exacerbated symptoms, Severe functional impairment Progress Toward Problem(s) and Goals/Treatment Plan: * c/w current tx and plan * Vitals reviewed and noted below: Selected Entries 03/23/18 03/23/18 03/23/18 06:56 09:28 13:31 Temperature 97.3 F L Pulse Rate 51 L 60 64 Respiratory 20 Rate Blood Pressure 162/85 H 166/82 H 129/73 03/23/18 03/23/18 03/23/18 16:00 18:07 21:46 Temperature Pulse Rate 58 L 56 L Respiratory 17 Rate Blood Pressure 126/72 156/78 H * No new weekend lab results thus far Estimated Date of D/C: 03/26/18
[2018-03-24] MEDS: Bacitracin 500 Units/gm Oint Foilpak UD TOP SCH ×2 (08:50→17:10)
[2018-03-24] MEDS: Tmp-Smz 800 mg-160 mg DS Tab PO SCH ×2 (08:51→17:10)
[2018-03-24] MEDS: Magnesium Oxide 400 mg Tab UD PO SCH (08:52)
--- NOTE | 2018-03-24 10:33 | PN ---
DATE: 03/24/2018 SUBJECTIVE: The patient is in the Behavioral Care Unit. The patient is admitted with depression and frustration. The patient has history of cerebrovascular disease. He has had a stroke in the past. The patient has history of cirrhosis of the liver, diabetes mellitus, hypertension and dementia. The patient complaints of the foot with toenails, the patient has some irritation. The patient also has mild lower back pain, history of fall recently. PHYSICAL EXAMINATION: VITAL SIGNS: This morning, pulse is 60, blood pressure 130/76 and respirations are 18. HEENT: Head is normocephalic. No evidence of any injuries. HEART: Normal sinus rhythm. LUNGS: Trachea is central. Breath sounds are vesicular. No adventitious sounds. ABDOMEN: Soft. Liver and spleen is not palpable. CENTRAL NERVOUS SYSTEM: The patient has left-sided residual weakness from old stroke. MEDICATIONS: The patient's medications remains the same. The patient is on Bactrim for urinary tract infection. LABORATORY DATA: The patient's blood work; white count is 5000, hemoglobin is 13 and platelet count 99,000 low platelet count is due to cirrhosis of the liver. The patient will be seen by a Diving Board As[employer]er. We will request her consult. The patient is diabetic, he needs the evaluation of the foot. His overall condition seem to be improving. We will continue current management and followup. Shamir Velarde MD
[2018-03-25] MEDS: Pantoprazole 40 mg EC Tab PO SCH (06:42)
--- NOTE | 2018-03-25 08:15 | CP.PCM.PN ---
Subjective - Date & Time of Evaluation Date of Evaluation: 03/25/18 Time of Evaluation: 07:30 - Subjective Subjective: Patient is seen this morning. He is lying in bed in no acute distress. Objective - Vital Signs/Intake and Output Vital Signs (last 24 hours): Temp Pulse Resp BP Pulse Ox 97.7 F 55 L 18 134/75 98 03/25/18 07:00 03/25/18 07:00 03/25/18 07:00 03/25/18 07:00 03/22/18 05:45 - Medications Medications: Current Medications Acetaminophen (Tylenol 325mg Tab) 650 mg PO Q4H PRN PRN Reason: Pain, Mild (1-3) Last Admin: 03/24/18 12:51 Dose: 650 mg Al Hydrox/Mg Hydrox/Simethicone (Maalox Plus 30 Ml) 30 ml PO DAILY PRN PRN Reason: Upset Stomach Aspirin (Aspirin Chewable) 81 mg PO DAILY [facility] Last Admin: 03/24/18 08:49 Dose: 81 mg Atenolol (Tenormin) 25 mg PO DAILY [facility] Last Admin: 03/24/18 08:49 Dose: 25 mg Atorvastatin Calcium (Lipitor) 20 mg PO HS [facility] Last Admin: 03/24/18 22:12 Dose: 20 mg Bacitracin (Bacitracin) 1 ea TOP BID [facility] Last Admin: 03/24/18 17:10 Dose: 1 ea Donepezil HCl (Aricept) 5 mg PO HS [facility] Last Admin: 03/24/18 22:13 Dose: 5 mg Fluoxetine HCl (Prozac) 30 mg PO DAILY [facility] Last Admin: 03/24/18 08:51 Dose: 30 mg Folic Acid (Folic Acid) 1 mg PO DAILY [facility] Last Admin: 03/24/18 08:51 Dose: 1 mg Gabapentin (Neurontin) 300 mg PO Q12 [facility]; Protocol Last Admin: 03/25/18 06:42 Dose: 300 mg Hydralazine HCl (Apresoline) 10 mg PO QID [facility] Last Admin: 03/24/18 22:13 Dose: 10 mg Insulin Human Regular (Humulin R Med) 0 units SC ACHS [facility]; Protocol Last Admin: 03/24/18 22:06 Dose: Not Given Lorazepam (Ativan) 0.5 mg PO Q8H PRN; Protocol PRN Reason: Agitation Losartan Potassium (Cozaar) 25 mg PO DAILY [facility] Last Admin: 03/24/18 08:50 Dose: 25 mg Magnesium Hydroxide (Milk Of Magnesia) 30 ml PO DAILY PRN PRN Reason: Constipation Magnesium Oxide (Mag-Ox) 400 mg PO DAILY [facility] Last Admin: 03/24/18 08:52 Dose: 400 mg Pantoprazole Sodium (Protonix Ec Tab) 40 mg PO 0600 [facility] Last Admin: 03/25/18 06:42 Dose: 40 mg Tamsulosin HCl (Flomax) 0.4 mg PO DAILY [facility] Last Admin: 03/24/18 08:50 Dose: 0.4 mg Trimethoprim/Sulfamethoxazole (Bactrim Ds Tab) 1 tab PO BID [facility]; Protocol Last Admin: 03/24/18 17:10 Dose: 1 tab Ursodiol (Actigall) 300 mg PO DAILY [facility] Last Admin: 03/24/18 08:52 Dose: 300 mg Zaleplon (Sonata) 5 mg PO HS [facility] Last Admin: 03/24/18 22:14 Dose: 5 mg - Labs Labs: 03/18/18 15:30 03/18/18 15:30 - Constitutional Appears: No Acute Distress - Head Exam Head Exam: ATRAUMATIC, NORMOCEPHALIC - Respiratory Exam Respiratory Exam: Clear to Ausculation Bilateral, NORMAL BREATHING PATTERN - Cardiovascular Exam Cardiovascular Exam: +S1, +S2 - GI/Abdominal Exam GI & Abdominal Exam: Soft, Normal Bowel Sounds. absent: Tenderness - Extremities Exam Extremities Exam: Normal Inspection - Neurological Exam Neurological Exam: Alert, Awake Assessment and Plan - Assessment and Plan (Free Text) Assessment: Proteus Mirabilis urinary tract infection HTN H/O CVA with left sided weakness DMII Cirrhosis of the liver Plan: Urine culture is growing proteus mirabilis, sensitive to Bactrim. Will continue Bactrim to complete 5 days of treatment. Patient's blood pressure is improved. continue Hydralazine, Norvasc and Cozaar with holding parameters. Patient is on insulin coverage for diabetes. continue treatment for depression as per psychiatry.
[2018-03-25] MEDS: Insulin Reg-MEDIUM-Coverage SC SCH ×4 (08:24→23:11)
[2018-03-25] MEDS: Tmp-Smz 800 mg-160 mg DS Tab PO SCH ×2 (08:40→18:29)
[2018-03-25] MEDS: Magnesium Oxide 400 mg Tab UD PO SCH (08:40)
[2018-03-25] MEDS: Bacitracin 500 Units/gm Oint Foilpak UD TOP SCH ×2 (08:41→18:36)
--- NOTE | 2018-03-25 08:50 | PCM.PYCHPN ---
Psychiatric Progress Note - Psychiatric Progress Note Patient seen today, length of contact: 30 minutes Problems Identified/Issues Discussed: I reviewed recent notes. Patient was interviewed at bedside in the dayroom. Grooming is adequate and he is oriented x3. Patient appears depressed, affect is constricted without much spontaneity. He doesn't smile or appear interested in discussing his psychiatric symptoms though admits to continued depression. Mood is improving slowly and he continues to deny any AVH. Patient indicates that back pain is improving, he denies any side effects or other pain/discomfort. Staff notes indicate that he is withdrawn and isolative on the unit despite much encouragement to participate with the milieu and attend groups (though was able to participate in group for a short time on Monday). There have been no major behavioral problems however patient does not follow directions to use call resendiz when he needs to use bathroom. This is concerning because he is a major fall risk. Diagnostic Results: Rule out major depressive disorder Rule out adjustment disorder with depressed mood Medication Change: Yes ( ) Medical Record Reviewed: Yes Mental Status Examination - Cognitive Function Orientation: Person, Place Memory: Intact Attention: Poor Concentration: Poor Association: WNL Fund of Knowledge: WNL - Mood Mood: Depressed - Affect Affect: Constricted, Flat - Speech Speech: Soft - Formal Thought Process Formal Thought Process: Hallucinations (denied today) - Suicidal Ideation Suicidal Ideation: No - Homicidal Ideation Homicidal Ideation: No Goal/Treatment Plan - Goal/Treatment Plan Need for Continued Stay: Remain at risks for inpatient hospitalization, Severe depression anxiety, Discharge may exacerbated symptoms, Severe functional impairment Progress Toward Problem(s) and Goals/Treatment Plan: * c/w current tx and plan * Appreciate f/u by Dr. 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 by registered nurse cardiac telemetry * Vitals reviewed and noted below: Selected Entries 03/24/18 03/24/18 03/24/18 08:00 12:51 17:14 Temperature 97.9 F 97.2 F L Pulse Rate 60 53 L 53 L Respiratory 18 Rate Blood Pressure 130/76 113/61 99/57 L 03/24/18 22:13 Temperature Pulse Rate 62 Respiratory Rate Blood Pressure 111/61 * No new weekend lab results thus far Estimated Date of D/C: 03/26/18
--- NOTE | 2018-03-25 11:54 | CP.PCM.CON ---
<Dilia Carranza - Last Filed: 03/26/18 07:56> History of Present Illness - History of Present Illness History of Present Illness: Podiatry Progress Note: Dr. Choe/Sandip 77M patient, with PMHx of HTN and DM, seen and evaluated in psych for diabetic foot risk assessment. 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 He denies any additional pedal complaints at this time. Denies nausea/vomiting/fever/shortness of breath/ chest pain. PMHx: HTN, DM ALL: NKDA Review of Systems - Constitutional Constitutional: As Per HPI Past Patient History - Infectious Disease Hx of Infectious Diseases: None - Past Social History Smoking Status: Former Smoker - CARDIAC Hx Hypertension: Yes - PULMONARY Hx Respiratory Disorders: No Other/Comment: quits smoking 10 yrs ago - NEUROLOGICAL HX Cerebrovascular Accident: Yes - HEENT Hx HEENT Problems: Yes Other/Comment: wearing eyeglasses - RENAL Hx Renal Failure: Yes - ENDOCRINE/METABOLIC Hx Diabetes Mellitus Type 2: Yes - HEMATOLOGICAL/ONCOLOGICAL Hx Blood Disorders: No - INTEGUMENTARY Hx Dermatological Problems: No - MUSCULOSKELETAL/RHEUMATOLOGICAL Hx Musculoskeletal Disorders: Yes Hx Falls: Yes Hx Unsteady Gait: Yes - GASTROINTESTINAL Hx Gastrointestinal Disorders: Yes (LIVER CIRRHOSIS) HX Swallowing Problems: Yes (H/O OF CVA) Other/Comment: PEG IN AND OUT - GENITOURINARY/GYNECOLOGICAL Hx Genitourinary Disorders: No - PSYCHIATRIC Hx Anxiety: Yes Hx Depression: Yes Hx Substance Use: No - SURGICAL HISTORY Other/Comment: unable to get history - ANESTHESIA Hx Anesthesia Reactions: No Hx Malignant Hyperthermia: No Has any member of the family had a problem w/ anesthesia?: No Meds Allergies/Adverse Reactions: Allergies Allergy/AdvReac Type Severity Reaction Status Date / Time No Known Allergies Allergy Verified 03/18/18 23:17 - Medications Medications: Current Medications Acetaminophen (Tylenol 325mg Tab) 650 mg PO Q4H PRN PRN Reason: Pain, Mild (1-3) Last Admin: 03/24/18 12:51 Dose: 650 mg Al Hydrox/Mg Hydrox/Simethicone (Maalox Plus 30 Ml) 30 ml PO DAILY PRN PRN Reason: Upset Stomach Aspirin (Aspirin Chewable) 81 mg PO DAILY [facility] Last Admin: 03/25/18 08:41 Dose: 81 mg Atenolol (Tenormin) 25 mg PO DAILY [facility] Last Admin: 03/25/18 08:41 Dose: 25 mg Atorvastatin Calcium (Lipitor) 20 mg PO HS [facility] Last Admin: 03/24/18 22:12 Dose: 20 mg Bacitracin (Bacitracin) 1 ea TOP BID [facility] Last Admin: 03/25/18 08:41 Dose: 1 ea Donepezil HCl (Aricept) 5 mg PO HS [facility] Last Admin: 03/24/18 22:13 Dose: 5 mg Fluoxetine HCl (Prozac) 30 mg PO DAILY [facility] Last Admin: 03/25/18 08:41 Dose: 30 mg Folic Acid (Folic Acid) 1 mg PO DAILY [facility] Last Admin: 03/25/18 08:41 Dose: 1 mg Gabapentin (Neurontin) 300 mg PO Q12 [facility]; Protocol Last Admin: 03/25/18 06:42 Dose: 300 mg Hydralazine HCl (Apresoline) 10 mg PO QID [facility] Last Admin: 03/25/18 08:40 Dose: 10 mg Insulin Human Regular (Humulin R Med) 0 units SC [facility]; Protocol Last Admin: 03/25/18 08:24 Dose: Not Given Lorazepam (Ativan) 0.5 mg PO Q8H PRN; Protocol PRN Reason: Agitation Losartan Potassium (Cozaar) 25 mg PO DAILY [facility] Last Admin: 03/25/18 08:41 Dose: 25 mg Magnesium Hydroxide (Milk Of Magnesia) 30 ml PO DAILY PRN PRN Reason: Constipation Magnesium Oxide (Mag-Ox) 400 mg PO DAILY [facility] Last Admin: 03/25/18 08:40 Dose: 400 mg Pantoprazole Sodium (Protonix Ec Tab) 40 mg PO 0600 [facility] Last Admin: 03/25/18 06:42 Dose: 40 mg Tamsulosin HCl (Flomax) 0.4 mg PO DAILY [facility] Last Admin: 03/25/18 08:41 Dose: 0.4 mg Trimethoprim/Sulfamethoxazole (Bactrim Ds Tab) 1 tab PO BID [facility]; Protocol Last Admin: 03/25/18 08:40 Dose: 1 tab Ursodiol (Actigall) 300 mg PO DAILY [facility] Last Admin: 03/25/18 08:40 Dose: 300 mg Zaleplon (Sonata) 5 mg PO HS [facility] Last Admin: 03/24/18 22:14 Dose: 5 mg Physical Exam - Constitutional Appears: Non-toxic, No Acute Distress - Head Exam Head Exam: ATRAUMATIC, NORMOCEPHALIC - Extremities Exam Additional comments: B/L lower extremity focused exam: Vascular: DP/PT 2/4, CFT < 3 seconds, TG warm to warm, no edema appreciated to b/l extremities Ortho: Tenderness to palpation of HAV deformities b/l, tenderness to palpation of elongated nails, HAV deformity b/l Neuro: Gross sensation intact, protective sensation diminished Derm: No open lesions, no erythema, no clinical signs of infection. Elongated/dystrophic nails x10. - Neurological Exam Neurological exam: Alert - Psychiatric Exam Psychiatric exam: Normal Affect, Normal Mood - Skin Skin Exam: Warm Results - Vital Signs Recent Vital Signs: Last Vital Signs Temp 97.7 F 03/25/18 07:00 Pulse 55 L 03/25/18 08:40 Resp 18 03/25/18 07:00 BP 134/75 03/25/18 08:40 Pulse Ox 98 03/22/18 05:45 - Labs Result Diagrams: 03/18/18 15:30 03/18/18 15:30 Labs: Laboratory Results - last 24 hr 03/24/18 03/24/18 03/24/18 07:36 12:06 16:02 POC Glucose (mg/dL) 92 140 H 122 H 03/24/18 03/25/18 21:50 08:16 POC Glucose (mg/dL) 112 H 104 Assessment & Plan - Assessment and Plan (Free Text) Assessment: 77M patient, with PMHx of HTN and DM, seen and evaluated in psych for diabetic foot risk assessment Plan: Patient seen and evaluated Discussed in detail with Dr. Sandip MURILLO, WBC 6.8 Educated patient on importance of checking feet daily for any signs of infection Educated patient on importance of proper shoe gear Patient expressed verbal understanding Thank you for the consult - Date & Time Date: 03/25/18 Time: 11:54 <Gamaliel Oropeza - Last Filed: 03/26/18 09:03> Meds - Medications Medications: Current Medications Acetaminophen (Tylenol 325mg Tab) 650 mg PO Q4H PRN PRN Reason: Pain, Mild (1-3) Last Admin: 03/24/18 12:51 Dose: 650 mg Al Hydrox/Mg Hydrox/Simethicone (Maalox Plus 30 Ml) 30 ml PO DAILY PRN PRN Reason: Upset Stomach Aspirin (Aspirin Chewable) 81 mg PO DAILY [facility] Last Admin: 03/25/18 08:41 Dose: 81 mg Atenolol (Tenormin) 25 mg PO DAILY [facility] Last Admin: 03/25/18 08:41 Dose: 25 mg Atorvastatin Calcium (Lipitor) 20 mg PO HS [facility] Last Admin: 03/25/18 21:26 Dose: 20 mg Bacitracin (Bacitracin) 1 ea TOP BID [facility] Last Admin: 03/25/18 18:36 Dose: Not Given Donepezil HCl (Aricept) 5 mg PO HS [facility] Last Admin: 03/25/18 21:26 Dose: 5 mg Fluoxetine HCl (Prozac) 30 mg PO DAILY [facility] Last Admin: 03/25/18 08:41 Dose: 30 mg Folic Acid (Folic Acid) 1 mg PO DAILY [facility] Last Admin: 03/25/18 08:41 Dose: 1 mg Gabapentin (Neurontin) 300 mg PO Q12 [facility]; Protocol Last Admin: 03/26/18 06:26 Dose: 300 mg Hydralazine HCl (Apresoline) 10 mg PO QID [facility] Last Admin: 03/25/18 21:34 Dose: 10 mg Insulin Human Regular (Humulin R Med) 0 units SC [facility]; Protocol Last Admin: 03/26/18 08:32 Dose: Not Given Lorazepam (Ativan) 0.5 mg PO Q8H PRN; Protocol PRN Reason: Agitation Losartan Potassium (Cozaar) 25 mg PO DAILY [facility] Last Admin: 03/25/18 08:41 Dose: 25 mg Magnesium Hydroxide (Milk Of Magnesia) 30 ml PO DAILY PRN PRN Reason: Constipation Magnesium Oxide (Mag-Ox) 400 mg PO DAILY [facility] Last Admin: 03/25/18 08:40 Dose: 400 mg Pantoprazole Sodium (Protonix Ec Tab) 40 mg PO 0600 [facility] Last Admin: 03/26/18 06:26 Dose: 40 mg Tamsulosin HCl (Flomax) 0.4 mg PO DAILY [facility] Last Admin: 03/25/18 08:41 Dose: 0.4 mg Trimethoprim/Sulfamethoxazole (Bactrim Ds Tab) 1 tab PO BID [facility]; Protocol Last Admin: 03/25/18 18:29 Dose: 1 tab Ursodiol (Actigall) 300 mg PO DAILY [facility] Last Admin: 03/25/18 08:40 Dose: 300 mg Zaleplon (Sonata) 5 mg PO HS [facility] Last Admin: 03/25/18 21:26 Dose: 5 mg Results - Vital Signs Recent Vital Signs: Last Vital Signs Temp 97.6 F 03/26/18 07:12 Pulse 54 L 03/26/18 07:12 Resp 18 03/26/18 07:12 BP 127/73 03/26/18 07:12 Pulse Ox 98 03/22/18 05:45 - Labs Result Diagrams: 03/26/18 07:48 03/26/18 07:48 Labs: Laboratory Results - last 24 hr 03/25/18 03/25/18 03/25/18 12:16 15:52 21:12 WBC RBC Hgb Hct MCV MCH MCHC RDW Plt Count MPV Neut % (Auto) Lymph % (Auto) [place] % (Auto) Eos % (Auto) Baso % (Auto) Lymph # (Auto) [place] # (Auto) Eos # (Auto) Baso # (Auto) Absolute Neuts (auto) Sodium Potassium Chloride Carbon Dioxide Anion Gap BUN Creatinine Est GFR ( Amer) Est GFR (Non-Af Amer) POC Glucose (mg/dL) 132 H 88 112 H Random Glucose Calcium Total Bilirubin AST ALT Alkaline Phosphatase Total Protein Albumin Globulin Albumin/Globulin Ratio 03/26/18 03/26/18 03/26/18 07:13 07:48 07:48 WBC 6.8 D RBC 4.87 Hgb 13.9 L Hct 41.4 L MCV 85.0 MCH 28.5 MCHC 33.6 RDW 13.2 Plt Count 132 MPV 11.3 H Neut % (Auto) 71.8 H Lymph % (Auto) 12.9 L [place] % (Auto) 10.3 H Eos % (Auto) 3.8 Baso % (Auto) 1.2 Lymph # (Auto) 0.9 L [place] # (Auto) 0.7 H Eos # (Auto) 0.3 Baso # (Auto) 0.08 Absolute Neuts (auto) 4.90 Sodium 137 Potassium 5.0 Chloride 106 Carbon Dioxide 23 Anion Gap 13 BUN 27 H Creatinine 1.2 Est GFR ( Amer) > 60 Est GFR (Non-Af Amer) 59 POC Glucose (mg/dL) 98 Random Glucose 107 Calcium 9.4 Total Bilirubin 0.7 AST 31 ALT 21 Alkaline Phosphatase 79 Total Protein 7.3 Albumin 4.2 Globulin 3.1 Albumin/Globulin Ratio 1.3 Attending/Attestation - Attestation I have personally seen and examined this patient.: Yes I have fully participated in the care of the patient.: Yes I have reviewed all pertinent clinical information: Yes
[2018-03-26] MEDS: Pantoprazole 40 mg EC Tab PO SCH (06:26)
[2018-03-26 07:53] LABS: BASO # 0.08 K/mm3 (0.0-2.0); BASO % 1.2 % (0.0-3.0); EOS # 0.3 (0.0-0.7); EOS % 3.8 % (1.5-5.0); HEMOGLOBIN 13.9 g/dL (14.0-18.0); LYMPH # 0.9 (1.2-3.4); LYMPH % 12.9 % (22.0-35.0); MEAN CORPUSCULAR HEMOGLOBIN 28.5 pg (25.0-35.0); MEAN CORPUSCULAR HGB CONC 33.6 g/dl (31.0-37.0); MEAN PLATELET VOLUME 11.3 fl (7.0-11.0); MONO # 0.7 (0.1-0.6); MONO % 10.3 % (1.0-6.0); RBC 4.87 10^6/uL (3.5-6.1); RED CELL DISTRIBUTION WIDTH 13.2 % (11.5-14.5); WHITE BLOOD COUNT 6.8 10^3/uL (4.5-11.0)
[2018-03-26 08:07] LABS: ALB/GLOB RATIO 1.3 (1.1-1.8); ALBUMIN 4.2 g/dL (3.0-4.8); ALT/SGPT 21 U/L (7-56); AST/SGOT 31 U/L (17-59); BLOOD UREA NITROGEN 27 mg/dL (7-21); CALCIUM 9.4 mg/dL (8.4-10.5); GFR NON-AFRICAN AMERICAN 59
[2018-03-26] MEDS: Insulin Reg-MEDIUM-Coverage SC SCH ×4 (08:32→21:35)
[2018-03-26] MEDS: Tmp-Smz 800 mg-160 mg DS Tab PO SCH ×2 (09:03→16:40)
[2018-03-26] MEDS: Magnesium Oxide 400 mg Tab UD PO SCH (09:04)
[2018-03-26] MEDS: Bacitracin 500 Units/gm Oint Foilpak UD TOP SCH ×2 (09:08→16:40)
--- NOTE | 2018-03-26 12:05 | PCM.BM ---
Treatment Plan Problems - Problems identified on initial assessmt INEFFECTIVE COPING Date Initiated: 03/18/18 Time Initiated: 21:00 Assessment reference: NA Status: Active Priority: 1 HOPELESSNESS AND HELPLESSNESS Date Initiated: 03/18/18 Time Initiated: 21:00 Assessment reference: NA Status: Active Priority: 2 SOCIAL ISOLATION Date Initiated: 03/18/18 Time Initiated: 21:00 Assessment reference: NA Status: Active Priority: 3 Treatment assets and liabiliti Patient Assests: adapts well, cooperative, insightful, motivated, resourceful, self-reliant, ADL independent, negotiates basic needs, cognitively intact Patient Liabilities: live alone, financial problems, medical problems, visual impairment - Milieu Protocol Maintain good personal hygiene: every other day Encourage regular showers, every shift Remind patient to perform daily oral care, every shift Assist patient to perform ADL's Maintain personal safety: every shift Educate patient to report safety concerns to staff, every shift Monitor environment for contraband/sharps Medication safety: Monitor for expected outcome, potential side effects: every shift, Assess barriers to learning: every shift, Assess readiness for medication education: every shift Milieu Narrative: * c/w current tx and plan * Appreciate f/u by Dr. 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 by welding operator * Vitals reviewed and noted below: Selected Entries 03/24/18 03/24/18 03/24/18 08:00 12:51 17:14 Temperature 97.9 F 97.2 F L Pulse Rate 60 53 L 53 L Respiratory 18 Rate Blood Pressure 130/76 113/61 99/57 L 03/24/18 22:13 Temperature Pulse Rate 62 Respiratory Rate Blood Pressure 111/61 * No new weekend lab results thus far Family Contact Family involvement: Family/SO is involved Family contact: Patient agrees to contact Family contact name: Braayn Ley(brother) [phone] Family contacted how many times per week?: 2 - Outside Agency [facility] Care involvment: Information-sharing Agency contact name: [facility] Discharge/Continuing Care - Education Needs Education Needs: Patient Medication, Patient Diagnosis/Disease Process, Patient Coping Skills, Patient Placement options, Patient Activities of Daily Living, Patient Uses of Medical Equipment, Patient Aftercare Safety Plan - Discharge Discharge Criteria: Tolerates medication w/o severe side effects, Free of Suicidal thoughts, Normal sleep pattern, Ability to care for self - Treatment Team Participation Patient/Family/SO Statement: * c/w current tx and plan * Appreciate f/u by Dr. 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
--- NOTE | 2018-03-26 14:18 | CP.PCM.PN ---
Subjective - Date & Time of Evaluation Date of Evaluation: 03/26/18 Time of Evaluation: 14:00 - Subjective Subjective: Patient is seen this afternoon in room 508 bed 1. He was resting. He awoke and complains of some back pain. Objective - Vital Signs/Intake and Output Vital Signs (last 24 hours): Temp Pulse Resp BP Pulse Ox 97.6 F 52 L 18 87/49 L 98 03/26/18 07:12 03/26/18 12:51 03/26/18 07:12 03/26/18 12:51 03/22/18 05:45 - Medications Medications: Current Medications Acetaminophen (Tylenol 325mg Tab) 650 mg PO Q4H PRN PRN Reason: Pain, Mild (1-3) Last Admin: 03/24/18 12:51 Dose: 650 mg Al Hydrox/Mg Hydrox/Simethicone (Maalox Plus 30 Ml) 30 ml PO DAILY PRN PRN Reason: Upset Stomach Aspirin (Aspirin Chewable) 81 mg PO DAILY [facility] Last Admin: 03/26/18 09:08 Dose: 81 mg Atenolol (Tenormin) 25 mg PO DAILY [facility] Last Admin: 03/26/18 09:06 Dose: 25 mg Atorvastatin Calcium (Lipitor) 20 mg PO HS [facility] Last Admin: 03/25/18 21:26 Dose: 20 mg Bacitracin (Bacitracin) 1 ea TOP BID [facility] Last Admin: 03/26/18 09:08 Dose: 1 ea Donepezil HCl (Aricept) 5 mg PO HS [facility] Last Admin: 03/25/18 21:26 Dose: 5 mg Fluoxetine HCl (Prozac) 40 mg PO DAILY [facility] Folic Acid (Folic Acid) 1 mg PO DAILY [facility] Last Admin: 03/26/18 09:03 Dose: 1 mg Gabapentin (Neurontin) 300 mg PO Q12 [facility]; Protocol Last Admin: 03/26/18 06:26 Dose: 300 mg Hydralazine HCl (Apresoline) 10 mg PO QID [facility] Last Admin: 03/26/18 12:51 Dose: Not Given Insulin Human Regular (Humulin R Med) 0 units SC [facility]; Protocol Last Admin: 03/26/18 12:34 Dose: Not Given Lorazepam (Ativan) 0.5 mg PO Q8H PRN; Protocol PRN Reason: Agitation Losartan Potassium (Cozaar) 25 mg PO DAILY [facility] Last Admin: 03/26/18 09:07 Dose: 25 mg Magnesium Hydroxide (Milk Of Magnesia) 30 ml PO DAILY PRN PRN Reason: Constipation Magnesium Oxide (Mag-Ox) 400 mg PO DAILY [facility] Last Admin: 03/26/18 09:04 Dose: 400 mg Pantoprazole Sodium (Protonix Ec Tab) 40 mg PO 0600 [facility] Last Admin: 03/26/18 06:26 Dose: 40 mg Tamsulosin HCl (Flomax) 0.4 mg PO DAILY [facility] Last Admin: 03/26/18 09:07 Dose: 0.4 mg Trimethoprim/Sulfamethoxazole (Bactrim Ds Tab) 1 tab PO BID [facility]; Protocol Last Admin: 03/26/18 09:03 Dose: 1 tab Ursodiol (Actigall) 300 mg PO DAILY [facility] Last Admin: 03/25/18 08:40 Dose: 300 mg Zaleplon (Sonata) 5 mg PO HS [facility] Last Admin: 03/25/18 21:26 Dose: 5 mg - Labs Labs: 03/26/18 07:48 03/26/18 07:48 - Constitutional Appears: No Acute Distress - Head Exam Head Exam: ATRAUMATIC, NORMOCEPHALIC - Respiratory Exam Respiratory Exam: Clear to Ausculation Bilateral, NORMAL BREATHING PATTERN - Cardiovascular Exam Cardiovascular Exam: REGULAR RHYTHM, +S1, +S2 - GI/Abdominal Exam GI & Abdominal Exam: Soft, Normal Bowel Sounds. absent: Tenderness - Neurological Exam Neurological Exam: Alert, Awake Assessment and Plan - Assessment and Plan (Free Text) Assessment: HTN DMII H/O CVA Plan: continue current medications continue behavioral treatment as per Dr. Medellin
[2018-03-27] MEDS: Pantoprazole 40 mg EC Tab PO SCH (05:57)
[2018-03-27] MEDS: Insulin Reg-MEDIUM-Coverage SC SCH ×4 (08:23→23:37)
[2018-03-27] MEDS: Tmp-Smz 800 mg-160 mg DS Tab PO SCH ×2 (09:46→17:47)
[2018-03-27] MEDS: Magnesium Oxide 400 mg Tab UD PO SCH (09:46)
[2018-03-27] MEDS: Bacitracin 500 Units/gm Oint Foilpak UD TOP SCH ×2 (09:47→17:34)
--- NOTE | 2018-03-27 10:49 | PN ---
DATE: 03/27/2018 SUBJECTIVE: The patient is in [facility] in [place], in the Behavioral Care Unit. He is sitting in the solarium. He is confused and sometimes hallucinates. He answers questions. He is oriented in person, place and time. PHYSICAL EXAMINATION: VITAL SIGNS: Blood pressure is 124/63 this morning, the patient's pulse is 54. He is running bradycardic rate. The patient has cardiac history, he had cerebrovascular history. HEENT: Head is normocephalic. No evidence of any injuries. NECK: The thyroid is not enlarged. Carotid pulses are present. LUNGS: Trachea is central. Breath sounds are vesicular. No adventitious sound. HEART: Normal sinus rhythm. No sinus bradycardia. ABDOMEN: Soft. Liver and spleen not palpable. CENTRAL NERVOUS SYSTEM: The patient has evidence of on previous stroke. MEDICATIONS: The patient is on Actigall, hydralazine based on elevation of systolic pressure. The patient has to cut off, on Aricept for dementia, aspirin, Ativan. The patient is on losartan 25 mg for blood pressure control. The patient is on Flomax 0.4 mg daily, insulin coverage for diabetes, folic acid 1 mg daily, Lipitor 20 mg daily. The patient still be placed on Holter monitor and we will carefully check the blood pressure every 4 hours and if systolic pressure is less than 130, we will hold his Apresoline, and if the heart rate is less than 60, we will hold Tenormin. The patient's condition is clinically stable. We will followup on the study here and 24 hour Holter monitor. Shamir Velarde MD
--- NOTE | 2018-03-27 11:46 | PCM.PYCHPN ---
Psychiatric Progress Note - Psychiatric Progress Note Patient seen today, length of contact: 30 minutes Patient Chief Complaint: "I slept little better, my mood is improving" Problems Identified/Issues Discussed: Risk/benefits and alternatives of medications discussed, suicide/ homicide prevention, past psychiatric h/o, current psychiatric symptoms, medical p roblems, risk/benefits and alternatives of medications, medications compliance, coping strategies, substance abuse h/o, relapse prevention, importance of follow up with psychiatrist and therapist, discharge plan. Medical Problems: Syncope Bradycardia H/O CVA HTN DMII Cirrhosis of the liver GERD BPH Diagnostic Results: 03/18/18 15:30 03/18/18 15:30 Lab Results 03/20/18 07:26: POC Glucose (mg/dL) 97 03/19/18 21:14: POC Glucose (mg/dL) 124 H 03/19/18 16:02: POC Glucose (mg/dL) 89 03/19/18 11:34: POC Glucose (mg/dL) 100 03/19/18 08:31: Magnesium 1.9 03/19/18 08:00: RPR Nonreactive 03/19/18 08:00: TSH 3rd Generation 0.99 03/19/18 08:00: Fasting Glucose 107, Triglycerides 193 H, Cholesterol 131, LDL Cholesterol Direct 64, HDL Cholesterol 39 03/19/18 07:32: POC Glucose (mg/dL) 86 03/18/18 21:13: POC Glucose (mg/dL) 151 H 03/18/18 16:00: Urine Opiates Screen Negative, Urine Methadone Screen Negative, Ur Barbiturates Screen Negative, Ur Phencyclidine Scrn Negative, Ur Amphetamines Screen Negative, U Benzodiazepines Scrn Negative, U Oth Cocaine Metabols Negative, U Cannabinoids Screen Negative 03/18/18 16:00: Urine Color Yellow, Urine Appearance Clear, Urine pH 7.0, Ur Specific [place] 1.025, Urine Protein 100 H, Urine Glucose (UA) Negative, Urine Ketones Negative, Urine Blood Trace-lysed H, Urine Nitrate Negative, Urine Bilirubin Negative, Urine Urobilinogen 0.2, Ur Leukocyte Esterase Negative, Urine RBC 2 - 5 H, Urine WBC 2 - 5, Ur Epithelial Cells 6 - 8 H 03/18/18 15:41: Ammonia 20 03/18/18 15:30: Alcohol, Quantitative < 10 03/18/18 15:30: Salicylates < 1 L, Acetaminophen < 10.0 L 03/18/18 15:30: Sodium 140, Potassium 4.0, Chloride 106, Carbon Dioxide 29, Anion Gap 9 L, BUN 17, Creatinine 1.0, Est GFR ( Amer) > 60, Est GFR (Non-Af Amer) > 60, Random Glucose 124 H, Calcium 8.7, Total Bilirubin 0.5, AST 33, ALT 16, Alkaline Phosphatase 97, Total Protein 6.7, Albumin 3.7, Globulin 3.0, Albumin/Globulin Ratio 1.3 03/18/18 15:30: WBC 5.2, RBC 4.58, Hgb 13.0 L D, Hct 39.2 L, MCV 85.6 D, MCH 28.4, MCHC 33.2, RDW 12.6, Plt Count 99 L, MPV 10.5, Neut % (Auto) 75.5 H, Lymph % (Auto) 13.2 L, [place] % (Auto) 6.6 H, Eos % (Auto) 3.9, Baso % (Auto) 0.8, Lymph # (Auto) 0.7 L, [place] # (Auto) 0.3, Eos # (Auto) 0.2, Baso # (Auto) 0.04, Absolute Neuts (auto) 3.91 Vital Signs Temp Pulse Resp BP Pulse Ox 03/20/18 09:47 55 L 176/88 H 03/20/18 07:00 97.6 F 55 L 20 176/88 H 03/20/18 06:59 55 L 176/88 H 03/19/18 21:41 55 L 177/87 H 03/19/18 18:17 56 L 178/92 H 03/19/18 16:00 56 L 178/92 H 03/19/18 13:30 53 L 167/82 H 03/19/18 12:00 52 L 18 175/85 H 03/19/18 07:29 66 199/99 H 03/19/18 07:28 66 199/99 H 03/19/18 07:12 97.7 F 62 20 198/99 H 03/18/18 22:00 20 03/18/18 21:38 61 182/88 H 03/18/18 20:18 98.1 F 60 16 178/68 H 98 03/18/18 19:48 98 F 58 L 14 183/70 H 98 03/18/18 18:40 62 191/70 H 03/18/18 18:16 62 18 191/70 H 98 03/18/18 16:11 193/84 H 03/18/18 15:43 98.1 F 64 18 208/87 H 98 Temp Pulse Resp BP Pulse Ox 97.5 F L 56 L 20 184/88 H 98 03/21/18 07:08 03/21/18 07:08 03/21/18 07:08 03/21/18 07:08 03/18/18 20:18 Temp Pulse Resp BP Pulse Ox 97.5 F L 55 L 20 176/88 H 98 03/22/18 07:12 03/22/18 07:12 03/22/18 07:12 03/22/18 07:12 03/22/18 05:45 Microbiology 03/21/18 17:15 Urine Culture - Preliminary Urine,Clean Catch Gram Negative Dmitriy DSM 5 Symptoms Update: Shortly, patient is 77yr old male with multiple medical issues including HTN, stroke, DM, denied history of being admitted to the psychiatric inpatient unit, denied history of suicidal attempts, patient had history of alcohol use disorder and inpatient rehabs, was sent by [place] psychiatrist for evaluation of depressive symptoms, possible suicidal ideation pt was making statements like "I want to end it all", in the emergency room patient presented to be depressed, hopeless, helpless, patient requires further evaluation and stabilization and possible medication management. Patient was seen and examined today at the treatment team room meeting, pt presented to be less depressed, more concerned about his medical issues, especially urinary frequency during the night time. Patient reported that she was sleep better if she would not need to wake up to use the bathroom, as per urine analysis result patient has gram-negative rods in the urine, antibiotics were started, tolerated well. as per report from RN no falls so far, patient had breakfast, brushes teeth, no agitation or aggression. Patient reported that his mood is "improving", patient denied thoughts of harming himself or others. 03/22/18 MMSE was 26, pt lost points on three step command, and was not able to recall third object in a few minutes. As per staff patient prefer to be alone, but started to attend groups. So far patient tolerates medications well, no side effects observed or reported, aims 0, no EPS. Impression: Rule out major depressive disorder Rule out adjustment disorder with depressed mood Medication Change: Yes (prozac increased) Medical Record Reviewed: Yes Consults ordered or reviewed: Medical consult appreciated, please see notes for more detailed information Mental Status Examination - Cognitive Function Orientation: Person, Place Memory: Intact Attention: Poor (some improvement) Concentration: Poor (some improvement) Association: WNL Fund of Knowledge: WNL - Mood Mood: Depressed ("I feel little better") - Affect Affect: Constricted, Flat - Speech Speech: Soft - Formal Thought Process Formal Thought Process: Hallucinations (denied today) - Suicidal Ideation Suicidal Ideation: No - Homicidal Ideation Homicidal Ideation: No Goal/Treatment Plan - Goal/Treatment Plan Need for Continued Stay: Remain at risks for inpatient hospitalization, Severe depression anxiety, Discharge may exacerbated symptoms, Severe functional impairment Progress Toward Problem(s) and Goals/Treatment Plan: Milieu/structure/supportive therapy SW consultation for discharge plan and social issues Med management Medications reviewed and resumed Prozac 40 mg daily for depression and anxiety, increased 03/21/18 Sonata 5 mg at the nighttime Medical team will be involved Family involvement Follow up on labs Will monitor closely Pt was educated about risk/benefits and alternatives of medications, coping strategies (safety plan, suicide prevention), relapse prevention, importance of follow up with psychiatrist and therapist, stay away from drugs/alcohol/smoking Estimated Date of D/C: 03/28/18
--- NOTE | 2018-03-27 13:04 | PCM.PYCHPN ---
Psychiatric Progress Note - Psychiatric Progress Note Patient seen today, length of contact: 30 minutes Patient Chief Complaint: "I am the same..." Problems Identified/Issues Discussed: Risk/benefits and alternatives of medications discussed, suicide/ homicide prevention, past psychiatric h/o, current psychiatric symptoms, medical problems, risk/benefits and alternatives of medications, medications compliance, coping strategies, substance abuse h/o, relapse prevention, importance of follow up with psychiatrist and therapist, discharge plan. Medical Problems: Syncope Bradycardia H/O CVA HTN DMII Cirrhosis of the liver GERD BPH Diagnostic Results: 03/18/18 15:30 03/18/18 15:30 Lab Results 03/20/18 07:26: POC Glucose (mg/dL) 97 03/19/18 21:14: POC Glucose (mg/dL) 124 H 03/19/18 16:02: POC Glucose (mg/dL) 89 03/19/18 11:34: POC Glucose (mg/dL) 100 03/19/18 08:31: Magnesium 1.9 03/19/18 08:00: RPR Nonreactive 03/19/18 08:00: TSH 3rd Generation 0.99 03/19/18 08:00: Fasting Glucose 107, Triglycerides 193 H, Cholesterol 131, LDL C holesterol Direct 64, HDL Cholesterol 39 03/19/18 07:32: POC Glucose (mg/dL) 86 03/18/18 21:13: POC Glucose (mg/dL) 151 H 03/18/18 16:00: Urine Opiates Screen Negative, Urine Methadone Screen Negative, Ur Barbiturates Screen Negative, Ur Phencyclidine Scrn Negative, Ur Amphetamines Screen Negative, U Benzodiazepines Scrn Negative, U Oth Cocaine Metabols Negative, U Cannabinoids Screen Negative 03/18/18 16:00: Urine Color Yellow, Urine Appearance Clear, Urine pH 7.0, Ur Specific [place] 1.025, Urine Protein 100 H, Urine Glucose (UA) Negative, Urine Ketones Negative, Urine Blood Trace-lysed H, Urine Nitrate Negative, Urine Bilirubin Negative, Urine Urobilinogen 0.2, Ur Leukocyte Esterase Negative, Urine RBC 2 - 5 H, Urine WBC 2 - 5, Ur Epithelial Cells 6 - 8 H 03/18/18 15:41: Ammonia 20 03/18/18 15:30: Alcohol, Quantitative < 10 03/18/18 15:30: Salicylates < 1 L, Acetaminophen < 10.0 L 03/18/18 15:30: Sodium 140, Potassium 4.0, Chloride 106, Carbon Dioxide 29, Anion Gap 9 L, BUN 17, Creatinine 1.0, Est GFR ( Amer) > 60, Est GFR (Non-Af Amer) > 60, Random Glucose 124 H, Calcium 8.7, Total Bilirubin 0.5, AST 33, ALT 16, Alkaline Phosphatase 97, Total Protein 6.7, Albumin 3.7, Globulin 3.0, Albumin/Globulin Ratio 1.3 03/18/18 15:30: WBC 5.2, RBC 4.58, Hgb 13.0 L D, Hct 39.2 L, MCV 85.6 D, MCH 28.4, MCHC 33.2, RDW 12.6, Plt Count 99 L, MPV 10.5, Neut % (Auto) 75.5 H, Lymph % (Auto) 13.2 L, [place] % (Auto) 6.6 H, Eos % (Auto) 3.9, Baso % (Auto) 0.8, Lymph # (Auto) 0.7 L, [place] # (Auto) 0.3, Eos # (Auto) 0.2, Baso # (Auto) 0.04, Absolute Neuts (auto) 3.91 Vital Signs Temp Pulse Resp BP Pulse Ox 03/20/18 09:47 55 L 176/88 H 03/20/18 07:00 97.6 F 55 L 20 176/88 H 03/20/18 06:59 55 L 176/88 H 03/19/18 21:41 55 L 177/87 H 03/19/18 18:17 56 L 178/92 H 03/19/18 16:00 56 L 178/92 H 03/19/18 13:30 53 L 167/82 H 03/19/18 12:00 52 L 18 175/85 H 03/19/18 07:29 66 199/99 H 03/19/18 07:28 66 199/99 H 03/19/18 07:12 97.7 F 62 20 198/99 H 03/18/18 22:00 20 03/18/18 21:38 61 182/88 H 03/18/18 20:18 98.1 F 60 16 178/68 H 98 03/18/18 19:48 98 F 58 L 14 183/70 H 98 03/18/18 18:40 62 191/70 H 03/18/18 18:16 62 18 191/70 H 98 03/18/18 16:11 193/84 H 03/18/18 15:43 98.1 F 64 18 208/87 H 98 Temp Pulse Resp BP Pulse Ox 97.5 F L 56 L 20 184/88 H 98 03/21/18 07:08 03/21/18 07:08 03/21/18 07:08 03/21/18 07:08 03/18/18 20:18 Temp Pulse Resp BP Pulse Ox 97.5 F L 55 L 20 176/88 H 98 03/22/18 07:12 03/22/18 07:12 03/22/18 07:12 03/22/18 07:12 03/22/18 05:45 Microbiology 03/21/18 17:15 Urine Culture - Preliminary Urine,Clean Catch Gram Negative Dmitriy DSM 5 Symptoms Update: Shortly, patient is 77yr old male with multiple medical issues including HTN, stroke, DM, denied history of being admitted to the psychiatric inpatient unit, denied history of suicidal attempts, patient had history of alcohol use disorder and inpatient rehabs, was sent by [place] psychiatrist for evaluation of depressive symptoms, possible suicidal ideation pt was making statements like "I want to end it all", in the emergency room patient presented to be depressed, hopeless, helpless, patient requires further evaluation and stabilization and possible medication management. Patient was seen and examined today at the dining area, patient presented to be mildly irritable, pt presented to be less depressed, more concerned about his medical issues, especially urinary frequency during the night time, pt is on antibiotics for UTI. as per report from RN no falls so far, patient had breakfast, brushes teeth, no agitation or aggression. Patient reported that his mood is "improving", patient denied thoughts of harming himself or others. 03/22/18 MMSE was 26, pt lost points on three step command, and was not able to recall third object in a few minutes. As per staff patient prefer to be alone, has frequent naps, but started to attend groups. So far patient tolerates medications well, no side effects observed or reported, aims 0, no EPS. Impression: Rule out major depressive disorder Rule out adjustment disorder with depressed mood Medication Change: Yes (prozac increased 03/26/18) Medical Record Reviewed: Yes Consults ordered or reviewed: Medical consult appreciated, please see notes for more detailed information Mental Status Examination - Cognitive Function Orientation: Person, Place Memory: Intact Attention: Poor (some improvement) Concentration: Poor (some improvement) Association: WNL Fund of Knowledge: WNL - Mood Mood: Depressed ("I feel little better") - Affect Affect: Constricted, Flat - Speech Speech: Soft - Formal Thought Process Formal Thought Process: No Impairment - Suicidal Ideation Suicidal Ideation: No - Homicidal Ideation Homicidal Ideation: No Goal/Treatment Plan - Goal/Treatment Plan Need for Continued Stay: Remain at risks for inpatient hospitalization, Severe depression anxiety, Discharge may exacerbated symptoms, Severe functional impairment Progress Toward Problem(s) and Goals/Treatment Plan: Milieu/structure/supportive therapy SW consultation for discharge plan and social issues Med management Medications reviewed and resumed Prozac 40 mg daily for depression and anxiety, increased 03/21/18 Sonata 5 mg at the nighttime Medical team will be involved, pt is on antibiotics Family involvement Follow up on labs Will monitor closely Pt was educated about risk/benefits and alternatives of medications, coping strategies (safety plan, suicide prevention), relapse prevention, importance of follow up with psychiatrist and therapist, stay away from drugs/alcohol/smoking Estimated Date of D/C: 03/28/18
--- NOTE | 2018-03-27 15:37 | PCM.BM ---
Treatment Plan Problems - Problems identified on initial assessmt INEFFECTIVE COPING Date Initiated: 03/18/18 (03/26/18 REMAIN ISOLATIVE AND WITHDRAWN) Time Initiated: 21:00 Assessment reference: NA Status: Active Priority: 1 HOPELESSNESS AND HELPLESSNESS Date Initiated: 03/18/18 (03/26/18 REMAIN WITH NEGATIVE BEHAVIOR) Time Initiated: 21:00 Assessment reference: NA Status: Active Priority: 2 SOCIAL ISOLATION Date Initiated: 03/18/18 (03/26/18 UNMOTIVATED WITH ENCOURAGEMENT TO ATTEND GROUPS.) Time Initiated: 21:00 Assessment reference: NA Status: Active Priority: 3 Treatment assets and liabiliti Patient Assests: adapts well, cooperative, insightful, motivated, resourceful, self-reliant, ADL independent, negotiates basic needs, cognitively intact Patient Liabilities: live alone, financial problems, medical problems, visual impairment - Milieu Protocol Maintain good personal hygiene: every other day Encourage regular showers, every shift Remind patient to perform daily oral care, every shift Assist patient to perform ADL's Maintain personal safety: every shift Educate patient to report safety concerns to staff, every shift Monitor environment for contraband/sharps Medication safety: Monitor for expected outcome, potential side effects: every shift, Assess barriers to learning: every shift, Assess readiness for medication education: every shift Milieu Narrative: Milieu/structure/supportive therapy SW consultation for discharge plan and social issues Med management Medications reviewed and resumed Prozac 40 mg daily for depression and anxiety, increased 03/21/18 Sonata 5 mg at the nighttime Medical team will be involved, pt is on antibiotics Family involvement Follow up on labs Will monitor closely Pt was educated about risk/benefits and alternatives of medications, coping strategies (safety plan, suicide prevention), relapse prevention, importance of follow up with psychiatrist and therapist, stay away from drugs/alcohol/smoking Family Contact Family involvement: Family/SO is involved Family contact: Patient agrees to contact Family contact name: Brayan Ley(brother) [phone] Family contacted how many times per week?: 2 - Outside Agency [facility] involvment: Information-sharing Agency contact name: [facility] Discharge/Continuing Care - Education Needs Education Needs: Patient Medication, Patient Diagnosis/Disease Process, Patient Coping Skills, Patient Placement options, Patient Activities of Daily Living, Patient Uses of Medical Equipment, Patient Aftercare Safety Plan - Discharge Discharge Criteria: Tolerates medication w/o severe side effects, Free of Suicidal thoughts, Normal sleep pattern, Ability to care for self - Treatment Team Participation Patient/Family/SO Statement: Milieu/structure/supportive therapy SW consultation for discharge plan and social issues Med management Medications reviewed and resumed Prozac 40 mg daily for depression and anxiety, increased 03/21/18 Sonata 5 mg at the nighttime Medical team will be involved, pt is on antibiotics Family involvement Follow up on labs Will monitor closely Pt was educated about risk/benefits and alternatives of medications, coping strategies (safety plan, suicide prevention), relapse prevention, importance of follow up with psychiatrist and therapist, stay away from drugs/alcohol/smoking Treatment Plan Review - Problem INEFFECTIVE COPING Time Initiated: 21:00 HOPELESSNESS AND HELPLESSNESS Time Initiated: 21:00 SOCIAL ISOLATION Time Initiated: 21:00
--- NOTE | 2018-03-27 22:20 | CARD ---
APPROVED REPORT Date of service: 03/27/2018 EKG Measurement Heart [id number] <Conclusion> Sinus bradycardia Otherwise normal ECG
--- NOTE | 2018-03-27 22:43 | CARD ---
APPROVED REPORT Date of service: 03/27/2018 EKG Measurement Heart [id number] <Conclusion> Sinus bradycardia Otherwise normal ECG
[2018-03-28] MEDS: Pantoprazole 40 mg EC Tab PO SCH (06:29)
[2018-03-28 06:59] VITALS: BP 114/59; PULSE 57
[2018-03-28] MEDS: Magnesium Oxide 400 mg Tab UD PO SCH (08:11)
[2018-03-28] MEDS: Tmp-Smz 800 mg-160 mg DS Tab PO SCH (08:11)
[2018-03-28] MEDS: Bacitracin 500 Units/gm Oint Foilpak UD TOP SCH (08:12)
[2018-03-28] MEDS: Insulin Reg-MEDIUM-Coverage SC SCH ×2 (08:13→13:47)
--- NOTE | 2018-03-28 09:12 | PN ---
DATE: 03/28/2018 SUBJECTIVE: The patient is 77-year-old male. He is in the Behavioral Care Unit. He was admitted with frustration and depression. The patient has elevated blood pressure. He was in the long term in [place] . The patient is originally from [place]. However, the patient is seen this morning, sitting in the solarium. He is awake, but sometimes confused, not oriented entirely. The patient has past history of cerebrovascular disease, cirrhosis of the liver and diabetes mellitus. The patient has history of hypertension, benign prostatic hyperplasia, peripheral neuropathy and depression. PHYSICAL EXAMINATION: VITAL SIGNS: This morning, the pulse is 57, blood pressure 114/59, respirations are 20 and O2 sat is 99% on room air. The patient's temperature is 97.0. HEENT: Head is normocephalic. NECK: Thyroid is not enlarged. JVP is flat. Carotid pulses are present. LUNGS: Trachea is central. Breath sounds are vesicular. No adventitious sounds. HEART: Normal sinus rhythm. S1 and S2, present. Sinus bradycardia noted. CENTRAL NERVOUS EXAMINATION: The patient's cranial nerves intact. Motor sensory function examination shows evidence of weakness of the left side, arm and leg, secondary to the previous stroke that the patient had. MEDICATIONS: The patient has been treated with Actigall 300 mg daily for cholelithiasis. The patient is on Apresoline 10 mg q.i.d. p.r.n. for elevated blood pressure. If the systolic pressure of 130, the patient will be treated with Apresoline. The patient is on Aricept 5 mg daily. The patient is on aspirin 81 mg daily, Ativan for agitation. The patient is on Bactrim for urinary tract infection, losartan 25 mg daily, Flomax 0.4 mg daily, folic acid 1 mg daily and insulin coverage for diabetes. The patient is on Lipitor 20 mg daily, magnesium oxide 400 mg once a day and gabapentin 300 mg every 12 hours, pantoprazole 40 mg daily, Prozac 40 mg daily, Sonata 5 mg at bedtime, atenolol 12.5 mg p.o. daily. If the patient's heart rate is below 60, atenolol is not given and it should be cut off. LABORATORY DATA: The patient's blood work was recently examined and hemoglobin is 13.9. The patient's chemistry, blood sugar is 115. ASSESSMENT AND PLAN: The patient is improving slowly. We will continue current management and followup. The patient's evaluation of the electrocardiogram shows sinus rhythm, left axis deviation, heart rate is 60 on the EKG. The patient does not show any other rhythm abnormalities of QT elevation. We will keep an eye on the heart rate and continue clinical management of hypertension and diabetes. Shamir Velarde MD
[2018-03-28 09:22] VITALS: RESP 16; TEMP 97.8
--- NOTE | 2018-03-28 14:35 | PCM.PYCHDC ---
Mental Status Examination - Mental Status Examination Orientation: Person, Place, Situation, Time Memory: Impaired (Patient has either normal aging or early stage of dementia) Mood: Neutral Affect: Constricted (But more reactive and mood congruent) Speech: Appropriate Attention: Poor (Baseline but with much improvement) Concentration: Poor (Baseline, but with much improvement) Association: WNL Fund of Knowledge: WNL Formal Thought Process: No Impairment Description of patient's judgement and insight: Pt has improved insight into mental and medical illness, pt was compliant with medications and unit rules and regulations, pt was going to groups, was calm, cooperative, socially appropriate, no behavioral incidents, no agitation, no aggression. Psychotic Thoughts and Behaviors: Pt denied v/a/t hallucinations, denied paranoid ideations, pt does not appear to be psychotic, and thought process is goal directed. Suicidal Ideation: No Current Homicidal Ideation?: No Plan: pt adamantly denied thoughts of harming self or others denied intent or plan. Discharge Summary - Discharge Note Reason for Hospitalization: [facility] was [facility] from [facility] for evaluation and stabilization of depressive symptoms and possible suicidal ideation. Please see admission note for more detailed information. Psychiatric History (includes Medical, Family, Personal Hx): See HPI Laboratory Data: Abnormal Lab Results 03/27/18 03/27/18 03/27/18 11:18 16:06 21:00 POC Glucose (mg/dL) 180 H 145 H 115 H 03/28/18 03/28/18 07:29 11:24 POC Glucose (mg/dL) 123 H 136 H Consultations:: List each consultation separately and include: 1. Reason for request. 2. Findings. 3. Follow-up Consultations: Medical consult appreciated, please see notes for more detailed information Patient was found to have urinary tract infection, complete his course of antibiotics. Summary of Hospital Course include:: 1. Description of specific treatment plan utilized for patients during their course of treatmen. 2. Summarize the time- course for resolution of acute symptoms and/or regressed behaviors. 3. Describe issues identified and worked on during hospitalization. 4. Describe medication utilized. 5. Describe medical problems identified and treated. 6. Reassessment of suicide risk Summary of Hospital Course: Shortly, patient is 77yr old male with multiple medical issues including HTN, stroke, DM, denied history of being admitted to the psychiatric inpatient unit, denied history of suicidal attempts, patient had history of alcohol use disorder and inpatient rehabs, was sent by [place] psychiatrist for evaluation of depressive symptoms, possible suicidal ideation pt was making statements like "I want to end it all", in the emergency room patient presented to be depressed, hopeless, helpless, patient requires further evaluation and stabilization and possible m edication management. Please see admission note for more detailed admission. Over the course of this hospitalization patient was stabilized on the following medications: Prozac was slowly titrated up to 40 mg a day for depression and anxiety Neurontin was continued 300 mg twice a day Sonata was started for insomnia 5 mg Patient was continued on Aricept Patient tolerated medications well, no side effects observed or reported, aims 0, no EPS. Patient was seen by medical team, medications were continued and resumed, please see for more detailed information.'s note patient completed course of Bactrim. Patient reported that he was depressed because at the [place] on his floor nobody can communicate in [place], pt said that people are speaking either in [place], [place]ian, SW contacted [place], as per report pt will be taken for daily activities with [place] speaking consumers, pt was glad to hear that. Over the course of this hospitalization pt was attending groups, pt also had medication management, had therapeutic milieu. Overall pt improved, pt's affect became brighter, less depressed, has realistic future oriented plans, pt also does not appear to be psychotic, or anxious, pt was socially appropriate, no behavioral issues, pts insight improved as well and soon pt deemed to be ready for discharge. At the time of the discharge patient pose no imminent danger to self or others, will be following up with psychiatrist in [place], was advised to be f/u within 72 hrs of discharge, it is a [place] responsibility to provide pt with proper follow up appointment with psychiatrist, PMD, urologist and all necessary specialists. In case patient will need to obtain results of studies pending at discharge, patient was provided with contact information of Psychiatric Inpatient unit [phone] as well as Medical Record Department [phone], as well as [facility] team [phone]. Patient denied smoking, denied drinking alcohol, denies substance abuse Patient was not provided with prescriptions, medication list please see on medication reconciliation form Pt was educated about safety plan in case of worsening of symptoms or in case of suicidal or homicidal ideation call 911 or go to the nearest ER, also was educated to take meds as prescribed and stay away from drugs, pt verbalized understanding. 03/18/18 15:30 03/18/18 15:30 Lab Results 03/19/18 08:31: Magnesium 1.9 03/19/18 08:00: TSH 3rd Generation 0.99 03/19/18 08:00: Fasting Glucose 107, Triglycerides 193 H, Cholesterol 131, LDL Cholesterol Direct 64, HDL Cholesterol 39 03/19/18 07:32: POC Glucose (mg/dL) 86 03/18/18 21:13: POC Glucose (mg/dL) 151 H 03/18/18 16:00: Urine Opiates Screen Negative, Urine Methadone Screen Negative, Ur Barbiturates Screen Negative, Ur Phencyclidine Scrn Negative, Ur Amphetamines Screen Negative, U Benzodiazepines Scrn Negative, U Oth Cocaine Metabols Negative, U Cannabinoids Screen Negative 03/18/18 16:00: Urine Color Yellow, Urine Appearance Clear, Urine pH 7.0, Ur Specific [place] 1.025, Urine Protein 100 H, Urine Glucose (UA) Negative, Urine Ketones Negative, Urine Blood Trace-lysed H, Urine Nitrate Negative, Urine Bilirubin Negative, Urine Urobilinogen 0.2, Ur Leukocyte Esterase Negative, Urine RBC 2 - 5 H, Urine WBC 2 - 5, Ur Epithelial Cells 6 - 8 H 03/18/18 15:41: Ammonia 20 03/18/18 15:30: Alcohol, Quantitative < 10 03/18/18 15:30: Salicylates < 1 L, Acetaminophen < 10.0 L 03/18/18 15:30: Sodium 140, Potassium 4.0, Chloride 106, Carbon Dioxide 29, Anion Gap 9 L, BUN 17, Creatinine 1.0, Est GFR ( Amer) > 60, Est GFR (Non-Af Amer) > 60, Random Glucose 124 H, Calcium 8.7, Total Bilirubin 0.5, AST 33, ALT 16, Alkaline Phosphatase 97, Total Protein 6.7, Albumin 3.7, Globulin 3.0, Albumin/Globulin Ratio 1.3 03/18/18 15:30: WBC 5.2, RBC 4.58, Hgb 13.0 L D, Hct 39.2 L, MCV 85.6 D, MCH 28.4, MCHC 33.2, RDW 12.6, Plt Count 99 L, MPV 10.5, Neut % (Auto) 75.5 H, Lymph % (Auto) 13.2 L, [place] % (Auto) 6.6 H, Eos % (Auto) 3.9, Baso % (Auto) 0.8, Lymph # (Auto) 0.7 L, [place] # (Auto) 0.3, Eos # (Auto) 0.2, Baso # (Auto) 0.04, Absolute Neuts (auto) 3.91 03/18/18 15:30 03/18/18 15:30 Lab Results 03/19/18 08:31: Magnesium 1.9 03/19/18 08:00: TSH 3rd Generation 0.99 03/19/18 08:00: Fasting Glucose 107, Triglycerides 193 H, Cholesterol 131, LDL Cholesterol Direct 64, HDL Cholesterol 39 03/19/18 07:32: POC Glucose (mg/dL) 86 03/18/18 21:13: POC Glucose (mg/dL) 151 H 03/18/18 16:00: Urine Opiates Screen Negative, Urine Methadone Screen Negative, Ur Barbiturates Screen Negative, Ur Phencyclidine Scrn Negative, Ur Amphetamines Screen Negative, U Benzodiazepines Scrn Negative, U Oth Cocaine Metabols Negativ e, U Cannabinoids Screen Negative 03/18/18 16:00: Urine Color Yellow, Urine Appearance Clear, Urine pH 7.0, Ur Specific [place] 1.025, Urine Protein 100 H, Urine Glucose (UA) Negative, Urine Ketones Negative, Urine Blood Trace-lysed H, Urine Nitrate Negative, Urine Bilirubin Negative, Urine Urobilinogen 0.2, Ur Leukocyte Esterase Negative, Urine RBC 2 - 5 H, Urine WBC 2 - 5, Ur Epithelial Cells 6 - 8 H 03/18/18 15:41: Ammonia 20 03/18/18 15:30: Alcohol, Quantitative < 10 03/18/18 15:30: Salicylates < 1 L, Acetaminophen < 10.0 L 03/18/18 15:30: Sodium 140, Potassium 4.0, Chloride 106, Carbon Dioxide 29, Anion Gap 9 L, BUN 17, Creatinine 1.0, Est GFR ( Amer) > 60, Est GFR (Non-Af Amer) > 60, Random Glucose 124 H, Calcium 8.7, Total Bilirubin 0.5, AST 33, ALT 16, Alkaline Phosphatase 97, Total Protein 6.7, Albumin 3.7, Globulin 3.0, Albumin/Globulin Ratio 1.3 03/18/18 15:30: WBC 5.2, RBC 4.58, Hgb 13.0 L D, Hct 39.2 L, MCV 85.6 D, MCH 28.4, MCHC 33.2, RDW 12.6, Plt Count 99 L, MPV 10.5, Neut % (Auto) 75.5 H, Lymph % (Auto) 13.2 L, [place] % (Auto) 6.6 H, Eos % (Auto) 3.9, Baso % (Auto) 0.8, Lymph # (Auto) 0.7 L, [place] # (Auto) 0.3, Eos # (Auto) 0.2, Baso # (Auto) 0.04, Absolute Neuts (auto) 3.91 Vital Signs Temp Pulse Resp BP Pulse Ox 03/19/18 13:30 53 L 167/82 H 03/19/18 12:00 52 L 18 175/85 H 03/19/18 07:29 66 199/99 H 03/19/18 07:28 66 199/99 H 03/19/18 07:12 97.7 F 62 20 198/99 H 03/18/18 22:00 20 03/18/18 21:38 61 182/88 H 03/18/18 20:18 98.1 F 60 16 178/68 H 98 03/18/18 19:48 98 F 58 L 14 183/70 H 98 03/18/18 18:40 62 191/70 H 03/18/18 18:16 62 18 191/70 H 98 03/18/18 16:11 193/84 H 03/18/18 15:43 98.1 F 64 18 208/87 H 98 - Diagnosis (1) Depression Current Visit: Yes Status: Acute Priority: High - Final Diagnosis (DSM 5) Condition upon Discharge: FAIR Disposition: NURSING FACILITY MEDICAID [facility] Follow-up Treatment Plan: At the time of the discharge patient pose no imminent danger to self or others, will be following up with psychiatrist in [place], was advised to be f/u within 72 hrs of discharge, it is a [place] responsibility to provide pt with proper follow up appointment with psychiatrist, PMD, urologist and all necessary specialists. - Smoking Cessation Smoking Cessation Medication prescribed: No Reason for not providing: Patient denies smoking - Antipsychotic Medications Pt discharged on 2 or more routine antipsychotic medications: No
== END 2018-03-28 17:20 | DRG 881 ==
LOC: ED 15:15 → ERH 18:50 → PSYC 20:32
PROVIDERS: ADMIT Psychiatry & Neurology Psychiatry; ATTEND Psychiatry & Neurology Psychiatry
DX: F32.9 Major depressive disorder, single episode, unspecified (principal); R45.851 Suicidal ideations; I69.354 Hemiplegia and hemiparesis following cerebral infarction affecting left non-dominant side; N39.0 Urinary tract infection, site not specified; B96.4 Proteus (mirabilis) (morganii) as the cause of diseases classified elsewhere; F03.90 Unspecified dementia, unspecified severity, without behavioral disturbance, psychotic disturbance, mood disturbance, and anxiety; I12.9 Hypertensive chronic kidney disease with stage 1 through stage 4 chronic kidney disease, or unspecified chronic kidney disease; N18.9 Chronic kidney disease, unspecified; E11.22 Type 2 diabetes mellitus with diabetic chronic kidney disease; E11.42 Type 2 diabetes mellitus with diabetic polyneuropathy; N40.0 Benign prostatic hyperplasia without lower urinary tract symptoms; K80.20 Calculus of gallbladder without cholecystitis without obstruction; K21.9 Gastro-esophageal reflux disease without esophagitis; K70.30 Alcoholic cirrhosis of liver without ascites; F10.21 Alcohol dependence, in remission; F17.210 Nicotine dependence, cigarettes, uncomplicated; F41.9 Anxiety disorder, unspecified; I25.10 Atherosclerotic heart disease of native coronary artery without angina pectoris; Z79.4 Long term (current) use of insulin; Z79.82 Long term (current) use of aspirin